=== PATIENT | male | born 1945 | race Caucasian/White ===

== ENCOUNTER → 2018-02-22 06:33 | Outpatient (CLI) | payer MEDICARE, SELFPAY ==
[2018-02-22 08:49] LABS: Cholesterol 122 mg/dL (140-199); HDL Cholesterol 50 mg/dL (40-60); LDL Cholesterol Calculated 61 mg/dL (<100); Triglycerides 57 mg/dL (35-150)
== END ==
PROVIDERS: Family Provider Family Medicine; PCP Family Medicine; Visit Provider Internal Medicine Cardiovascular Disease
DX: I25.10 Atherosclerotic heart disease of native coronary artery without angina pectoris (principal)
CPT/HCPCS: 36415; 80061

== ENCOUNTER → 2018-04-15 14:34 | Outpatient (CLI) | payer MEDICARE, SELFPAY ==
--- NOTE | 2018-04-15 | DI.CT.S_ITS ---
PROCEDURE: CT SOFT TISSUE NECK W CON INDICATIONS: NECK PAIN TECHNIQUE: After the administration of intravenous contrast, 3.0 mm axial sections acquired from the sella to the aortic arch. Additional oblique axial 3.0 mm sections acquired through the pharynx. 3 mm thick coronal and sagittal reformats were generated. For radiation dose reduction, the following was used: automated exposure control. COMPARISON: None. FINDINGS: Image quality: Excellent. Lymph nodes: No enlarged lymph nodes seen throughout the neck. Vessels: Visualized vasculature appears patent. Neck spaces: The oropharynx, nasopharynx, and pharynx demonstrate no mucosal lesions. The vocal cords, false vocal cords, pyriform sinuses, epiglottis, vallecula, and tongue base all appear normal. There is a 3.1 x 2.5 x 3.3 cm soft tissue density mass with subtle, ill-defined peripheral post contrast-enhancement in the right submandibular space anterior to the right submandibular gland. Inflammatory stranding is noted adjacent to the lesion. The right submandibular gland is not significantly enlarged. Mild inflammatory changes are noted in the anterior margin of the gland where the gland abuts the right submandibular mass. Right submandibular duct is not dilated. Glands: The parotid glands appear normal. The left submandibular gland is normal. Right submandibular gland as described above. Thyroid gland contains a 1.3 cm heterogeneously enhancing nodule in the left lobe. Miscellaneous: Visualized brain and orbits appear normal. Lung apices appear clear. Superficial soft tissues appear normal. Bones: No suspicious bony lesions. Mucosal thickening noted in the maxillary sinuses bilaterally. mastoids appear unremarkable. IMPRESSION: 1. 3.1 x 2.5 x 3.3 cm soft tissue density mass with ill-defined peripheral post contrast-enhancement in the right submandibular space. Finding may represent inflammatory phlegmon or neoplastic process. 2. No evidence of sialolithiasis or submandibular duct dilatation. 3. 1.3 cm left thyroid nodule. Recommend thyroid ultrasound for definitive characterization. 4. Bilateral maxillary sinus mucosal thickening. 5. Ordering physician Dr. Falcon was telephoned with the results. No individual was available to take the call at the time of study interpretation. Message was left on the ordering physicians answering machine with a call back number on 04/15/2018 at 1559 hrs. Dictated by: Elise Dyer MD, PhD on 04/15/2018 at 15:52 Approved by: Elise Dyer MD, PhD on 04/15/2018 at 16:03
[2018-04-15 15:07] LABS: BUN Creatinine Ratio 23.8 (6-22); Blood Urea Nitrogen 31 mg/dL (9-20); Estimated Glomerular Filt Rate 54.3 mL/min (>60)
== END ==
PROVIDERS: PCP Family Medicine; Visit Provider Dentist Oral and Maxillofacial Surgery
DX: K11.5 Sialolithiasis (principal)
CPT/HCPCS: 36415; 70491; 82565; 84520; Q9967

== ENCOUNTER → 2018-05-07 08:34 | Outpatient (CLI) | payer MEDICARE, SELFPAY | PROVIDERS: PCP Family Medicine; Visit Provider Urology | DX: R97.20 Elevated prostate specific antigen [PSA] (principal) | CPT/HCPCS: 36415; 84153 ==

== ENCOUNTER → 2018-07-08 07:19 | Outpatient (CLI) | payer MEDICARE, SELFPAY ==
--- NOTE | 2018-07-08 07:20 | DI.RAD.S_ITS ---
PROCEDURE: XR HIP W PEL IF DONE LT 2V INDICATIONS: L hip pain TECHNIQUE: AP pelvis with lateral view(s) of the left hip(s). COMPARISON: None. FINDINGS: Bones: No fractures or dislocations. Pelvic ring appears intact. No suspicious bony lesions. Soft tissues: The visualized bowel gas pattern is normal. No suspicious soft tissue calcifications. IMPRESSION: No acute radiographic findings. If there is continued pain, followup exam or additional imaging such as MRI or CT could be performed for further assessment. Dictated by: Connie Villa M.D. on 07/08/2018 at 8:31 Approved by: Connie Villa M.D. on 07/08/2018 at 8:32
== END ==
PROVIDERS: Family Provider Family Medicine; PCP Family Medicine; Visit Provider Family Medicine
DX: M25.552 Pain in left hip (principal)
CPT/HCPCS: 73502

== ENCOUNTER → 2018-12-27 07:32 | Outpatient (CLI) | payer MEDICARE, SELFPAY ==
--- NOTE | 2018-12-27 07:34 | DI.US.S_ITS ---
PROCEDURE: US ABDOMEN LIMITED INDICATIONS: RIGHT GROIN PAIN; POSSIBLE HERNIA TECHNIQUE: Real-time focused scanning was performed of the abdomen, with image documentation. COMPARISON: None. FINDINGS: Focused ultrasound examination of right groin shows no soft tissue mass or fluid collection. No herniated bowel loop is seen. IMPRESSION: No evidence of inguinal hernia or soft tissue mass. Dictated by: Artie Jennings M.D. on 12/27/2018 at 9:38 Approved by: Artie Jennings M.D. on 12/27/2018 at 9:39
== END ==
PROVIDERS: Family Provider Family Medicine; PCP Family Medicine; Visit Provider Physician Assistant
DX: R10.31 Right lower quadrant pain (principal)
CPT/HCPCS: 76705

== ENCOUNTER → 2019-01-16 14:37 | Outpatient (CLI) | payer MEDICARE, SELFPAY ==
--- NOTE | 2019-01-16 14:39 | DI.US.S_ITS ---
PROCEDURE: US ABDOMEN LIMITED INDICATIONS: EVALUATE FOR HERNIA RIGHT GROIN TECHNIQUE: Real-time focused scanning was performed of the abdomen, with image documentation. COMPARISON: [facility], CT, IVP (ABD & PEL WWO CONTRAST), 12/03/2015, 9:02. [facility], US, US ABDOMEN LIMITED, 12/27/2018, 7:45. FINDINGS: Scanning is performed at the area of pain involving the right groin. At this site, there is a hernia seen which contains bowel and a small amount of omental fat. The bowel is compressible. The abdominal wall defect measures approximately 2.2 cm. IMPRESSION: There is a right groin hernia seen, which contains fat and compressible bowel. If clinically appropriate, please consider a dedicated repeat CT study with IV and oral contrast for further evaluation. Dictated by: Clyde Hammer M.D. on 01/16/2019 at 16:38 Approved by: Clyde Hammer M.D. on 01/16/2019 at 16:39
== END ==
PROVIDERS: PCP Family Medicine; Visit Provider Family Medicine
DX: K40.90 Unilateral inguinal hernia, without obstruction or gangrene, not specified as recurrent (principal)
CPT/HCPCS: 76705

== ENCOUNTER 2019-03-06 07:41 | Day surgery (SDC) | payer MEDICARE, SELFPAY ==
[2019-02-27 15:05] VITALS: BMI 29.7
[2019-03-06] VITALS (10 sets, daily range): BP systolic 131–175; BP diastolic 63–82; PULSE 46–60; RESP 12–16; TEMP 36.1–37.2; O2SAT 96–100; BMI 29.7
[2019-03-06] MEDS: LACTATED RINGERS 1,000 ML 100 ML IV (08:15)
--- NOTE | 2019-03-06 09:15 | PM.PREOP ---
Pre-operative Note Interval Note History & Physical reviewed/Exam performed by Physician: Yes Changes to H&P: No
[2019-03-06] MEDS: CEFAZOLIN 2 GM/100 ML FROZ.PIGGY IV (09:43)
[2019-03-06] MEDS: BUPIVACAINE 0.5% (PF) VIAL 30 ML INJ (09:57)
--- NOTE | 2019-03-06 10:16 | SUR.OPER ---
Supine on padded OR bed, head on pillow, arms secured on padded arm boards at <90 degrees abduction, legs uncrossed, safety belt at thigh.
[2019-03-06] MEDS: fentaNYL 100 MCG/2 ML INJ 50 MCG IV ×2 (11:15→11:21)
[2019-03-06] MEDS: OXYCODONE/ACETAMINOPHEN 5/325 TABLET 1 TAB PO (11:16)
--- NOTE | 2019-03-06 11:31 | PM.OP.1 ---
Operative Date/Time/Diagnoses Date of procedure: 03/06/19 Time of procedure: 11:00 Pre-op diagnosis: Right inguinal hernia reducible Post-op diagnosis: same (Principally an indirect hernia.) Procedure & Clinicians Procedure: Repair with plug and patch technique Same procedure as scheduled: Yes Indications: Symptomatic right inguinal hernia Surgeon: Hernesto Wolfe Click Yes if Unassisted: Yes Anesthesia Type: General Operative Notes Findings: Large indirect sac. Closure Type: primary Specimen(s): none sent Prosthetic devices, grafts, tissues, transplants, or devices: Mesh Estimated Blood Loss (mL): 5 Blood products transfused: none Procedure in detail: The patient was placed supine on the operating room table and underwent general LMA anesthesia. He was prepped and draped in the usual fashion. A transverse incision was made overlying the internal ring and carried down to the level of the external oblique. The external oblique was opened parallel with its fibers through the external ring. The cord structures were elevated. The cremaster was opened proximally and search made for an indirect sac. One was identified and from surrounding structures. It was opened and found to have adhesed fat in it. This was taken down with cautery and reduced into the abdomen. Using a 2 0 silk pursestring was then performed to close the sac followed by a tie. A medium plug was placed in the defect created and tacked into place with interrupted Ethibond suture. The cremaster was closed with 3 0 Vicryl.. The floor was examined and was found to be somewhat weakened proximally near the internal ring. It was allowing fat to protrude from the preperitoneal space down into the cord. I placed sutures of 0 Ethibond from the ileopubic tract to transversalis to reapproximate the internal ring and narrow it said that this fat would stay in the preperitoneal space.. A patch was placed across the floor and tacked at the pubic tubercle, the posterior lamella of the anterior rectus sheath, the ilioinguinal ligament, and superior lateral to the cord. The opening was modified as necessary to prevent tight constriction of the cord. Sutures of 0 Tycron were used to secure the mesh. The external oblique was closed with a running 3 0 Vicryl. The subcu was closed with interrupted 3 0 Polysorb. The skin was closed with a running 4 0 Vicryl subcuticular stitch and Steri-Strips. Dressing was applied, the patient was awakened, and the patient was taken to the recovery area in good condition. Complications: none Post-operative Condition: stable Disposition: PACU
== END 2019-03-06 12:32 | disposition home or self-care (01) ==
LOC: OR 07:44
PROVIDERS: PCP Family Medicine; Visit Provider Specialist
PROC: (CPT 49505; principal; 2019-03-06 09:00)
DX: K40.90 Unilateral inguinal hernia, without obstruction or gangrene, not specified as recurrent (principal)
CPT/HCPCS: 49505; C1781; J0690; J2405; J2704; J3010

== ENCOUNTER → 2019-04-13 06:25 | Outpatient (CLI) | payer MEDICARE, SELFPAY ==
--- NOTE | 2019-04-13 | DI.ECHO.S_ITS ---
[facility]---------+ [facility] +---------+ : : [address] : : : : [id number] : : : : Phone: [phone]+ Echocardiogram Report + + :Name: MARLENE ARTHUR Study Date: 04/13/2019 Height: 67.5 in: :[facility] Weight: 192 lb : : Gender: Male BSA: 2.0 m2 : :: 1945 Age: 74 yrs BP: 142/86 mmHg: :Reason For Study: Aortic valve stenosis : : Performed By: [facility] Staff : :Referring: QUYNH DOSHI : + + Interpretation Summary The left ventricular ejection fraction is normal. There are no obvious focal wall motion abnormalities noted but poor endocardial definition reduces the sensitivity for the detection of such. The right ventricle is normal in size and function. There is mild to moderate aortic stenosis. The calculated aortic valve area is 1.5 cm2. The peak aortic velocity is 2.71 m/sec.The aortic valve mean gradient is 16 mmHg. Compared to the prior echo study, there has been no change in the severity of aortic stenosis. The ascending aorta is mildly enlarged. This is unchanged compared to the previous study. Overall these findings are similar to the prior echocardiogram. Procedure: A two-dimensional transthoracic echocardiogram with color flow and Doppler was performed. The study quality was technically adequate. Prior echo performed on 02/25/18. The patient was in a bradycardic rhythm during the exam. Left Ventricle: The left ventricle is normal in size. Left ventricular wall thickness is mildly increased. The ejection fraction is estimated to be 60- 65%. The left ventricular ejection fraction is normal. There are no obvious focal wall motion abnormalities noted but poor endocardial definition reduces the sensitivity for the detection of such. Diastolic function could not be accurately assessed due to contradictory data. Right Ventricle: The right ventricle is normal in size and function. TAPSE 2cm. Atria: The left atrium is moderately dilated. Right atrial size is normal. There is no Doppler evidence for an interatrial shunt. Mitral Valve: The mitral valve leaflets appear mildly thickened, but open well. There is no mitral regurgitation noted. Aortic Valve: The aortic valve is moderately calcified. A bicuspid valve is not excluded. There is mild to moderate aortic stenosis. The calculated aortic valve area is 1.5 cm2. The peak aortic velocity is 2.71 m/sec. The aortic valve mean gradient is 16 mmHg. Compared to the prior echo study, there has been no change in the severity of aortic stenosis. The peak aortic velocity on the previous exam was 2.6 m/sec. There is mild to moderate aortic regurgitation. Tricuspid Valve: The tricuspid valve is normal in structure and function. There is trace tricuspid regurgitation. Pulmonary artery pressures cannot be estimated because of the lack of a measurable TR jet velocity. Pulmonic Valve: The pulmonic valve is normal in structure and function. There is trace pulmonic regurgitation. Great Vessels: The aortic root is mildly dilated. The ascending aorta is mildly enlarged. The aortic arch is mildly enlarged. This is unchanged compared to the previous study. The pulmonary artery is normal size. The IVC is of normal diameter and collapses greater than 50% with a sniff. This suggests a low right atrial pressure of 3 mm Hg. Pericardium/ Pleura There is no pericardial effusion. There is no pleural effusion. MMode/2D Measurements & Calculations LVIDd: 4.4 cm LVOT diam: 2.1 cm LVIDs: 2.9 cm Ao root diam: 4.2 cm FS: 34.7 % Aortic Jxn: 3.8 cm EPSS: 0.42 cm asc Aorta Diam: 4.4 cm IVSd: 1.4 cm LVPWd: 1.2 cm LV anaya. diameter/BSA (cm/m^2): 2.2 LV sys. diameter/BSA (cm/m^2): 1.4 LA A2 area: 18.9 cm2 RA long axis: 5.7 cm LA A4 area: 24.7 cm2 RA area: 13.2 cm2 LA length (vol): 5.7 cm RA vol: 25.9 ml LA vol: 69.9 ml RA : 12.9 ml/m2 LA vol index: 35.0 ml/m2 TAPSE: 2.0 cm Doppler Measurements & Calculations Ao V2 max: 271.2 cm/sec LVOT Max Shay: 97.7 cm/sec Ao V2 mean: 186.4 cm/sec LV V1 max P.8 mmHg Ao max P.4 mmHg LV V1 VTI: 27.7 cm Ao mean P.4 mmHg SARA(I,D): 1.5 cm2 Ao V2 VTI: 67.8 cm SARA(V,D): 1.3 cm2 sev ratio: 0.41 SARA indexed to BSA (cm^2/m^2): 0.73 MV E max shay: 76.6 cm/sec PA V2 max: 56.3 cm/sec MV A max shay: 65.4 cm/sec PA V2 mean: 36.8 cm/sec MV E/A: 1.2 PA mean P.66 mmHg Med Peak E' Shay: 4.4 cm/sec JOLENE Accel Time: 0.13 sec E/E' med: 17.3 Lat Peak E' Shay: 7.5 cm/sec E/E' lat: 10.3 E/e' average: 13.8 MV dec time: 0.19 sec SV(LVOT): 98.7 ml Electronically signed by: Quynh Doshi M.D. on Reading Physician:04/16/2019 11:27 PM
== END ==
PROVIDERS: PCP Family Medicine; Visit Provider Hospitalist
DX: I35.2 Nonrheumatic aortic (valve) stenosis with insufficiency (principal); I77.89 Other specified disorders of arteries and arterioles
CPT/HCPCS: 93306

== ENCOUNTER → 2019-10-11 06:50 | Outpatient (CLI) | payer MEDICARE, SELFPAY ==
[2019-10-11 08:19] LABS: Cholesterol 133 mg/dL (140-199); HDL Cholesterol 51 mg/dL (40-60); LDL Cholesterol Calculated 70 mg/dL (<100); Triglycerides 58 mg/dL (35-150)
== END ==
PROVIDERS: PCP Family Medicine; Referring Provider Hospitalist; Visit Provider Hospitalist
DX: E78.5 Hyperlipidemia, unspecified (principal)
CPT/HCPCS: 36415; 80061

== ENCOUNTER → 2019-10-25 06:54 | Outpatient (CLI) | payer MEDICARE, SELFPAY ==
--- NOTE | 2019-10-25 06:59 | DI.RAD.S_ITS ---
PROCEDURE: XR KNEE RT 3V INDICATIONS: right knee pain TECHNIQUE: 3 views of the knee were acquired. COMPARISON: None. FINDINGS: Bones: No fractures or dislocations. No suspicious bony lesions. Scattered degenerative subchondral sclerosis and spurring. Mild lateral patellar tilt. Minimal narrowing of the medial joint space. Soft tissues: No joint effusion. No suspicious soft tissue calcifications. Scattered vascular calcifications incidentally noted. IMPRESSION: Mild right knee joint degeneration. If the patient's pain or other symptoms persist, consider further evaluation with MRI Dictated by: Russel Peterson M.D. on 10/25/2019 at 9:46 Approved by: Russel Peterson M.D. on 10/25/2019 at 9:56
--- NOTE | 2019-10-25 06:59 | DI.RAD.S_ITS ---
PROCEDURE: XR HIP W PEL IF DONE LT 2V INDICATIONS: right knee pain TECHNIQUE: AP pelvis with lateral view(s) of the left hip(s). COMPARISON: [facility], , XR HIP W PEL IF DONE LT 2V, 07/08/2018, 7:24. FINDINGS: Bones: No fractures or dislocations. Pelvic ring appears intact. No suspicious bony lesions. Lower lumbar spondylosis and facet arthropathy. Superior joints appear grossly intact. Mild bilateral hip degeneration, left slightly greater than right although unchanged. Degenerative sclerosis present at the pubis symphysis. Soft tissues: The visualized bowel gas pattern is normal. No suspicious soft tissue calcifications. IMPRESSION: Mild bilateral hip joint degeneration, left slightly greater than right although no interval change since 07/08/18. Lumbar spondylosis Dictated by: Russel Peterson M.D. on 10/25/2019 at 9:43 Approved by: Russel Peterson M.D. on 10/25/2019 at 9:46
[2019-10-25 09:13] LABS: Add Manual Diff / Slide Review NO; Basophils Absolute Auto 100 /uL (0-100); Eosinophils Absolute Auto 200 /uL (0-450); Eosinophils Percent Auto 3.9 % (2-4); Hemoglobin 14.1 g/dL (13.5-17.5); Lymphocytes Absolute Auto 1100 /uL (1100-4500); Mean Corpuscular HGB Conc 35.3 % (30-36); Mean Corpuscular Hemoglobin 31.9 PG (26-34); Mean Corpuscular Volume 90.5 fL (80-100); Monocytes Absolute Auto 700 /uL (0-900); Monocytes Percent Auto 11.9 % (3-14); Neutrophils Absolute Auto 3900 /uL (1500-7000); Neutrophils Percent Auto 65.2 % (50-75); Platelet Count 253 X10^3/uL (150-400); Red Blood Cell Count 4.42 X10^6/uL (4.5-5.9); Red Cell Distribution Width 13.1 % (11.6-14.8)
[2019-10-25 09:45] LABS: Alanine Aminotransferase 22 IU/L (<50); Albumin 4.1 g/dL (3.5-5.0); Albumin Globulin Ratio 1.6 (1.0-2.8); Alkaline Phosphatase 57 U/L (38-126); Aspartate Aminotransferase 26 IU/L (17-59); BUN Creatinine Ratio 30.6 (6-22); Bilirubin Total 0.6 mg/dL (0.2-1.3); Blood Urea Nitrogen 30 mg/dL (9-20); Calcium 9.6 mg/dL (8.4-10.2); Carbon Dioxide 29 mmol/L (22-32); Chloride 101 mmol/L (98-107); Estimated Glomerular Filt Rate > 60.0 mL/min (>60); Globulin 2.5 g/dL (1.7-4.1); Glucose 93 mg/dL (80-110); HEMOLYSIS < 15 (0-50); Potassium 4.2 mmol/L (3.4-5.1); Sodium 137 mmol/L (137-145); Total Protein 6.6 g/dL (6.3-8.2)
[2019-10-25 10:14] LABS: Prostate Specific Antigen 3.71 ng/mL (0.10-4.00)
== END ==
PROVIDERS: PCP Internal Medicine; Referring Provider Internal Medicine; Visit Provider Internal Medicine
DX: M25.552 Pain in left hip (principal); M16.0 Bilateral primary osteoarthritis of hip; M47.816 Spondylosis without myelopathy or radiculopathy, lumbar region; M25.561 Pain in right knee; M17.11 Unilateral primary osteoarthritis, right knee; E78.2 Mixed hyperlipidemia; I10 Essential (primary) hypertension; I25.10 Atherosclerotic heart disease of native coronary artery without angina pectoris; R97.20 Elevated prostate specific antigen [PSA]
CPT/HCPCS: 36415; 73502; 73562; 80053; 84153; 85025

== ENCOUNTER 2020-02-07 08:15 | Outpatient (RCR) | payer MEDICARE, SELFPAY ==
--- NOTE | 2019-11-01 16:08 | PT.OIE ---
Current Diagnoses Unilateral primary osteoarthritis, unspecified hip (11/01/19) Unilateral primary osteoarthritis, right knee (11/01/19) Past Medical History (Last Reviewed 10/24/19 @ 14:58 by Rajan Cash MD) Aortic stenosis (Chronic) BPH w urinary obs/LUTS (Chronic) CAD (coronary artery disease) (Chronic ~2018) Elevated PSA (Chronic) Enlarged prostate (Acute) Hematuria (Chronic) Mass (Acute ~10/2018) Urinary frequency (Acute) Past Surgical History (Last Reviewed 10/24/19 @ 14:58 by Rajan Cash MD) Hx of cardiac catheterization (Acute) Hx of heart artery stent (Acute) Hx of hernia repair (Acute ~05/2017) S/P right coronary artery (RCA) stent placement (Acute ~01/2018) Visit Care Team Role Provider Type Rajan Cash MD Attending Provider Physician Primary Care Provider Referring Provider Specialty: Internal Medicine Address: [address] [place] [address] Email: [email or web address] Physical Therapy Initial Evaluation PT-OP-A Visit Information Start: 10/31/19 16:17 Freq: Status: Active Protocol: Document 11/01/19 09:02 MILLY (Rec: 11/01/19 09:35 [facility] [id number]) Out-Patient Physical Therapy Visit Information Visit Information Visit Type Initial Evaluation Visit Start Time 09:00 Visit Stop Time 09:56 Total Visit Minutes 56 Visit Number 1 PT-OP-B Current Condition Start: 10/31/19 16:17 Freq: Status: Active Protocol: Document 11/01/19 09:02 SAK (Rec: 11/01/19 09:35 [facility] [id number]) Current Condition History of Current Condition Onset Date few years History of Current Condition history of hip pain for several years, right knee pain for about 6 months; persistent and Not able to walk around [place] anymore, has to walk level ground. No other exercises besides walking for hips and knees, does a few exercises previously given for LBP. No use of ice or heat. Tried a brace on his knee with velcroe straps; didn't seem to make much difference. Prior history of right knee pain with no known mechanism of injury then or now. Pain worse with standing and walking. 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 retired Current Functional Impairments (Reported) Functional Limitations- ADL's painful Functional Limitations- Mobility/Gait painful, unable to walk usual distance or difficulty ( incline) PT-OP-C Subjective Start: 10/31/19 16:17 Freq: Status: Active Protocol: Document 11/01/19 09:02 [facility] (Rec: 11/01/19 10:07 [facility] [id number]) Patient Questionnaires Lower Extremity Functional Scale LEFS Score 49 OP-PT Pain Assessment Pain Assessment Grid Paper Pain Assessment Grid Completed Yes Location left hip, right knee Pain Location Details medial joint line right knee, lateral left hip Intensity 3 Description Aching,Tightness,With Movement Frequency with walking and standing Radiating Location none Pain Aggravating Factors Standing,Walking Pain Alleviating Factors Inactivity PT-OP-F Manual Assessment Start: 10/31/19 16:17 Freq: Status: Active Protocol: Document 11/01/19 09:02 [facility] (Rec: 11/01/19 10:17 [facility] [id number]) Manual Assessments Soft Tissue Assessment Soft Tissue Mobility Assessment palpable tightness bilateral quads, IT bands, hamstrings Joint Mobility Assessment Joint Mobility Assessment decreased in all motions hip and knees PT-OP-G Mobility & Gait Start: 10/31/19 16:17 Freq: Status: Active Protocol: Document 11/01/19 09:02 [facility] (Rec: 11/01/19 10:17 [facility] [id number]) OP Mobility Evaluation Transfers Sit to Stand independent OP Gait Assessment Gait Gait Assistance Required: Independent Assistive Devices Assistive Device None Orthotic/Prosthetic Devices or Brace: No Gait Deviations General Gait Pattern Antalgic Factors Limiting Gait Function Factors Limiting Gait Function Limited Range of Motion,Pain PT-OP-K Range of Motion Start: 10/31/19 16:17 Freq: Status: Active Protocol: Document 11/01/19 09:02 [facility] (Rec: 11/01/19 10:17 [facility] [id number]) Lumbar Spine Range of Motion Lumbar Spine Active Testing Position Standing ROM Limitations Soft Tissue Tightness Comments decreased all motions with c/o tightness Hip Goniometric Range of Motion Hip adilene Hip ROM WFL No Extension 5 Internal Rotation 14 External Rotation 45 Hip ROM Limitations Hip ROM Limitations Soft Tissue Tightness Comments Mod tightness bilateral IT band right greater than left, [place] hamstrings right greater than left (PSLR left 65, right 55) , [place] quads (prone knee flex 85 left, 80 right), hip IR and ER Knee Goniometric Range of Motion Knee ad[place] Knee ROM WFL No Knee ROM Limitations Knee ROM Limitations Soft Tissue Tightness,Bony Restriction Comments Left knee extension -6 otherwise WFL Ankle and Foot Goniometric Range of Motion Ankle and Foot [place] Dorsiflexion with Knee Flexed 5 Dorsiflexion with Knee Extended 0 Ankle and Foot ROM Limitations ROM Limitations Soft Tissue Tightness PT-OP-M Strength Start: 10/31/19 16:17 Freq: Status: Active Protocol: Document 11/01/19 09:02 [facility] (Rec: 11/01/19 14:18 [facility] [id number]) Hip Strength Hip Manual Muscle Testing [place] Flexion (L2) 4 Good Extension (S1) 4- Good- Abduction 4 Good External Rotation 4- Good- Internal Rotation 4 Good Knee Strength Knee Manual Muscle Testing Left Flexion (S2) 5 Normal Extension (L3) 5 Normal Right Flexion (S2) 4 Good Extension (L3) 4 Good Ankle/Foot Strength Ankle and Foot Manual Muscle Testing ad[place] Dorsiflexion (L4) 5 Normal Plantarflexion (S1) 5 Normal PT-OP-Q Treatments Start: 10/31/19 16:17 Freq: Status: Active Protocol: Document 11/01/19 09:02 [facility] (Rec: 11/01/19 14:18 [facility] [id number]) Self-Care/Home Management Treatment Education Patient Education Home Exercise Program,Pain Management PT-OP-R Modalities Start: 10/31/19 16:17 Freq: Status: Active Protocol: Document 11/01/19 09:02 [facility] (Rec: 11/01/19 14:19 [facility] [id number]) Hot Pack/Cold Pack Treatment Hot Pack Location left hip, right knee Patient Position Hooklying Treatment Duration (minutes) 15 Patient Tolerance Good PT-OP-T Assessment and Plan Start: 10/31/19 16:17 Freq: Status: Active Protocol: Document 11/01/19 09:02 [facility] (Rec: 11/01/19 16:06 [facility] [id number]) Physical Therapy Assessment Rehab Potential Rehabilitation Potential Good Evaluation Complexity Number of Personal Factors/Comorbidities 1-2 Number of Body Systems Impaired 3 Clinical Presentation at Evaluation Evolving Impairments Impairments Functional Mobility,Pain,ROM Goals Four Impairment weakness bilateral hip ext 4-/ 5 Assisted Goal (LTG) Patient will demonstrate improvement in bilateral hip extension to at least 4+/5 for improved hip function LTG Duration 12/31/19 Three Impairment soft tissue tightness Assisted 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 Soft tissue tightness throughout his hips including quadriceps, hamstrings IT bands, and piriformis as well as gluteal weakness appear to be contributing. Feel he would benefit from physical therapy for therapeutic exercise, manual techniques, modalities as needed for pain to improve his soft tissue flexibility and strength to facilitate a return to a more active lifestyle. Physical Therapy Plan Frequency and Duration Frequency of Treatment 2x/Week Duration of Treatment 8 Plan of Care Start Date 11/01/19 Plan of Care End Date 12/31/19 Therapeutic Interventions Therapeutic Interventions Home Exercise Program,Joint Mobilizations,Manual Therapy, Patient/Caregiver Education, Self-Care/Home Management,Soft Tissue Mobilization,Taping, Therapeutic Activities, Therapeutic Exercises Modalities Cold Pack/Ice Massage,Electric Stimulation,Hot Packs, Ultrasound Next Visit Focus/Plan Next Note Type Treatment Note Next Visit Plan Review HEP, progress as tolerated. Manual therapy to IT band, quads, hamstrings. Consider knee taping with kinesiotape.
--- NOTE | 2019-11-01 16:09 | PT.OPPOC ---
Physical, Occupational & Speech Therapy At [facility] Current Diagnoses Unilateral primary osteoarthritis, unspecified hip (11/01/19) Unilateral primary osteoarthritis, right knee (11/01/19) Visit Care Team Role Provider Type Rajan Cash MD Attending Provider Physician Primary Care Provider Referring Provider Specialty: Internal Medicine Address: [address] [place] [address], [address], [facility] Email: [email or web address] Plan Of Care PT-OP-T Assessment and Plan Start: 10/31/19 16:17 Freq: Status: Active Protocol: Document 11/01/19 09:02 MILLY (Rec: 11/01/19 16:06 MILLY [id number]) Physical Therapy Assessment Rehab Potential Rehabilitation Potential Good Evaluation Complexity Number of Personal Factors/Comorbidities 1-2 Number of Body Systems Impaired 3 Clinical Presentation at Evaluation Evolving Impairments Impairments Functional Mobility,Pain,ROM Goals Four Impairment weakness bilateral hip ext 4-/ 5 Mcc Goal (LTG) Patient will demonstrate improvement in bilateral hip extension to at least 4+/5 for improved hip function LTG Duration 12/31/19 Three Impairment soft tissue tightness Mcc 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 LTG Duration 12/31/19 Two Impairment patient not able to go for usual walks Motor Vehicles Inspector Goal (LTG) Patient will be able to resume his usual walks around [place] without difficulty LTG Duration 12/31/19 One Impairment pain right knee and left hip 3 -5/10 on pain scale Motor Vehicles Inspector Goal (LTG) decrease c/o pain to no greater than 1-2/10 with all usual activities LTG Duration 12/31/19 Assessment Summary Assessment Patient presents with left hip and right knee pain with signs and symptoms consistent with underlying arthritis. Soft tissue tightness throughout his hips including quadriceps, hamstrings IT bands, and piriformis as well as gluteal weakness appear to be contributing. Feel he would benefit from physical therapy for therapeutic exercise, manual techniques, modalities as needed for pain to improve his soft tissue flexibility and strength to facilitate a return to a more active lifestyle. Physical Therapy Plan Frequency and Duration Frequency of Treatment 2x/Week Duration of Treatment 8 Plan of Care Start Date 11/01/19 Plan of Care End Date 12/31/19 Therapeutic Interventions Therapeutic Interventions Home Exercise Program,Joint Mobilizations,Manual Therapy, Patient/Caregiver Education, Self-Care/Home Management,Soft Tissue Mobilization,Taping, Therapeutic Activities, Therapeutic Exercises Modalities Cold Pack/Ice Massage,Electric Stimulation,Hot Packs, Ultrasound Next Visit Focus/Plan Next Note Type Treatment Note Next Visit Plan Review HEP, progress as tolerated. Manual therapy to IT band, quads, hamstrings. Consider knee taping with kinesiotape. Plan of Care Dates Plan of Care Start Date 11/01/19 Plan of Care End Date 12/31/19 Electronically Signed by: Vanessa Dove, PT 11/01/19 0596 Please Sign and Return: I have reviewed this Plan of Care and certify that the skilled therapy services above are required to meet the patient?s needs. Physician Signature Date Printed Name and Credentials Clinical Instructor Signature Printed Name and Credentials
--- NOTE | 2019-11-06 16:15 | PT.OTN ---
Current Diagnoses Unilateral primary osteoarthritis, unspecified hip (11/06/19) Unilateral primary osteoarthritis, right knee (11/06/19) Physical Therapy Treatment Note PT-OP-A Visit Information Start: 10/31/19 16:17 Freq: Status: Active Protocol: Document 11/06/19 08:13 SAK (Rec: 11/06/19 09:02 SAK [id number]) Out-Patient Physical Therapy Visit Information Visit Information Visit Type Treatment Note Visit Note Reports his low back is really hurting him today. Wonders if he is doing himself more harm than good, trying to continue to walk. States right knee seems like its getting a little worse. Visit Start Time 08:15 Visit Stop Time 09:10 Total Visit Minutes 55 Visit Number 2 PT-OP-B Current Condition Start: 10/31/19 16:17 Freq: Status: Active Protocol: Document 11/06/19 08:13 SAK (Rec: 11/06/19 09:02 [facility] [id number]) Current Condition History of Current Condition Onset Date few years History of Current Condition history of hip pain for several years, right knee pain for about 6 months; persistent and Not able to walk around [place] anymore, has to walk level ground. No other exercises besides walking for hips and knees, does a few exercises previously given for LBP. No use of ice or heat. Tried a brace on his knee with velcroe straps; didn't seem to make much difference. Prior history of right knee pain with no known mechanism of injury then or now. Pain worse with standing and walking. Prior Treatments and Tests x-rays: arthritis PT-OP-C Subjective Start: 10/31/19 16:17 Freq: Status: Active Protocol: Document 11/01/19 09:02 [facility] (Rec: 11/01/19 10:07 [facility] [id number]) Patient Questionnaires Lower Extremity Functional Scale LEFS Score 49 OP-PT Pain Assessment Pain Assessment Grid Paper Pain Assessment Grid Completed Yes Location left hip, right knee Pain Location Details medial joint line right knee, lateral left hip Intensity 3 Description Aching,Tightness,With Movement Frequency with walking and standing Radiating Location none Pain Aggravating Factors Standing,Walking Pain Alleviating Factors Inactivity PT-OP-F Manual Assessment Start: 10/31/19 16:17 Freq: Status: Active Protocol: Document 11/01/19 09:02 SAK (Rec: 11/01/19 10:17 [facility] [id number]) Manual Assessments Soft Tissue Assessment Soft Tissue Mobility Assessment palpable tightness bilateral quads, IT bands, hamstrings Joint Mobility Assessment Joint Mobility Assessment decreased in all motions hip and knees PT-OP-G Mobility & Gait Start: 10/31/19 16:17 Freq: Status: Active Protocol: Document 11/01/19 09:02 [facility] (Rec: 11/01/19 10:17 [facility] [id number]) OP Mobility Evaluation Transfers Sit to Stand independent OP Gait Assessment Gait Gait Assistance Required: Independent Assistive Devices Assistive Device None Orthotic/Prosthetic Devices or Brace: No Gait Deviations General Gait Pattern Antalgic Factors Limiting Gait Function Factors Limiting Gait Function Limited Range of Motion,Pain PT-OP-K Range of Motion Start: 10/31/19 16:17 Freq: Status: Active Protocol: Document 11/01/19 09:02 [facility] (Rec: 11/01/19 10:17 [facility] [id number]) Lumbar Spine Range of Motion Lumbar Spine Active Testing Position Standing ROM Limitations Soft Tissue Tightness Comments decreased all motions with c/o tightness Hip Goniometric Range of Motion Hip adil[place] Hip ROM WFL No Extension 5 Internal Rotation 14 External Rotation 45 Hip ROM Limitations Hip ROM Limitations Soft Tissue Tightness Comments Mod tightness bilateral IT band right greater than left, [place] hamstrings right greater than left (PSLR left 65, right 55) , [place] quads (prone knee flex 85 left, 80 right), hip IR and ER Knee Goniometric Range of Motion Knee ad[place] Knee ROM WFL No Knee ROM Limitations Knee ROM Limitations Soft Tissue Tightness,Bony Restriction Comments Left knee extension -6 otherwise WFL Ankle and Foot Goniometric Range of Motion Ankle and Foot ad[place] Dorsiflexion with Knee Flexed 5 Dorsiflexion with Knee Extended 0 Ankle and Foot ROM Limitations ROM Limitations Soft Tissue Tightness PT-OP-M Strength Start: 10/31/19 16:17 Freq: Status: Active Protocol: Document 11/01/19 09:02 [facility] (Rec: 11/01/19 14:18 [facility] [id number]) Hip Strength Hip Manual Muscle Testing [place] Flexion (L2) 4 Good Extension (S1) 4- Good- Abduction 4 Good External Rotation 4- Good- Internal Rotation 4 Good Knee Strength Knee Manual Muscle Testing Left Flexion (S2) 5 Normal Extension (L3) 5 Normal Right Flexion (S2) 4 Good Extension (L3) 4 Good Ankle/Foot Strength Ankle and Foot Manual Muscle Testing [place] Dorsiflexion (L4) 5 Normal Plantarflexion (S1) 5 Normal PT-OP-Q Treatments Start: 10/31/19 16:17 Freq: Status: Active Protocol: Document 11/06/19 08:13 [facility] (Rec: 11/06/19 09:02 SAK [id number]) Cardio Equipment Recumbent Stepper (Sci-Fit) Duration (Minutes) 6 Resistance 1 Seat Position 11 Recumbent Bicycle Duration (Minutes) 5 Resistance 1 Seat Position 3 Gym Equipment Cable Column (Body Solid) hamstring cur Resistance 30 Reps/Time 10x2 Shuttle Recovery Unilateral Squats Resistance 37 Shuttle Recovery Platform Stable Reps/Time 10x2 Bilateral Squats Resistance 50 Shuttle Recovery Platform Stable Reps/Time 10x2 Therapeutic Exercises Supine Exercises IT band stretch Reps/Minutes 1x30 Comments manual HS stretch Reps/Minutes 2x30 Comments manual Sidelying Exercises quad stretch Reps/Minutes 2x30 Comments manual Standing Exercises HC stretch Reps/Minutes 2x30, 10x Comments passive, active hip abd Reps/Minutes 10x Manual Therapy Treatment Soft Tissue Mobilization IT band Mobilization Type Rolling,Sustained Pressure Intensity/Depth Moderate Self-Care/Home Management Treatment Education Patient Education Home Exercise Program,Pain Management PT-OP-R Modalities Start: 10/31/19 16:17 Freq: Status: Active Protocol: Document 11/06/19 08:13 [facility] (Rec: 11/06/19 09:02 [facility] [id number]) Hot Pack/Cold Pack Treatment ice pack Location left hip, right knee, LS Patient Position Hooklying Treatment Duration (minutes) 10 Patient Tolerance Good PT-OP-T Assessment and Plan Start: 10/31/19 16:17 Freq: Status: Active Protocol: Document 11/06/19 08:13 [facility] (Rec: 11/06/19 09:02 [facility] [id number]) Physical Therapy Assessment Goals Four Impairment weakness bilateral hip ext 4-/ 5 Correction Goal (LTG) Patient will demonstrate improvement in bilateral hip extension to at least 4+/5 for improved hip function LTG Duration 12/31/19 Three Impairment soft tissue tightness Correction 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 LTG Duration 12/31/19 Two Impairment patient not able to go for usual walks Correction Goal (LTG) Patient will be able to resume his usual walks around [place] without difficulty LTG Duration 12/31/19 One Impairment pain right knee and left hip 3 -5/10 on pain scale Correction Goal (LTG) decrease c/o pain to no greater than 1-2/10 with all usual activities LTG Duration 12/31/19 Assessment Summary Assessment Patient reported decreased pain after session, liked the exercise machines. No kinesiotape today due to adding ther ex, but may add next session. Physical Therapy Plan Frequency and Duration Frequency of Treatment 2x/Week Duration of Treatment 8 Plan of Care Start Date 11/01/19 Plan of Care End Date 12/31/19 Therapeutic Interventions Therapeutic Interventions Home Exercise Program,Joint Mobilizations,Manual Therapy, Patient/Caregiver Education, Self-Care/Home Management,Soft Tissue Mobilization,Taping, Therapeutic Activities, Therapeutic Exercises Modalities Cold Pack/Ice Massage,Electric Stimulation,Hot Packs, Ultrasound Next Visit Focus/Plan Next Note Type Treatment Note Next Visit Plan Review HEP, progress as tolerated. Manual therapy to IT band, quads, hamstrings. Kinesiotape.
--- NOTE | 2019-11-08 15:09 | PT.OTN ---
Current Diagnoses Unilateral primary osteoarthritis, unspecified hip (11/08/19) Unilateral primary osteoarthritis, right knee (11/08/19) Physical Therapy Treatment Note PT-OP-A Visit Information Start: 10/31/19 16:17 Freq: Status: Active Protocol: Document 11/08/19 08:14 SAK (Rec: 11/08/19 08:53 SAK [id number]) Out-Patient Physical Therapy Visit Information Visit Information Visit Type Treatment Note Visit Note Ransom a little better after last session, likes the exercise machines, core work. Visit Start Time 08:15 Visit Stop Time 09:10 Total Visit Minutes 55 Visit Number 3 PT-OP-B Current Condition Start: 10/31/19 16:17 Freq: Status: Active Protocol: Document 11/06/19 08:13 SAK (Rec: 11/06/19 09:02 SAK [id number]) Current Condition History of Current Condition Onset Date few years History of Current Condition history of hip pain for several years, right knee pain for about 6 months; persistent and Not able to walk around [place] anymore, has to walk level ground. No other exercises besides walking for hips and knees, does a few exercises previously given for LBP. No use of ice or heat. Tried a brace on his knee with velcroe straps; didn't seem to make much difference. Prior history of right knee pain with no known mechanism of injury then or now. Pain worse with standing and walking. Prior Treatments and Tests x-rays: arthritis PT-OP-C Subjective Start: 10/31/19 16:17 Freq: Status: Active Protocol: Document 11/08/19 08:14 SAK (Rec: 11/08/19 15:09 [facility] [id number]) OP-PT Subjective Patient Comments Patient Comments Some improvement noted after last session, likes exercise machines, core work. PT-OP-F Manual Assessment Start: 10/31/19 16:17 Freq: Status: Active Protocol: Document 11/01/19 09:02 [facility] (Rec: 11/01/19 10:17 [facility] [id number]) Manual Assessments Soft Tissue Assessment Soft Tissue Mobility Assessment palpable tightness bilateral quads, IT bands, hamstrings Joint Mobility Assessment Joint Mobility Assessment decreased in all motions hip and knees PT-OP-G Mobility & Gait Start: 10/31/19 16:17 Freq: Status: Active Protocol: Document 11/01/19 09:02 [facility] (Rec: 11/01/19 10:17 [facility] [id number]) OP Mobility Evaluation Transfers Sit to Stand independent OP Gait Assessment Gait Gait Assistance Required: Independent Assistive Devices Assistive Device None Orthotic/Prosthetic Devices or Brace: No Gait Deviations General Gait Pattern Antalgic Factors Limiting Gait Function Factors Limiting Gait Function Limited Range of Motion,Pain PT-OP-K Range of Motion Start: 10/31/19 16:17 Freq: Status: Active Protocol: Document 11/01/19 09:02 [facility] (Rec: 11/01/19 10:17 [facility] [id number]) Lumbar Spine Range of Motion Lumbar Spine Active Testing Position Standing ROM Limitations Soft Tissue Tightness Comments decreased all motions with c/o tightness Hip Goniometric Range of Motion Hip [place] Hip ROM WFL No Extension 5 Internal Rotation 14 External Rotation 45 Hip ROM Limitations Hip ROM Limitations Soft Tissue Tightness Comments Mod tightness bilateral IT band right greater than left, [place] hamstrings right greater than left (PSLR left 65, right 55) , [place] quads (prone knee flex 85 left, 80 right), hip IR and ER Knee Goniometric Range of Motion Knee ad[place] Knee ROM WFL No Knee ROM Limitations Knee ROM Limitations Soft Tissue Tightness,Bony Restriction Comments Left knee extension -6 otherwise WFL Ankle and Foot Goniometric Range of Motion Ankle and Foot [place] Dorsiflexion with Knee Flexed 5 Dorsiflexion with Knee Extended 0 Ankle and Foot ROM Limitations ROM Limitations Soft Tissue Tightness PT-OP-M Strength Start: 10/31/19 16:17 Freq: Status: Active Protocol: Document 11/01/19 09:02 [facility] (Rec: 11/01/19 14:18 [facility] [id number]) Hip Strength Hip Manual Muscle Testing [place] Flexion (L2) 4 Good Extension (S1) 4- Good- Abduction 4 Good External Rotation 4- Good- Internal Rotation 4 Good Knee Strength Knee Manual Muscle Testing Left Flexion (S2) 5 Normal Extension (L3) 5 Normal Right Flexion (S2) 4 Good Extension (L3) 4 Good Ankle/Foot Strength Ankle and Foot Manual Muscle Testing [place] Dorsiflexion (L4) 5 Normal Plantarflexion (S1) 5 Normal PT-OP-Q Treatments Start: 10/31/19 16:17 Freq: Status: Active Protocol: Document 11/08/19 08:14 [facility] (Rec: 11/08/19 08:53 [facility] [id number]) Cardio Equipment Recumbent Stepper (Sci-Fit) Duration (Minutes) 10 Resistance 2 Seat Position 11 Gym Equipment Cable Column (Body Solid) hamstring cur Resistance 30 Reps/Time 10x2 Shuttle Recovery Unilateral Squats Resistance 37 Shuttle Recovery Platform Stable Reps/Time 10x2 Bilateral Squats Resistance 62 Shuttle Recovery Platform Stable Reps/Time 10x2 Therapeutic Exercises Supine Exercises hip ER stretch Reps/Minutes 2x30 figure 4 stretch Reps/Minutes 2x30 IT band stretch Reps/Minutes 1x30 Comments manual HS stretch Reps/Minutes 2x30 Comments manual Sidelying Exercises quad stretch Reps/Minutes 2x30 Comments manual Standing Exercises hip flexor stretch Reps/Minutes 2x30 HC stretch Reps/Minutes 2x30, 10x Comments passive, active Self-Care/Home Management Treatment Education Patient Education Home Exercise Program,Pain Management,Posture PT-OP-R Modalities Start: 10/31/19 16:17 Freq: Status: Active Protocol: Document 11/08/19 08:14 [facility] (Rec: 11/08/19 08:53 [facility] [id number]) Hot Pack/Cold Pack Treatment ice pack Location right knee, lumbar spine Patient Position Hooklying Treatment Duration (minutes) 10 Patient Tolerance Good Comments reports left hip doing ok today. PT-OP-T Assessment and Plan Start: 10/31/19 16:17 Freq: Status: Active Protocol: Document 11/08/19 08:14 [facility] (Rec: 11/08/19 08:53 [facility] [id number]) Physical Therapy Assessment Goals Four Impairment weakness bilateral hip ext 4-/ 5 Nursing Home Goal (LTG) Patient will demonstrate improvement in bilateral hip extension to at least 4+/5 for improved hip function LTG Duration 12/31/19 Three Impairment soft tissue tightness Tableau Lead 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 LTG Duration 12/31/19 Two Impairment patient not able to go for usual walks Tableau Lead Goal (LTG) Patient will be able to resume his usual walks around [place] without difficulty LTG Duration 12/31/19 One Impairment pain right knee and left hip 3 -5/10 on pain scale Nursing Home Goal (LTG) decrease c/o pain to no greater than 1-2/10 with all usual activities LTG Duration 12/31/19 Assessment Summary Assessment Improving exercise and activity tolerance, able to increase resistance on Shuttle leg press. Needs cues for neutral LE alignment with all exercises Physical Therapy Plan Frequency and Duration Frequency of Treatment 2x/Week Duration of Treatment 8 Plan of Care Start Date 11/01/19 Plan of Care End Date 12/31/19 Therapeutic Interventions Therapeutic Interventions Home Exercise Program,Joint Mobilizations,Manual Therapy, Patient/Caregiver Education, Self-Care/Home Management,Soft Tissue Mobilization,Taping, Therapeutic Activities, Therapeutic Exercises Modalities Cold Pack/Ice Massage,Electric Stimulation,Hot Packs, Ultrasound Next Visit Focus/Plan Next Note Type Treatment Note Next Visit Plan Progress therapeutic exercise, manual treatments, kinesiotape to right knee.
--- NOTE | 2019-11-13 10:24 | PT.OTN ---
Current Diagnoses Unilateral primary osteoarthritis, unspecified hip (11/13/19) Unilateral primary osteoarthritis, right knee (11/13/19) Physical Therapy Treatment Note PT-OP-A Visit Information Start: 10/31/19 16:17 Freq: Status: Active Protocol: Document 11/13/19 08:14 SAK (Rec: 11/13/19 09:05 SAK [id number]) Out-Patient Physical Therapy Visit Information Visit Information Visit Type Treatment Note Visit Start Time 08:15 Visit Stop Time 09:10 Total Visit Minutes 55 Visit Number 4 PT-OP-B Current Condition Start: 10/31/19 16:17 Freq: Status: Active Protocol: Document 11/06/19 08:13 SAK (Rec: 11/06/19 09:02 SAK [id number]) Current Condition History of Current Condition Onset Date few years History of Current Condition history of hip pain for several years, right knee pain for about 6 months; persistent and Not able to walk around [place] anymore, has to walk level ground. No other exercises besides walking for hips and knees, does a few exercises previously given for LBP. No use of ice or heat. Tried a brace on his knee with velcroe straps; didn't seem to make much difference. Prior history of right knee pain with no known mechanism of injury then or now. Pain worse with standing and walking. Prior Treatments and Tests x-rays: arthritis PT-OP-C Subjective Start: 10/31/19 16:17 Freq: Status: Active Protocol: Document 11/13/19 08:14 SAK (Rec: 11/13/19 09:05 SAK [id number]) OP-PT Subjective Patient Comments Patient Comments More mobile, can move with less pain. PT-OP-F Manual Assessment Start: 10/31/19 16:17 Freq: Status: Active Protocol: Document 11/01/19 09:02 SAK (Rec: 11/01/19 10:17 SAK [id number]) Manual Assessments Soft Tissue Assessment Soft Tissue Mobility Assessment palpable tightness bilateral quads, IT bands, hamstrings Joint Mobility Assessment Joint Mobility Assessment decreased in all motions hip and knees PT-OP-G Mobility & Gait Start: 10/31/19 16:17 Freq: Status: Active Protocol: Document 11/01/19 09:02 SAK (Rec: 11/01/19 10:17 SAK [id number]) OP Mobility Evaluation Transfers Sit to Stand independent OP Gait Assessment Gait Gait Assistance Required: Independent Assistive Devices Assistive Device None Orthotic/Prosthetic Devices or Brace: No Gait Deviations General Gait Pattern Antalgic Factors Limiting Gait Function Factors Limiting Gait Function Limited Range of Motion,Pain PT-OP-K Range of Motion Start: 10/31/19 16:17 Freq: Status: Active Protocol: Document 11/01/19 09:02 [facility] (Rec: 11/01/19 10:17 [facility] [id number]) Lumbar Spine Range of Motion Lumbar Spine Active Testing Position Standing ROM Limitations Soft Tissue Tightness Comments decreased all motions with c/o tightness Hip Goniometric Range of Motion Hip [place] Hip ROM WFL No Extension 5 Internal Rotation 14 External Rotation 45 Hip ROM Limitations Hip ROM Limitations Soft Tissue Tightness Comments Mod tightness bilateral IT band right greater than left, [place] hamstrings right greater than left (PSLR left 65, right 55) , [place] quads (prone knee flex 85 left, 80 right), hip IR and ER Knee Goniometric Range of Motion Knee [place] Knee ROM WFL No Knee ROM Limitations Knee ROM Limitations Soft Tissue Tightness,Bony Restriction Comments Left knee extension -6 otherwise WFL Ankle and Foot Goniometric Range of Motion Ankle and Foot [place] Dorsiflexion with Knee Flexed 5 Dorsiflexion with Knee Extended 0 Ankle and Foot ROM Limitations ROM Limitations Soft Tissue Tightness PT-OP-M Strength Start: 10/31/19 16:17 Freq: Status: Active Protocol: Document 11/01/19 09:02 [facility] (Rec: 11/01/19 14:18 [facility] [id number]) Hip Strength Hip Manual Muscle Testing [place] Flexion (L2) 4 Good Extension (S1) 4- Good- Abduction 4 Good External Rotation 4- Good- Internal Rotation 4 Good Knee Strength Knee Manual Muscle Testing Left Flexion (S2) 5 Normal Extension (L3) 5 Normal Right Flexion (S2) 4 Good Extension (L3) 4 Good Ankle/Foot Strength Ankle and Foot Manual Muscle Testing [place] Dorsiflexion (L4) 5 Normal Plantarflexion (S1) 5 Normal PT-OP-Q Treatments Start: 10/31/19 16:17 Freq: Status: Active Protocol: Document 11/13/19 08:14 [facility] (Rec: 11/13/19 09:05 [facility] [id number]) Cardio Equipment Recumbent Stepper (Sci-Fit) Duration (Minutes) 10 Resistance 2 Seat Position 11 Gym Equipment Cable Column (Body Solid) single leg hamstring curl Resistance 20 Reps/Time 10x hamstring cur Resistance 30 Reps/Time 10x2 Shuttle Recovery Unilateral Squats Resistance 37 Shuttle Recovery Platform Stable Reps/Time 10x2 Bilateral Squats Resistance 75 Shuttle Recovery Platform Stable Reps/Time 10x2 Therapeutic Exercises Supine Exercises Cyril stretch Reps/Minutes 1x30 [place] HS stretch Reps/Minutes 2x30 Comments manual Standing Exercises squats Reps/Minutes 12x Comments cues for form and muscle activation quad stretch Reps/Minutes 2x30 Comments chair hip flexor stretch Reps/Minutes 2x30 HC stretch Reps/Minutes 2x30, 10x Comments passive, active Gait Training Gait Activity stairs Treatment Focus emphasis on gluteal activation level Distance/Duration 3 min Treatment Focus emphasis on gluteal activation Manual Therapy Treatment Taping 1 Body Location right knee Type of Tape Kinesio Tape Skin Inspection intact Comments 2 Y strips, 50% stretch Self-Care/Home Management Treatment Education Patient Education Home Exercise Program Other Education updated written HEP PT-OP-R Modalities Start: 10/31/19 16:17 Freq: Status: Active Protocol: Document 11/13/19 08:14 [facility] (Rec: 11/13/19 09:05 [facility] [id number]) Hot Pack/Cold Pack Treatment ice pack Location right knee, lumbar spine Patient Position Hooklying Treatment Duration (minutes) 10 Patient Tolerance Good Comments reports left hip doing ok today. PT-OP-T Assessment and Plan Start: 10/31/19 16:17 Freq: Status: Active Protocol: Document 11/13/19 08:14 [facility] (Rec: 11/13/19 09:05 [facility] [id number]) Physical Therapy Assessment Goals Four Impairment weakness bilateral hip ext 4-/ 5 Electrical Technician Instructor Goal (LTG) Patient will demonstrate improvement in bilateral hip extension to at least 4+/5 for improved hip function LTG Duration 12/31/19 Three Impairment soft tissue tightness Electrical Technician Instructor 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 LTG Duration 12/31/19 Two Impairment patient not able to go for usual walks Prison Goal (LTG) Patient will be able to resume his usual walks around [place] without difficulty LTG Duration 12/31/19 One Impairment pain right knee and left hip 3 -5/10 on pain scale Prison Goal (LTG) decrease c/o pain to no greater than 1-2/10 with all usual activities LTG Duration 12/31/19 Assessment Summary Assessment Has difficulty functionally activating gluteal muscles, needs verbal and manual cues. Added squats and standing quad stretch to HEP. Patient is highly compliant to HEP. Physical Therapy Plan Frequency and Duration Frequency of Treatment 2x/Week Duration of Treatment 8 Plan of Care Start Date 11/01/19 Plan of Care End Date 12/31/19 Therapeutic Interventions Therapeutic Interventions Home Exercise Program,Joint Mobilizations,Manual Therapy, Patient/Caregiver Education, Self-Care/Home Management,Soft Tissue Mobilization,Taping, Therapeutic Activities, Therapeutic Exercises Modalities Cold Pack/Ice Massage,Electric Stimulation,Hot Packs, Ultrasound Next Visit Focus/Plan Next Note Type Treatment Note Next Visit Plan Assess response to kinesiotape , Continue progressive therapeutic exercises, further manual therapy as indicated. Consider IFES.
--- NOTE | 2019-11-17 10:46 | PT.OTN ---
Current Diagnoses Unilateral primary osteoarthritis, unspecified hip (11/17/19) Unilateral primary osteoarthritis, right knee (11/17/19) Physical Therapy Treatment Note PT-OP-A Visit Information Start: 10/31/19 16:17 Freq: Status: Active Protocol: Document 11/17/19 09:47 LRN (Rec: 11/17/19 10:28 LRN [id number]) Out-Patient Physical Therapy Visit Information Visit Information Visit Type Treatment Note Visit Start Time 09:47 Visit Stop Time 10:36 Total Visit Minutes 49 Visit Number 5 PT-OP-B Current Condition Start: 10/31/19 16:17 Freq: Status: Active Protocol: Document 11/06/19 08:13 SAK (Rec: 11/06/19 09:02 SAK [id number]) Current Condition History of Current Condition Onset Date few years History of Current Condition history of hip pain for several years, right knee pain for about 6 months; persistent and Not able to walk around [place] anymore, has to walk level ground. No other exercises besides walking for hips and knees, does a few exercises previously given for LBP. No use of ice or heat. Tried a brace on his knee with velcroe straps; didn't seem to make much difference. Prior history of right knee pain with no known mechanism of injury then or now. Pain worse with standing and walking. Prior Treatments and Tests x-rays: arthritis PT-OP-C Subjective Start: 10/31/19 16:17 Freq: Status: Active Protocol: Document 11/17/19 09:47 LRN (Rec: 11/17/19 10:28 LRN [id number]) OP-PT Subjective Patient Comments Patient Comments Getting better. Originally came for R hip and knee, back started to hurt, and that is now 100%. R Knee is the problem. PT-OP-F Manual Assessment Start: 10/31/19 16:17 Freq: Status: Active Protocol: Document 11/01/19 09:02 SAK (Rec: 11/01/19 10:17 SAK [id number]) Manual Assessments Soft Tissue Assessment Soft Tissue Mobility Assessment palpable tightness bilateral quads, IT bands, hamstrings Joint Mobility Assessment Joint Mobility Assessment decreased in all motions hip and knees PT-OP-G Mobility & Gait Start: 10/31/19 16:17 Freq: Status: Active Protocol: Document 11/01/19 09:02 [facility] (Rec: 11/01/19 10:17 [facility] [id number]) OP Mobility Evaluation Transfers Sit to Stand independent OP Gait Assessment Gait Gait Assistance Required: Independent Assistive Devices Assistive Device None Orthotic/Prosthetic Devices or Brace: No Gait Deviations General Gait Pattern Antalgic Factors Limiting Gait Function Factors Limiting Gait Function Limited Range of Motion,Pain PT-OP-K Range of Motion Start: 10/31/19 16:17 Freq: Status: Active Protocol: Document 11/01/19 09:02 [facility] (Rec: 11/01/19 10:17 [facility] [id number]) Lumbar Spine Range of Motion Lumbar Spine Active Testing Position Standing ROM Limitations Soft Tissue Tightness Comments decreased all motions with c/o tightness Hip Goniometric Range of Motion Hip [place] Hip ROM WFL No Extension 5 Internal Rotation 14 External Rotation 45 Hip ROM Limitations Hip ROM Limitations Soft Tissue Tightness Comments Mod tightness bilateral IT band right greater than left, [place] hamstrings right greater than left (PSLR left 65, right 55) , [place] quads (prone knee flex 85 left, 80 right), hip IR and ER Knee Goniometric Range of Motion Knee [place] Knee ROM WFL No Knee ROM Limitations Knee ROM Limitations Soft Tissue Tightness,Bony Restriction Comments Left knee extension -6 otherwise WFL Ankle and Foot Goniometric Range of Motion Ankle and Foot [place] Dorsiflexion with Knee Flexed 5 Dorsiflexion with Knee Extended 0 Ankle and Foot ROM Limitations ROM Limitations Soft Tissue Tightness PT-OP-M Strength Start: 10/31/19 16:17 Freq: Status: Active Protocol: Document 11/01/19 09:02 [facility] (Rec: 11/01/19 14:18 [facility] [id number]) Hip Strength Hip Manual Muscle Testing [place] Flexion (L2) 4 Good Extension (S1) 4- Good- Abduction 4 Good External Rotation 4- Good- Internal Rotation 4 Good Knee Strength Knee Manual Muscle Testing Left Flexion (S2) 5 Normal Extension (L3) 5 Normal Right Flexion (S2) 4 Good Extension (L3) 4 Good Ankle/Foot Strength Ankle and Foot Manual Muscle Testing [place] Dorsiflexion (L4) 5 Normal Plantarflexion (S1) 5 Normal PT-OP-Q Treatments Start: 10/31/19 16:17 Freq: Status: Active Protocol: Document 11/17/19 09:47 LRN (Rec: 11/17/19 10:28 LRN [id number]) Cardio Equipment Recumbent Stepper (Sci-Fit) Duration (Minutes) 10 Resistance 2 Seat Position 11 Gym Equipment Cable Column (Body Solid) single leg hamstring curl Resistance 20 Reps/Time 10x hamstring cur Resistance 40 Reps/Time 10x2 Shuttle Recovery Unilateral Squats Resistance 37 Shuttle Recovery Platform Stable Reps/Time 10x3 Bilateral Squats Resistance 75 Shuttle Recovery Platform Stable Reps/Time 10x3 PT-OP-R Modalities Start: 10/31/19 16:17 Freq: Status: Active Protocol: Document 11/17/19 09:47 LRN (Rec: 11/17/19 10:28 LRN [id number]) Electric Stimulation Electric Stimulation Interferential Current (IFC) Body Location R knee Duration (Minutes) 15 Intensity 35 Target/Sweep Sweep Patient Position Hooklying Combined With Heat/Cold Cold Pack Hot Pack/Cold Pack Treatment ice pack Location right knee, lumbar spine Patient Position Hooklying Treatment Duration (minutes) 15 Patient Tolerance Good Comments Used during E-Stim PT-OP-T Assessment and Plan Start: 10/31/19 16:17 Freq: Status: Active Protocol: Document 11/17/19 09:47 LRN (Rec: 11/17/19 10:28 LRN [id number]) Physical Therapy Assessment Goals Four Impairment weakness bilateral hip ext 4-/ 5 Car Sweeper Goal (LTG) Patient will demonstrate improvement in bilateral hip extension to at least 4+/5 for improved hip function LTG Duration 12/31/19 Three Impairment soft tissue tightness Car Sweeper 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 LTG Duration 12/31/19 Two Impairment patient not able to go for usual walks Car Sweeper Goal (LTG) Patient will be able to resume his usual walks around [place] without difficulty LTG Duration 12/31/19 One Impairment pain right knee and left hip 3 -5/10 on pain scale Alf Goal (LTG) decrease c/o pain to no greater than 1-2/10 with all usual activities LTG Duration 12/31/19 Assessment Summary Assessment Pt did not feel K-tape was helpful and that it came off in the middle of the night. Pain to start was 1/10, after walking sometimes 3/10, after E-Stim pain was down a little, possibly CP related. Will need to try E-Stim again and possibly Ultrasound to the knee joint. Physical Therapy Plan Frequency and Duration Frequency of Treatment 2x/Week Duration of Treatment 8 Plan of Care Start Date 11/01/19 Plan of Care End Date 12/31/19 Next Visit Focus/Plan Next Note Type Treatment Note Next Visit Plan Continue progressive therapeutic exercises, further manual therapy as indicated. IFES again and consider Ultrasound.
--- NOTE | 2019-11-20 08:15 | PT.OTN ---
Current Diagnoses Unilateral primary osteoarthritis, unspecified hip (11/20/19) Unilateral primary osteoarthritis, right knee (11/20/19) Physical Therapy Treatment Note PT-OP-A Visit Information Start: 10/31/19 16:17 Freq: Status: Active Protocol: Document 11/20/19 07:32 SP (Rec: 11/20/19 08:16 SP [id number]) Out-Patient Physical Therapy Visit Information Visit Information Visit Type Treatment Note Visit Start Time 07:32 Visit Stop Time 08:15 Total Visit Minutes 43 Visit Number 6 Number of BILINGUAL SALES CONSULTANT Visits 1 PT-OP-B Current Condition Start: 10/31/19 16:17 Freq: Status: Active Protocol: Document 11/06/19 08:13 SAK (Rec: 11/06/19 09:02 SAK [id number]) Current Condition History of Current Condition Onset Date few years History of Current Condition history of hip pain for several years, right knee pain for about 6 months; persistent and Not able to walk around [place] anymore, has to walk level ground. No other exercises besides walking for hips and knees, does a few exercises previously given for LBP. No use of ice or heat. Tried a brace on his knee with velcroe straps; didn't seem to make much difference. Prior history of right knee pain with no known mechanism of injury then or now. Pain worse with standing and walking. Prior Treatments and Tests x-rays: arthritis PT-OP-C Subjective Start: 10/31/19 16:17 Freq: Status: Active Protocol: Document 11/20/19 07:32 SP (Rec: 11/20/19 08:16 SP [id number]) OP-PT Subjective Patient Comments Patient Comments Pt stated LBP has been almost non exsistant lately. L hip is doing better and today primarily R knee and lately has been hurting at rest for no reason. PT-OP-F Manual Assessment Start: 10/31/19 16:17 Freq: Status: Active Protocol: Document 11/01/19 09:02 SAK (Rec: 11/01/19 10:17 SAK [id number]) Manual Assessments Soft Tissue Assessment Soft Tissue Mobility Assessment palpable tightness bilateral quads, IT bands, hamstrings Joint Mobility Assessment Joint Mobility Assessment decreased in all motions hip and knees PT-OP-G Mobility & Gait Start: 10/31/19 16:17 Freq: Status: Active Protocol: Document 11/01/19 09:02 [facility] (Rec: 11/01/19 10:17 [facility] [id number]) OP Mobility Evaluation Transfers Sit to Stand independent OP Gait Assessment Gait Gait Assistance Required: Independent Assistive Devices Assistive Device None Orthotic/Prosthetic Devices or Brace: No Gait Deviations General Gait Pattern Antalgic Factors Limiting Gait Function Factors Limiting Gait Function Limited Range of Motion,Pain PT-OP-K Range of Motion Start: 10/31/19 16:17 Freq: Status: Active Protocol: Document 11/01/19 09:02 [facility] (Rec: 11/01/19 10:17 [facility] [id number]) Lumbar Spine Range of Motion Lumbar Spine Active Testing Position Standing ROM Limitations Soft Tissue Tightness Comments decreased all motions with c/o tightness Hip Goniometric Range of Motion Hip [place] Hip ROM WFL No Extension 5 Internal Rotation 14 External Rotation 45 Hip ROM Limitations Hip ROM Limitations Soft Tissue Tightness Comments Mod tightness bilateral IT band right greater than left, [place] hamstrings right greater than left (PSLR left 65, right 55) , [place] quads (prone knee flex 85 left, 80 right), hip IR and ER Knee Goniometric Range of Motion Knee [place] Knee ROM WFL No Knee ROM Limitations Knee ROM Limitations Soft Tissue Tightness,Bony Restriction Comments Left knee extension -6 otherwise WFL Ankle and Foot Goniometric Range of Motion Ankle and Foot [place] Dorsiflexion with Knee Flexed 5 Dorsiflexion with Knee Extended 0 Ankle and Foot ROM Limitations ROM Limitations Soft Tissue Tightness PT-OP-M Strength Start: 10/31/19 16:17 Freq: Status: Active Protocol: Document 11/01/19 09:02 [facility] (Rec: 11/01/19 14:18 [facility] [id number]) Hip Strength Hip Manual Muscle Testing [place] Flexion (L2) 4 Good Extension (S1) 4- Good- Abduction 4 Good External Rotation 4- Good- Internal Rotation 4 Good Knee Strength Knee Manual Muscle Testing Left Flexion (S2) 5 Normal Extension (L3) 5 Normal Right Flexion (S2) 4 Good Extension (L3) 4 Good Ankle/Foot Strength Ankle and Foot Manual Muscle Testing [place] Dorsiflexion (L4) 5 Normal Plantarflexion (S1) 5 Normal PT-OP-Q Treatments Start: 10/31/19 16:17 Freq: Status: Active Protocol: Document 11/20/19 07:32 SP (Rec: 11/20/19 08:16 SP [id number]) Cardio Equipment Recumbent Stepper (Sci-Fit) Duration (Minutes) 10 Resistance 2.5 Seat Position 10 Gym Equipment Cable Column (Body Solid) hamstring cur Resistance 40 Reps/Time 10x2 Shuttle Recovery Unilateral Squats Details R>L alternating Resistance 37 Shuttle Recovery Platform Stable Reps/Time 10x3 Bilateral Squats Resistance 87 Shuttle Recovery Platform Stable Reps/Time 10x5 Therapeutic Exercises Supine Exercises HS stretch Reps/Minutes 2x30 Comments w/ strap Prone Exercises quad stretch w/ strap Side bilateral Reps/Minutes 30 HS curl Side right Resistance AROM Reps/Minutes 2x10 Standing Exercises TKE Side right Resistance L2 Reps/Minutes 2x10 PT-OP-R Modalities Start: 10/31/19 16:17 Freq: Status: Active Protocol: Document 11/17/19 09:47 LRN (Rec: 11/17/19 10:28 LRN [id number]) Electric Stimulation Electric Stimulation Interferential Current (IFC) Body Location R knee Duration (Minutes) 15 Intensity 35 Target/Sweep Sweep Patient Position Hooklying Combined With Heat/Cold Cold Pack Hot Pack/Cold Pack Treatment ice pack Location right knee, lumbar spine Patient Position Hooklying Treatment Duration (minutes) 15 Patient Tolerance Good Comments Used during E-Stim PT-OP-T Assessment and Plan Start: 10/31/19 16:17 Freq: Status: Active Protocol: Document 11/20/19 07:32 SP (Rec: 11/20/19 08:16 SP [id number]) Physical Therapy Assessment Goals Four Impairment weakness bilateral hip ext 4-/ 5 Correction Goal (LTG) Patient will demonstrate improvement in bilateral hip extension to at least 4+/5 for improved hip function LTG Duration 12/31/19 Three Impairment soft tissue tightness Correction 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 LTG Duration 12/31/19 Two Impairment patient not able to go for usual walks Correction Goal (LTG) Patient will be able to resume his usual walks around [place] without difficulty LTG Duration 12/31/19 One Impairment pain right knee and left hip 3 -5/10 on pain scale Heater Mechanic Goal (LTG) decrease c/o pain to no greater than 1-2/10 with all usual activities LTG Duration 12/31/19 Assessment Summary Assessment Pt tolerated tx well, added TKE standing L2 band and HS curl prone with good feedback, cuing for proper set up and form to improve strengthening and ROM added to HEP. Reviewed prone quad stretch and supine HS stretch using strap to assist flexibility. Pt reported stiffness post quad stretching but no increased discomfort. Physical Therapy Plan Frequency and Duration Frequency of Treatment 2x/Week Duration of Treatment 8 Plan of Care Start Date 11/01/19 Plan of Care End Date 12/31/19 Therapeutic Interventions Therapeutic Interventions Home Exercise Program,Joint Mobilizations,Manual Therapy, Patient/Caregiver Education, Self-Care/Home Management,Soft Tissue Mobilization,Taping, Therapeutic Activities, Therapeutic Exercises Modalities Cold Pack/Ice Massage,Electric Stimulation,Hot Packs, Ultrasound Next Visit Focus/Plan Next Note Type Treatment Note
--- NOTE | 2019-11-24 10:31 | PT.OTN ---
Current Diagnoses Unilateral primary osteoarthritis, unspecified hip (11/24/19) Unilateral primary osteoarthritis, right knee (11/24/19) Physical Therapy Treatment Note PT-OP-A Visit Information Start: 10/31/19 16:17 Freq: Status: Active Protocol: Document 11/24/19 09:49 LRN (Rec: 11/24/19 10:30 LRN [id number]) Out-Patient Physical Therapy Visit Information Visit Information Visit Type Treatment Note Visit Start Time 09:49 Visit Stop Time 10:30 Total Visit Minutes 41 Visit Number 7 PT-OP-B Current Condition Start: 10/31/19 16:17 Freq: Status: Active Protocol: Document 11/06/19 08:13 SAK (Rec: 11/06/19 09:02 SAK [id number]) Current Condition History of Current Condition Onset Date few years History of Current Condition history of hip pain for several years, right knee pain for about 6 months; persistent and Not able to walk around [place] anymore, has to walk level ground. No other exercises besides walking for hips and knees, does a few exercises previously given for LBP. No use of ice or heat. Tried a brace on his knee with velcroe straps; didn't seem to make much difference. Prior history of right knee pain with no known mechanism of injury then or now. Pain worse with standing and walking. Prior Treatments and Tests x-rays: arthritis PT-OP-C Subjective Start: 10/31/19 16:17 Freq: Status: Active Protocol: Document 11/24/19 09:49 LRN (Rec: 11/24/19 10:30 LRN [id number]) OP-PT Subjective Patient Comments Patient Comments Improving, can walk better with less pain. PT-OP-F Manual Assessment Start: 10/31/19 16:17 Freq: Status: Active Protocol: Document 11/01/19 09:02 SAK (Rec: 11/01/19 10:17 SAK [id number]) Manual Assessments Soft Tissue Assessment Soft Tissue Mobility Assessment palpable tightness bilateral quads, IT bands, hamstrings Joint Mobility Assessment Joint Mobility Assessment decreased in all motions hip and knees PT-OP-G Mobility & Gait Start: 10/31/19 16:17 Freq: Status: Active Protocol: Document 11/01/19 09:02 SAK (Rec: 11/01/19 10:17 SAK [id number]) OP Mobility Evaluation Transfers Sit to Stand independent OP Gait Assessment Gait Gait Assistance Required: Independent Assistive Devices Assistive Device None Orthotic/Prosthetic Devices or Brace: No Gait Deviations General Gait Pattern Antalgic Factors Limiting Gait Function Factors Limiting Gait Function Limited Range of Motion,Pain PT-OP-K Range of Motion Start: 10/31/19 16:17 Freq: Status: Active Protocol: Document 11/01/19 09:02 [facility] (Rec: 11/01/19 10:17 [facility] [id number]) Lumbar Spine Range of Motion Lumbar Spine Active Testing Position Standing ROM Limitations Soft Tissue Tightness Comments decreased all motions with c/o tightness Hip Goniometric Range of Motion Hip [place] Hip ROM WFL No Extension 5 Internal Rotation 14 External Rotation 45 Hip ROM Limitations Hip ROM Limitations Soft Tissue Tightness Comments Mod tightness bilateral IT band right greater than left, [place] hamstrings right greater than left (PSLR left 65, right 55) , [place] quads (prone knee flex 85 left, 80 right), hip IR and ER Knee Goniometric Range of Motion Knee [place] Knee ROM WFL No Knee ROM Limitations Knee ROM Limitations Soft Tissue Tightness,Bony Restriction Comments Left knee extension -6 otherwise WFL Ankle and Foot Goniometric Range of Motion Ankle and Foot [place] Dorsiflexion with Knee Flexed 5 Dorsiflexion with Knee Extended 0 Ankle and Foot ROM Limitations ROM Limitations Soft Tissue Tightness PT-OP-M Strength Start: 10/31/19 16:17 Freq: Status: Active Protocol: Document 11/01/19 09:02 [facility] (Rec: 11/01/19 14:18 [facility] [id number]) Hip Strength Hip Manual Muscle Testing [place] Flexion (L2) 4 Good Extension (S1) 4- Good- Abduction 4 Good External Rotation 4- Good- Internal Rotation 4 Good Knee Strength Knee Manual Muscle Testing Left Flexion (S2) 5 Normal Extension (L3) 5 Normal Right Flexion (S2) 4 Good Extension (L3) 4 Good Ankle/Foot Strength Ankle and Foot Manual Muscle Testing [place] Dorsiflexion (L4) 5 Normal Plantarflexion (S1) 5 Normal PT-OP-Q Treatments Start: 10/31/19 16:17 Freq: Status: Active Protocol: Document 11/24/19 09:49 LRN (Rec: 11/24/19 10:30 LRN [id number]) Cardio Equipment Recumbent Stepper (Sci-Fit) Duration (Minutes) 5 Resistance 2.5 Seat Position 10 Other rpm 45-50 Treadmill Duration (Minutes) 5 Speed 1.7 Incline 0.5 for 1 minute Other L hip pain, 0 R knee pain Gym Equipment Cable Column (Body Solid) hamstring cur Details phys cuing to pull feet back as far as possible Resistance 40 Reps/Time 10x 3 Shuttle Recovery Unilateral Squats Details R>L alternating Resistance 50 Shuttle Recovery Platform Stable Reps/Time 10x3 Bilateral Squats Resistance 87, 100 Shuttle Recovery Platform Stable Reps/Time 10x, 10x 2 respectively Therapeutic Exercises Supine Exercises HS stretch Reps/Minutes 60 x 1 f/b active ankle pump x 10 Comments w/strap Prone Exercises quad stretch w/ strap Side bilateral Reps/Minutes 30 & 60 x 1 each HS curl Side right Resistance AAROM Reps/Minutes 1x10 Standing Exercises Heel raises Standing Exercise Name Heel raises: Feet neutral, toes out, toes in Side bilateral Reps/Minutes 10x each Knee flex Standing Exercise Name Knee flex: lower leg in neutral, ER, IR. Side right Resistance 5# Reps/Minutes 8x each TKE Standing Exercise Name CKC knee ext Side right Resistance L2 Reps/Minutes 10x 3 PT-OP-R Modalities Start: 10/31/19 16:17 Freq: Status: Active Protocol: Document 11/17/19 09:47 LRN (Rec: 11/17/19 10:28 LRN [id number]) Electric Stimulation Electric Stimulation Interferential Current (IFC) Body Location R knee Duration (Minutes) 15 Intensity 35 Target/Sweep Sweep Patient Position Hooklying Combined With Heat/Cold Cold Pack Hot Pack/Cold Pack Treatment ice pack Location right knee, lumbar spine Patient Position Hooklying Treatment Duration (minutes) 15 Patient Tolerance Good Comments Used during E-Stim PT-OP-T Assessment and Plan Start: 10/31/19 16:17 Freq: Status: Active Protocol: Document 11/24/19 09:49 LRN (Rec: 11/24/19 10:30 LRN [id number]) Physical Therapy Assessment Goals Four Impairment weakness bilateral hip ext 4-/ 5 Electronic Device Monitor Goal (LTG) Patient will demonstrate improvement in bilateral hip extension to at least 4+/5 for improved hip function LTG Duration 12/31/19 Three Impairment soft tissue tightness Electronic Device Monitor 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 LTG Duration 12/31/19 Two Impairment patient not able to go for usual walks Electronic Device Monitor Goal (LTG) Patient will be able to resume his usual walks around [employer] without difficulty. (11/24/19: Pt walking around [employer]) LTG Duration 12/31/19 One Impairment pain right knee and left hip 3 -5/10 on pain scale Electronic Device Monitor Goal (LTG) decrease c/o pain to no greater than 1-2/10 with all usual activities LTG Duration 12/31/19 Progress Towards Goals Progress Comments Increasing tolerance with activity. L hip pain increased on TM after 3', increased trunk sway with 0.5 incline for 1 minute. Assessment Summary Assessment Pt able to increase resistance showing improved strength. Pt R knee is improving with less pain. L hip remains same . L hip pain increased on TM after 3', increased trunk sway with 0.5 incline for 1 minute . Physical Therapy Plan Frequency and Duration Frequency of Treatment 2x/Week Duration of Treatment 8 Plan of Care Start Date 11/01/19 Plan of Care End Date 12/31/19 Next Visit Focus/Plan Next Note Type Treatment Note Next Visit Plan Continue progressive therapeutic exercises, further manual therapy as indicated. IFES again and consider Ultrasound.
--- NOTE | 2019-11-27 16:48 | PT.OTN ---
Current Diagnoses Unilateral primary osteoarthritis, unspecified hip (11/27/19) Unilateral primary osteoarthritis, right knee (11/27/19) Physical Therapy Treatment Note PT-OP-A Visit Information Start: 10/31/19 16:17 Freq: Status: Active Protocol: Document 11/27/19 09:00 SAK (Rec: 11/27/19 09:44 SAK [id number]) Out-Patient Physical Therapy Visit Information Visit Information Visit Type Treatment Note Visit Start Time 09:00 Visit Stop Time 09:45 Total Visit Minutes 45 Visit Number 8 PT-OP-B Current Condition Start: 10/31/19 16:17 Freq: Status: Active Protocol: Document 11/06/19 08:13 SAK (Rec: 11/06/19 09:02 SAK [id number]) Current Condition History of Current Condition Onset Date few years History of Current Condition history of hip pain for several years, right knee pain for about 6 months; persistent and Not able to walk around [place] anymore, has to walk level ground. No other exercises besides walking for hips and knees, does a few exercises previously given for LBP. No use of ice or heat. Tried a brace on his knee with velcroe straps; didn't seem to make much difference. Prior history of right knee pain with no known mechanism of injury then or now. Pain worse with standing and walking. Prior Treatments and Tests x-rays: arthritis PT-OP-C Subjective Start: 10/31/19 16:17 Freq: Status: Active Protocol: Document 11/27/19 09:00 SAK (Rec: 11/27/19 09:44 SAK [id number]) OP-PT Subjective Patient Comments Patient Comments After the first few steps minimal pain. Walking getting better, can walk 15 min (3 times around [facility] [place]) PT-OP-F Manual Assessment Start: 10/31/19 16:17 Freq: Status: Active Protocol: Document 11/01/19 09:02 SAK (Rec: 11/01/19 10:17 SAK [id number]) Manual Assessments Soft Tissue Assessment Soft Tissue Mobility Assessment palpable tightness bilateral quads, IT bands, hamstrings Joint Mobility Assessment Joint Mobility Assessment decreased in all motions hip and knees PT-OP-G Mobility & Gait Start: 10/31/19 16:17 Freq: Status: Active Protocol: Document 11/01/19 09:02 SAK (Rec: 11/01/19 10:17 [facility] [id number]) OP Mobility Evaluation Transfers Sit to Stand independent OP Gait Assessment Gait Gait Assistance Required: Independent Assistive Devices Assistive Device None Orthotic/Prosthetic Devices or Brace: No Gait Deviations General Gait Pattern Antalgic Factors Limiting Gait Function Factors Limiting Gait Function Limited Range of Motion,Pain PT-OP-K Range of Motion Start: 10/31/19 16:17 Freq: Status: Active Protocol: Document 11/01/19 09:02 [facility] (Rec: 11/01/19 10:17 [facility] [id number]) Lumbar Spine Range of Motion Lumbar Spine Active Testing Position Standing ROM Limitations Soft Tissue Tightness Comments decreased all motions with c/o tightness Hip Goniometric Range of Motion Hip [place] Hip ROM WFL No Extension 5 Internal Rotation 14 External Rotation 45 Hip ROM Limitations Hip ROM Limitations Soft Tissue Tightness Comments Mod tightness bilateral IT band right greater than left, [place] hamstrings right greater than left (PSLR left 65, right 55) , [place] quads (prone knee flex 85 left, 80 right), hip IR and ER Knee Goniometric Range of Motion Knee [place] Knee ROM WFL No Knee ROM Limitations Knee ROM Limitations Soft Tissue Tightness,Bony Restriction Comments Left knee extension -6 otherwise WFL Ankle and Foot Goniometric Range of Motion Ankle and Foot [place] Dorsiflexion with Knee Flexed 5 Dorsiflexion with Knee Extended 0 Ankle and Foot ROM Limitations ROM Limitations Soft Tissue Tightness PT-OP-M Strength Start: 10/31/19 16:17 Freq: Status: Active Protocol: Document 11/01/19 09:02 [facility] (Rec: 11/01/19 14:18 [facility] [id number]) Hip Strength Hip Manual Muscle Testing [place] Flexion (L2) 4 Good Extension (S1) 4- Good- Abduction 4 Good External Rotation 4- Good- Internal Rotation 4 Good Knee Strength Knee Manual Muscle Testing Left Flexion (S2) 5 Normal Extension (L3) 5 Normal Right Flexion (S2) 4 Good Extension (L3) 4 Good Ankle/Foot Strength Ankle and Foot Manual Muscle Testing [place] Dorsiflexion (L4) 5 Normal Plantarflexion (S1) 5 Normal PT-OP-Q Treatments Start: 10/31/19 16:17 Freq: Status: Active Protocol: Document 11/27/19 09:00 [facility] (Rec: 11/27/19 09:44 [facility] [id number]) Cardio Equipment Recumbent Stepper (Sci-Fit) Duration (Minutes) 10 Resistance 2.5 Seat Position 10 Other 5 min UE and LE's, 5 min LE's only Gym Equipment Shuttle Recovery Unilateral Squats Details R>L alternating Resistance 50 Shuttle Recovery Platform Stable Reps/Time 10x3 Bilateral Squats Resistance 87, 100 Shuttle Recovery Platform Stable Reps/Time 10x, 10x 2 respectively Therapeutic Exercises Supine Exercises [place] stretch Reps/Minutes 1x30 [place] figure 4 stretch Reps/Minutes 2x30 IT band stretch Reps/Minutes 1x30 Comments manual HS stretch Reps/Minutes 60 x 1 f/b active ankle pump x 10 Comments w/strap Prone Exercises quad stretch w/ strap Side bilateral Reps/Minutes 30 & 60 x 1 each Standing Exercises hip extension Reps/Minutes 10x2 hip ext Reps/Minutes 10x2 Knee flex Standing Exercise Name Knee flex: lower leg in neutral, ER, IR. Side right Resistance 5# Reps/Minutes 8x each TKE Standing Exercise Name CKC knee ext Side right Resistance L2 Reps/Minutes 10x 3 hip abd Reps/Minutes 10x2 PT-OP-R Modalities Start: 10/31/19 16:17 Freq: Status: Active Protocol: Document 11/17/19 09:47 LRN (Rec: 11/17/19 10:28 LRN [id number]) Electric Stimulation Electric Stimulation Interferential Current (IFC) Body Location R knee Duration (Minutes) 15 Intensity 35 Target/Sweep Sweep Patient Position Hooklying Combined With Heat/Cold Cold Pack Hot Pack/Cold Pack Treatment ice pack Location right knee, lumbar spine Patient Position Hooklying Treatment Duration (minutes) 15 Patient Tolerance Good Comments Used during E-Stim PT-OP-T Assessment and Plan Start: 10/31/19 16:17 Freq: Status: Active Protocol: Document 11/27/19 09:00 SAK (Rec: 11/27/19 09:44 [facility] [id number]) Physical Therapy Assessment Goals Four Impairment weakness bilateral hip ext 4-/ 5 Correction Goal (LTG) Patient will demonstrate improvement in bilateral hip extension to at least 4+/5 for improved hip function LTG Duration 12/31/19 Three Impairment soft tissue tightness Correction 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 LTG Duration 12/31/19 Two Impairment patient not able to go for usual walks Automatic Spooler Operator Goal (LTG) Patient will be able to resume his usual walks around [place] without difficulty. (11/24/19: Pt walking around [employer]) LTG Duration 12/31/19 One Impairment pain right knee and left hip 3 -5/10 on pain scale Automatic Spooler Operator Goal (LTG) decrease c/o pain to no greater than 1-2/10 with all usual activities LTG Duration 12/31/19 Progress Towards Goals Progress Towards Goals Progressing Toward Goals Assessment Summary Assessment Continues to make improvements in decrease in pain and improvement in function. Compliant to HEP. Physical Therapy Plan Frequency and Duration Frequency of Treatment 2x/Week Duration of Treatment 8 Plan of Care Start Date 11/01/19 Plan of Care End Date 12/31/19 Therapeutic Interventions Therapeutic Interventions Home Exercise Program,Joint Mobilizations,Manual Therapy, Patient/Caregiver Education, Self-Care/Home Management,Soft Tissue Mobilization,Taping, Therapeutic Activities, Therapeutic Exercises Modalities Cold Pack/Ice Massage,Electric Stimulation,Hot Packs, Ultrasound Next Visit Focus/Plan Next Note Type Treatment Note Next Visit Plan Transition to independent HEP after 1 further PT treatement.
--- NOTE | 2019-11-29 13:34 | PT.OTN ---
Current Diagnoses Unilateral primary osteoarthritis, unspecified hip (11/29/19) Unilateral primary osteoarthritis, right knee (11/29/19) Physical Therapy Treatment Note PT-OP-A Visit Information Start: 10/31/19 16:17 Freq: Status: Active Protocol: Document 11/29/19 09:08 [facility] (Rec: 11/29/19 09:50 SAK [id number]) Out-Patient Physical Therapy Visit Information Visit Information Visit Type Treatment Note Visit Start Time 09:00 Visit Stop Time 09:45 Total Visit Minutes 45 Visit Number 9 PT-OP-B Current Condition Start: 10/31/19 16:17 Freq: Status: Active Protocol: Document 11/06/19 08:13 SAK (Rec: 11/06/19 09:02 SAK [id number]) Current Condition History of Current Condition Onset Date few years History of Current Condition history of hip pain for several years, right knee pain for about 6 months; persistent and Not able to walk around [place] anymore, has to walk level ground. No other exercises besides walking for hips and knees, does a few exercises previously given for LBP. No use of ice or heat. Tried a brace on his knee with velcroe straps; didn't seem to make much difference. Prior history of right knee pain with no known mechanism of injury then or now. Pain worse with standing and walking. Prior Treatments and Tests x-rays: arthritis PT-OP-C Subjective Start: 10/31/19 16:17 Freq: Status: Active Protocol: Document 11/29/19 09:08 [facility] (Rec: 11/29/19 09:50 [facility] [id number]) OP-PT Subjective Patient Comments Patient Comments Didn't get walk in today. Legs feeling stronger. PT-OP-F Manual Assessment Start: 10/31/19 16:17 Freq: Status: Active Protocol: Document 11/01/19 09:02 SAK (Rec: 11/01/19 10:17 SAK [id number]) Manual Assessments Soft Tissue Assessment Soft Tissue Mobility Assessment palpable tightness bilateral quads, IT bands, hamstrings Joint Mobility Assessment Joint Mobility Assessment decreased in all motions hip and knees PT-OP-G Mobility & Gait Start: 10/31/19 16:17 Freq: Status: Active Protocol: Document 11/01/19 09:02 SAK (Rec: 11/01/19 10:17 SAK [id number]) OP Mobility Evaluation Transfers Sit to Stand independent OP Gait Assessment Gait Gait Assistance Required: Independent Assistive Devices Assistive Device None Orthotic/Prosthetic Devices or Brace: No Gait Deviations General Gait Pattern Antalgic Factors Limiting Gait Function Factors Limiting Gait Function Limited Range of Motion,Pain PT-OP-K Range of Motion Start: 10/31/19 16:17 Freq: Status: Active Protocol: Document 11/01/19 09:02 [facility] (Rec: 11/01/19 10:17 [facility] [id number]) Lumbar Spine Range of Motion Lumbar Spine Active Testing Position Standing ROM Limitations Soft Tissue Tightness Comments decreased all motions with c/o tightness Hip Goniometric Range of Motion Hip [place] Hip ROM WFL No Extension 5 Internal Rotation 14 External Rotation 45 Hip ROM Limitations Hip ROM Limitations Soft Tissue Tightness Comments Mod tightness bilateral IT band right greater than left, [place] hamstrings right greater than left (PSLR left 65, right 55) , [place] quads (prone knee flex 85 left, 80 right), hip IR and ER Knee Goniometric Range of Motion Knee [place] Knee ROM WFL No Knee ROM Limitations Knee ROM Limitations Soft Tissue Tightness,Bony Restriction Comments Left knee extension -6 otherwise WFL Ankle and Foot Goniometric Range of Motion Ankle and Foot [place] Dorsiflexion with Knee Flexed 5 Dorsiflexion with Knee Extended 0 Ankle and Foot ROM Limitations ROM Limitations Soft Tissue Tightness PT-OP-M Strength Start: 10/31/19 16:17 Freq: Status: Active Protocol: Document 11/01/19 09:02 [facility] (Rec: 11/01/19 14:18 [facility] [id number]) Hip Strength Hip Manual Muscle Testing [place] Flexion (L2) 4 Good Extension (S1) 4- Good- Abduction 4 Good External Rotation 4- Good- Internal Rotation 4 Good Knee Strength Knee Manual Muscle Testing Left Flexion (S2) 5 Normal Extension (L3) 5 Normal Right Flexion (S2) 4 Good Extension (L3) 4 Good Ankle/Foot Strength Ankle and Foot Manual Muscle Testing [place] Dorsiflexion (L4) 5 Normal Plantarflexion (S1) 5 Normal PT-OP-Q Treatments Start: 10/31/19 16:17 Freq: Status: Active Protocol: Document 11/29/19 09:08 [facility] (Rec: 11/29/19 09:50 [facility] [id number]) Cardio Equipment Recumbent Stepper (Sci-Fit) Duration (Minutes) 10 Resistance 4.0 Seat Position 10 Other 5 min UE and LE's, 5 min LE's only: 1.43 miles Gym Equipment Shuttle Recovery Unilateral Squats Details R>L alternating Resistance 50 Shuttle Recovery Platform Stable Reps/Time 12x2 Bilateral Squats Resistance 100 Shuttle Recovery Platform Stable Reps/Time 12x2 Therapeutic Exercises Supine Exercises IT band stretch Reps/Minutes 1x30 Comments manual HS stretch Reps/Minutes 2x, 1x passive Comments manual Sitting Exercises knee flex Equipment Used L2 theraband Reps/Minutes 10x2 Standing Exercises hip extension Resistance L1 TB Reps/Minutes 10x2 hip ext Resistance L1 TB Reps/Minutes 10x2 squats Equipment Used chair Reps/Minutes 12x Comments cues for form and muscle activation hip flexor stretch Reps/Minutes 2x30 HC stretch Reps/Minutes 2x30, 10x Comments passive, active hip abd Equipment Used L1 TB Reps/Minutes 10x2 PT-OP-R Modalities Start: 10/31/19 16:17 Freq: Status: Active Protocol: Document 11/17/19 09:47 LRN (Rec: 11/17/19 10:28 LRN [id number]) Electric Stimulation Electric Stimulation Interferential Current (IFC) Body Location R knee Duration (Minutes) 15 Intensity 35 Target/Sweep Sweep Patient Position Hooklying Combined With Heat/Cold Cold Pack Hot Pack/Cold Pack Treatment ice pack Location right knee, lumbar spine Patient Position Hooklying Treatment Duration (minutes) 15 Patient Tolerance Good Comments Used during E-Stim PT-OP-T Assessment and Plan Start: 10/31/19 16:17 Freq: Status: Active Protocol: Document 11/29/19 09:08 [facility] (Rec: 11/29/19 09:50 [facility] [id number]) Physical Therapy Assessment Goals Four Impairment weakness bilateral hip ext 4-/ 5 Longterm Goal (LTG) Patient will demonstrate improvement in bilateral hip extension to at least 4+/5 for improved hip function LTG Duration 12/31/19 Three Impairment soft tissue tightness Longterm 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 LTG Duration 12/31/19 Two Impairment patient not able to go for usual walks Strategic Manager Goal (LTG) Patient will be able to resume his usual walks around [place] without difficulty. (11/24/19: Pt walking around [employer], doesn't tolerate incline) LTG Duration 12/31/19 One Impairment pain right knee and left hip 3 -5/10 on pain scale Strategic Manager Goal (LTG) decrease c/o pain to no greater than 1-2/10 with all usual activities 11/29/19: goal progress LTG Duration 12/31/19 Progress Towards Goals Progress Towards Goals Progressing Toward Goals Assessment Summary Assessment Increased repetitions on leg press, improved tolerance for LE stretching, pain decreasing . Cues required for alignment with ther ex. Feel he has good potential to make further gains with continued skilled PT and patient agrees. No discharge today, will schedule more appointments through end of certification period. Physical Therapy Plan Frequency and Duration Frequency of Treatment 2x/Week Duration of Treatment 8 Plan of Care Start Date 11/01/19 Plan of Care End Date 12/31/19 Therapeutic Interventions Therapeutic Interventions Home Exercise Program,Joint Mobilizations,Manual Therapy, Patient/Caregiver Education, Self-Care/Home Management,Soft Tissue Mobilization,Taping, Therapeutic Activities, Therapeutic Exercises Modalities Cold Pack/Ice Massage,Electric Stimulation,Hot Packs, Ultrasound Next Visit Focus/Plan Next Note Type Treatment Note Next Visit Plan Continue to progress with ther ex for flexibility, strengthening, and pain management. Shuttle balance.
--- NOTE | 2019-12-04 08:18 | PT.OTN ---
Current Diagnoses Unilateral primary osteoarthritis, unspecified hip (12/04/19) Unilateral primary osteoarthritis, right knee (12/04/19) Physical Therapy Treatment Note PT-OP-A Visit Information Start: 10/31/19 16:17 Freq: Status: Active Protocol: Document 12/04/19 07:33 SP (Rec: 12/04/19 08:17 SP [id number]) Out-Patient Physical Therapy Visit Information Visit Information Visit Type Treatment Note Visit Start Time 07:33 Visit Stop Time 08:18 Total Visit Minutes 45 Visit Number 10 Number of CATALYST OPERATOR CHIEF Visits 1 PT-OP-B Current Condition Start: 10/31/19 16:17 Freq: Status: Active Protocol: Document 11/06/19 08:13 SAK (Rec: 11/06/19 09:02 SAK [id number]) Current Condition History of Current Condition Onset Date few years History of Current Condition history of hip pain for several years, right knee pain for about 6 months; persistent and Not able to walk around [place] anymore, has to walk level ground. No other exercises besides walking for hips and knees, does a few exercises previously given for LBP. No use of ice or heat. Tried a brace on his knee with velcroe straps; didn't seem to make much difference. Prior history of right knee pain with no known mechanism of injury then or now. Pain worse with standing and walking. Prior Treatments and Tests x-rays: arthritis PT-OP-C Subjective Start: 10/31/19 16:17 Freq: Status: Active Protocol: Document 12/04/19 07:33 SP (Rec: 12/04/19 08:17 SP [id number]) OP-PT Subjective Patient Comments Patient Comments Pt stated still getting R medial pain but over all better though. PT-OP-F Manual Assessment Start: 10/31/19 16:17 Freq: Status: Active Protocol: Document 11/01/19 09:02 SAK (Rec: 11/01/19 10:17 SAK [id number]) Manual Assessments Soft Tissue Assessment Soft Tissue Mobility Assessment palpable tightness bilateral quads, IT bands, hamstrings Joint Mobility Assessment Joint Mobility Assessment decreased in all motions hip and knees PT-OP-G Mobility & Gait Start: 10/31/19 16:17 Freq: Status: Active Protocol: Document 11/01/19 09:02 SAK (Rec: 11/01/19 10:17 SAK [id number]) OP Mobility Evaluation Transfers Sit to Stand independent OP Gait Assessment Gait Gait Assistance Required: Independent Assistive Devices Assistive Device None Orthotic/Prosthetic Devices or Brace: No Gait Deviations General Gait Pattern Antalgic Factors Limiting Gait Function Factors Limiting Gait Function Limited Range of Motion,Pain PT-OP-K Range of Motion Start: 10/31/19 16:17 Freq: Status: Active Protocol: Document 11/01/19 09:02 [facility] (Rec: 11/01/19 10:17 [facility] [id number]) Lumbar Spine Range of Motion Lumbar Spine Active Testing Position Standing ROM Limitations Soft Tissue Tightness Comments decreased all motions with c/o tightness Hip Goniometric Range of Motion Hip [place] Hip ROM WFL No Extension 5 Internal Rotation 14 External Rotation 45 Hip ROM Limitations Hip ROM Limitations Soft Tissue Tightness Comments Mod tightness bilateral IT band right greater than left, [place] hamstrings right greater than left (PSLR left 65, right 55) , [place] quads (prone knee flex 85 left, 80 right), hip IR and ER Knee Goniometric Range of Motion Knee [place] Knee ROM WFL No Knee ROM Limitations Knee ROM Limitations Soft Tissue Tightness,Bony Restriction Comments Left knee extension -6 otherwise WFL Ankle and Foot Goniometric Range of Motion Ankle and Foot [place] Dorsiflexion with Knee Flexed 5 Dorsiflexion with Knee Extended 0 Ankle and Foot ROM Limitations ROM Limitations Soft Tissue Tightness PT-OP-M Strength Start: 10/31/19 16:17 Freq: Status: Active Protocol: Document 11/01/19 09:02 [facility] (Rec: 11/01/19 14:18 [facility] [id number]) Hip Strength Hip Manual Muscle Testing [place] Flexion (L2) 4 Good Extension (S1) 4- Good- Abduction 4 Good External Rotation 4- Good- Internal Rotation 4 Good Knee Strength Knee Manual Muscle Testing Left Flexion (S2) 5 Normal Extension (L3) 5 Normal Right Flexion (S2) 4 Good Extension (L3) 4 Good Ankle/Foot Strength Ankle and Foot Manual Muscle Testing [place] Dorsiflexion (L4) 5 Normal Plantarflexion (S1) 5 Normal PT-OP-Q Treatments Start: 10/31/19 16:17 Freq: Status: Active Protocol: Document 12/04/19 07:33 SP (Rec: 12/04/19 08:17 SP [id number]) Cardio Equipment Recumbent Stepper (Sci-Fit) Duration (Minutes) 11 Resistance 4.0 Seat Position 10 Other 5 min UE and LE's, 5 min LE's only: 1.43 miles Gym Equipment Shuttle Recovery Unilateral Squats Details R>L alternating Resistance 50 Shuttle Recovery Platform Stable Reps/Time 15x2 Bilateral Squats Resistance 100 Shuttle Recovery Platform Stable Reps/Time 15x2 Shuttle Balance Red clips WBOS, NBOS Details level and rocking f/b/side to side Reps/Duration 5 min total Comments Cued glut/core facilitiation with COG over VELIA Therapeutic Exercises Supine Exercises figure 4 stretch Supine Exercise Name hip IR/ ER Side bilateral Reps/Minutes 1x30 each direction Comments review HEP IT band stretch Side bilateral Equipment Used strap Reps/Minutes 1x30 Comments Review HEP, HS stretch Side bilateral Equipment Used strap Reps/Minutes 30 2x Comments Review HEP, R tighter than L PT-OP-R Modalities Start: 10/31/19 16:17 Freq: Status: Active Protocol: Document 11/17/19 09:47 LRN (Rec: 11/17/19 10:28 LRN [id number]) Electric Stimulation Electric Stimulation Interferential Current (IFC) Body Location R knee Duration (Minutes) 15 Intensity 35 Target/Sweep Sweep Patient Position Hooklying Combined With Heat/Cold Cold Pack Hot Pack/Cold Pack Treatment ice pack Location right knee, lumbar spine Patient Position Hooklying Treatment Duration (minutes) 15 Patient Tolerance Good Comments Used during E-Stim PT-OP-T Assessment and Plan Start: 10/31/19 16:17 Freq: Status: Active Protocol: Document 12/04/19 07:33 SP (Rec: 12/04/19 08:17 SP [id number]) Physical Therapy Assessment Goals Four Impairment weakness bilateral hip ext 4-/ 5 Labor Trainer Goal (LTG) Patient will demonstrate improvement in bilateral hip extension to at least 4+/5 for improved hip function LTG Duration 12/31/19 Three Impairment soft tissue tightness Labor Trainer 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 LTG Duration 12/31/19 Two Impairment patient not able to go for usual walks Labor Trainer Goal (LTG) Patient will be able to resume his usual walks around [place] without difficulty. (11/24/19: Pt walking [place], doesn't tolerate incline) LTG Duration 12/31/19 One Impairment pain right knee and left hip 3 -5/10 on pain scale Care Home Goal (LTG) decrease c/o pain to no greater than 1-2/10 with all usual activities 11/29/19: goal progress LTG Duration 12/31/19 Assessment Summary Assessment Pt demonstrated improvement in knee alignment with shuttle recovery with knee feeling pretty good response. Initiated shuttle balance with education on COG over VELIA with glut and core facilitation for increase stability, no adverse reactions wow this isn't easy . Reviewed flexibility and LE band HEp with occasional cuing for glut and hs focus form slow and controlled pacing. Physical Therapy Plan Frequency and Duration Frequency of Treatment 2x/Week Duration of Treatment 8 Plan of Care Start Date 11/01/19 Plan of Care End Date 12/31/19 Therapeutic Interventions Therapeutic Interventions Home Exercise Program,Joint Mobilizations,Manual Therapy, Patient/Caregiver Education, Self-Care/Home Management,Soft Tissue Mobilization,Taping, Therapeutic Activities, Therapeutic Exercises Modalities Cold Pack/Ice Massage,Electric Stimulation,Hot Packs, Ultrasound Next Visit Focus/Plan Next Note Type Treatment Note Next Visit Plan Continue to progress with ther ex for flexibility, strengthening, and pain management. Shuttle balance.
--- NOTE | 2019-12-08 13:46 | PT.OTN ---
Current Diagnoses Unilateral primary osteoarthritis, unspecified hip (12/08/19) Unilateral primary osteoarthritis, right knee (12/08/19) Physical Therapy Treatment Note PT-OP-A Visit Information Start: 10/31/19 16:17 Freq: Status: Active Protocol: Document 12/08/19 13:01 TP (Rec: 12/08/19 14:15 TP [id number]) Out-Patient Physical Therapy Visit Information Visit Information Visit Type Treatment Note Visit Note Student DAVID North supervised by DAVID Fernandes. Visit Start Time 13:01 Visit Stop Time 13:46 Total Visit Minutes 45 Visit Number 11 Number of ORIGINATION SPECIALIST Visits 2 PT-OP-B Current Condition Start: 10/31/19 16:17 Freq: Status: Active Protocol: Document 11/06/19 08:13 SAK (Rec: 11/06/19 09:02 SAK [id number]) Current Condition History of Current Condition Onset Date few years History of Current Condition history of hip pain for several years, right knee pain for about 6 months; persistent and Not able to walk around [place] anymore, has to walk level ground. No other exercises besides walking for hips and knees, does a few exercises previously given for LBP. No use of ice or heat. Tried a brace on his knee with velcroe straps; didn't seem to make much difference. Prior history of right knee pain with no known mechanism of injury then or now. Pain worse with standing and walking. Prior Treatments and Tests x-rays: arthritis PT-OP-C Subjective Start: 10/31/19 16:17 Freq: Status: Active Protocol: Document 12/08/19 13:01 TP (Rec: 12/08/19 14:15 TP [id number]) OP-PT Subjective Patient Comments Patient Comments Pt stated he is improving but is feeling stiff in the R hip today. PT-OP-F Manual Assessment Start: 10/31/19 16:17 Freq: Status: Active Protocol: Document 11/01/19 09:02 SAK (Rec: 11/01/19 10:17 SAK [id number]) Manual Assessments Soft Tissue Assessment Soft Tissue Mobility Assessment palpable tightness bilateral quads, IT bands, hamstrings Joint Mobility Assessment Joint Mobility Assessment decreased in all motions hip and knees PT-OP-G Mobility & Gait Start: 10/31/19 16:17 Freq: Status: Active Protocol: Document 11/01/19 09:02 [facility] (Rec: 11/01/19 10:17 [facility] [id number]) OP Mobility Evaluation Transfers Sit to Stand independent OP Gait Assessment Gait Gait Assistance Required: Independent Assistive Devices Assistive Device None Orthotic/Prosthetic Devices or Brace: No Gait Deviations General Gait Pattern Antalgic Factors Limiting Gait Function Factors Limiting Gait Function Limited Range of Motion,Pain PT-OP-K Range of Motion Start: 10/31/19 16:17 Freq: Status: Active Protocol: Document 11/01/19 09:02 [facility] (Rec: 11/01/19 10:17 [facility] [id number]) Lumbar Spine Range of Motion Lumbar Spine Active Testing Position Standing ROM Limitations Soft Tissue Tightness Comments decreased all motions with c/o tightness Hip Goniometric Range of Motion Hip [place] Hip ROM WFL No Extension 5 Internal Rotation 14 External Rotation 45 Hip ROM Limitations Hip ROM Limitations Soft Tissue Tightness Comments Mod tightness bilateral IT band right greater than left, [place] hamstrings right greater than left (PSLR left 65, right 55) , [place] quads (prone knee flex 85 left, 80 right), hip IR and ER Knee Goniometric Range of Motion Knee [place] Knee ROM WFL No Knee ROM Limitations Knee ROM Limitations Soft Tissue Tightness,Bony Restriction Comments Left knee extension -6 otherwise WFL Ankle and Foot Goniometric Range of Motion Ankle and Foot [place] Dorsiflexion with Knee Flexed 5 Dorsiflexion with Knee Extended 0 Ankle and Foot ROM Limitations ROM Limitations Soft Tissue Tightness PT-OP-M Strength Start: 10/31/19 16:17 Freq: Status: Active Protocol: Document 11/01/19 09:02 SAK (Rec: 11/01/19 14:18 [facility] [id number]) Hip Strength Hip Manual Muscle Testing [place] Flexion (L2) 4 Good Extension (S1) 4- Good- Abduction 4 Good External Rotation 4- Good- Internal Rotation 4 Good Knee Strength Knee Manual Muscle Testing Left Flexion (S2) 5 Normal Extension (L3) 5 Normal Right Flexion (S2) 4 Good Extension (L3) 4 Good Ankle/Foot Strength Ankle and Foot Manual Muscle Testing [place] Dorsiflexion (L4) 5 Normal Plantarflexion (S1) 5 Normal PT-OP-Q Treatments Start: 10/31/19 16:17 Freq: Status: Active Protocol: Document 08/07/20 13:01 TP (Rec: 12/08/19 14:15 TP [id number]) Cardio Equipment Recumbent Stepper (Sci-Fit) Duration (Minutes) 8 Resistance 4.0 Seat Position 10 Other 5.5 min UE and LE's, 2.5min LEs only Gym Equipment Shuttle Balance Red clips WBOS, NBOS Details WBOS, NBOS with head turns Reps/Duration 8 min total Comments Cued glut/core facilitiation with COG over VELIA Therapeutic Exercises Supine Exercises bridge Supine Exercise Name Add HEP Reps/Minutes 10x Comments cues for smaller range, glute fac Cyril stretch Supine Exercise Name with and without strap Side bilateral Equipment Used strap Reps/Minutes 1x30 sec each Comments Education for safety making sure trunk is supported figure 4 stretch Supine Exercise Name hip IR/ ER Side bilateral Reps/Minutes 1x30 each direction Comments review HEP IT band stretch Side bilateral Equipment Used strap Reps/Minutes 1x30 Comments Review HEP HS stretch Side bilateral Equipment Used strap Reps/Minutes 1x30 Comments Review HEP Standing Exercises squats Standing Exercise Name Eccentric Mini Squat BUE FF 90 deg Resistance 2# DB Equipment Used raised then dec to 18 table height Reps/Minutes 5x3 Comments verbal and tactile cues for knee alignment and hip hinge, 2#DB counter wt PT-OP-R Modalities Start: 10/31/19 16:17 Freq: Status: Active Protocol: Document 11/17/19 09:47 LRN (Rec: 11/17/19 10:28 LRN [id number]) Electric Stimulation Electric Stimulation Interferential Current (IFC) Body Location R knee Duration (Minutes) 15 Intensity 35 Target/Sweep Sweep Patient Position Hooklying Combined With Heat/Cold Cold Pack Hot Pack/Cold Pack Treatment ice pack Location right knee, lumbar spine Patient Position Hooklying Treatment Duration (minutes) 15 Patient Tolerance Good Comments Used during E-Stim PT-OP-T Assessment and Plan Start: 10/31/19 16:17 Freq: Status: Active Protocol: Document 12/08/19 13:01 TP (Rec: 12/08/19 14:15 TP [id number]) Physical Therapy Assessment Goals Four Impairment weakness bilateral hip ext 4-/ 5 Mixer Operator Vacuum Pan Salt Goal (LTG) Patient will demonstrate improvement in bilateral hip extension to at least 4+/5 for improved hip function LTG Duration 12/31/19 Three Impairment soft tissue tightness Mixer Operator Vacuum Pan Salt 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 LTG Duration 12/31/19 Two Impairment patient not able to go for usual walks Mixer Operator Vacuum Pan Salt Goal (LTG) Patient will be able to resume his usual walks around [place] without difficulty. (11/24/19: Pt walking around [place], doesn't tolerate incline) LTG Duration 12/31/19 One Impairment pain right knee and left hip 3 -5/10 on pain scale Alf Goal (LTG) decrease c/o pain to no greater than 1-2/10 with all usual activities 11/29/19: goal progress LTG Duration 12/31/19 Assessment Summary Assessment Review of pt HEP, with cues for improved technique. Good recall and demonstration of HEP. Addition of 2# DB in BUE to provide counter balance during pt's sit<>stand for hip hinge. Tactile cues required for knee alignment in sagittal plane with duration due to fatigue. Pt's standing balance challenged with head turns on Shuttle Balance with NBOS. Continue PT to increase R hip and core strength for pelvis stabilization and improved dynamic balance. Physical Therapy Plan Frequency and Duration Frequency of Treatment 2x/Week Duration of Treatment 8 Plan of Care Start Date 11/01/19 Plan of Care End Date 12/31/19 Therapeutic Interventions Therapeutic Interventions Home Exercise Program,Joint Mobilizations,Manual Therapy, Patient/Caregiver Education, Self-Care/Home Management,Soft Tissue Mobilization,Taping, Therapeutic Activities, Therapeutic Exercises Modalities Cold Pack/Ice Massage,Electric Stimulation,Hot Packs, Ultrasound Next Visit Focus/Plan Next Note Type Treatment Note Next Visit Plan Assess response to last tx. Continue to progress with ther ex for flexibility, strengthening, and pain management. Shuttle balance/ unstable surface balance progressions.
--- NOTE | 2019-12-11 09:00 | PT.OTN ---
Current Diagnoses Unilateral primary osteoarthritis, unspecified hip (12/11/19) Unilateral primary osteoarthritis, right knee (12/11/19) Physical Therapy Treatment Note PT-OP-A Visit Information Start: 10/31/19 16:17 Freq: Status: Active Protocol: Document 12/11/19 08:15 SAK (Rec: 12/11/19 09:00 SAK [id number]) Out-Patient Physical Therapy Visit Information Visit Information Visit Type Treatment Note Visit Start Time 08:15 Visit Stop Time 09:00 Total Visit Minutes 45 Visit Number 12 Number of CENTRAL STATION OPERATOR Visits 0 PT-OP-B Current Condition Start: 10/31/19 16:17 Freq: Status: Active Protocol: Document 11/06/19 08:13 SAK (Rec: 11/06/19 09:02 SAK [id number]) Current Condition History of Current Condition Onset Date few years History of Current Condition history of hip pain for several years, right knee pain for about 6 months; persistent and Not able to walk around [place] anymore, has to walk level ground. No other exercises besides walking for hips and knees, does a few exercises previously given for LBP. No use of ice or heat. Tried a brace on his knee with velcroe straps; didn't seem to make much difference. Prior history of right knee pain with no known mechanism of injury then or now. Pain worse with standing and walking. Prior Treatments and Tests x-rays: arthritis PT-OP-C Subjective Start: 10/31/19 16:17 Freq: Status: Active Protocol: Document 12/11/19 08:15 SAK (Rec: 12/11/19 09:00 SAK [id number]) OP-PT Subjective Patient Comments Patient Comments Gradually getting better, feeling stronger. Hasn't tried any hills yet. PT-OP-F Manual Assessment Start: 10/31/19 16:17 Freq: Status: Active Protocol: Document 11/01/19 09:02 SAK (Rec: 11/01/19 10:17 SAK [id number]) Manual Assessments Soft Tissue Assessment Soft Tissue Mobility Assessment palpable tightness bilateral quads, IT bands, hamstrings Joint Mobility Assessment Joint Mobility Assessment decreased in all motions hip and knees PT-OP-G Mobility & Gait Start: 10/31/19 16:17 Freq: Status: Active Protocol: Document 11/01/19 09:02 SAK (Rec: 11/01/19 10:17 [facility] [id number]) OP Mobility Evaluation Transfers Sit to Stand independent OP Gait Assessment Gait Gait Assistance Required: Independent Assistive Devices Assistive Device None Orthotic/Prosthetic Devices or Brace: No Gait Deviations General Gait Pattern Antalgic Factors Limiting Gait Function Factors Limiting Gait Function Limited Range of Motion,Pain PT-OP-K Range of Motion Start: 10/31/19 16:17 Freq: Status: Active Protocol: Document 11/01/19 09:02 [facility] (Rec: 11/01/19 10:17 [facility] [id number]) Lumbar Spine Range of Motion Lumbar Spine Active Testing Position Standing ROM Limitations Soft Tissue Tightness Comments decreased all motions with c/o tightness Hip Goniometric Range of Motion Hip [place] Hip ROM WFL No Extension 5 Internal Rotation 14 External Rotation 45 Hip ROM Limitations Hip ROM Limitations Soft Tissue Tightness Comments Mod tightness bilateral IT band right greater than left, [place] hamstrings right greater than left (PSLR left 65, right 55) , [place] quads (prone knee flex 85 left, 80 right), hip IR and ER Knee Goniometric Range of Motion Knee [place] Knee ROM WFL No Knee ROM Limitations Knee ROM Limitations Soft Tissue Tightness,Bony Restriction Comments Left knee extension -6 otherwise WFL Ankle and Foot Goniometric Range of Motion Ankle and Foot [place] Dorsiflexion with Knee Flexed 5 Dorsiflexion with Knee Extended 0 Ankle and Foot ROM Limitations ROM Limitations Soft Tissue Tightness PT-OP-M Strength Start: 10/31/19 16:17 Freq: Status: Active Protocol: Document 11/01/19 09:02 [facility] (Rec: 11/01/19 14:18 [facility] [id number]) Hip Strength Hip Manual Muscle Testing [place] Flexion (L2) 4 Good Extension (S1) 4- Good- Abduction 4 Good External Rotation 4- Good- Internal Rotation 4 Good Knee Strength Knee Manual Muscle Testing Left Flexion (S2) 5 Normal Extension (L3) 5 Normal Right Flexion (S2) 4 Good Extension (L3) 4 Good Ankle/Foot Strength Ankle and Foot Manual Muscle Testing [place] Dorsiflexion (L4) 5 Normal Plantarflexion (S1) 5 Normal PT-OP-Q Treatments Start: 10/31/19 16:17 Freq: Status: Active Protocol: Document 12/11/19 08:15 [facility] (Rec: 12/11/19 09:00 [facility] [id number]) Cardio Equipment Recumbent Stepper (Sci-Fit) Duration (Minutes) 8 Resistance 4.0 Seat Position 10 Other 5.5 min UE and LE's, 2.5min LEs only Treadmill Duration (Minutes) 7 Speed 1.8-2.1 Incline 1-4.5 Other L hip pain, 0 R knee pain Gym Equipment Shuttle Recovery Unilateral Squats Details R>L alternating Resistance 50 Shuttle Recovery Platform Stable Reps/Time 15x2 Bilateral Squats Resistance 100 Shuttle Recovery Platform Stable Reps/Time 15x2 Shuttle Balance Red clips WBOS, NBOS Details WBOS, NBOS with head turns Reps/Duration 8 min total Comments Cued glut/core facilitiation with COG over VELIA Therapeutic Exercises Supine Exercises HS stretch Side bilateral Equipment Used on shuttle leg press Reps/Minutes 1x30 Comments Review HEP Standing Exercises HS stretch Equipment Used stair Reps/Minutes 2x30 squats Standing Exercise Name Eccentric Mini Squat BUE FF 90 deg Resistance 2# DB Equipment Used raised then dec to 18 table height Reps/Minutes 5x3 Comments verbal and tactile cues for knee alignment and hip hinge, 2#DB counter wt PT-OP-R Modalities Start: 10/31/19 16:17 Freq: Status: Active Protocol: Document 11/17/19 09:47 LRN (Rec: 11/17/19 10:28 LRN [id number]) Electric Stimulation Electric Stimulation Interferential Current (IFC) Body Location R knee Duration (Minutes) 15 Intensity 35 Target/Sweep Sweep Patient Position Hooklying Combined With Heat/Cold Cold Pack Hot Pack/Cold Pack Treatment ice pack Location right knee, lumbar spine Patient Position Hooklying Treatment Duration (minutes) 15 Patient Tolerance Good Comments Used during E-Stim PT-OP-T Assessment and Plan Start: 10/31/19 16:17 Freq: Status: Active Protocol: Document 12/11/19 08:15 [facility] (Rec: 12/11/19 09:00 [facility] [id number]) Physical Therapy Assessment Goals Four Impairment weakness bilateral hip ext 4-/ 5 Head Of Biology Goal (LTG) Patient will demonstrate improvement in bilateral hip extension to at least 4+/5 for improved hip function 12/11/19: good progress LTG Duration 12/31/19 Three Impairment soft tissue tightness Head Of Biology 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 12/11/19: good progress LTG Duration 12/31/19 Two Impairment patient not able to go for usual walks [facility] Goal (LTG) Patient will be able to resume his usual walks around [employer] without difficulty. (11/24/19: [place], doesn't tolerate incline) 12/11/19: good progress on level surfaces, hasn't done incline yet until on treadmill today with good tolerance. LTG Duration 12/31/19 One Impairment pain right knee and left hip 3 -5/10 on pain scale [facility] Goal (LTG) decrease c/o pain to no greater than 1-2/10 with all usual activities 11/29/19: goal progress 12/11/19: 1/10 today LTG Duration 12/31/19 Progress Towards Goals Progress Towards Goals Progressing Toward Goals Assessment Summary Assessment Excellent progress toward goals, patient highly motivated and compliant. Encouraged to try walking at [employer] with incline Physical Therapy Plan Frequency and Duration Frequency of Treatment 2x/Week Duration of Treatment 8 Plan of Care Start Date 11/01/19 Plan of Care End Date 12/31/19 Therapeutic Interventions Therapeutic Interventions Home Exercise Program,Joint Mobilizations,Manual Therapy, Patient/Caregiver Education, Self-Care/Home Management,Soft Tissue Mobilization,Taping, Therapeutic Activities, Therapeutic Exercises Modalities Cold Pack/Ice Massage,Electric Stimulation,Hot Packs, Ultrasound Next Visit Focus/Plan Next Note Type Treatment Note Next Visit Plan Assess response to last tx. Continue to progress with ther ex for flexibility, strengthening, and pain management. Shuttle balance/ unstable surface balance progressions.
--- NOTE | 2019-12-14 09:00 | PT.OTN ---
Current Diagnoses Unilateral primary osteoarthritis, unspecified hip (12/14/19) Unilateral primary osteoarthritis, right knee (12/14/19) Physical Therapy Treatment Note PT-OP-A Visit Information Start: 10/31/19 16:17 Freq: Status: Active Protocol: Document 12/14/19 08:19 SP (Rec: 12/14/19 09:08 SP [id number]) Out-Patient Physical Therapy Visit Information Visit Information Visit Type Treatment Note Visit Start Time 08:19 Visit Stop Time 09:00 Total Visit Minutes 41 Visit Number 13 Number of SUPERVISOR INSPECTION Visits 1 PT-OP-B Current Condition Start: 10/31/19 16:17 Freq: Status: Active Protocol: Document 11/06/19 08:13 SAK (Rec: 11/06/19 09:02 SAK [id number]) Current Condition History of Current Condition Onset Date few years History of Current Condition history of hip pain for several years, right knee pain for about 6 months; persistent and Not able to walk around [place] anymore, has to walk level ground. No other exercises besides walking for hips and knees, does a few exercises previously given for LBP. No use of ice or heat. Tried a brace on his knee with velcroe straps; didn't seem to make much difference. Prior history of right knee pain with no known mechanism of injury then or now. Pain worse with standing and walking. Prior Treatments and Tests x-rays: arthritis PT-OP-C Subjective Start: 10/31/19 16:17 Freq: Status: Active Protocol: Document 12/14/19 08:19 SP (Rec: 12/14/19 09:08 SP [id number]) OP-PT Subjective Patient Comments Patient Comments Pt stated R knee feels is getting alot better, still feel it there. PT-OP-F Manual Assessment Start: 10/31/19 16:17 Freq: Status: Active Protocol: Document 11/01/19 09:02 SAK (Rec: 11/01/19 10:17 SAK [id number]) Manual Assessments Soft Tissue Assessment Soft Tissue Mobility Assessment palpable tightness bilateral quads, IT bands, hamstrings Joint Mobility Assessment Joint Mobility Assessment decreased in all motions hip and knees PT-OP-G Mobility & Gait Start: 10/31/19 16:17 Freq: Status: Active Protocol: Document 11/01/19 09:02 SAK (Rec: 11/01/19 10:17 [facility] [id number]) OP Mobility Evaluation Transfers Sit to Stand independent OP Gait Assessment Gait Gait Assistance Required: Independent Assistive Devices Assistive Device None Orthotic/Prosthetic Devices or Brace: No Gait Deviations General Gait Pattern Antalgic Factors Limiting Gait Function Factors Limiting Gait Function Limited Range of Motion,Pain PT-OP-K Range of Motion Start: 10/31/19 16:17 Freq: Status: Active Protocol: Document 11/01/19 09:02 [facility] (Rec: 11/01/19 10:17 [facility] [id number]) Lumbar Spine Range of Motion Lumbar Spine Active Testing Position Standing ROM Limitations Soft Tissue Tightness Comments decreased all motions with c/o tightness Hip Goniometric Range of Motion Hip [place] Hip ROM WFL No Extension 5 Internal Rotation 14 External Rotation 45 Hip ROM Limitations Hip ROM Limitations Soft Tissue Tightness Comments Mod tightness bilateral IT band right greater than left, [place] hamstrings right greater than left (PSLR left 65, right 55) , [place] quads (prone knee flex 85 left, 80 right), hip IR and ER Knee Goniometric Range of Motion Knee [place] Knee ROM WFL No Knee ROM Limitations Knee ROM Limitations Soft Tissue Tightness,Bony Restriction Comments Left knee extension -6 otherwise WFL Ankle and Foot Goniometric Range of Motion Ankle and Foot [place] Dorsiflexion with Knee Flexed 5 Dorsiflexion with Knee Extended 0 Ankle and Foot ROM Limitations ROM Limitations Soft Tissue Tightness PT-OP-M Strength Start: 10/31/19 16:17 Freq: Status: Active Protocol: Document 11/01/19 09:02 [facility] (Rec: 11/01/19 14:18 [facility] [id number]) Hip Strength Hip Manual Muscle Testing [place] Flexion (L2) 4 Good Extension (S1) 4- Good- Abduction 4 Good External Rotation 4- Good- Internal Rotation 4 Good Knee Strength Knee Manual Muscle Testing Left Flexion (S2) 5 Normal Extension (L3) 5 Normal Right Flexion (S2) 4 Good Extension (L3) 4 Good Ankle/Foot Strength Ankle and Foot Manual Muscle Testing [place] Dorsiflexion (L4) 5 Normal Plantarflexion (S1) 5 Normal PT-OP-Q Treatments Start: 10/31/19 16:17 Freq: Status: Active Protocol: Document 12/14/19 08:19 SP (Rec: 12/14/19 09:08 SP [id number]) Cardio Equipment Recumbent Stepper (Sci-Fit) Duration (Minutes) 10 Resistance 4.0 Seat Position 10 Other 5.5 min UE and LE's, 2.5min LEs only Gym Equipment Shuttle Balance Red clips WBOS, NBOS Details WBOS, NBOS with head turns and EC, stagger wt shift f/b Reps/Duration 8 min total Comments Cued upright posture, glut/ core facilitiation with COG over VELIA and even between B LE Therapeutic Exercises Sitting Exercises glut/ PF stretch Side bilateral Reps/Minutes 30 sec x2 SKTC stretch Side bilateral Reps/Minutes 30 sec x2 Standing Exercises HS stretch Side bilateral Equipment Used stair Reps/Minutes 2x30 squats Standing Exercise Name Eccentric Mini Squat BUE FF 90 deg Resistance x10 AROM arms front (LBP) 4# fit ball x10, 2# rolled leg wt x10 Equipment Used to 18 table height Reps/Minutes 5x3 Comments verbal and tactile cues for knee alignment and hip hinge, 2#DB counter wt PT-OP-R Modalities Start: 10/31/19 16:17 Freq: Status: Active Protocol: Document 11/17/19 09:47 LRN (Rec: 11/17/19 10:28 LRN [id number]) Electric Stimulation Electric Stimulation Interferential Current (IFC) Body Location R knee Duration (Minutes) 15 Intensity 35 Target/Sweep Sweep Patient Position Hooklying Combined With Heat/Cold Cold Pack Hot Pack/Cold Pack Treatment ice pack Location right knee, lumbar spine Patient Position Hooklying Treatment Duration (minutes) 15 Patient Tolerance Good Comments Used during E-Stim PT-OP-T Assessment and Plan Start: 10/31/19 16:17 Freq: Status: Active Protocol: Document 12/14/19 08:19 SP (Rec: 12/14/19 09:08 SP [id number]) Physical Therapy Assessment Goals Four Impairment weakness bilateral hip ext 4-/ 5 Restaurant General Manager Goal (LTG) Patient will demonstrate improvement in bilateral hip extension to at least 4+/5 for improved hip function 12/11/19: good progress LTG Duration 12/31/19 Three Impairment soft tissue tightness Detention 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 12/11/19: good progress LTG Duration 12/31/19 Two Impairment patient not able to go for usual walks Restaurant General Manager Goal (LTG) Patient will be able to resume his usual walks around [employer] without difficulty. (11/24/19: [place], doesn't tolerate incline) 12/11/19: good progress on level surfaces, hasn't done incline yet until on treadmill today with good tolerance. LTG Duration 12/31/19 One Impairment pain right knee and left hip 3 -5/10 on pain scale Detention Goal (LTG) decrease c/o pain to no greater than 1-2/10 with all usual activities 11/29/19: goal progress 12/11/19: 1/10 today LTG Duration 12/31/19 Assessment Summary Assessment Pt improved stability on shuttle balance with ability to complete EC today, introduced stagger with difficulty no extra challenge. Initiated seated stretching for decrease LB and glut tightness from balance activitiy with improvement in hip ER ROM and felt better in back end of tx. Physical Therapy Plan Frequency and Duration Frequency of Treatment 2x/Week Duration of Treatment 8 Plan of Care Start Date 11/01/19 Plan of Care End Date 12/31/19 Therapeutic Interventions Therapeutic Interventions Home Exercise Program,Joint Mobilizations,Manual Therapy, Patient/Caregiver Education, Self-Care/Home Management,Soft Tissue Mobilization,Taping, Therapeutic Activities, Therapeutic Exercises Modalities Cold Pack/Ice Massage,Electric Stimulation,Hot Packs, Ultrasound Next Visit Focus/Plan Next Note Type Treatment Note Next Visit Plan Assess response to last tx Shuttle balance, cardio machine increased time and stretching. Continue to progress with ther ex for flexibility, strengthening, and pain management.
--- NOTE | 2019-12-19 08:15 | PT.OTN ---
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 No other exercises besides walking for hips and knees, does a few exercises previously given for LBP. No use of ice or heat. Tried a brace on his knee with velcroe straps; didn't seem to make much difference. Prior history of right knee pain with no known mechanism of injury then or now. Pain worse with standing and walking. Prior Treatments and Tests x-rays: arthritis PT-OP-C Subjective Start: 10/31/19 16:17 Freq: Status: Active Protocol: Document 12/19/19 07:30 SP (Rec: 12/19/19 08:18 SP [id number]) OP-PT Subjective Patient Comments Patient Comments Pt reported R knee is back to normal now, L hip still stiff noted especially sitting in a chair for a while and getting up. I am walking level surfaces and some inclines at home with no problems but haven't walked [place] park yet, maybe this weekend. PT-OP-F Manual Assessment Start: 10/31/19 16:17 Freq: Status: Active Protocol: Document 11/01/19 09:02 SAK (Rec: 11/01/19 10:17 SAK [id number]) Manual Assessments Soft Tissue Assessment Soft Tissue Mobility Assessment palpable tightness bilateral quads, IT bands, hamstrings Joint Mobility Assessment Joint Mobility Assessment decreased in all motions hip and knees PT-OP-G Mobility & Gait Start: 10/31/19 16:17 Freq: Status: Active Protocol: Document 11/01/19 09:02 [facility] (Rec: 11/01/19 10:17 [facility] [id number]) OP Mobility Evaluation Transfers Sit to Stand independent OP Gait Assessment Gait Gait Assistance Required: Independent Assistive Devices Assistive Device None Orthotic/Prosthetic Devices or Brace: No Gait Deviations General Gait Pattern Antalgic Factors Limiting Gait Function Factors Limiting Gait Function Limited Range of Motion,Pain PT-OP-K Range of Motion Start: 10/31/19 16:17 Freq: Status: Active Protocol: Document 11/01/19 09:02 [facility] (Rec: 11/01/19 10:17 [facility] [id number]) Lumbar Spine Range of Motion Lumbar Spine Active Testing Position Standing ROM Limitations Soft Tissue Tightness Comments decreased all motions with c/o tightness Hip Goniometric Range of Motion Hip [place] Hip ROM WFL No Extension 5 Internal Rotation 14 External Rotation 45 Hip ROM Limitations Hip ROM Limitations Soft Tissue Tightness Comments Mod tightness bilateral IT band right greater than left, [place] hamstrings right greater than left (PSLR left 65, right 55) , [place] quads (prone knee flex 85 left, 80 right), hip IR and ER Knee Goniometric Range of Motion Knee [place] Knee ROM WFL No Knee ROM Limitations Knee ROM Limitations Soft Tissue Tightness,Bony Restriction Comments Left knee extension -6 otherwise WFL Ankle and Foot Goniometric Range of Motion Ankle and Foot [place] Dorsiflexion with Knee Flexed 5 Dorsiflexion with Knee Extended 0 Ankle and Foot ROM Limitations ROM Limitations Soft Tissue Tightness PT-OP-M Strength Start: 10/31/19 16:17 Freq: Status: Active Protocol: Document 11/01/19 09:02 [facility] (Rec: 11/01/19 14:18 [facility] [id number]) Hip Strength Hip Manual Muscle Testing [place] Flexion (L2) 4 Good Extension (S1) 4- Good- Abduction 4 Good External Rotation 4- Good- Internal Rotation 4 Good Knee Strength Knee Manual Muscle Testing Left Flexion (S2) 5 Normal Extension (L3) 5 Normal Right Flexion (S2) 4 Good Extension (L3) 4 Good Ankle/Foot Strength Ankle and Foot Manual Muscle Testing [place] Dorsiflexion (L4) 5 Normal Plantarflexion (S1) 5 Normal PT-OP-Q Treatments Start: 10/31/19 16:17 Freq: Status: Active Protocol: Document 12/19/19 07:30 SP (Rec: 12/19/19 08:18 SP [id number]) Cardio Equipment Treadmill Duration (Minutes) 7 Speed 2.0- 2.3 Incline 2.5 Other no UE support, R knee fine, L hip discomfort /10 Gym Equipment Shuttle Balance Red clips WBOS, NBOS Details WBOS, NBOS with head turns and stagger stance EC Reps/Duration 8 min total Comments Cued upright posture, glut/ core facilitiation with COG over VELIA and even between B LE Therapeutic Exercises Sitting Exercises glut/ PF stretch Side bilateral Reps/Minutes 30 sec x2 Standing Exercises SLS Side bilateral Reps/Minutes 20 sec R, 15 sec L x2 each before LOB Comments cued upright posture with glut and core facilitation COG over VELIA SL step up Side bilateral Equipment Used 6 step, at stair Reps/Minutes x10 Comments no UE support required, Little L hip discomfort but able tolerated hip ext Side bilateral Resistance L2 TB Reps/Minutes 10x2 Comments cued upright posture and small range glut facilitation Heel raises Standing Exercise Name Heel raises: Feet neutral, toes out, toes in Side bilateral Reps/Minutes 10x each squats Standing Exercise Name Eccentric Mini and tap Squat BUE FF 90 deg Resistance 2# DB Equipment Used to 18 chair Reps/Minutes 5 mini, 10 reps to chair Comments verbal and tactile cues for knee alignment behind toes hip hinge HC stretch Side bilateral Equipment Used 3rd step Reps/Minutes 2x30 hip abd Standing Exercise Name Provided Lv 2 TB for HEP Side bilateral Equipment Used L2 TB Reps/Minutes 10x2 Comments cued upright posture and small range glut facilitation Neuro Re-Education Treatment Balance Activities uneven obstacle course Equipment oval cushions, hurdles at rail Comments cued slow pacing eccentric stepping COG over VELIA CGA PT-OP-R Modalities Start: 10/31/19 16:17 Freq: Status: Active Protocol: Document 11/17/19 09:47 LRN (Rec: 11/17/19 10:28 [facility]N [id number]) Electric Stimulation Electric Stimulation Interferential Current (IFC) Body Location R knee Duration (Minutes) 15 Intensity 35 Target/Sweep Sweep Patient Position Hooklying Combined With Heat/Cold Cold Pack Hot Pack/Cold Pack Treatment ice pack Location right knee, lumbar spine Patient Position Hooklying Treatment Duration (minutes) 15 Patient Tolerance Good Comments Used during E-Stim PT-OP-T Assessment and Plan Start: 10/31/19 16:17 Freq: Status: Active Protocol: Document 12/19/19 07:30 SP (Rec: 12/19/19 08:18 SP [id number]) Physical Therapy Assessment Goals Four Impairment weakness bilateral hip ext 4-/ 5 Long-Term Goal (LTG) Patient will demonstrate improvement in bilateral hip extension to at least 4+/5 for improved hip function 12/11/19: good progress LTG Duration 12/31/19 Three Impairment soft tissue tightness Long-Term 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 (11/24/19: Pt walking around [employer], doesn't tolerate incline) 12/11/19: good progress on level surfaces, hasn't done incline yet until on treadmill today with good tolerance. LTG Duration 12/31/19 One Impairment pain right knee and left hip 3 -5/10 on pain scale Long-Term Goal (LTG) decrease c/o pain to no greater than 1-2/10 with all usual activities 11/29/19: goal progress 12/11/19: 1/10 today LTG Duration 12/31/19 Assessment Summary Assessment Pt tolerated increase in Tb resistance hip abd/ext with no increase L hip discomfort, cued counting to give support to breathing due to holding breath and increasing rate. Improved in balance shuttle EC and head turns self corrections with cuing. Added SLS and step ups to HEP. Tolerated uneven surface obstacle course with cuing for slower pacing and eccentric stepping at rail with improvement in balance. Pt stated L hip feels good, no increase in 1/10 end of tx. Physical Therapy Plan Frequency and Duration Frequency of Treatment 2x/Week Duration of Treatment 8 Plan of Care Start Date 11/01/19 Plan of Care End Date 12/31/19 Therapeutic Interventions Therapeutic Interventions Home Exercise Program,Joint Mobilizations,Manual Therapy, Patient/Caregiver Education, Self-Care/Home Management,Soft Tissue Mobilization,Taping, Therapeutic Activities, Therapeutic Exercises Modalities Cold Pack/Ice Massage,Electric Stimulation,Hot Packs, Ultrasound Next Visit Focus/Plan Next Note Type Treatment Note Next Visit Plan Assess response to last tx Shuttle balance, Tm incline and standing ex, added SLS, step ups and uneven surface obstacle course. Continue to progress with ther ex for flexibility, strengthening, and pain management.
--- NOTE | 2019-12-21 08:15 | PT.OTN ---
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 No other exercises besides walking for hips and knees, does a few exercises previously given for LBP. No use of ice or heat. Tried a brace on his knee with velcroe straps; didn't seem to make much difference. Prior history of right knee pain with no known mechanism of injury then or now. Pain worse with standing and walking. Prior Treatments and Tests x-rays: arthritis PT-OP-C Subjective Start: 10/31/19 16:17 Freq: Status: Active Protocol: Document 12/21/19 07:33 SP (Rec: 12/21/19 08:16 SP [id number]) OP-PT Subjective Patient Comments Patient Comments Pt reported R knee still doing well, noticed central LB pain 2/10 when walked portion of steep incline at [facility] this am maybe 1/2 mile. PT-OP-F Manual Assessment Start: 10/31/19 16:17 Freq: Status: Active Protocol: Document 11/01/19 09:02 SAK (Rec: 11/01/19 10:17 SAK [id number]) Manual Assessments Soft Tissue Assessment Soft Tissue Mobility Assessment palpable tightness bilateral quads, IT bands, hamstrings Joint Mobility Assessment Joint Mobility Assessment decreased in all motions hip and knees PT-OP-G Mobility & Gait Start: 10/31/19 16:17 Freq: Status: Active Protocol: Document 11/01/19 09:02 [facility] (Rec: 11/01/19 10:17 [facility] [id number]) OP Mobility Evaluation Transfers Sit to Stand independent OP Gait Assessment Gait Gait Assistance Required: Independent Assistive Devices Assistive Device None Orthotic/Prosthetic Devices or Brace: No Gait Deviations General Gait Pattern Antalgic Factors Limiting Gait Function Factors Limiting Gait Function Limited Range of Motion,Pain PT-OP-K Range of Motion Start: 10/31/19 16:17 Freq: Status: Active Protocol: Document 11/01/19 09:02 [facility] (Rec: 11/01/19 10:17 [facility] [id number]) Lumbar Spine Range of Motion Lumbar Spine Active Testing Position Standing ROM Limitations Soft Tissue Tightness Comments decreased all motions with c/o tightness Hip Goniometric Range of Motion Hip [place] Hip ROM WFL No Extension 5 Internal Rotation 14 External Rotation 45 Hip ROM Limitations Hip ROM Limitations Soft Tissue Tightness Comments Mod tightness bilateral IT band right greater than left, [place] hamstrings right greater than left (PSLR left 65, right 55) , [place] quads (prone knee flex 85 left, 80 right), hip IR and ER Knee Goniometric Range of Motion Knee [place] Knee ROM WFL No Knee ROM Limitations Knee ROM Limitations Soft Tissue Tightness,Bony Restriction Comments Left knee extension -6 otherwise WFL Ankle and Foot Goniometric Range of Motion Ankle and Foot [place] Dorsiflexion with Knee Flexed 5 Dorsiflexion with Knee Extended 0 Ankle and Foot ROM Limitations ROM Limitations Soft Tissue Tightness PT-OP-M Strength Start: 10/31/19 16:17 Freq: Status: Active Protocol: Document 11/01/19 09:02 [facility] (Rec: 11/01/19 14:18 [facility] [id number]) Hip Strength Hip Manual Muscle Testing [place] Flexion (L2) 4 Good Extension (S1) 4- Good- Abduction 4 Good External Rotation 4- Good- Internal Rotation 4 Good Knee Strength Knee Manual Muscle Testing Left Flexion (S2) 5 Normal Extension (L3) 5 Normal Right Flexion (S2) 4 Good Extension (L3) 4 Good Ankle/Foot Strength Ankle and Foot Manual Muscle Testing [place] Dorsiflexion (L4) 5 Normal Plantarflexion (S1) 5 Normal PT-OP-Q Treatments Start: 10/31/19 16:17 Freq: Status: Active Protocol: Document 12/21/19 07:33 SP (Rec: 12/21/19 08:16 SP [id number]) Cardio Equipment Treadmill Duration (Minutes) 10 Speed 2.3 Incline 4 Other no UE support, R knee fine, L hip discomfort 1/10 Therapeutic Exercises Sitting Exercises Ql stretch Sitting Exercise Name R trunk flexion w/ lat side bend Side bilateral Reps/Minutes 30 sec x2 Comments cued trunk alignment Standing Exercises calf stretch CHANTELL Side bilateral Resistance CHANTELL Reps/Minutes 30 sec racqetball wall LB and glut Standing Exercise Name standing back to wall Reps/Minutes 1 min each area SLS Side bilateral Reps/Minutes 20 sec R, 15 sec L x2 each before LOB Comments cued upright posture with glut and core facilitation COG over VELIA SL step up Side bilateral Equipment Used 6 step, at stair Reps/Minutes x10 Comments cued COG over LE glut facilitation, light contact rail PT-OP-R Modalities Start: 10/31/19 16:17 Freq: Status: Active Protocol: Document 11/17/19 09:47 LRN (Rec: 11/17/19 10:28 LRN [id number]) Electric Stimulation Electric Stimulation Interferential Current (IFC) Body Location R knee Duration (Minutes) 15 Intensity 35 Target/Sweep Sweep Patient Position Hooklying Combined With Heat/Cold Cold Pack Hot Pack/Cold Pack Treatment ice pack Location right knee, lumbar spine Patient Position Hooklying Treatment Duration (minutes) 15 Patient Tolerance Good Comments Used during E-Stim PT-OP-T Assessment and Plan Start: 10/31/19 16:17 Freq: Status: Active Protocol: Document 12/21/19 07:33 SP (Rec: 12/21/19 08:16 SP [id number]) Physical Therapy Assessment Goals Four Impairment weakness bilateral hip ext 4-/ 5 Senior Living Goal (LTG) Patient will demonstrate improvement in bilateral hip extension to at least 4+/5 for improved hip function 12/11/19: good progress LTG Duration 12/31/19 Three Impairment soft tissue tightness 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 (11/24/19: Pt walking [place], doesn't tolerate incline) 12/11/19: good progress on level surfaces, hasn't done incline yet until on treadmill today with good tolerance. 12/21/19 able to [place] 1/2 mile up steepest incline with 2/10 C central LBP, tolerable but not back to prior activity level. LTG Duration 12/31/19 One Impairment pain right knee and left hip 3 -5/10 on pain scale Senior Living Goal (LTG) decrease c/o pain to no greater than 1-2/10 with all usual activities 11/29/19: goal progress 12/11/19: 1/10 today LTG Duration 12/31/19 Assessment Summary Assessment Tx focused on stretching and self STMs ball on wall Central LB and hip after TM to decrease reported tension and carryover post walks outside park walks with good response yes, loosens up. Cued for awareness PPT, core facilitation during ex and quieter heel strike walking to decrease LB recruitment with response I think it helps. Pt requiring reminders HEP stretching supine and added seated today and self ball wall STMs are ways to decrease tightness oh ok, they do help. Physical Therapy Plan Frequency and Duration Frequency of Treatment 2x/Week Duration of Treatment 8 Plan of Care Start Date 11/01/19 Plan of Care End Date 12/31/19 Therapeutic Interventions Therapeutic Interventions Home Exercise Program,Joint Mobilizations,Manual Therapy, Patient/Caregiver Education, Self-Care/Home Management,Soft Tissue Mobilization,Taping, Therapeutic Activities, Therapeutic Exercises Modalities Cold Pack/Ice Massage,Electric Stimulation,Hot Packs, Ultrasound Next Visit Focus/Plan Next Note Type Treatment Note Next Visit Plan PN in 2 txs. Added more appts in case need. Assess response to last tx stretching and glut strengthening. Improving shuttle balance and uneven surfaces past txs. Continue to progress with ther ex for flexibility, strengthening, and pain management.
--- NOTE | 2019-12-21 08:15 | PT.OTN ---
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 No other exercises besides walking for hips and knees, does a few exercises previously given for LBP. No use of ice or heat. Tried a brace on his knee with velcroe straps; didn't seem to make much difference. Prior history of right knee pain with no known mechanism of injury then or now. Pain worse with standing and walking. Prior Treatments and Tests x-rays: arthritis PT-OP-C Subjective Start: 10/31/19 16:17 Freq: Status: Active Protocol: Document 12/21/19 07:33 SP (Rec: 12/21/19 08:16 SP [id number]) OP-PT Subjective Patient Comments Patient Comments Pt reported R knee still doing well, noticed central LB pain 2/10 when walked portion of steep incline at [facility] this am maybe 1/2 mile. PT-OP-F Manual Assessment Start: 10/31/19 16:17 Freq: Status: Active Protocol: Document 11/01/19 09:02 SAK (Rec: 11/01/19 10:17 SAK [id number]) Manual Assessments Soft Tissue Assessment Soft Tissue Mobility Assessment palpable tightness bilateral quads, IT bands, hamstrings Joint Mobility Assessment Joint Mobility Assessment decreased in all motions hip and knees PT-OP-G Mobility & Gait Start: 10/31/19 16:17 Freq: Status: Active Protocol: Document 11/01/19 09:02 [facility] (Rec: 11/01/19 10:17 [facility] [id number]) OP Mobility Evaluation Transfers Sit to Stand independent OP Gait Assessment Gait Gait Assistance Required: Independent Assistive Devices Assistive Device None Orthotic/Prosthetic Devices or Brace: No Gait Deviations General Gait Pattern Antalgic Factors Limiting Gait Function Factors Limiting Gait Function Limited Range of Motion,Pain PT-OP-K Range of Motion Start: 10/31/19 16:17 Freq: Status: Active Protocol: Document 11/01/19 09:02 [facility] (Rec: 11/01/19 10:17 [facility] [id number]) Lumbar Spine Range of Motion Lumbar Spine Active Testing Position Standing ROM Limitations Soft Tissue Tightness Comments decreased all motions with c/o tightness Hip Goniometric Range of Motion Hip [place] Hip ROM WFL No Extension 5 Internal Rotation 14 External Rotation 45 Hip ROM Limitations Hip ROM Limitations Soft Tissue Tightness Comments Mod tightness bilateral IT band right greater than left, [place] hamstrings right greater than left (PSLR left 65, right 55) , [place] quads (prone knee flex 85 left, 80 right), hip IR and ER Knee Goniometric Range of Motion Knee [place] Knee ROM WFL No Knee ROM Limitations Knee ROM Limitations Soft Tissue Tightness,Bony Restriction Comments Left knee extension -6 otherwise WFL Ankle and Foot Goniometric Range of Motion Ankle and Foot [place] Dorsiflexion with Knee Flexed 5 Dorsiflexion with Knee Extended 0 Ankle and Foot ROM Limitations ROM Limitations Soft Tissue Tightness PT-OP-M Strength Start: 10/31/19 16:17 Freq: Status: Active Protocol: Document 11/01/19 09:02 [facility] (Rec: 11/01/19 14:18 [facility] [id number]) Hip Strength Hip Manual Muscle Testing [place] Flexion (L2) 4 Good Extension (S1) 4- Good- Abduction 4 Good External Rotation 4- Good- Internal Rotation 4 Good Knee Strength Knee Manual Muscle Testing Left Flexion (S2) 5 Normal Extension (L3) 5 Normal Right Flexion (S2) 4 Good Extension (L3) 4 Good Ankle/Foot Strength Ankle and Foot Manual Muscle Testing [place] Dorsiflexion (L4) 5 Normal Plantarflexion (S1) 5 Normal PT-OP-Q Treatments Start: 10/31/19 16:17 Freq: Status: Active Protocol: Document 12/21/19 07:33 SP (Rec: 12/21/19 08:16 SP [id number]) Cardio Equipment Treadmill Duration (Minutes) 10 Speed 2.3 Incline 4 Other no UE support, R knee fine, L hip discomfort 1/10 Therapeutic Exercises Sitting Exercises Ql stretch Sitting Exercise Name R trunk flexion w/ lat side bend Side bilateral Reps/Minutes 30 sec x2 Comments cued trunk alignment Standing Exercises calf stretch CHANTELL Side bilateral Resistance CHANTELL Reps/Minutes 30 sec racqetball wall LB and glut Standing Exercise Name standing back to wall Reps/Minutes 1 min each area SLS Side bilateral Reps/Minutes 20 sec R, 15 sec L x2 each before LOB Comments cued upright posture with glut and core facilitation COG over VELIA SL step up Side bilateral Equipment Used 6 step, at stair Reps/Minutes x10 Comments cued COG over LE glut facilitation, light contact rail PT-OP-R Modalities Start: 10/31/19 16:17 Freq: Status: Active Protocol: Document 11/17/19 09:47 LRN (Rec: 11/17/19 10:28 LRN [id number]) Electric Stimulation Electric Stimulation Interferential Current (IFC) Body Location R knee Duration (Minutes) 15 Intensity 35 Target/Sweep Sweep Patient Position Hooklying Combined With Heat/Cold Cold Pack Hot Pack/Cold Pack Treatment ice pack Location right knee, lumbar spine Patient Position Hooklying Treatment Duration (minutes) 15 Patient Tolerance Good Comments Used during E-Stim PT-OP-T Assessment and Plan Start: 10/31/19 16:17 Freq: Status: Active Protocol: Document 12/21/19 07:33 SP (Rec: 12/21/19 08:16 SP [id number]) Physical Therapy Assessment Goals Four Impairment weakness bilateral hip ext 4-/ 5 [facility] Goal (LTG) Patient will demonstrate improvement in bilateral hip extension to at least 4+/5 for improved hip function 12/11/19: good progress LTG Duration 12/31/19 Three Impairment soft tissue tightness 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 12/11/19: good progress LTG Duration 12/31/19 Two Impairment patient not able to go for usual walks Printing Machine Operator Goal (LTG) Patient will be able to resume his usual walks around [place] without difficulty. (11/24/19: [place], doesn't tolerate incline) 12/11/19: good progress on level surfaces, hasn't done incline yet until on treadmill today with good tolerance. 12/21/19 able [place] 1/2 mile up steepest incline with 2/10 C central LBP, tolerable but not back to prior activity level. LTG Duration 12/31/19 One Impairment pain right knee and left hip 3 -5/10 on pain scale [facility] Goal (LTG) decrease c/o pain to no greater than 1-2/10 with all usual activities 11/29/19: goal progress 12/11/19: 1/10 today LTG Duration 12/31/19 Assessment Summary Assessment Tx focus on stretching and self STMs ball on wall CLB and hip after TM to assimulate post walks outside with good response yes, loosens up. Cued for PPT, core facilitation and quieter heel strike walking to decrease LB recruitment. Physical Therapy Plan Frequency and Duration Frequency of Treatment 2x/Week Duration of Treatment 8 Plan of Care Start Date 11/01/19 Plan of Care End Date 12/31/19 Therapeutic Interventions Therapeutic Interventions Home Exercise Program,Joint Mobilizations,Manual Therapy, Patient/Caregiver Education, Self-Care/Home Management,Soft Tissue Mobilization,Taping, Therapeutic Activities, Therapeutic Exercises Modalities Cold Pack/Ice Massage,Electric Stimulation,Hot Packs, Ultrasound Next Visit Focus/Plan Next Note Type Treatment Note Next Visit Plan PN in 2 txs. Added more appts in case need. Assess response to last tx stretching and glut strengthening. Improving shuttle balance and uneven surfaces past txs. Continue to progress with ther ex for flexibility, strengthening, and pain management.
--- NOTE | 2019-12-25 16:43 | PT.OTN ---
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 No other exercises besides walking for hips and knees, does a few exercises previously given for LBP. No use of ice or heat. Tried a brace on his knee with velcroe straps; didn't seem to make much difference. Prior history of right knee pain with no known mechanism of injury then or now. Pain worse with standing and walking. Prior Treatments and Tests x-rays: arthritis PT-OP-C Subjective Start: 10/31/19 16:17 Freq: Status: Active Protocol: Document 12/25/19 10:38 SAK (Rec: 12/25/19 11:13 SAK [id number]) OP-PT Subjective Patient Comments Patient Comments Was able to walk the full loop at [place]; slow but able to do it, only mild pain. PT-OP-F Manual Assessment Start: 10/31/19 16:17 Freq: Status: Active Protocol: Document 11/01/19 09:02 SAK (Rec: 11/01/19 10:17 SAK [id number]) Manual Assessments Soft Tissue Assessment Soft Tissue Mobility Assessment palpable tightness bilateral quads, IT bands, hamstrings Joint Mobility Assessment Joint Mobility Assessment decreased in all motions hip and knees PT-OP-G Mobility & Gait Start: 10/31/19 16:17 Freq: Status: Active Protocol: Document 11/01/19 09:02 SAK (Rec: 11/01/19 10:17 [facility] [id number]) OP Mobility Evaluation Transfers Sit to Stand independent OP Gait Assessment Gait Gait Assistance Required: Independent Assistive Devices Assistive Device None Orthotic/Prosthetic Devices or Brace: No Gait Deviations General Gait Pattern Antalgic Factors Limiting Gait Function Factors Limiting Gait Function Limited Range of Motion,Pain PT-OP-K Range of Motion Start: 10/31/19 16:17 Freq: Status: Active Protocol: Document 11/01/19 09:02 [facility] (Rec: 11/01/19 10:17 [facility] [id number]) Lumbar Spine Range of Motion Lumbar Spine Active Testing Position Standing ROM Limitations Soft Tissue Tightness Comments decreased all motions with c/o tightness Hip Goniometric Range of Motion Hip [place] Hip ROM WFL No Extension 5 Internal Rotation 14 External Rotation 45 Hip ROM Limitations Hip ROM Limitations Soft Tissue Tightness Comments Mod tightness bilateral IT band right greater than left, [place] hamstrings right greater than left (PSLR left 65, right 55) , [place] quads (prone knee flex 85 left, 80 right), hip IR and ER Knee Goniometric Range of Motion Knee [place] Knee ROM WFL No Knee ROM Limitations Knee ROM Limitations Soft Tissue Tightness,Bony Restriction Comments Left knee extension -6 otherwise WFL Ankle and Foot Goniometric Range of Motion Ankle and Foot [place] Dorsiflexion with Knee Flexed 5 Dorsiflexion with Knee Extended 0 Ankle and Foot ROM Limitations ROM Limitations Soft Tissue Tightness PT-OP-M Strength Start: 10/31/19 16:17 Freq: Status: Active Protocol: Document 11/01/19 09:02 [facility] (Rec: 11/01/19 14:18 [facility] [id number]) Hip Strength Hip Manual Muscle Testing [place] Flexion (L2) 4 Good Extension (S1) 4- Good- Abduction 4 Good External Rotation 4- Good- Internal Rotation 4 Good Knee Strength Knee Manual Muscle Testing Left Flexion (S2) 5 Normal Extension (L3) 5 Normal Right Flexion (S2) 4 Good Extension (L3) 4 Good Ankle/Foot Strength Ankle and Foot Manual Muscle Testing [place] Dorsiflexion (L4) 5 Normal Plantarflexion (S1) 5 Normal PT-OP-Q Treatments Start: 10/31/19 16:17 Freq: Status: Active Protocol: Document 12/25/19 10:38 [facility] (Rec: 12/25/19 11:13 [facility] [id number]) Cardio Equipment Treadmill Duration (Minutes) 10 Speed 2.3 Incline 4 Other no UE support, R knee fine, L hip discomfort 05/12 Gym Equipment Shuttle Recovery Unilateral Squats Details R>L alternating Resistance 62 Shuttle Recovery Platform Stable Reps/Time 10x2 Bilateral Squats Resistance 100 Shuttle Recovery Platform Stable Reps/Time 10x2 Shuttle Balance Red clips WBOS, NBOS Details WBOS, NBOS with head turns and stagger stance EC Reps/Duration 8 min total Comments Cued upright posture, glut/ core facilitiation with COG over VELIA and even between B LE Therapeutic Exercises Sitting Exercises Ql stretch Sitting Exercise Name R trunk flexion w/ lat side bend Side bilateral Reps/Minutes 30 sec x2 Comments cued trunk alignment Standing Exercises SLS Side bilateral Reps/Minutes 20 sec R, 15 sec L x2 each before LOB Comments cued upright posture with glut and core facilitation COG over VELIA SL step up Side bilateral Equipment Used 6 step, at stair Reps/Minutes x10 Comments cued COG over LE glut facilitation, light contact rail PT-OP-R Modalities Start: 10/31/19 16:17 Freq: Status: Active Protocol: Document 11/17/19 09:47 LRN (Rec: 11/17/19 10:28 LRN [id number]) Electric Stimulation Electric Stimulation Interferential Current (IFC) Body Location R knee Duration (Minutes) 15 Intensity 35 Target/Sweep Sweep Patient Position Hooklying Combined With Heat/Cold Cold Pack Hot Pack/Cold Pack Treatment ice pack Location right knee, lumbar spine Patient Position Hooklying Treatment Duration (minutes) 15 Patient Tolerance Good Comments Used during E-Stim PT-OP-T Assessment and Plan Start: 10/31/19 16:17 Freq: Status: Active Protocol: Document 12/25/19 10:38 [facility] (Rec: 12/25/19 11:13 [facility] [id number]) Physical Therapy Assessment Goals Four Impairment weakness bilateral hip ext 4-/ 5 [facility] Goal (LTG) Patient will demonstrate improvement in bilateral hip extension to at least 4+/5 for improved hip function 12/11/19: good progress LTG Duration 12/31/19 Three Impairment soft tissue tightness 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 12/11/19: good progress LTG Duration 12/31/19 Two Impairment patient not able to go for usual walks [facility] Goal (LTG) Patient will be able to resume his usual walks around [employer] without difficulty. (11/24/19: [place], doesn't tolerate incline) 12/11/19: good progress on level surfaces, hasn't done incline yet until on treadmill today with good tolerance. 12/21/19 [place] 1[place]2 mile up steepest incline with 2/10 C central LBP, tolerable but not back to prior activity level. LTG Duration 12/31/19 One Impairment pain right knee and left hip 3 -5/10 on pain scale Bacteriology Research Assistant Goal (LTG) decrease c/o pain to no greater than 1-2/10 with all usual activities 11/29/19: goal progress 12/11/19: 1/10 today LTG Duration 12/31/19 Assessment Summary Assessment Tolerated increased resistance for single leg shuttle leg press, improved stability on shuttle balance machine. Physical Therapy Plan Frequency and Duration Frequency of Treatment 2x/Week Duration of Treatment 8 Plan of Care Start Date 11/01/19 Plan of Care End Date 12/31/19 Therapeutic Interventions Therapeutic Interventions Home Exercise Program,Joint Mobilizations,Manual Therapy, Patient/Caregiver Education, Self-Care/Home Management,Soft Tissue Mobilization,Taping, Therapeutic Activities, Therapeutic Exercises Modalities Cold Pack/Ice Massage,Electric Stimulation,Hot Packs, Ultrasound Next Visit Focus/Plan Next Note Type Treatment Note Next Visit Plan Progress note.
--- NOTE | 2019-12-27 17:15 | PT.OTRE ---
Current Diagnoses Unilateral primary osteoarthritis, unspecified hip (12/27/19) Unilateral primary osteoarthritis, right knee (12/27/19) Past Medical History (Last Reviewed 10/24/19 @ 14:58 by Rajan Cash MD) Aortic stenosis (Chronic) BPH w urinary obs/LUTS (Chronic) CAD (coronary artery disease) (Chronic ~2018) Elevated PSA (Chronic) Enlarged prostate (Acute) Hematuria (Chronic) Mass (Acute ~10/2018) Urinary frequency (Acute) Surgical History (Last Reviewed 10/24/19 @ 14:58 by Rajan Cash MD) Hx of cardiac catheterization (Acute) Hx of heart artery stent (Acute) Hx of hernia repair (Acute ~05/2017) S/P right coronary artery (RCA) stent placement (Acute ~01/2018) Visit Care Team Role Provider Type Rajan Cash MD Attending Provider Physician Primary Care Provider Referring Provider Specialty: Internal Medicine Address: [address] [place] [address] Email: [email or web address] Physical Therapy Re-Evaluation PT-OP-A Visit Information Start: 10/31/19 16:17 Freq: Status: Active Protocol: Document 12/27/19 09:06 SAK (Rec: 12/27/19 09:43 SAK [id number]) Out-Patient Physical Therapy Visit Information Visit Information Visit Type Treatment Note Visit Start Time 09:02 Visit Stop Time 09:47 Total Visit Minutes 45 Visit Number 17 Number of DISC PAD GRINDER Visits 0 PT-OP-B Current Condition Start: 10/31/19 16:17 Freq: Status: Active Protocol: Document 11/06/19 08:13 SAK (Rec: 11/06/19 09:02 SAK [id number]) Current Condition History of Current Condition Onset Date few years History of Current Condition history of hip pain for several years, right knee pain for about 6 months; persistent and Not able to walk around [place] anymore, has to walk level ground. No other exercises besides walking for hips and knees, does a few exercises previously given for LBP. No use of ice or heat. Tried a brace on his knee with velcroe straps; didn't seem to make much difference. Prior history of right knee pain with no known mechanism of injury then or now. Pain worse with standing and walking. Prior Treatments and Tests x-rays: arthritis PT-OP-C Subjective Start: 10/31/19 16:17 Freq: Status: Active Protocol: Document 12/27/19 09:06 [facility] (Rec: 12/27/19 09:43 [facility] [id number]) OP-PT Subjective Patient Comments Patient Comments No new c/o Patient Reported Progress Improving PT-OP-F Manual Assessment Start: 10/31/19 16:17 Freq: Status: Active Protocol: Document 11/01/19 09:02 [facility] (Rec: 11/01/19 10:17 [facility] [id number]) Manual Assessments Soft Tissue Assessment Soft Tissue Mobility Assessment palpable tightness bilateral quads, IT bands, hamstrings Joint Mobility Assessment Joint Mobility Assessment decreased in all motions hip and knees PT-OP-G Mobility & Gait Start: 10/31/19 16:17 Freq: Status: Active Protocol: Document 11/01/19 09:02 [facility] (Rec: 11/01/19 10:17 [facility] [id number]) OP Mobility Evaluation Transfers Sit to Stand independent OP Gait Assessment Gait Gait Assistance Required: Independent Assistive Devices Assistive Device None Orthotic/Prosthetic Devices or Brace: No Gait Deviations General Gait Pattern Antalgic Factors Limiting Gait Function Factors Limiting Gait Function Limited Range of Motion,Pain PT-OP-K Range of Motion Start: 10/31/19 16:17 Freq: Status: Active Protocol: Document 11/01/19 09:02 [facility] (Rec: 11/01/19 10:17 [facility] [id number]) Lumbar Spine Range of Motion Lumbar Spine Active Testing Position Standing ROM Limitations Soft Tissue Tightness Comments decreased all motions with c/o tightness Hip Goniometric Range of Motion Hip Measured in Degrees [place] Hip ROM WFL No Extension 5 Internal Rotation 14 External Rotation 45 Hip ROM Limitations Hip ROM Limitations Soft Tissue Tightness Comments Mod tightness bilateral IT band right greater than left, [place] hamstrings right greater than left (PSLR left 65, right 55) , [place] quads (prone knee flex 85 left, 80 right), hip IR and ER Knee Goniometric Range of Motion Knee Measured in Degrees [place] Knee ROM WFL No Knee ROM Limitations Knee ROM Limitations Soft Tissue Tightness,Bony Restriction Comments Left knee extension -6 otherwise WFL Ankle and Foot Goniometric Range of Motion Ankle and Foot Measured in Degrees [place] Dorsiflexion with Knee Flexed 5 Dorsiflexion with Knee Extended 0 Ankle and Foot ROM Limitations ROM Limitations Soft Tissue Tightness PT-OP-M Strength Start: 10/31/19 16:17 Freq: Status: Active Protocol: Document 11/01/19 09:02 [facility] (Rec: 11/01/19 14:18 [facility] [id number]) Hip Strength Hip Manual Muscle Testing [place] Flexion (L2) 4 Good Extension (S1) 4- Good- Abduction 4 Good External Rotation 4- Good- Internal Rotation 4 Good Knee Strength Knee Manual Muscle Testing Left Flexion (S2) 5 Normal Extension (L3) 5 Normal Right Flexion (S2) 4 Good Extension (L3) 4 Good Ankle/Foot Strength Ankle and Foot Manual Muscle Testing [place] Dorsiflexion (L4) 5 Normal Plantarflexion (S1) 5 Normal PT-OP-Q Treatments Start: 10/31/19 16:17 Freq: Status: Active Protocol: Document 12/27/19 09:06 [facility] (Rec: 12/27/19 09:43 [facility] [id number]) Cardio Equipment Recumbent Stepper (Sci-Fit) Duration (Minutes) 5 Resistance 4.0 Seat Position 10 Other 2.5 min UE and LE's, 2/5 min LE's only Treadmill Duration (Minutes) 10 Speed 2.2 Incline 7.5 Other no UE support, R knee fine, L hip discomfort 1/10 Gym Equipment Shuttle Recovery Unilateral Squats Details R>L alternating Resistance 62 Shuttle Recovery Platform Stable Reps/Time 12x2 Bilateral Squats Resistance 100 Shuttle Recovery Platform Stable Reps/Time 12x2 Shuttle Balance Red clips WBOS, NBOS Details WBOS, NBOS with head turns and stagger stance EC Reps/Duration 8 min total Comments Cued upright posture, glut/ core facilitiation with COG over VELIA and even between B LE Therapeutic Exercises Supine Exercises hip ER stretch Reps/Minutes 2x30 figure 4 stretch Supine Exercise Name hip IR/ ER Side bilateral Reps/Minutes 1x30 each direction Comments review HEP HS stretch Side bilateral Equipment Used on shuttle leg press Reps/Minutes 1x30 Comments Review HEP Standing Exercises SLS Side bilateral Reps/Minutes 2x ea Comments cued upright posture with glut and core facilitation COG over VELIA PT-OP-R Modalities Start: 10/31/19 16:17 Freq: Status: Active Protocol: Document 11/17/19 09:47 LRN (Rec: 11/17/19 10:28 LRN [id number]) Electric Stimulation Electric Stimulation Interferential Current (IFC) Body Location R knee Duration (Minutes) 15 Intensity 35 Target/Sweep Sweep Patient Position Hooklying Combined With Heat/Cold Cold Pack Hot Pack/Cold Pack Treatment ice pack Location right knee, lumbar spine Patient Position Hooklying Treatment Duration (minutes) 15 Patient Tolerance Good Comments Used during E-Stim PT-OP-T Assessment and Plan Start: 10/31/19 16:17 Freq: Status: Active Protocol: Document 12/27/19 09:06 [facility] (Rec: 12/27/19 09:43 [facility] [id number]) Physical Therapy Assessment Goals Four Impairment weakness bilateral hip ext 4-/ 5 Halfway Goal (LTG) Patient will demonstrate improvement in bilateral hip extension to at least 4+/5 for improved hip function 12/11/19: good progress 12/27/19: Improved to 4/5 LTG Duration 01/26/20 Three Impairment soft tissue tightness Plant Sprayer 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 12/11/19: good progress 12/27/19: Improving with HEP for flexibility and with manual techniques LTG Duration 01/26/20 Two Impairment patient not able to go for usual walks Plant Sprayer Goal (LTG) Patient will be able to resume his usual walks around [employer] without difficulty. (11/24/19: Pt walking around [email or web address], doesn't tolerate incline) 12/27/19: Has now started walking [place], slow and careful 12/11/19: good progress on level surfaces, hasn't done incline yet until on treadmill today with fair tolerance. 12/21/19 able to wallk [place] 1/2 mile up steepest incline with 2/10 C central LBP, tolerable but not back to prior activity level. 12/27/19: improving, but not up to prior walks yet LTG Duration 01/26/20 One Impairment pain right knee and left hip 3 -5/10 on pain scale Halfway Goal (LTG) decrease c/o pain to no greater than 1-2/10 with all usual activities 11/29/19: goal progress 12/11/19: 1/10 today 12/27/19: 0-05/12 knee, 05/12 hip LTG Duration 01/26/20 Assessment Summary Assessment Continues to progress with decreasing pain, improving strength and function. Due to continued progress feel he would benefit from further skilled PT to help him fully achieve his PT goals. Physical Therapy Plan Frequency and Duration Frequency of Treatment 2x/Week Duration of Treatment 4 Plan of Care Start Date 12/27/19 Plan of Care End Date 01/26/20 Therapeutic Interventions Therapeutic Interventions Home Exercise Program,Joint Mobilizations,Manual Therapy, Patient/Caregiver Education, Self-Care/Home Management,Soft Tissue Mobilization,Taping, Therapeutic Activities, Therapeutic Exercises Modalities Cold Pack/Ice Massage,Electric Stimulation,Hot Packs, Ultrasound Next Visit Focus/Plan Next Note Type Treatment Note Next Visit Plan Continue PT to decrease pain, improve flexibility, strength, activity tolerance.
--- NOTE | 2019-12-27 17:16 | PT.OPPOC ---
Physical, Occupational & Speech Therapy At [facility] Current Diagnoses Unilateral primary osteoarthritis, unspecified hip (12/27/19) Unilateral primary osteoarthritis, right knee (12/27/19) Visit Care Team Role Provider Type Rajan Cash MD Attending Provider Physician Primary Care Provider Referring Provider Specialty: Internal Medicine Address: [address] [place] [address], [address], [facility] Email: [email or web address] Plan Of Care PT-OP-T Assessment and Plan Start: 10/31/19 16:17 Freq: Status: Active Protocol: Document 12/27/19 09:06 MILLY (Rec: 12/27/19 09:43 SAK [id number]) Physical Therapy Assessment Goals Four Impairment weakness bilateral hip ext 4-/ 5 Intermediate Goal (LTG) Patient will demonstrate improvement in bilateral hip extension to at least 4+/5 for improved hip function 12/11/19: good progress 12/27/19: Improved to 4/5 LTG Duration 01/26/20 Three Impairment soft tissue tightness Station Installer And Repairer 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 12/11/19: good progress 12/27/19: Improving with HEP for flexibility and with manual techniques LTG Duration 01/26/20 Two Impairment patient not able to go for usual walks Station Installer And Repairer Goal (LTG) Patient will be able to resume his usual walks around [employer] without difficulty. (11/24/19: Pt walking around [employer], doesn't tolerate incline) 12/27/19: Has now started walking [employer], slow and careful 12/11/19: good progress on level surfaces, hasn't done incline yet until on treadmill today with fair tolerance. 12/21/19 able to wallk [employer] 1/2 mile up steepest incline with 2/10 C central LBP, tolerable but not back to prior activity level. 12/27/19: improving, but not up to prior walks yet LTG Duration 01/26/20 One Impairment pain right knee and left hip 3 -5/10 on pain scale Station Installer And Repairer Goal (LTG) decrease c/o pain to no greater than 1-2/10 with all usual activities 11/29/19: goal progress 12/11/19: 1/10 today 12/27/19: 0-1/10 knee, 05/12 hip LTG Duration 01/26/20 Assessment Summary Assessment Continues to progress with decreasing pain, improving strength and function. Due to continued progress feel he would benefit from further skilled PT to help him fully achieve his PT goals. Physical Therapy Plan Frequency and Duration Frequency of Treatment 2x/Week Duration of Treatment 4 Plan of Care Start Date 12/27/19 Plan of Care End Date 01/26/20 Therapeutic Interventions Therapeutic Interventions Home Exercise Program,Joint Mobilizations,Manual Therapy, Patient/Caregiver Education, Self-Care/Home Management,Soft Tissue Mobilization,Taping, Therapeutic Activities, Therapeutic Exercises Modalities Cold Pack/Ice Massage,Electric Stimulation,Hot Packs, Ultrasound Next Visit Focus/Plan Next Note Type Treatment Note Next Visit Plan Continue PT to decrease pain, improve flexibility, strength, activity tolerance. Plan of Care Dates Plan of Care Start Date 12/27/19 Plan of Care End Date 01/26/20 Electronically Signed by: Vanessa Dove, PT 12/27/19 [id number] Please Sign and Return: I have reviewed this Plan of Care and certify that the skilled therapy services above are required to meet the patient?s needs. Physician Signature Date Printed Name and Credentials Clinical Instructor Signature Printed Name and Credentials
--- NOTE | 2020-01-02 09:00 | PT.OTN ---
Current Diagnoses Unilateral primary osteoarthritis, unspecified hip (01/02/20) Unilateral primary osteoarthritis, right knee (01/02/20) Physical Therapy Treatment Note PT-OP-A Visit Information Start: 10/31/19 16:17 Freq: Status: Active Protocol: Document 01/02/20 08:19 SP (Rec: 01/02/20 09:00 SP [id number]) Out-Patient Physical Therapy Visit Information Visit Information Visit Type Treatment Note Visit Start Time 08:19 Visit Stop Time 09:00 Total Visit Minutes 41 Visit Number 18 Number of MANUFACTURING MAINTENANCE TECHNICIAN Visits 1 PT-OP-B Current Condition Start: 10/31/19 16:17 Freq: Status: Active Protocol: Document 11/06/19 08:13 SAK (Rec: 11/06/19 09:02 SAK [id number]) Current Condition History of Current Condition Onset Date few years History of Current Condition history of hip pain for several years, right knee pain for about 6 months; persistent and Not able to walk around [place] anymore, has to walk level ground. No other exercises besides walking for hips and knees, does a few exercises previously given for LBP. No use of ice or heat. Tried a brace on his knee with velcroe straps; didn't seem to make much difference. Prior history of right knee pain with no known mechanism of injury then or now. Pain worse with standing and walking. Prior Treatments and Tests x-rays: arthritis PT-OP-C Subjective Start: 10/31/19 16:17 Freq: Status: Active Protocol: Document 01/02/20 08:19 SP (Rec: 01/02/20 09:00 SP [id number]) OP-PT Subjective Patient Comments Patient Comments Pt reported able to walk [facility] now with no concerns, getting better I'm not the fastest but am pleased with the progress. PT-OP-F Manual Assessment Start: 10/31/19 16:17 Freq: Status: Active Protocol: Document 11/01/19 09:02 SAK (Rec: 11/01/19 10:17 SAK [id number]) Manual Assessments Soft Tissue Assessment Soft Tissue Mobility Assessment palpable tightness bilateral quads, IT bands, hamstrings Joint Mobility Assessment Joint Mobility Assessment decreased in all motions hip and knees PT-OP-G Mobility & Gait Start: 10/31/19 16:17 Freq: Status: Active Protocol: Document 11/01/19 09:02 SAK (Rec: 11/01/19 10:17 [facility] [id number]) OP Mobility Evaluation Transfers Sit to Stand independent OP Gait Assessment Gait Gait Assistance Required: Independent Assistive Devices Assistive Device None Orthotic/Prosthetic Devices or Brace: No Gait Deviations General Gait Pattern Antalgic Factors Limiting Gait Function Factors Limiting Gait Function Limited Range of Motion,Pain PT-OP-K Range of Motion Start: 10/31/19 16:17 Freq: Status: Active Protocol: Document 11/01/19 09:02 SAK (Rec: 11/01/19 10:17 SAK [id number]) Lumbar Spine Range of Motion Lumbar Spine Active Testing Position Standing ROM Limitations Soft Tissue Tightness Comments decreased all motions with c/o tightness Hip Goniometric Range of Motion Hip [place] Hip ROM WFL No Extension 5 Internal Rotation 14 External Rotation 45 Hip ROM Limitations Hip ROM Limitations Soft Tissue Tightness Comments Mod tightness bilateral IT band right greater than left, [place] hamstrings right greater than left (PSLR left 65, right 55) , [place] quads (prone knee flex 85 left, 80 right), hip IR and ER Knee Goniometric Range of Motion Knee [place] Knee ROM WFL No Knee ROM Limitations Knee ROM Limitations Soft Tissue Tightness,Bony Restriction Comments Left knee extension -6 otherwise WFL Ankle and Foot Goniometric Range of Motion Ankle and Foot [place] Dorsiflexion with Knee Flexed 5 Dorsiflexion with Knee Extended 0 Ankle and Foot ROM Limitations ROM Limitations Soft Tissue Tightness PT-OP-M Strength Start: 10/31/19 16:17 Freq: Status: Active Protocol: Document 11/01/19 09:02 SAK (Rec: 11/01/19 14:18 [facility] [id number]) Hip Strength Hip Manual Muscle Testing [place] Flexion (L2) 4 Good Extension (S1) 4- Good- Abduction 4 Good External Rotation 4- Good- Internal Rotation 4 Good Knee Strength Knee Manual Muscle Testing Left Flexion (S2) 5 Normal Extension (L3) 5 Normal Right Flexion (S2) 4 Good Extension (L3) 4 Good Ankle/Foot Strength Ankle and Foot Manual Muscle Testing [place] Dorsiflexion (L4) 5 Normal Plantarflexion (S1) 5 Normal PT-OP-Q Treatments Start: 10/31/19 16:17 Freq: Status: Active Protocol: Document 09/01/20 08:19 SP (Rec: 01/02/20 09:00 SP [id number]) Cardio Equipment Recumbent Elliptical (Bi[employer]) Duration (Minutes) 6 Resistance 5 Seat Position 10 Treadmill Duration (Minutes) 6 Speed 2.3 Incline 0 Other no UE support, R knee fine, L hip discomfort 1/10 Therapeutic Exercises Supine Exercises IT band stretch Side bilateral Equipment Used strap Reps/Minutes 1x30 Comments Review HEP HS stretch Supine Exercise Name w/ ankle pumps Side bilateral Equipment Used strap Reps/Minutes 1x30 Comments Review HEP Standing Exercises isometric glut med ball wall Side bilateral Equipment Used contact rail Reps/Minutes 10 sec x2 Comments L glut med weaker than R lunges Equipment Used rail support Reps/Minutes 20 ft x1 lap Comments cued hip hinge, knees behind toes SLS Side bilateral Reps/Minutes 30 x3 Comments cued upright posture with glut and core facilitation COG over VELIA squats Standing Exercise Name air squat picking up balls from cones Comments cued hip hinge, knees behind toes hip flexor stretch Side bilateral Reps/Minutes 2x30 PT-OP-R Modalities Start: 10/31/19 16:17 Freq: Status: Active Protocol: Document 11/17/19 09:47 LRN (Rec: 11/17/19 10:28 LRN [id number]) Electric Stimulation Electric Stimulation Interferential Current (IFC) Body Location R knee Duration (Minutes) 15 Intensity 35 Target/Sweep Sweep Patient Position Hooklying Combined With Heat/Cold Cold Pack Hot Pack/Cold Pack Treatment ice pack Location right knee, lumbar spine Patient Position Hooklying Treatment Duration (minutes) 15 Patient Tolerance Good Comments Used during E-Stim PT-OP-T Assessment and Plan Start: 10/31/19 16:17 Freq: Status: Active Protocol: Document 01/02/20 08:19 SP (Rec: 01/02/20 09:00 SP [id number]) Physical Therapy Assessment Goals Four Impairment weakness bilateral hip ext 4-/ 5 Intermediate Goal (LTG) Patient will demonstrate improvement in bilateral hip extension to at least 4+/5 for improved hip function 12/11/19: good progress 12/27/19: Improved to 4/5 LTG Duration 01/26/20 Three Impairment soft tissue tightness Sexual Abuse Counsellor 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 12/11/19: good progress 12/27/19: Improving with HEP for flexibility and with manual techniques LTG Duration 01/26/20 Two Impairment patient not able to go for usual walks Intermediate Goal (LTG) Patient will be able to resume his usual walks around [place] without difficulty. (11/24/19: Pt walking around [employer] doesn't tolerate incline) 12/27/19: Has now started walking [place], slow and careful 12/11/19: good progress on level surfaces, hasn't done incline yet until on treadmill today with fair tolerance. 12/21/19 able to wallk [employer] 1/2 mile up steepest incline with 2/10 C central LBP, tolerable but not back to prior activity level. 12/27/19: improving, but not up to prior walks yet LTG Duration 01/26/20 One Impairment pain right knee and left hip 3 -5/10 on pain scale Sexual Abuse Counsellor Goal (LTG) decrease c/o pain to no greater than 1-2/10 with all usual activities 11/29/19: goal progress 12/11/19: 1/10 today 12/27/19: 0-1/10 knee, 1/10 hip LTG Duration 01/26/20 Assessment Summary Assessment Tx focused on dynamic hip strengthening and self HEP review stretching. Pt reported L hip little sore end of tx but was a good work out challenge. Cuing and mirror for proper form and muscle strengthening isolation. Physical Therapy Plan Frequency and Duration Frequency of Treatment 2x/Week Duration of Treatment 4 Plan of Care Start Date 12/27/19 Plan of Care End Date 01/26/20 Therapeutic Interventions Therapeutic Interventions Home Exercise Program,Joint Mobilizations,Manual Therapy, Patient/Caregiver Education, Self-Care/Home Management,Soft Tissue Mobilization,Taping, Therapeutic Activities, Therapeutic Exercises Modalities Cold Pack/Ice Massage,Electric Stimulation,Hot Packs, Ultrasound Next Visit Focus/Plan Next Note Type Treatment Note Next Visit Plan assess response to last tx: SLS, squats, lunges. Continue PT to decrease pain, improve flexibility, strength, activity tolerance.
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
--- NOTE | 2020-01-18 08:15 | PT.OTN ---
Current Diagnoses Unilateral primary osteoarthritis, unspecified hip (01/18/20) Unilateral primary osteoarthritis, right knee (01/18/20) Physical Therapy Treatment Note PT-OP-A Visit Information Start: 10/31/19 16:17 Freq: Status: Active Protocol: Document 01/18/20 07:29 SP (Rec: 01/18/20 08:15 SP [id number]) Out-Patient Physical Therapy Visit Information Visit Information Visit Type Treatment Note Visit Start Time 07:30 Visit Stop Time 08:15 Total Visit Minutes 45 Visit Number 20 Number of TYRE RETREADER Visits 1 PT-OP-B Current Condition Start: 10/31/19 16:17 Freq: Status: Active Protocol: Document 11/06/19 08:13 SAK (Rec: 11/06/19 09:02 SAK [id number]) Current Condition History of Current Condition Onset Date few years History of Current Condition history of hip pain for several years, right knee pain for about 6 months; persistent and Not able to walk around [place] anymore, has to walk level ground. No other exercises besides walking for hips and knees, does a few exercises previously given for LBP. No use of ice or heat. Tried a brace on his knee with velcroe straps; didn't seem to make much difference. Prior history of right knee pain with no known mechanism of injury then or now. Pain worse with standing and walking. Prior Treatments and Tests x-rays: arthritis PT-OP-C Subjective Start: 10/31/19 16:17 Freq: Status: Active Protocol: Document 01/18/20 07:29 SP (Rec: 01/18/20 08:15 SP [id number]) OP-PT Subjective Patient Comments Patient Comments Things are coming along, am pleased with the improvement am getting from therapy. I am able to walk [facility], the pain in my L hip is still little discomfort once in a while but much improvement and R knee completed normal. PT-OP-F Manual Assessment Start: 10/31/19 16:17 Freq: Status: Active Protocol: Document 11/01/19 09:02 SAK (Rec: 11/01/19 10:17 SAK [id number]) Manual Assessments Soft Tissue Assessment Soft Tissue Mobility Assessment palpable tightness bilateral quads, IT bands, hamstrings Joint Mobility Assessment Joint Mobility Assessment decreased in all motions hip and knees PT-OP-G Mobility & Gait Start: 10/31/19 16:17 Freq: Status: Active Protocol: Document 11/01/19 09:02 [facility] (Rec: 11/01/19 10:17 [facility] [id number]) OP Mobility Evaluation Transfers Sit to Stand independent OP Gait Assessment Gait Gait Assistance Required: Independent Assistive Devices Assistive Device None Orthotic/Prosthetic Devices or Brace: No Gait Deviations General Gait Pattern Antalgic Factors Limiting Gait Function Factors Limiting Gait Function Limited Range of Motion,Pain PT-OP-K Range of Motion Start: 10/31/19 16:17 Freq: Status: Active Protocol: Document 11/01/19 09:02 [facility] (Rec: 11/01/19 10:17 [facility] [id number]) Lumbar Spine Range of Motion Lumbar Spine Active Testing Position Standing ROM Limitations Soft Tissue Tightness Comments decreased all motions with c/o tightness Hip Goniometric Range of Motion Hip [place] Hip ROM WFL No Extension 5 Internal Rotation 14 External Rotation 45 Hip ROM Limitations Hip ROM Limitations Soft Tissue Tightness Comments Mod tightness bilateral IT band right greater than left, [place] hamstrings right greater than left (PSLR left 65, right 55) , [place] quads (prone knee flex 85 left, 80 right), hip IR and ER Knee Goniometric Range of Motion Knee [place] Knee ROM WFL No Knee ROM Limitations Knee ROM Limitations Soft Tissue Tightness,Bony Restriction Comments Left knee extension -6 otherwise WFL Ankle and Foot Goniometric Range of Motion Ankle and Foot [place] Dorsiflexion with Knee Flexed 5 Dorsiflexion with Knee Extended 0 Ankle and Foot ROM Limitations ROM Limitations Soft Tissue Tightness PT-OP-M Strength Start: 10/31/19 16:17 Freq: Status: Active Protocol: Document 11/01/19 09:02 [facility] (Rec: 11/01/19 14:18 [facility] [id number]) Hip Strength Hip Manual Muscle Testing [place] Flexion (L2) 4 Good Extension (S1) 4- Good- Abduction 4 Good External Rotation 4- Good- Internal Rotation 4 Good Knee Strength Knee Manual Muscle Testing Left Flexion (S2) 5 Normal Extension (L3) 5 Normal Right Flexion (S2) 4 Good Extension (L3) 4 Good Ankle/Foot Strength Ankle and Foot Manual Muscle Testing [place] Dorsiflexion (L4) 5 Normal Plantarflexion (S1) 5 Normal PT-OP-Q Treatments Start: 10/31/19 16:17 Freq: Status: Active Protocol: Document 01/18/20 07:29 SP (Rec: 01/18/20 08:15 SP [id number]) Cardio Equipment Recumbent Stepper (Sci-Fit) Duration (Minutes) 10 Resistance 4.1 Seat Position 9 Other 5 min UEs and 5 min LEs 50 RPM Gym Equipment Shuttle Balance Red clips WBOS, NBOS Details WBOS, NBOS with head turns and stagger stance EC Reps/Duration 8 min total Comments Cued upright posture, glut/ core facilitiation with COG over VELIA and even between B LE Therapeutic Exercises Supine Exercises figure 4 stretch Supine Exercise Name hip IR/ ER Side bilateral Reps/Minutes 1x30 each direction Comments review HEP IT band stretch Side bilateral Equipment Used strap Reps/Minutes 1x30 Comments Review HEP HS stretch Supine Exercise Name w/ ankle pumps Side bilateral Equipment Used strap Reps/Minutes 1x30 Comments Review HEP Standing Exercises isometric glut med ball wall Side bilateral Equipment Used contact rail Reps/Minutes 10 sec x2 Comments L glut med weaker than R SLS Side bilateral Reps/Minutes 30 x3 Comments cued upright posture with glut and core, COG over VELIA, hip ER NWB leg hip abd Standing Exercise Name hip abd, ext, add Side bilateral Resistance TB #1 LOOP Equipment Used tall foam roller contact Reps/Minutes x10 each direction Comments cued slow eccentric control, upright alignment PT-OP-R Modalities Start: 10/31/19 16:17 Freq: Status: Active Protocol: Document 11/17/19 09:47 LRN (Rec: 11/17/19 10:28 LRN [id number]) Electric Stimulation Electric Stimulation Interferential Current (IFC) Body Location R knee Duration (Minutes) 15 Intensity 35 Target/Sweep Sweep Patient Position Hooklying Combined With Heat/Cold Cold Pack Hot Pack/Cold Pack Treatment ice pack Location right knee, lumbar spine Patient Position Hooklying Treatment Duration (minutes) 15 Patient Tolerance Good Comments Used during E-Stim PT-OP-T Assessment and Plan Start: 10/31/19 16:17 Freq: Status: Active Protocol: Document 01/18/20 07:29 SP (Rec: 01/18/20 08:15 SP [id number]) Physical Therapy Assessment Goals Four Impairment weakness bilateral hip ext 4-/ 5 Long-Term Goal (LTG) Patient will demonstrate improvement in bilateral hip extension to at least 4+/5 for improved hip function 12/11/19: good progress 12/27/19: Improved to 4/5 LTG Duration 01/26/20 Three Impairment soft tissue tightness Long-Term 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 12/11/19: good progress 12/27/19: Improving with HEP for flexibility and with manual techniques LTG Duration 01/26/20 Two Impairment patient not able to go for usual walks Stove Polisher Goal (LTG) Patient will be able to resume his usual walks around [employer] without difficulty. (11/24/19: Pt walking around [employer], doesn't tolerate incline) 12/27/19: Has now started walking [employer], slow and careful 12/11/19: good progress on level surfaces, hasn't done incline yet until on treadmill today with fair tolerance. 12/21/19 able to wallk [employer] 1/2 mile up steepest incline with 2/10 C central LBP, tolerable but not back to prior activity level. 12/27/19: improving, but not up to prior walks yet LTG Duration 01/26/20 One Impairment pain right knee and left hip 3 -5/10 on pain scale Long-Term Goal (LTG) decrease c/o pain to no greater than 1-2/10 with all usual activities 11/29/19: goal progress 12/11/19: 1/10 today 12/27/19: 0-1/10 knee, 1/10 hip LTG Duration 01/26/20 Assessment Summary Assessment Pt responded well to hip focused strengthening with report good work out, standing Tb was little irritating but with cuing and contact better. Educated continue same hip HEp to improved strengthening and follow up with stretching for decreased tightness reaction after activity with verbal confirmation will do more at home beside walking. Physical Therapy Plan Frequency and Duration Frequency of Treatment 2x/Week Duration of Treatment 4 Plan of Care Start Date 12/27/19 Plan of Care End Date 01/26/20 Therapeutic Interventions Therapeutic Interventions Home Exercise Program,Joint Mobilizations,Manual Therapy, Patient/Caregiver Education, Self-Care/Home Management,Soft Tissue Mobilization,Taping, Therapeutic Activities, Therapeutic Exercises Modalities Cold Pack/Ice Massage,Electric Stimulation,Hot Packs, Ultrasound Next Visit Focus/Plan Next Note Type Treatment Note Next Visit Plan assess response to last tx: balance, hip strengthening focus HEP review and stretching end of tx. Continue PT to decrease pain, improve flexibility, strength, activity tolerance. Patient to try walking with organic respirator mask.
--- NOTE | 2020-01-22 08:15 | PT.OTN ---
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 No other exercises besides walking for hips and knees, does a few exercises previously given for LBP. No use of ice or heat. Tried a brace on his knee with velcroe straps; didn't seem to make much difference. Prior history of right knee pain with no known mechanism of injury then or now. Pain worse with standing and walking. Prior Treatments and Tests x-rays: arthritis PT-OP-C Subjective Start: 10/31/19 16:17 Freq: Status: Active Protocol: Document 01/22/20 07:30 SP (Rec: 01/22/20 08:18 SP [id number]) OP-PT Subjective Patient Comments Patient Comments I am able to walk [facility] now , think leaning forward a little bit on the steeper inclines and little discomfort in LB but not enough to limit doing the activity he wants. PT-OP-F Manual Assessment Start: 10/31/19 16:17 Freq: Status: Active Protocol: Document 11/01/19 09:02 SAK (Rec: 11/01/19 10:17 SAK [id number]) Manual Assessments Soft Tissue Assessment Soft Tissue Mobility Assessment palpable tightness bilateral quads, IT bands, hamstrings Joint Mobility Assessment Joint Mobility Assessment decreased in all motions hip and knees PT-OP-G Mobility & Gait Start: 10/31/19 16:17 Freq: Status: Active Protocol: Document 11/01/19 09:02 [facility] (Rec: 11/01/19 10:17 [facility] [id number]) OP Mobility Evaluation Transfers Sit to Stand independent OP Gait Assessment Gait Gait Assistance Required: Independent Assistive Devices Assistive Device None Orthotic/Prosthetic Devices or Brace: No Gait Deviations General Gait Pattern Antalgic Factors Limiting Gait Function Factors Limiting Gait Function Limited Range of Motion,Pain PT-OP-K Range of Motion Start: 10/31/19 16:17 Freq: Status: Active Protocol: Document 11/01/19 09:02 [facility] (Rec: 11/01/19 10:17 [facility] [id number]) Lumbar Spine Range of Motion Lumbar Spine Active Testing Position Standing ROM Limitations Soft Tissue Tightness Comments decreased all motions with c/o tightness Hip Goniometric Range of Motion Hip [place] Hip ROM WFL No Extension 5 Internal Rotation 14 External Rotation 45 Hip ROM Limitations Hip ROM Limitations Soft Tissue Tightness Comments Mod tightness bilateral IT band right greater than left, [place] hamstrings right greater than left (PSLR left 65, right 55) , [place] quads (prone knee flex 85 left, 80 right), hip IR and ER Knee Goniometric Range of Motion Knee [place] Knee ROM WFL No Knee ROM Limitations Knee ROM Limitations Soft Tissue Tightness,Bony Restriction Comments Left knee extension -6 otherwise WFL Ankle and Foot Goniometric Range of Motion Ankle and Foot [place] Dorsiflexion with Knee Flexed 5 Dorsiflexion with Knee Extended 0 Ankle and Foot ROM Limitations ROM Limitations Soft Tissue Tightness PT-OP-M Strength Start: 10/31/19 16:17 Freq: Status: Active Protocol: Document 11/01/19 09:02 [facility] (Rec: 11/01/19 14:18 [facility] [id number]) Hip Strength Hip Manual Muscle Testing [place] Flexion (L2) 4 Good Extension (S1) 4- Good- Abduction 4 Good External Rotation 4- Good- Internal Rotation 4 Good Knee Strength Knee Manual Muscle Testing Left Flexion (S2) 5 Normal Extension (L3) 5 Normal Right Flexion (S2) 4 Good Extension (L3) 4 Good Ankle/Foot Strength Ankle and Foot Manual Muscle Testing [place] Dorsiflexion (L4) 5 Normal Plantarflexion (S1) 5 Normal PT-OP-Q Treatments Start: 10/31/19 16:17 Freq: Status: Active Protocol: Document 01/22/20 07:30 SP (Rec: 01/22/20 08:18 SP [id number]) Cardio Equipment Recumbent Stepper (Sci-Fit) Duration (Minutes) 15 Resistance 4.1 Seat Position 9 Other 10 min UEs and 5 min LEs 44-50 RPM Gym Equipment Shuttle Balance Red clips WBOS, NBOS Details WBOS, NBOS with head turns and stagger stance EC Reps/Duration 8 min total Comments Cued upright posture, glut/ core facilitiation with COG over VELIA and even between B LE Therapeutic Exercises Sitting Exercises Ql stretch Sitting Exercise Name R trunk flexion w/ lat side bend Side bilateral Reps/Minutes 30 sec x2 Comments cued trunk alignment glut/ PF stretch Side bilateral Reps/Minutes 30 sec x2 Standing Exercises hip hydrants Standing Exercise Name warm up to walk Side bilateral Reps/Minutes x5 band walks Standing Exercise Name side stepping Side bilateral Resistance TB #2>#1 Reps/Minutes 20 ft x2 laps each isometric glut med ball wall Side bilateral Equipment Used contact rail Reps/Minutes 10 sec x2 Comments L glut med weaker than R lunges Equipment Used rail support PRN Reps/Minutes 20 ft x1 lap Comments cued hip hinge, knees behind toes SLS Side bilateral Reps/Minutes 30 x3 ( 30 L, 20 R) Comments cued upright posture with glut and core, COG over VELIA, hip ER NWB leg Heel raises Standing Exercise Name Heel raises: Feet neutral, toes out, toes in Side bilateral Reps/Minutes 10x each PT-OP-R Modalities Start: 10/31/19 16:17 Freq: Status: Active Protocol: Document 11/17/19 09:47 LRN (Rec: 11/17/19 10:28 LRN [id number]) Electric Stimulation Electric Stimulation Interferential Current (IFC) Body Location R knee Duration (Minutes) 15 Intensity 35 Target/Sweep Sweep Patient Position Hooklying Combined With Heat/Cold Cold Pack Hot Pack/Cold Pack Treatment ice pack Location right knee, lumbar spine Patient Position Hooklying Treatment Duration (minutes) 15 Patient Tolerance Good Comments Used during E-Stim PT-OP-T Assessment and Plan Start: 10/31/19 16:17 Freq: Status: Active Protocol: Document 01/22/20 07:30 SP (Rec: 01/22/20 08:18 SP [id number]) Physical Therapy Assessment Goals Four Impairment weakness bilateral hip ext 4-/ 5 Software Qa System Specialist Goal (LTG) Patient will demonstrate improvement in bilateral hip extension to at least 4+/5 for improved hip function 12/11/19: good progress 12/27/19: Improved to 4/5 LTG Duration 01/26/20 Three Impairment soft tissue tightness Software Qa System Specialist 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 12/11/19: good progress 12/27/19: Improving with HEP for flexibility and with manual techniques LTG Duration 01/26/20 Two Impairment patient not able to go for usual walks Software Qa System Specialist Goal (LTG) Patient will be able to resume his usual walks around [employer] without difficulty. (11/24/19: Pt walking around [facility], doesn't tolerate incline) 12/27/19: Has now started walking [employer], slow and careful 12/11/19: good progress on level surfaces, hasn't done incline yet until on treadmill today with fair tolerance. 12/21/19 able to wallk [employer] 1/2 mile up steepest incline with 2/10 C central LBP, tolerable but not back to prior activity level. 12/27/19: improving, but not up to prior walks yet LTG Duration 01/26/20 One Impairment pain right knee and left hip 3 -5/10 on pain scale Software Qa System Specialist Goal (LTG) decrease c/o pain to no greater than 1-2/10 with all usual activities 11/29/19: goal progress 12/11/19: 1/10 today 12/27/19: 0-1/10 knee, 1/10 hip LTG Duration 01/26/20 Assessment Summary Assessment Pt making gains in ability to perform his walks again low discomfort in LB, no pain in knees in a long time. Pt is making gains, feeling more hip work out during exercises than discomfort. Educated importance of perfroming at home as well, dynamic warm up pre walk and stretching after to allow for decreased tightness, hip hinge during steep incline to decrease LB recruitment. PN next tx. Physical Therapy Plan Frequency and Duration Frequency of Treatment 2x/Week Duration of Treatment 4 Plan of Care Start Date 12/27/19 Plan of Care End Date 01/26/20 Therapeutic Interventions Therapeutic Interventions Home Exercise Program,Joint Mobilizations,Manual Therapy, Patient/Caregiver Education, Self-Care/Home Management,Soft Tissue Mobilization,Taping, Therapeutic Activities, Therapeutic Exercises Modalities Cold Pack/Ice Massage,Electric Stimulation,Hot Packs, Ultrasound Next Visit Focus/Plan Next Note Type Treatment Note Next Visit Plan PN update next visit. Assess response to last tx: balance, hip strengthening added band walk and dynamic warm up for walking with focus HEP review and stretching end of tx. Continue PT to decrease pain, improve flexibility, strength, activity tolerance. Patient to try walking with organic respirator mask.
--- NOTE | 2020-01-24 08:59 | PT.OTN ---
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 No other exercises besides walking for hips and knees, does a few exercises previously given for LBP. No use of ice or heat. Tried a brace on his knee with velcroe straps; didn't seem to make much difference. Prior history of right knee pain with no known mechanism of injury then or now. Pain worse with standing and walking. Prior Treatments and Tests x-rays: arthritis PT-OP-C Subjective Start: 10/31/19 16:17 Freq: Status: Active Protocol: Document 01/24/20 08:15 SAK (Rec: 01/24/20 08:45 SAK [id number]) OP-PT Subjective Patient Comments Patient Comments Not fast, but doing [facility], [employer] not as challenging, still painful when first stands and starts walking for a few steps PT-OP-F Manual Assessment Start: 10/31/19 16:17 Freq: Status: Active Protocol: Document 11/01/19 09:02 SAK (Rec: 11/01/19 10:17 SAK [id number]) Manual Assessments Soft Tissue Assessment Soft Tissue Mobility Assessment palpable tightness bilateral quads, IT bands, hamstrings Joint Mobility Assessment Joint Mobility Assessment decreased in all motions hip and knees PT-OP-G Mobility & Gait Start: 10/31/19 16:17 Freq: Status: Active Protocol: Document 11/01/19 09:02 SAK (Rec: 11/01/19 10:17 [facility] [id number]) OP Mobility Evaluation Transfers Sit to Stand independent OP Gait Assessment Gait Gait Assistance Required: Independent Assistive Devices Assistive Device None Orthotic/Prosthetic Devices or Brace: No Gait Deviations General Gait Pattern Antalgic Factors Limiting Gait Function Factors Limiting Gait Function Limited Range of Motion,Pain PT-OP-K Range of Motion Start: 10/31/19 16:17 Freq: Status: Active Protocol: Document 11/01/19 09:02 [facility] (Rec: 11/01/19 10:17 [facility] [id number]) Lumbar Spine Range of Motion Lumbar Spine Active Testing Position Standing ROM Limitations Soft Tissue Tightness Comments decreased all motions with c/o tightness Hip Goniometric Range of Motion Hip [place] Hip ROM WFL No Extension 5 Internal Rotation 14 External Rotation 45 Hip ROM Limitations Hip ROM Limitations Soft Tissue Tightness Comments Mod tightness bilateral IT band right greater than left, [place] hamstrings right greater than left (PSLR left 65, right 55) , [place] quads (prone knee flex 85 left, 80 right), hip IR and ER Knee Goniometric Range of Motion Knee [place] Knee ROM WFL No Knee ROM Limitations Knee ROM Limitations Soft Tissue Tightness,Bony Restriction Comments Left knee extension -6 otherwise WFL Ankle and Foot Goniometric Range of Motion Ankle and Foot [place] Dorsiflexion with Knee Flexed 5 Dorsiflexion with Knee Extended 0 Ankle and Foot ROM Limitations ROM Limitations Soft Tissue Tightness PT-OP-M Strength Start: 10/31/19 16:17 Freq: Status: Active Protocol: Document 11/01/19 09:02 [facility] (Rec: 11/01/19 14:18 [facility] [id number]) Hip Strength Hip Manual Muscle Testing [place] Flexion (L2) 4 Good Extension (S1) 4- Good- Abduction 4 Good External Rotation 4- Good- Internal Rotation 4 Good Knee Strength Knee Manual Muscle Testing Left Flexion (S2) 5 Normal Extension (L3) 5 Normal Right Flexion (S2) 4 Good Extension (L3) 4 Good Ankle/Foot Strength Ankle and Foot Manual Muscle Testing [place] Dorsiflexion (L4) 5 Normal Plantarflexion (S1) 5 Normal PT-OP-Q Treatments Start: 10/31/19 16:17 Freq: Status: Active Protocol: Document 01/24/20 08:15 SAK (Rec: 01/24/20 08:45 SAK [id number]) Cardio Equipment Recumbent Stepper (Sci-Fit) Duration (Minutes) 10 Resistance 4 Seat Position 9 Other 10 min UEs and 5 min LEs 44-50 RPM, 1.37 miles Treadmill Duration (Minutes) 10 Speed 2.7 Incline 5.0 Gym Equipment Shuttle Balance Red clips WBOS, NBOS Details WBOS, NBOS with head turns and stagger stance EC Reps/Duration 8 min total Comments Cued upright posture, glut/ core facilitiation with COG over VELIA and even between B LE Therapeutic Exercises Sitting Exercises Ql stretch Sitting Exercise Name R trunk flexion w/ lat side bend Side bilateral Reps/Minutes 30 sec x2 Comments cued trunk alignment glut/ PF stretch Side bilateral Reps/Minutes 30 sec x2 Standing Exercises band walks Standing Exercise Name side stepping Side bilateral Resistance TB #2>#1 Reps/Minutes 20 ft x2 laps each lunges Equipment Used rail support PRN Reps/Minutes 20 ft x1 lap Comments cued hip hinge, knees behind toes SLS Side bilateral Reps/Minutes 30 x3 ( 30 L, 20 R) Comments cued upright posture with glut and core, COG over VELIA, hip ER NWB leg HS stretch Side bilateral Equipment Used stair Reps/Minutes 2x30 hip flexor stretch Side bilateral Reps/Minutes 2x30 PT-OP-R Modalities Start: 10/31/19 16:17 Freq: Status: Active Protocol: Document 11/17/19 09:47 LRN (Rec: 11/17/19 10:28 LRN [id number]) Electric Stimulation Electric Stimulation Interferential Current (IFC) Body Location R knee Duration (Minutes) 15 Intensity 35 Target/Sweep Sweep Patient Position Hooklying Combined With Heat/Cold Cold Pack Hot Pack/Cold Pack Treatment ice pack Location right knee, lumbar spine Patient Position Hooklying Treatment Duration (minutes) 15 Patient Tolerance Good Comments Used during E-Stim PT-OP-T Assessment and Plan Start: 10/31/19 16:17 Freq: Status: Active Protocol: Document 01/24/20 08:15 [facility] (Rec: 01/24/20 08:45 [facility] [id number]) Physical Therapy Assessment Goals Four Impairment weakness bilateral hip ext 4-/ 5 Painting Machine Operator Goal (LTG) Patient will demonstrate improvement in bilateral hip extension to at least 4+/5 for improved hip function 12/11/19: good progress 12/27/19: Improved to 4/5 LTG Duration 01/26/20 Three Impairment soft tissue tightness Correction 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 12/11/19: good progress 12/27/19: Improving with HEP for flexibility and with manual techniques LTG Duration 01/26/20 Two Impairment patient not able to go for usual walks Correction Goal (LTG) Patient will be able to resume his usual walks around [place] without difficulty. (11/24/19: Pt walking around [facility], doesn't tolerate incline) 12/27/19: Has now started walking [place], slow and careful 12/11/19: good progress on level surfaces, hasn't done incline yet until on treadmill today with fair tolerance. 12/21/19 able to wallk [employer] 1/2 mile up steepest incline with 2/10 C central LBP, tolerable but not back to prior activity level. 12/27/19: improving, but not up to prior walks yet LTG Duration 01/26/20 One Impairment pain right knee and left hip 3 -5/10 on pain scale Correction Goal (LTG) decrease c/o pain to no greater than 1-2/10 with all usual activities 11/29/19: goal progress 12/11/19: 1/10 today 12/27/19: 0-1/10 knee, 1/10 hip LTG Duration 01/26/20 Assessment Summary Assessment Patient making progress with improving activity tolerance, decreased discomfort. Some improvement in initial stand if does glut sets first. Physical Therapy Plan Frequency and Duration Frequency of Treatment 2x/Week Duration of Treatment 4 Plan of Care Start Date 12/27/19 Plan of Care End Date 01/26/20 Therapeutic Interventions Therapeutic Interventions Home Exercise Program,Joint Mobilizations,Manual Therapy, Patient/Caregiver Education, Self-Care/Home Management,Soft Tissue Mobilization,Taping, Therapeutic Activities, Therapeutic Exercises Modalities Cold Pack/Ice Massage,Electric Stimulation,Hot Packs, Ultrasound
--- NOTE | 2020-01-29 08:18 | PT.OTN ---
Current Diagnoses Unilateral primary osteoarthritis, unspecified hip (01/29/20) Unilateral primary osteoarthritis, right knee (01/29/20) Physical Therapy Treatment Note PT-OP-A Visit Information Start: 10/31/19 16:17 Freq: Status: Active Protocol: Document 01/29/20 07:30 SP (Rec: 01/29/20 08:30 SP [id number]) Out-Patient Physical Therapy Visit Information Visit Information Visit Type Treatment Note Visit Start Time 07:30 Visit Stop Time 08:15 Total Visit Minutes 45 Visit Number 23 Number of WATER CONSERVATIONIST Visits 1 PT-OP-B Current Condition Start: 10/31/19 16:17 Freq: Status: Active Protocol: Document 11/06/19 08:13 SAK (Rec: 11/06/19 09:02 SAK [id number]) Current Condition History of Current Condition Onset Date few years History of Current Condition history of hip pain for several years, right knee pain for about 6 months; persistent and Not able to walk around [place] anymore, has to walk level ground. No other exercises besides walking for hips and knees, does a few exercises previously given for LBP. No use of ice or heat. Tried a brace on his knee with velcroe straps; didn't seem to make much difference. Prior history of right knee pain with no known mechanism of injury then or now. Pain worse with standing and walking. Prior Treatments and Tests x-rays: arthritis PT-OP-C Subjective Start: 10/31/19 16:17 Freq: Status: Active Protocol: Document 01/29/20 07:30 SP (Rec: 01/29/20 08:30 SP [id number]) OP-PT Subjective Patient Comments Patient Comments Pt reported is walking [place] , a personal goal wanted to get back to, L hip still stiff when gets up having to tighten gluts to complete. PT-OP-F Manual Assessment Start: 10/31/19 16:17 Freq: Status: Active Protocol: Document 11/01/19 09:02 SAK (Rec: 11/01/19 10:17 SAK [id number]) Manual Assessments Soft Tissue Assessment Soft Tissue Mobility Assessment palpable tightness bilateral quads, IT bands, hamstrings Joint Mobility Assessment Joint Mobility Assessment decreased in all motions hip and knees PT-OP-G Mobility & Gait Start: 10/31/19 16:17 Freq: Status: Active Protocol: Document 11/01/19 09:02 [facility] (Rec: 11/01/19 10:17 [facility] [id number]) OP Mobility Evaluation Transfers Sit to Stand independent OP Gait Assessment Gait Gait Assistance Required: Independent Assistive Devices Assistive Device None Orthotic/Prosthetic Devices or Brace: No Gait Deviations General Gait Pattern Antalgic Factors Limiting Gait Function Factors Limiting Gait Function Limited Range of Motion,Pain PT-OP-K Range of Motion Start: 10/31/19 16:17 Freq: Status: Active Protocol: Document 11/01/19 09:02 [facility] (Rec: 11/01/19 10:17 [facility] [id number]) Lumbar Spine Range of Motion Lumbar Spine Active Testing Position Standing ROM Limitations Soft Tissue Tightness Comments decreased all motions with c/o tightness Hip Goniometric Range of Motion Hip [place] Hip ROM WFL No Extension 5 Internal Rotation 14 External Rotation 45 Hip ROM Limitations Hip ROM Limitations Soft Tissue Tightness Comments Mod tightness bilateral IT band right greater than left, [place] hamstrings right greater than left (PSLR left 65, right 55) , [place] quads (prone knee flex 85 left, 80 right), hip IR and ER Knee Goniometric Range of Motion Knee [place] Knee ROM WFL No Knee ROM Limitations Knee ROM Limitations Soft Tissue Tightness,Bony Restriction Comments Left knee extension -6 otherwise WFL Ankle and Foot Goniometric Range of Motion Ankle and Foot [place] Dorsiflexion with Knee Flexed 5 Dorsiflexion with Knee Extended 0 Ankle and Foot ROM Limitations ROM Limitations Soft Tissue Tightness PT-OP-M Strength Start: 10/31/19 16:17 Freq: Status: Active Protocol: Document 11/01/19 09:02 [facility] (Rec: 11/01/19 14:18 [facility] [id number]) Hip Strength Hip Manual Muscle Testing [place] Flexion (L2) 4 Good Extension (S1) 4- Good- Abduction 4 Good External Rotation 4- Good- Internal Rotation 4 Good Knee Strength Knee Manual Muscle Testing Left Flexion (S2) 5 Normal Extension (L3) 5 Normal Right Flexion (S2) 4 Good Extension (L3) 4 Good Ankle/Foot Strength Ankle and Foot Manual Muscle Testing [place] Dorsiflexion (L4) 5 Normal Plantarflexion (S1) 5 Normal PT-OP-Q Treatments Start: 10/31/19 16:17 Freq: Status: Active Protocol: Document 01/29/20 07:30 SP (Rec: 01/29/20 08:30 SP [id number]) Cardio Equipment Recumbent Stepper (Sci-Fit) Duration (Minutes) 10 Resistance 4 Seat Position 9 Other 10 min UEs and 5 min LEs 44-50 RPM, 1.37 miles Gym Equipment Shuttle Recovery Unilateral Squats Details R>L alternating Resistance 75 Shuttle Recovery Platform Stable Reps/Time 12x2 Bilateral Squats Resistance 125 Shuttle Recovery Platform Stable Reps/Time 12x2 Therapeutic Exercises Standing Exercises tandem Side bilateral Comments R and L forward 1 min 16 sec SLS Side bilateral Reps/Minutes 30 x3 ( 20 L, 38 R) Comments cued upright posture with glut and core, COG over VELIA, hip ER NWB leg PT-OP-R Modalities Start: 10/31/19 16:17 Freq: Status: Active Protocol: Document 11/17/19 09:47 LRN (Rec: 11/17/19 10:28 LRN [id number]) Electric Stimulation Electric Stimulation Interferential Current (IFC) Body Location R knee Duration (Minutes) 15 Intensity 35 Target/Sweep Sweep Patient Position Hooklying Combined With Heat/Cold Cold Pack Hot Pack/Cold Pack Treatment ice pack Location right knee, lumbar spine Patient Position Hooklying Treatment Duration (minutes) 15 Patient Tolerance Good Comments Used during E-Stim PT-OP-T Assessment and Plan Start: 10/31/19 16:17 Freq: Status: Active Protocol: Document 01/29/20 07:30 SP (Rec: 01/29/20 08:30 SP [id number]) Physical Therapy Assessment Goals Five Impairment balance dysfunction affecting hip and core [employer] Buyer Goal (LTG) Improve SLS to 10 sec, improve tandem stand to 30 sec. LTG Duration 02/14/20 Four Impairment weakness bilateral hip ext 4-/ 5 [facility] Goal (LTG) Patient will demonstrate improvement in bilateral hip extension to at least 4+/5 for improved hip function 12/11/19: good progress 12/27/19: Improved to 4/5 01/29/20: Goal Met: R 5/5, L 4+ /5 MMT Hip extension. LTG Duration 01/26/20 Three Impairment soft tissue tightness [employer] Buyer 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 12/11/19: good progress 12/27/19: Improving with HEP for flexibility and with manual techniques 01/28/10: Goal met: Is I in HEP for flexibility and Self manual techniques to decrease 2/10 LBP as needed. 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 (11/24/19: Pt walking around [employer], doesn't tolerate incline) 12/27/19: Has now started walking [place], slow and careful 12/11/19: good progress on level surfaces, hasn't done incline yet until on treadmill today with fair tolerance. 12/21/19 able to [employer] 1/2 mile up steepest incline with 2/10 C central LBP, tolerable but not back to prior activity level. 12/27/19: improving, but not up to prior walks yet 01/29/20: Goal Met able to walk [employer] now, cuing for posture and LS body mechanics helps decrease tightness. LTG Duration 01/26/20 One Impairment pain right knee and left hip 3 -5/10 on pain scale Sc[employer] Buyer Goal (LTG) decrease c/o pain to no greater than 1-2/10 with all usual activities 11/29/19: goal progress 12/11/19: 1/10 today 12/27/19: 0-1/10 knee, 1/10 hip 01/28/10: Progressing : L Knee is 0/10 back to 100%, L hip 2/ 10 Getting out of chair has to tighten gluts and core to help almost relieve pain 1/10. LTG Duration 01/26/20 Assessment Summary Assessment Pt is making gains in decreased pain in L hip, challenged wtih SLS stabilization, improving in flexibility. Pt demonstrates decreased SLS and uneven surface stabilization and tightness in L hip when sits to long but when activates glut and core when comes to standing improved to 1-2/10 but otherwise is 2/10. It has gottten much better exercises learned in therapy. Will Continue to progress dynamic strengthening and SLS stabiliztion to make gains in functional mobility. Physical Therapy Plan Frequency and Duration Frequency of Treatment 2x/Week Duration of Treatment 3 wks Plan of Care Start Date 01/24/20 Plan of Care End Date 02/14/20 Therapeutic Interventions Therapeutic Interventions Home Exercise Program,Joint Mobilizations,Manual Therapy, Patient/Caregiver Education, Self-Care/Home Management,Soft Tissue Mobilization,Taping, Therapeutic Activities, Therapeutic Exercises Modalities Cold Pack/Ice Massage,Electric Stimulation,Hot Packs, Ultrasound Next Visit Focus/Plan Next Note Type Treatment Note Next Visit Plan Assess response to last tx: balance unevel surfaces, L hip strengthening, SLS stabilization. Continue PT to decrease pain, improve flexibility, strength, activity tolerance. Patient to try walking with organic respirator mask.
--- NOTE | 2020-01-29 08:18 | PT.OTN ---
Current Diagnoses Unilateral primary osteoarthritis, unspecified hip (01/29/20) Unilateral primary osteoarthritis, right knee (01/29/20) Physical Therapy Treatment Note PT-OP-A Visit Information Start: 10/31/19 16:17 Freq: Status: Active Protocol: Document 01/29/20 07:30 SP (Rec: 01/29/20 08:30 SP [id number]) Out-Patient Physical Therapy Visit Information Visit Information Visit Type Treatment Note Visit Start Time 07:30 Visit Stop Time 08:15 Total Visit Minutes 45 Visit Number 23 Number of COW BUYER Visits 1 PT-OP-B Current Condition Start: 10/31/19 16:17 Freq: Status: Active Protocol: Document 11/06/19 08:13 SAK (Rec: 11/06/19 09:02 SAK [id number]) Current Condition History of Current Condition Onset Date few years History of Current Condition history of hip pain for several years, right knee pain for about 6 months; persistent and Not able to walk around [place] anymore, has to walk level ground. No other exercises besides walking for hips and knees, does a few exercises previously given for LBP. No use of ice or heat. Tried a brace on his knee with velcroe straps; didn't seem to make much difference. Prior history of right knee pain with no known mechanism of injury then or now. Pain worse with standing and walking. Prior Treatments and Tests x-rays: arthritis PT-OP-C Subjective Start: 10/31/19 16:17 Freq: Status: Active Protocol: Document 01/29/20 07:30 SP (Rec: 01/29/20 08:30 SP [id number]) OP-PT Subjective Patient Comments Patient Comments [place] reported is [place] , [place] wanted to get back to, L hip still stiff when gets up having to tighten gluts to complete. PT-OP-F Manual Assessment Start: 10/31/19 16:17 Freq: Status: Active Protocol: Document 11/01/19 09:02 SAK (Rec: 11/01/19 10:17 SAK [id number]) Manual Assessments Soft Tissue Assessment Soft Tissue Mobility Assessment palpable tightness bilateral quads, IT bands, hamstrings Joint Mobility Assessment Joint Mobility Assessment decreased in all motions hip and knees PT-OP-G Mobility & Gait Start: 10/31/19 16:17 Freq: Status: Active Protocol: Document 11/01/19 09:02 [facility] (Rec: 11/01/19 10:17 [facility] [id number]) OP Mobility Evaluation Transfers Sit to Stand independent OP Gait Assessment Gait Gait Assistance Required: Independent Assistive Devices Assistive Device None Orthotic/Prosthetic Devices or Brace: No Gait Deviations General Gait Pattern Antalgic Factors Limiting Gait Function Factors Limiting Gait Function Limited Range of Motion,Pain PT-OP-K Range of Motion Start: 10/31/19 16:17 Freq: Status: Active Protocol: Document 11/01/19 09:02 [facility] (Rec: 11/01/19 10:17 [facility] [id number]) Lumbar Spine Range of Motion Lumbar Spine Active Testing Position Standing ROM Limitations Soft Tissue Tightness Comments decreased all motions with c/o tightness Hip Goniometric Range of Motion Hip [place] Hip ROM WFL No Extension 5 Internal Rotation 14 External Rotation 45 Hip ROM Limitations Hip ROM Limitations Soft Tissue Tightness Comments Mod tightness bilateral IT band right greater than left, [place] hamstrings right greater than left (PSLR left 65, right 55) , [place] quads (prone knee flex 85 left, 80 right), hip IR and ER Knee Goniometric Range of Motion Knee [place] Knee ROM WFL No Knee ROM Limitations Knee ROM Limitations Soft Tissue Tightness,Bony Restriction Comments Left knee extension -6 otherwise WFL Ankle and Foot Goniometric Range of Motion Ankle and Foot [place] Dorsiflexion with Knee Flexed 5 Dorsiflexion with Knee Extended 0 Ankle and Foot ROM Limitations ROM Limitations Soft Tissue Tightness PT-OP-M Strength Start: 10/31/19 16:17 Freq: Status: Active Protocol: Document 11/01/19 09:02 [facility] (Rec: 11/01/19 14:18 [facility] [id number]) Hip Strength Hip Manual Muscle Testing [place] Flexion (L2) 4 Good Extension (S1) 4- Good- Abduction 4 Good External Rotation 4- Good- Internal Rotation 4 Good Knee Strength Knee Manual Muscle Testing Left Flexion (S2) 5 Normal Extension (L3) 5 Normal Right Flexion (S2) 4 Good Extension (L3) 4 Good Ankle/Foot Strength Ankle and Foot Manual Muscle Testing [place] Dorsiflexion (L4) 5 Normal Plantarflexion (S1) 5 Normal PT-OP-Q Treatments Start: 10/31/19 16:17 Freq: Status: Active Protocol: Document 01/29/20 07:30 SP (Rec: 01/29/20 08:30 SP [id number]) Cardio Equipment Recumbent Stepper (Sci-Fit) Duration (Minutes) 10 Resistance 4 Seat Position 9 Other 10 min UEs and 5 min LEs 44-50 RPM, 1.37 miles Gym Equipment Shuttle Recovery Unilateral Squats Details R>L alternating Resistance 75 Shuttle Recovery Platform Stable Reps/Time 12x2 Bilateral Squats Resistance 125 Shuttle Recovery Platform Stable Reps/Time 12x2 Therapeutic Exercises Standing Exercises tandem Side bilateral Comments R and L forward 1 min 16 sec SLS Side bilateral Reps/Minutes 30 x3 ( 20 L, 38 R) Comments cued upright posture with glut and core, COG over VELIA, hip ER NWB leg PT-OP-R Modalities Start: 10/31/19 16:17 Freq: Status: Active Protocol: Document 11/17/19 09:47 LRN (Rec: 11/17/19 10:28 LRN [id number]) Electric Stimulation Electric Stimulation Interferential Current (IFC) Body Location R knee Duration (Minutes) 15 Intensity 35 Target/Sweep Sweep Patient Position Hooklying Combined With Heat/Cold Cold Pack Hot Pack/Cold Pack Treatment ice pack Location right knee, lumbar spine Patient Position Hooklying Treatment Duration (minutes) 15 Patient Tolerance Good Comments Used during E-Stim PT-OP-T Assessment and Plan Start: 10/31/19 16:17 Freq: Status: Active Protocol: Document 01/29/20 07:30 SP (Rec: 01/29/20 08:30 SP [id number]) Physical Therapy Assessment Goals Four Impairment weakness bilateral hip ext 4-/ 5 [employer]st Goal (LTG) Patient will demonstrate improvement in bilateral hip extension to at least 4+/5 for improved hip function 12/11/19: good progress 12/27/19: Improved to 4/5 01/29/20: Goal Met: R 5/5, L 4+ /5 MMT Hip extension. LTG Duration 01/26/20 Three Impairment soft tissue tightness [employer] Analyst 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 12/11/19: good progress 12/27/19: Improving with HEP for flexibility and with manual techniques 01/28/10: Goal met: Is I in HEP for flexibility and Self manual techniques to decrease 2/10 LBP as needed. LTG Duration 01/26/20 Two Impairment patient not able to go for usual walks Residential Goal (LTG) Patient will be able to resume his usual walks around [place] without difficulty. (11/24/19: Pt walking around [employer] [address] [address], doesn't tolerate incline) 12/27/19: Has now started walking [place], slow and careful 12/11/19: good progress on level surfaces, hasn't done incline yet until on treadmill today with fair tolerance. 12/21/19 able to wallk [employer] 1/2 mile up steepest incline with 2/10 C central LBP, tolerable but not back to prior activity level. 12/27/19: improving, but not up to prior walks yet 01/29/20: Goal Met able to walk [employer] now, cuing for posture and LS body mechanics helps decrease tightness. LTG Duration 01/26/20 One Impairment pain right knee and left hip 3 -5/10 on pain scale [employer] Analyst Goal (LTG) decrease c/o pain to no greater than 1-2/10 with all usual activities 11/29/19: goal progress 12/11/19: 1/10 today 12/27/19: 0-1/10 knee, 1/10 hip 01/28/10: Progressing : L Knee is 0/10 back to 100%, L hip 2/ 10 Getting out of chair has to tighten gluts and core to help almost relieve pain 1/10. LTG Duration 01/26/20 Assessment Summary Assessment Pt is making gains in decreased pain in L hip, challenged wtih SLS stabilization, improving in flexibility. Pt demonstrates decreased SLS and uneven surface stabilization and tightness in L hip when sits to long but when activates glut and core when comes to standing improved to 1-2/10 but otherwise is 2/10. It has gottten much better exercises learned in therapy. Will Continue to progress dynamic strengthening and SLS stabiliztion to make gains in functional mobility. Physical Therapy Plan Frequency and Duration Frequency of Treatment 2x/Week Duration of Treatment 4 Plan of Care Start Date 12/27/19 Plan of Care End Date 01/26/20 Therapeutic Interventions Therapeutic Interventions Home Exercise Program,Joint Mobilizations,Manual Therapy, Patient/Caregiver Education, Self-Care/Home Management,Soft Tissue Mobilization,Taping, Therapeutic Activities, Therapeutic Exercises Modalities Cold Pack/Ice Massage,Electric Stimulation,Hot Packs, Ultrasound Next Visit Focus/Plan Next Note Type Treatment Note Next Visit Plan Assess response to last tx: balance unevel surfaces, L hip strengthening, SLS stabilization. Continue PT to decrease pain, improve flexibility, strength, activity tolerance. Patient to try walking with organic respirator mask.
--- NOTE | 2020-01-29 16:41 | PT.OTRE ---
Current Diagnoses Unilateral primary osteoarthritis, unspecified hip (01/29/20) Unilateral primary osteoarthritis, right knee (01/29/20) Past Medical History (Last Updated 12/28/19 @ 11:59 by Jatin Perea MD) Aortic stenosis (Chronic) Arthritis (Acute) BPH w urinary obs/LUTS (Chronic) BPH w urinary obs/LUTS (Acute) CAD (coronary artery disease) (Chronic ~2018) Elevated PSA (Chronic) Enlarged prostate (Acute) Hematuria (Chronic) History of elevated PSA (Acute) Mass (Acute ~10/2018) Urinary frequency (Acute) Surgical History (Last Reviewed 12/28/19 @ 11:55 by Jatin Perea MD) Hx of cardiac catheterization (Acute) Hx of heart artery stent (Acute) Hx of hernia repair (Acute ~05/2017) S/P right coronary artery (RCA) stent placement (Acute ~01/2018) Visit Care Team Role Provider Type Rajan Cash MD Attending Provider Physician Primary Care Provider Referring Provider Specialty: Internal Medicine Address: [address] [place] [address], [address], [facility] Email: [email or web address] Physical Therapy Re-Evaluation PT-OP-A Visit Information Start: 10/31/19 16:17 Freq: Status: Active Protocol: Document 01/29/20 16:00 SAK (Rec: 01/24/20 08:45 SAK [id number]) Out-Patient Physical Therapy Visit Information Visit Information Visit Type Treatment Note Visit Start Time 08:00 Visit Stop Time 08:55 Total Visit Minutes 55 Visit Number 22 Number of PRINCIPAL JAVA SOFTWARE ENGINEER Visits 0 PT-OP-B Current Condition Start: 10/31/19 16:17 Freq: Status: Active Protocol: Document 11/06/19 08:13 SAK (Rec: 11/06/19 09:02 SAK [id number]) Current Condition History of Current Condition Onset Date few years History of Current Condition history of hip pain for several years, right knee pain for about 6 months; persistent and Not able to walk around [place] anymore, has to walk level ground. No other exercises besides walking for hips and knees, does a few exercises previously given for LBP. No use of ice or heat. Tried a brace on his knee with velcroe straps; didn't seem to make much difference. Prior history of right knee pain with no known mechanism of injury then or now. Pain worse with standing and walking. Prior Treatments and Tests x-rays: arthritis PT-OP-C Subjective Start: 10/31/19 16:17 Freq: Status: Active Protocol: Document 01/29/20 16:00 [facility] (Rec: 01/24/20 08:45 [facility] [id number]) OP-PT Subjective Patient Comments Patient Comments Not fast, but doing [employer], [employer] not as challenging, still painful when first stands and starts walking for a few steps PT-OP-F Manual Assessment Start: 10/31/19 16:17 Freq: Status: Active Protocol: Document 11/01/19 09:02 [facility] (Rec: 11/01/19 10:17 [facility] [id number]) Manual Assessments Soft Tissue Assessment Soft Tissue Mobility Assessment palpable tightness bilateral quads, IT bands, hamstrings Joint Mobility Assessment Joint Mobility Assessment decreased in all motions hip and knees PT-OP-G Mobility & Gait Start: 10/31/19 16:17 Freq: Status: Active Protocol: Document 11/01/19 09:02 [facility] (Rec: 11/01/19 10:17 [facility] [id number]) OP Mobility Evaluation Transfers Sit to Stand independent OP Gait Assessment Gait Gait Assistance Required: Independent Assistive Devices Assistive Device None Orthotic/Prosthetic Devices or Brace: No Gait Deviations General Gait Pattern Antalgic Factors Limiting Gait Function Factors Limiting Gait Function Limited Range of Motion,Pain PT-OP-K Range of Motion Start: 10/31/19 16:17 Freq: Status: Active Protocol: Document 11/01/19 09:02 [facility] (Rec: 11/01/19 10:17 [facility] [id number]) Lumbar Spine Range of Motion Lumbar Spine Active Testing Position Standing ROM Limitations Soft Tissue Tightness Comments decreased all motions with c/o tightness Hip Goniometric Range of Motion Hip Measured in Degrees [place] Hip ROM WFL No Extension 5 Internal Rotation 14 External Rotation 45 Hip ROM Limitations Hip ROM Limitations Soft Tissue Tightness Comments Mod tightness bilateral IT band right greater than left, [place] hamstrings right greater than left (PSLR left 65, right 55) , [place] quads (prone knee flex 85 left, 80 right), hip IR and ER Knee Goniometric Range of Motion Knee Measured in Degrees [place] Knee ROM WFL No Knee ROM Limitations Knee ROM Limitations Soft Tissue Tightness,Bony Restriction Comments Left knee extension -6 otherwise WFL Ankle and Foot Goniometric Range of Motion Ankle and Foot Measured in Degrees [place] Dorsiflexion with Knee Flexed 5 Dorsiflexion with Knee Extended 0 Ankle and Foot ROM Limitations ROM Limitations Soft Tissue Tightness PT-OP-M Strength Start: 10/31/19 16:17 Freq: Status: Active Protocol: Document 11/01/19 09:02 [facility] (Rec: 11/01/19 14:18 [facility] [id number]) Hip Strength Hip Manual Muscle Testing [place] Flexion (L2) 4 Good Extension (S1) 4- Good- Abduction 4 Good External Rotation 4- Good- Internal Rotation 4 Good Knee Strength Knee Manual Muscle Testing Left Flexion (S2) 5 Normal Extension (L3) 5 Normal Right Flexion (S2) 4 Good Extension (L3) 4 Good Ankle/Foot Strength Ankle and Foot Manual Muscle Testing [place] Dorsiflexion (L4) 5 Normal Plantarflexion (S1) 5 Normal PT-OP-Q Treatments Start: 10/31/19 16:17 Freq: Status: Active Protocol: Document 01/29/20 16:00 [facility] (Rec: 01/24/20 08:45 [facility] [id number]) Cardio Equipment Recumbent Stepper (Sci-Fit) Duration (Minutes) 10 Resistance 4 Seat Position 9 Other 10 min UEs and 5 min LEs 44-50 RPM, 1.37 miles Treadmill Duration (Minutes) 10 Speed 2.7 Incline 5.0 Gym Equipment Shuttle Balance Red clips WBOS, NBOS Details WBOS, NBOS with head turns and stagger stance EC Reps/Duration 8 min total Comments Cued upright posture, glut/ core facilitiation with COG over VELIA and even between B LE Therapeutic Exercises Sitting Exercises Ql stretch Sitting Exercise Name R trunk flexion w/ lat side bend Side bilateral Reps/Minutes 30 sec x2 Comments cued trunk alignment glut/ PF stretch Side bilateral Reps/Minutes 30 sec x2 Standing Exercises band walks Standing Exercise Name side stepping Side bilateral Resistance TB #2>#1 Reps/Minutes 20 ft x2 laps each lunges Equipment Used rail support PRN Reps/Minutes 20 ft x1 lap Comments cued hip hinge, knees behind toes SLS Side bilateral Reps/Minutes 30 x3 ( 30 L, 20 R) Comments cued upright posture with glut and core, COG over VELIA, hip ER NWB leg HS stretch Side bilateral Equipment Used stair Reps/Minutes 2x30 hip flexor stretch Side bilateral Reps/Minutes 2x30 PT-OP-R Modalities Start: 10/31/19 16:17 Freq: Status: Active Protocol: Document 11/17/19 09:47 LRN (Rec: 11/17/19 10:28 [facility] [id number]) Electric Stimulation Electric Stimulation Interferential Current (IFC) Body Location R knee Duration (Minutes) 15 Intensity 35 Target/Sweep Sweep Patient Position Hooklying Combined With Heat/Cold Cold Pack Hot Pack/Cold Pack Treatment ice pack Location right knee, lumbar spine Patient Position Hooklying Treatment Duration (minutes) 15 Patient Tolerance Good Comments Used during E-Stim PT-OP-T Assessment and Plan Start: 10/31/19 16:17 Freq: Status: Active Protocol: Document 01/29/20 16:00 SAK (Rec: 01/24/20 08:45 SAK [id number]) Physical Therapy Assessment Goals Five Impairment balance dysfunction affecting hip and core Retirement Goal (LTG) Improve SLS to 10 sec, improve tandem stand to 30 sec. LTG Duration 02/14/20 Four Impairment weakness bilateral hip ext 4-/ 5 Retirement Goal (LTG) Patient will demonstrate improvement in bilateral hip extension to at least 4+/5 for improved hip function. Progress 12/11/19: good progress 12/27/19: Improved to 4/5 01/24/20: remains at 4/5 LTG Duration 02/14/20 Three Impairment soft tissue tightness Statistical Consultant Goal (LTG) Patient will demonstrate improvements in soft tissue mobility all hip muscle groups and demonstrate independence and compliance with HEP to address these impairments; advance with emphasis on functional hip extensor strength 12/11/19: good progress 12/27/19: Improving with HEP for flexibility and with manual techniques LTG Duration 02/14/20 Two Impairment patient not able to go for usual walks Retirement Goal (LTG) Patient will be able to resume his usual walks around [employer] without difficulty. (11/24/19: Pt walking around [place] [employer], doesn't tolerate incline) 12/27/19: Has now started walking [employer], slow and careful 12/11/19: good progress on level surfaces, hasn't done incline yet until on treadmill today with fair tolerance. 12/21/19 able to wallk [facility] 1/2 mile up steepest incline with 2/10 C central LBP, tolerable but not back to prior activity level. 12/27/19: improving, but not up to prior walks yet 01/24/20: able to walk but not at prior speed, reports difficulty increasing his speed LTG Duration 02/14/20 One Impairment pain right knee and left hip 3 -5/10 on pain scale Statistical Consultant Goal (LTG) decrease c/o pain to no greater than 1-2/10 with all usual activities 11/29/19: goal progress 12/11/19: 1/10 today 12/27/19: 0-1/10 knee, 1/10 hip 01/24/20: 1-2/10, decreases with core and hip extensor activation LTG Duration 02/14/20 Assessment Summary Assessment Patient making progress with improving activity tolerance, decreased discomfort. Some improvement in initial stand if does glut sets first, and demonstrating improvement in glut strength to 4/5; feel further strengthening would decrease pain further. Able to walk loop at [place] now. Goals updated today to be addressed in 3 further PT visitgs. Decreased balance and stability as evidenced by difficulty with SLS and tandem stand. Would benefit from a few further skilled PT visits to address above impairments. Physical Therapy Plan Frequency and Duration Frequency of Treatment 2x Duration of Treatment 3 wks Plan of Care Start Date 01/24/20 Plan of Care End Date 02/14/20 Therapeutic Interventions Therapeutic Interventions Home Exercise Program,Joint Mobilizations,Manual Therapy, Patient/Caregiver Education, Self-Care/Home Management,Soft Tissue Mobilization,Taping, Therapeutic Activities, Therapeutic Exercises Modalities Cold Pack/Ice Massage,Electric Stimulation,Hot Packs, Ultrasound Next Visit Focus/Plan Next Note Type Treatment Note Next Visit Plan Continue PT to address patient balance concerns, progress strengthening especially functional hip extensor strength, and further progress patient's HEP for supervisor intermediates fitness and pain management.
--- NOTE | 2020-01-29 16:41 | PT.OPPOC ---
Physical, Occupational & Speech Therapy At [facility] Current Diagnoses Unilateral primary osteoarthritis, unspecified hip (01/29/20) Unilateral primary osteoarthritis, right knee (01/29/20) Visit Care Team Role Provider Type Rajan Cash MD Attending Provider Physician Primary Care Provider Referring Provider Specialty: Internal Medicine Address: [address] [place] [address], [address], [facility] Email: [email or web address] Plan Of Care PT-OP-T Assessment and Plan Start: 10/31/19 16:17 Freq: Status: Active Protocol: Document 01/29/20 16:00 SAK (Rec: 01/24/20 08:45 SAK [id number]) Physical Therapy Assessment Goals Five Impairment balance dysfunction affecting hip and core Government Property Inspector Goal (LTG) Improve SLS to 10 sec, improve tandem stand to 30 sec. LTG Duration 02/14/20 Four Impairment weakness bilateral hip ext 4-/ 5 Government Property Inspector Goal (LTG) Patient will demonstrate improvement in bilateral hip extension to at least 4+/5 for improved hip function. Progress 12/11/19: good progress 12/27/19: Improved to 4/5 01/24/20: remains at 4/5 LTG Duration 02/14/20 Three Impairment soft tissue tightness Usp Goal (LTG) Patient will demonstrate improvements in soft tissue mobility all hip muscle groups and demonstrate independence and compliance with HEP to address these impairments; advance with emphasis on functional hip extensor strength 12/11/19: good progress 12/27/19: Improving with HEP for flexibility and with manual techniques LTG Duration 02/14/20 Two Impairment patient not able to go for usual walks Usp Goal (LTG) Patient will be able to resume his usual walks around [place] without difficulty. (11/24/19: Pt walking around [place], doesn't tolerate incline) 12/27/19: Has now started walking [place], slow and careful 12/11/19: good progress on level surfaces, hasn't done incline yet until on treadmill today with fair tolerance. 12/21/19 able to wallk [employer] 1/2 mile up steepest incline with 2/10 C central LBP, tolerable but not back to prior activity level. 12/27/19: improving, but not up to prior walks yet 01/24/20: able to walk but not at prior speed, reports difficulty increasing his speed LTG Duration 02/14/20 One Impairment pain right knee and left hip 3 -5/10 on pain scale Government Property Inspector Goal (LTG) decrease c/o pain to no greater than 1-2/10 with all usual activities 11/29/19: goal progress 12/11/19: 1/10 today 12/27/19: 0-1/10 knee, 10 hip 01/24/20: 1-2/10, decreases with core and hip extensor activation LTG Duration 02/14/20 Assessment Summary Assessment Patient making progress with improving activity tolerance, decreased discomfort. Some improvement in initial stand if does glut sets first, and demonstrating improvement in glut strength to 4/5; feel further strengthening would decrease pain further. Able to walk loop at [place] now. Goals updated today to be addressed in 3 further PT visitgs. Decreased balance and stability as evidenced by difficulty with SLS and tandem stand. Would benefit from a few further skilled PT visits to address above impairments. Physical Therapy Plan Frequency and Duration Frequency of Treatment 2x Duration of Treatment 3 wks Plan of Care Start Date 01/24/20 Plan of Care End Date 02/14/20 Therapeutic Interventions Therapeutic Interventions Home Exercise Program,Joint Mobilizations,Manual Therapy, Patient/Caregiver Education, Self-Care/Home Management,Soft Tissue Mobilization,Taping, Therapeutic Activities, Therapeutic Exercises Modalities Cold Pack/Ice Massage,Electric Stimulation,Hot Packs, Ultrasound Next Visit Focus/Plan Next Note Type Treatment Note Next Visit Plan Continue PT to address patient balance concerns, progress strengthening especially functional hip extensor strength, and 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 Plan of Care Dates Plan of Care Start Date 01/24/20 Plan of Care End Date 02/14/20 Electronically Signed by: Vanessa Dove, PT 01/29/20 [id number] Please Sign and Return: I have reviewed this Plan of Care and certify that the skilled therapy services above are required to meet the patient?s needs. Physician Signature Date Printed Name and Credentials Clinical Instructor Signature Printed Name and Credentials
--- NOTE | 2020-01-31 09:02 | PT.OTN ---
Current Diagnoses Unilateral primary osteoarthritis, unspecified hip (01/31/20) Unilateral primary osteoarthritis, right knee (01/31/20) Physical Therapy Treatment Note PT-OP-A Visit Information Start: 10/31/19 16:17 Freq: Status: Active Protocol: Document 01/31/20 08:14 SAK (Rec: 01/31/20 09:02 SAK [id number]) Out-Patient Physical Therapy Visit Information Visit Information Visit Type Treatment Note Visit Start Time 08:07 Visit Stop Time 09:01 Total Visit Minutes 54 Visit Number 24 PT-OP-B Current Condition Start: 10/31/19 16:17 Freq: Status: Active Protocol: Document 11/06/19 08:13 SAK (Rec: 11/06/19 09:02 SAK [id number]) Current Condition History of Current Condition Onset Date few years History of Current Condition history of hip pain for several years, right knee pain for about 6 months; persistent and Not able to walk around [place] anymore, has to walk level ground. No other exercises besides walking for hips and knees, does a few exercises previously given for LBP. No use of ice or heat. Tried a brace on his knee with velcroe straps; didn't seem to make much difference. Prior history of right knee pain with no known mechanism of injury then or now. Pain worse with standing and walking. Prior Treatments and Tests x-rays: arthritis PT-OP-C Subjective Start: 10/31/19 16:17 Freq: Status: Active Protocol: Document 01/31/20 08:14 SAK (Rec: 01/31/20 09:02 SAK [id number]) OP-PT Subjective Patient Comments Patient Comments My balance really needs work. PT-OP-F Manual Assessment Start: 10/31/19 16:17 Freq: Status: Active Protocol: Document 11/01/19 09:02 SAK (Rec: 11/01/19 10:17 SAK [id number]) Manual Assessments Soft Tissue Assessment Soft Tissue Mobility Assessment palpable tightness bilateral quads, IT bands, hamstrings Joint Mobility Assessment Joint Mobility Assessment decreased in all motions hip and knees PT-OP-G Mobility & Gait Start: 10/31/19 16:17 Freq: Status: Active Protocol: Document 11/01/19 09:02 SAK (Rec: 11/01/19 10:17 SAK [id number]) OP Mobility Evaluation Transfers Sit to Stand independent OP Gait Assessment Gait Gait Assistance Required: Independent Assistive Devices Assistive Device None Orthotic/Prosthetic Devices or Brace: No Gait Deviations General Gait Pattern Antalgic Factors Limiting Gait Function Factors Limiting Gait Function Limited Range of Motion,Pain PT-OP-K Range of Motion Start: 10/31/19 16:17 Freq: Status: Active Protocol: Document 11/01/19 09:02 [facility] (Rec: 11/01/19 10:17 SAK [id number]) Lumbar Spine Range of Motion Lumbar Spine Active Testing Position Standing ROM Limitations Soft Tissue Tightness Comments decreased all motions with c/o tightness Hip Goniometric Range of Motion Hip [place] Hip ROM WFL No Extension 5 Internal Rotation 14 External Rotation 45 Hip ROM Limitations Hip ROM Limitations Soft Tissue Tightness Comments Mod tightness bilateral IT band right greater than left, [place] hamstrings right greater than left (PSLR left 65, right 55) , [place] quads (prone knee flex 85 left, 80 right), hip IR and ER Knee Goniometric Range of Motion Knee [place] Knee ROM WFL No Knee ROM Limitations Knee ROM Limitations Soft Tissue Tightness,Bony Restriction Comments Left knee extension -6 otherwise WFL Ankle and Foot Goniometric Range of Motion Ankle and Foot [place] Dorsiflexion with Knee Flexed 5 Dorsiflexion with Knee Extended 0 Ankle and Foot ROM Limitations ROM Limitations Soft Tissue Tightness PT-OP-M Strength Start: 10/31/19 16:17 Freq: Status: Active Protocol: Document 11/01/19 09:02 [facility] (Rec: 11/01/19 14:18 [facility] [id number]) Hip Strength Hip Manual Muscle Testing [place] Flexion (L2) 4 Good Extension (S1) 4- Good- Abduction 4 Good External Rotation 4- Good- Internal Rotation 4 Good Knee Strength Knee Manual Muscle Testing Left Flexion (S2) 5 Normal Extension (L3) 5 Normal Right Flexion (S2) 4 Good Extension (L3) 4 Good Ankle/Foot Strength Ankle and Foot Manual Muscle Testing [place] Dorsiflexion (L4) 5 Normal Plantarflexion (S1) 5 Normal PT-OP-Q Treatments Start: 10/31/19 16:17 Freq: Status: Active Protocol: Document 01/31/20 08:14 [facility] (Rec: 01/31/20 09:02 [facility] [id number]) Cardio Equipment Recumbent Stepper (Sci-Fit) Duration (Minutes) 10 Resistance 4 Seat Position 9 Treadmill Duration (Minutes) 5 Speed 2.4-2.7 Incline 6 Gym Equipment Cable Column (Body Solid) hamstring cur Details phys cuing to pull feet back as far as possible Resistance 40 Reps/Time 12x2 Shuttle Recovery Unilateral Squats Details R>L alternating Resistance 75 Shuttle Recovery Platform Stable Reps/Time 12x2 Bilateral Squats Details ball between knees Resistance 125 Shuttle Recovery Platform Stable Reps/Time 12x2 Therapeutic Exercises Supine Exercises figure 4 stretch Supine Exercise Name hip IR/ ER Side bilateral Reps/Minutes 1x30 each direction Comments review HEP HS stretch Supine Exercise Name w/ ankle pumps Side bilateral Equipment Used manual Reps/Minutes 1x30 Sidelying Exercises hip abduction Equipment Used wall Reps/Minutes 10x Comments cues for toes straight forward , keep heel in contact with wall Standing Exercises tandem Side bilateral Equipment Used blue foam Comments R and L forward SLS Side bilateral Reps/Minutes 30 x3 ( 20 L, 38 R) Comments cued upright posture with glut and core, COG over VELIA, hip ER NWB leg hip flexor stretch Side bilateral Reps/Minutes 2x30 PT-OP-R Modalities Start: 10/31/19 16:17 Freq: Status: Active Protocol: Document 11/17/19 09:47 LRN (Rec: 11/17/19 10:28 LRN [id number]) Electric Stimulation Electric Stimulation Interferential Current (IFC) Body Location R knee Duration (Minutes) 15 Intensity 35 Target/Sweep Sweep Patient Position Hooklying Combined With Heat/Cold Cold Pack Hot Pack/Cold Pack Treatment ice pack Location right knee, lumbar spine Patient Position Hooklying Treatment Duration (minutes) 15 Patient Tolerance Good Comments Used during E-Stim PT-OP-T Assessment and Plan Start: 10/31/19 16:17 Freq: Status: Active Protocol: Document 01/31/20 08:14 SAK (Rec: 01/31/20 09:02 SAK [id number]) Physical Therapy Assessment Goals Five Impairment balance dysfunction affecting hip and core Snf Goal (LTG) Improve SLS to 10 sec, improve tandem stand to 30 sec. LTG Duration 02/14/20 Four Impairment weakness bilateral hip ext 4-/ 5 Snf Goal (LTG) Patient will demonstrate improvement in bilateral hip extension to at least 4+/5 for improved hip function 12/11/19: good progress 12/27/19: Improved to 4/5 01/29/20: Goal Met: R 5/5, L 4+ /5 MMT Hip extension. 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 12/11/19: good progress 12/27/19: Improving with HEP for flexibility and with manual techniques 01/28/10: Goal met: Is I in HEP for flexibility and Self manual techniques to decrease 2/10 LBP as needed. LTG Duration 01/26/20 Two Impairment patient not able to go for usual walks Gear Tooth Grinding Machine Operator Goal (LTG) Patient will be able to resume his usual walks around [employer] without difficulty. (11/24/19: Pt walking around [place], doesn't tolerate incline) 12/27/19: Has now started walking [place] [place], slow and careful 12/11/19: good progress on level surfaces, hasn't done incline yet until on treadmill today with fair tolerance. 12/21/19 able to wallk [place] 1/2 mile up steepest incline with 2/10 C central LBP, tolerable but not back to prior activity level. 12/27/19: improving, but not up to prior walks yet 01/29/20: Goal Met able to walk [place] now, cuing for posture and LS body mechanics helps decrease tightness. LTG Duration 01/26/20 One Impairment pain right knee and left hip 3 -5/10 on pain scale Gear Tooth Grinding Machine Operator Goal (LTG) decrease c/o pain to no greater than 1-2/10 with all usual activities 11/29/19: goal progress 12/11/19: 1/10 today 12/27/19: 0-1/10 knee, 1/10 hip 01/28/10: Progressing : L Knee is 0/10 back to 100%, L hip 2/ 10 Getting out of chair has to tighten gluts and core to help almost relieve pain /10. LTG Duration 01/26/20 Assessment Summary Assessment Able to progress balance exercises, improving gluteal acativation and postural alignment with less cues. Physical Therapy Plan Frequency and Duration Frequency of Treatment 2x/Week Duration of Treatment 3 wks Plan of Care Start Date 01/24/20 Plan of Care End Date 02/14/20 Therapeutic Interventions Therapeutic Interventions Home Exercise Program,Joint Mobilizations,Manual Therapy, Patient/Caregiver Education, Self-Care/Home Management,Soft Tissue Mobilization,Taping, Therapeutic Activities, Therapeutic Exercises Modalities Cold Pack/Ice Massage,Electric Stimulation,Hot Packs, Ultrasound Next Visit Focus/Plan Next Note Type Treatment Note Next Visit Plan Continue PT, emphasis on balance and stabilization, functional LE strengthening.
--- NOTE | 2020-01-31 12:04 | PT.OTN ---
Current Diagnoses Unilateral primary osteoarthritis, unspecified hip (01/31/20) Unilateral primary osteoarthritis, right knee (01/31/20) Physical Therapy Treatment Note PT-OP-A Visit Information Start: 10/31/19 16:17 Freq: Status: Active Protocol: Document 01/31/20 08:14 SAK (Rec: 01/31/20 09:02 SAK [id number]) Out-Patient Physical Therapy Visit Information Visit Information Visit Type Treatment Note Visit Start Time 08:07 Visit Stop Time 09:01 Total Visit Minutes 54 Visit Number 24 PT-OP-B Current Condition Start: 10/31/19 16:17 Freq: Status: Active Protocol: Document 11/06/19 08:13 SAK (Rec: 11/06/19 09:02 SAK [id number]) Current Condition History of Current Condition Onset Date few years History of Current Condition history of hip pain for several years, right knee pain for about 6 months; persistent and Not able to walk around [place] anymore, has to walk level ground. No other exercises besides walking for hips and knees, does a few exercises previously given for LBP. No use of ice or heat. Tried a brace on his knee with velcroe straps; didn't seem to make much difference. Prior history of right knee pain with no known mechanism of injury then or now. Pain worse with standing and walking. Prior Treatments and Tests x-rays: arthritis PT-OP-C Subjective Start: 10/31/19 16:17 Freq: Status: Active Protocol: Document 01/31/20 08:14 SAK (Rec: 01/31/20 09:02 SAK [id number]) OP-PT Subjective Patient Comments Patient Comments My balance really needs work. PT-OP-F Manual Assessment Start: 10/31/19 16:17 Freq: Status: Active Protocol: Document 11/01/19 09:02 SAK (Rec: 11/01/19 10:17 SAK [id number]) Manual Assessments Soft Tissue Assessment Soft Tissue Mobility Assessment palpable tightness bilateral quads, IT bands, hamstrings Joint Mobility Assessment Joint Mobility Assessment decreased in all motions hip and knees PT-OP-G Mobility & Gait Start: 10/31/19 16:17 Freq: Status: Active Protocol: Document 11/01/19 09:02 SAK (Rec: 11/01/19 10:17 SAK [id number]) OP Mobility Evaluation Transfers Sit to Stand independent OP Gait Assessment Gait Gait Assistance Required: Independent Assistive Devices Assistive Device None Orthotic/Prosthetic Devices or Brace: No Gait Deviations General Gait Pattern Antalgic Factors Limiting Gait Function Factors Limiting Gait Function Limited Range of Motion,Pain PT-OP-K Range of Motion Start: 10/31/19 16:17 Freq: Status: Active Protocol: Document 11/01/19 09:02 [facility] (Rec: 11/01/19 10:17 SAK [id number]) Lumbar Spine Range of Motion Lumbar Spine Active Testing Position Standing ROM Limitations Soft Tissue Tightness Comments decreased all motions with c/o tightness Hip Goniometric Range of Motion Hip [place] Hip ROM WFL No Extension 5 Internal Rotation 14 External Rotation 45 Hip ROM Limitations Hip ROM Limitations Soft Tissue Tightness Comments Mod tightness bilateral IT band right greater than left, [place] hamstrings right greater than left (PSLR left 65, right 55) , [place] quads (prone knee flex 85 left, 80 right), hip IR and ER Knee Goniometric Range of Motion Knee [place] Knee ROM WFL No Knee ROM Limitations Knee ROM Limitations Soft Tissue Tightness,Bony Restriction Comments Left knee extension -6 otherwise WFL Ankle and Foot Goniometric Range of Motion Ankle and Foot [place] Dorsiflexion with Knee Flexed 5 Dorsiflexion with Knee Extended 0 Ankle and Foot ROM Limitations ROM Limitations Soft Tissue Tightness PT-OP-M Strength Start: 10/31/19 16:17 Freq: Status: Active Protocol: Document 11/01/19 09:02 [facility] (Rec: 11/01/19 14:18 [facility] [id number]) Hip Strength Hip Manual Muscle Testing [place] Flexion (L2) 4 Good Extension (S1) 4- Good- Abduction 4 Good External Rotation 4- Good- Internal Rotation 4 Good Knee Strength Knee Manual Muscle Testing Left Flexion (S2) 5 Normal Extension (L3) 5 Normal Right Flexion (S2) 4 Good Extension (L3) 4 Good Ankle/Foot Strength Ankle and Foot Manual Muscle Testing [place] Dorsiflexion (L4) 5 Normal Plantarflexion (S1) 5 Normal PT-OP-Q Treatments Start: 10/31/19 16:17 Freq: Status: Active Protocol: Document 01/31/20 08:14 [facility] (Rec: 01/31/20 09:02 [facility] [id number]) Cardio Equipment Recumbent Stepper (Sci-Fit) Duration (Minutes) 10 Resistance 4 Seat Position 9 Treadmill Duration (Minutes) 5 Speed 2.4-2.7 Incline 6 Gym Equipment Cable Column (Body Solid) hamstring cur Details phys cuing to pull feet back as far as possible Resistance 40 Reps/Time 12x2 Shuttle Recovery Unilateral Squats Details R>L alternating Resistance 75 Shuttle Recovery Platform Stable Reps/Time 12x2 Bilateral Squats Details ball between knees Resistance 125 Shuttle Recovery Platform Stable Reps/Time 12x2 Therapeutic Exercises Supine Exercises figure 4 stretch Supine Exercise Name hip IR/ ER Side bilateral Reps/Minutes 1x30 each direction Comments review HEP HS stretch Supine Exercise Name w/ ankle pumps Side bilateral Equipment Used manual Reps/Minutes 1x30 Sidelying Exercises hip abduction Equipment Used wall Reps/Minutes 10x Comments cues for toes straight forward , keep heel in contact with wall Standing Exercises tandem Side bilateral Equipment Used blue foam Comments R and L forward SLS Side bilateral Reps/Minutes 30 x3 ( 20 L, 38 R) Comments cued upright posture with glut and core, COG over VELIA, hip ER NWB leg hip flexor stretch Side bilateral Reps/Minutes 2x30 PT-OP-R Modalities Start: 10/31/19 16:17 Freq: Status: Active Protocol: Document 11/17/19 09:47 [facility]N (Rec: 11/17/19 10:28 LRN [id number]) Electric Stimulation Electric Stimulation Interferential Current (IFC) Body Location R knee Duration (Minutes) 15 Intensity 35 Target/Sweep Sweep Patient Position Hooklying Combined With Heat/Cold Cold Pack Hot Pack/Cold Pack Treatment ice pack Location right knee, lumbar spine Patient Position Hooklying Treatment Duration (minutes) 15 Patient Tolerance Good Comments Used during E-Stim PT-OP-T Assessment and Plan Start: 10/31/19 16:17 Freq: Status: Active Protocol: Document 01/31/20 08:14 SAK (Rec: 01/31/20 09:02 SAK [id number]) Physical Therapy Assessment Goals Five Impairment balance dysfunction affecting hip and core Halfway Goal (LTG) Improve SLS to 10 sec, improve tandem stand to 30 sec. LTG Duration 02/14/20 Four Impairment weakness bilateral hip ext 4-/ 5 Halfway Goal (LTG) Patient will demonstrate improvement in bilateral hip extension to at least 4+/5 for improved hip function 12/11/19: good progress 12/27/19: Improved to 4/5 01/29/20: Goal Met: R 5/5, L 4+ /5 MMT Hip extension. LTG Duration 01/26/20 Three Impairment soft tissue tightness Receiving Worker 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 12/11/19: good progress 12/27/19: Improving with HEP for flexibility and with manual techniques 01/28/10: Goal met: Is I in HEP for flexibility and Self manual techniques to decrease 2/10 LBP as needed. LTG Duration 01/26/20 Two Impairment patient not able to go for usual walks Receiving Worker Goal (LTG) Patient will be able to resume his usual walks around [place] without difficulty. (11/24/19: Pt walking around [employer], doesn't tolerate incline) 12/27/19: Has now started walking [place], slow and careful 12/11/19: good progress on level surfaces, hasn't done incline yet until on treadmill today with fair tolerance. 12/21/19 able to wallk [place] 1/2 mile up steepest incline with 2/10 C central LBP, tolerable but not back to prior activity level. 12/27/19: improving, but not up to prior walks yet 01/29/20: Goal Met able to walk [place] now, cuing for posture and LS body mechanics helps decrease tightness. LTG Duration 01/26/20 One Impairment pain right knee and left hip 3 -5/10 on pain scale Receiving Worker Goal (LTG) decrease c/o pain to no greater than 1-2/10 with all usual activities 11/29/19: goal progress 12/11/19: 1/10 today 12/27/19: 0-1/10 knee, 1/10 hip 01/28/10: Progressing : L Knee is 0/10 back to 100%, L hip 2/ 10 Getting out of chair has to tighten gluts and core to help almost relieve pain /10. LTG Duration 01/26/20 Assessment Summary Assessment Able to progress balance exercises, improving gluteal acativation and postural alignment with less cues. Physical Therapy Plan Frequency and Duration Frequency of Treatment 2x/Week Duration of Treatment 3 wks Plan of Care Start Date 01/24/20 Plan of Care End Date 02/14/20 Therapeutic Interventions Therapeutic Interventions Home Exercise Program,Joint Mobilizations,Manual Therapy, Patient/Caregiver Education, Self-Care/Home Management,Soft Tissue Mobilization,Taping, Therapeutic Activities, Therapeutic Exercises Modalities Cold Pack/Ice Massage,Electric Stimulation,Hot Packs, Ultrasound Next Visit Focus/Plan Next Note Type Treatment Note Next Visit Plan Continue PT, emphasis on balance and stabilization, functional LE strengthening.
--- NOTE | 2020-02-05 09:57 | PT.OTN ---
Current Diagnoses Unilateral primary osteoarthritis, unspecified hip (02/05/20) Unilateral primary osteoarthritis, right knee (02/05/20) Physical Therapy Treatment Note PT-OP-A Visit Information Start: 10/31/19 16:17 Freq: Status: Active Protocol: Document 02/05/20 09:05 SAK (Rec: 02/05/20 09:52 SAK [id number]) Out-Patient Physical Therapy Visit Information Visit Information Visit Type Treatment Note Visit Start Time 09:05 Visit Stop Time 09:55 Total Visit Minutes 50 Visit Number 25 PT-OP-B Current Condition Start: 10/31/19 16:17 Freq: Status: Active Protocol: Document 11/06/19 08:13 SAK (Rec: 11/06/19 09:02 SAK [id number]) Current Condition History of Current Condition Onset Date few years History of Current Condition history of hip pain for several years, right knee pain for about 6 months; persistent and Not able to walk around [place] anymore, has to walk level ground. No other exercises besides walking for hips and knees, does a few exercises previously given for LBP. No use of ice or heat. Tried a brace on his knee with velcroe straps; didn't seem to make much difference. Prior history of right knee pain with no known mechanism of injury then or now. Pain worse with standing and walking. Prior Treatments and Tests x-rays: arthritis PT-OP-C Subjective Start: 10/31/19 16:17 Freq: Status: Active Protocol: Document 02/05/20 09:05 SAK (Rec: 02/05/20 09:52 SAK [id number]) OP-PT Subjective Patient Comments Patient Comments No new c/o. Less pain when activates gluts when he stands up. PT-OP-F Manual Assessment Start: 10/31/19 16:17 Freq: Status: Active Protocol: Document 11/01/19 09:02 SAK (Rec: 11/01/19 10:17 SAK [id number]) Manual Assessments Soft Tissue Assessment Soft Tissue Mobility Assessment palpable tightness bilateral quads, IT bands, hamstrings Joint Mobility Assessment Joint Mobility Assessment decreased in all motions hip and knees PT-OP-G Mobility & Gait Start: 10/31/19 16:17 Freq: Status: Active Protocol: Document 11/01/19 09:02 SAK (Rec: 11/01/19 10:17 SAK [id number]) OP Mobility Evaluation Transfers Sit to Stand independent OP Gait Assessment Gait Gait Assistance Required: Independent Assistive Devices Assistive Device None Orthotic/Prosthetic Devices or Brace: No Gait Deviations General Gait Pattern Antalgic Factors Limiting Gait Function Factors Limiting Gait Function Limited Range of Motion,Pain PT-OP-K Range of Motion Start: 10/31/19 16:17 Freq: Status: Active Protocol: Document 11/01/19 09:02 [facility] (Rec: 11/01/19 10:17 [facility] [id number]) Lumbar Spine Range of Motion Lumbar Spine Active Testing Position Standing ROM Limitations Soft Tissue Tightness Comments decreased all motions with c/o tightness Hip Goniometric Range of Motion Hip [place] Hip ROM WFL No Extension 5 Internal Rotation 14 External Rotation 45 Hip ROM Limitations Hip ROM Limitations Soft Tissue Tightness Comments Mod tightness bilateral IT band right greater than left, [place] hamstrings right greater than left (PSLR left 65, right 55) , [place] quads (prone knee flex 85 left, 80 right), hip IR and ER Knee Goniometric Range of Motion Knee ad[place] Knee ROM WFL No Knee ROM Limitations Knee ROM Limitations Soft Tissue Tightness,Bony Restriction Comments Left knee extension -6 otherwise WFL Ankle and Foot Goniometric Range of Motion Ankle and Foot [place] Dorsiflexion with Knee Flexed 5 Dorsiflexion with Knee Extended 0 Ankle and Foot ROM Limitations ROM Limitations Soft Tissue Tightness PT-OP-M Strength Start: 10/31/19 16:17 Freq: Status: Active Protocol: Document 11/01/19 09:02 MILLY (Rec: 11/01/19 14:18 [facility] [id number]) Hip Strength Hip Manual Muscle Testing [place] Flexion (L2) 4 Good Extension (S1) 4- Good- Abduction 4 Good External Rotation 4- Good- Internal Rotation 4 Good Knee Strength Knee Manual Muscle Testing Left Flexion (S2) 5 Normal Extension (L3) 5 Normal Right Flexion (S2) 4 Good Extension (L3) 4 Good Ankle/Foot Strength Ankle and Foot Manual Muscle Testing [place] Dorsiflexion (L4) 5 Normal Plantarflexion (S1) 5 Normal PT-OP-Q Treatments Start: 10/31/19 16:17 Freq: Status: Active Protocol: Document 02/05/20 09:05 MILLY (Rec: 02/05/20 09:52 [facility] [id number]) Cardio Equipment Recumbent Stepper (Sci-Fit) Duration (Minutes) 10 Resistance 4 Seat Position 9 Other 1.47 miles Gym Equipment Cable Column (Body Solid) hamstring cur Details phys cuing to pull feet back as far as possible Resistance 40 Reps/Time 12x2 Shuttle Recovery Unilateral Squats Details R>L alternating Resistance 62 Shuttle Recovery Platform Unstable Reps/Time 15x2 Bilateral Squats Details ball between knees Resistance 75, 100 Shuttle Recovery Platform Unstable Reps/Time 15x2 Shuttle Balance chains red Details balance and weight shift AP, side, head turns Therapeutic Exercises Supine Exercises figure 4 stretch Supine Exercise Name hip IR/ER Side bilateral Reps/Minutes 1x30 HS stretch Supine Exercise Name w/ ankle pumps Side bilateral Equipment Used manual Reps/Minutes 1x30 Sidelying Exercises hip abduction Equipment Used wall Reps/Minutes 10x2 Comments cues for toes straight forward , keep heel in contact with wall Standing Exercises hip ext Side bilateral Resistance L2 TB Reps/Minutes 10x2 Comments cued upright posture and small range glut facilitation hip flexor stretch Side bilateral Reps/Minutes 2x30 Neuro Re-Education Treatment Balance Activities uneven obstacle course Equipment oval cushions, hurdles, balance beam, pods, boxes Comments cued slow pacing eccentric stepping COG over VELIA CGA PT-OP-R Modalities Start: 10/31/19 16:17 Freq: Status: Active Protocol: Document 11/17/19 09:47 LRN (Rec: 11/17/19 10:28 LRN [id number]) Electric Stimulation Electric Stimulation Interferential Current (IFC) Body Location R knee Duration (Minutes) 15 Intensity 35 Target/Sweep Sweep Patient Position Hooklying Combined With Heat/Cold Cold Pack Hot Pack/Cold Pack Treatment ice pack Location right knee, lumbar spine Patient Position Hooklying Treatment Duration (minutes) 15 Patient Tolerance Good Comments Used during E-Stim PT-OP-T Assessment and Plan Start: 10/31/19 16:17 Freq: Status: Active Protocol: Document 02/05/20 09:05 [facility] (Rec: 02/05/20 09:52 SAK [id number]) Physical Therapy Assessment Goals Five Impairment balance dysfunction affecting hip and core Snf Goal (LTG) Improve SLS to 10 sec, improve tandem stand to 30 sec. LTG Duration 02/14/20 Four Impairment weakness bilateral hip ext 4-/ 5 Snf Goal (LTG) Patient will demonstrate improvement in bilateral hip extension to at least 4+/5 for improved hip function 12/11/19: good progress 12/27/19: Improved to 4/5 01/29/20: Goal Met: R 5/5, L 4+ /5 MMT Hip extension. LTG Duration 01/26/20 Three Impairment soft tissue tightness [employer] 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 12/11/19: good progress 12/27/19: Improving with HEP for flexibility and with manual techniques 01/28/10: Goal met: Is I in HEP for flexibility and Self manual techniques to decrease 2/10 LBP as needed. LTG Duration 01/26/20 Two Impairment patient not able to go for usual walks Snf Goal (LTG) Patient will be able to resume his usual walks around [employer] without difficulty. (11/24/19: Pt walking around [employer], doesn't tolerate incline) 12/27/19: Has now started walking [employer], slow and careful 12/11/19: good progress on level surfaces, hasn't done incline yet until on treadmill today with fair tolerance. 12/21/19 able to wallk [place] 1/2 mile up steepest incline with 2/10 C central LBP, tolerable but not back to prior activity level. 12/27/19: improving, but not up to prior walks yet 01/29/20: Goal Met able to walk [place] now, cuing for posture and LS body mechanics helps decrease tightness. LTG Duration 01/26/20 One Impairment pain right knee and left hip 3 -5/10 on pain scale [employer] Goal (LTG) decrease c/o pain to no greater than 1-2/10 with all usual activities 11/29/19: goal progress 12/11/19: 1/10 today 12/27/19: 0-1/10 knee, 1/10 hip 01/28/10: Progressing : L Knee is 0/10 back to 100%, L hip 2/ 10 Getting out of chair has to tighten gluts and core to help almost relieve pain /10. LTG Duration 01/26/20 Assessment Summary Assessment Increased difficulty obstacle course; CG to min assist required. Less limping upon first standing from seated position. Physical Therapy Plan Frequency and Duration Frequency of Treatment 2x/Week Duration of Treatment 3 wks Plan of Care Start Date 01/24/20 Plan of Care End Date 02/14/20 Therapeutic Interventions Therapeutic Interventions Home Exercise Program,Joint Mobilizations,Manual Therapy, Patient/Caregiver Education, Self-Care/Home Management,Soft Tissue Mobilization,Taping, Therapeutic Activities, Therapeutic Exercises Modalities Cold Pack/Ice Massage,Electric Stimulation,Hot Packs, Ultrasound Next Visit Focus/Plan Next Note Type Discharge Summary Next Visit Plan Review home program, instruct in methods for advancing HEP as tolerated.
--- NOTE | 2020-02-07 09:03 | PT.OTN ---
Current Diagnoses Unilateral primary osteoarthritis, unspecified hip (02/07/20) Unilateral primary osteoarthritis, right knee (02/07/20) Physical Therapy Treatment Note PT-OP-A Visit Information Start: 10/31/19 16:17 Freq: Status: Active Protocol: Document 02/07/20 08:17 SAK (Rec: 02/07/20 09:03 SAK [id number]) Out-Patient Physical Therapy Visit Information Visit Information Visit Type Treatment Note Visit Start Time 08:05 Visit Number 26 PT-OP-B Current Condition Start: 10/31/19 16:17 Freq: Status: Active Protocol: Document 11/06/19 08:13 SAK (Rec: 11/06/19 09:02 SAK [id number]) Current Condition History of Current Condition Onset Date few years History of Current Condition history of hip pain for several years, right knee pain for about 6 months; persistent and Not able to walk around [place] anymore, has to walk level ground. No other exercises besides walking for hips and knees, does a few exercises previously given for LBP. No use of ice or heat. Tried a brace on his knee with velcroe straps; didn't seem to make much difference. Prior history of right knee pain with no known mechanism of injury then or now. Pain worse with standing and walking. Prior Treatments and Tests x-rays: arthritis PT-OP-C Subjective Start: 10/31/19 16:17 Freq: Status: Active Protocol: Document 02/07/20 08:17 SAK (Rec: 02/07/20 09:03 SAK [id number]) OP-PT Subjective Patient Comments Patient Comments No new c/o. Walked [place] yesterday PT-OP-F Manual Assessment Start: 10/31/19 16:17 Freq: Status: Active Protocol: Document 11/01/19 09:02 SAK (Rec: 11/01/19 10:17 SAK [id number]) Manual Assessments Soft Tissue Assessment Soft Tissue Mobility Assessment palpable tightness bilateral quads, IT bands, hamstrings Joint Mobility Assessment Joint Mobility Assessment decreased in all motions hip and knees PT-OP-G Mobility & Gait Start: 10/31/19 16:17 Freq: Status: Active Protocol: Document 11/01/19 09:02 SAK (Rec: 11/01/19 10:17 SAK [id number]) OP Mobility Evaluation Transfers Sit to Stand independent OP Gait Assessment Gait Gait Assistance Required: Independent Assistive Devices Assistive Device None Orthotic/Prosthetic Devices or Brace: No Gait Deviations General Gait Pattern Antalgic Factors Limiting Gait Function Factors Limiting Gait Function Limited Range of Motion,Pain PT-OP-K Range of Motion Start: 10/31/19 16:17 Freq: Status: Active Protocol: Document 11/01/19 09:02 [facility] (Rec: 11/01/19 10:17 [facility] [id number]) Lumbar Spine Range of Motion Lumbar Spine Active Testing Position Standing ROM Limitations Soft Tissue Tightness Comments decreased all motions with c/o tightness Hip Goniometric Range of Motion Hip [place] Hip ROM WFL No Extension 5 Internal Rotation 14 External Rotation 45 Hip ROM Limitations Hip ROM Limitations Soft Tissue Tightness Comments Mod tightness bilateral IT band right greater than left, [place] hamstrings right greater than left (PSLR left 65, right 55) , [place] quads (prone knee flex 85 left, 80 right), hip IR and ER Knee Goniometric Range of Motion Knee [place] Knee ROM WFL No Knee ROM Limitations Knee ROM Limitations Soft Tissue Tightness,Bony Restriction Comments Left knee extension -6 otherwise WFL Ankle and Foot Goniometric Range of Motion Ankle and Foot [place] Dorsiflexion with Knee Flexed 5 Dorsiflexion with Knee Extended 0 Ankle and Foot ROM Limitations ROM Limitations Soft Tissue Tightness PT-OP-M Strength Start: 10/31/19 16:17 Freq: Status: Active Protocol: Document 11/01/19 09:02 [facility] (Rec: 11/01/19 14:18 [facility] [id number]) Hip Strength Hip Manual Muscle Testing [place] Flexion (L2) 4 Good Extension (S1) 4- Good- Abduction 4 Good External Rotation 4- Good- Internal Rotation 4 Good Knee Strength Knee Manual Muscle Testing Left Flexion (S2) 5 Normal Extension (L3) 5 Normal Right Flexion (S2) 4 Good Extension (L3) 4 Good Ankle/Foot Strength Ankle and Foot Manual Muscle Testing [place] Dorsiflexion (L4) 5 Normal Plantarflexion (S1) 5 Normal PT-OP-Q Treatments Start: 10/31/19 16:17 Freq: Status: Active Protocol: Document 02/07/20 08:17 [facility] (Rec: 02/07/20 09:03 [facility] [id number]) Cardio Equipment Recumbent Stepper (Sci-Fit) Duration (Minutes) 12 Resistance 4.1 Seat Position 9 Other 2.1 miles Gym Equipment Sport Cord red cord Exercise Details red, Reps/Duration 5x ea Therapeutic Exercises Sitting Exercises piriformis stretch Reps/Minutes 30x Standing Exercises tandem Side bilateral Equipment Used blue foam Comments R and L forward SLS Side bilateral Reps/Minutes 30 x3 ( 20 L, 38 R) Comments cued upright posture with glut and core, COG over VELIA, hip ER NWB leg hip ext Side bilateral Resistance L2 TB Reps/Minutes 10x2 Comments cued upright posture and small range glut facilitation hip flexor stretch Side bilateral Reps/Minutes 2x30 Neuro Re-Education Treatment Balance Activities uneven obstacle course Equipment oval cushions, hurdles, balance beam, pods, boxes Comments cued slow pacing eccentric stepping COG over VELIA CGA PT-OP-R Modalities Start: 10/31/19 16:17 Freq: Status: Active Protocol: Document 11/17/19 09:47 LRN (Rec: 11/17/19 10:28 LRN [id number]) Electric Stimulation Electric Stimulation Interferential Current (IFC) Body Location R knee Duration (Minutes) 15 Intensity 35 Target/Sweep Sweep Patient Position Hooklying Combined With Heat/Cold Cold Pack Hot Pack/Cold Pack Treatment ice pack Location right knee, lumbar spine Patient Position Hooklying Treatment Duration (minutes) 15 Patient Tolerance Good Comments Used during E-Stim PT-OP-T Assessment and Plan Start: 10/31/19 16:17 Freq: Status: Active Protocol: Document 02/07/20 08:17 SAK (Rec: 02/07/20 09:03 SAK [id number]) Physical Therapy Assessment Goals Five Impairment balance dysfunction affecting hip and core Mcc Goal (LTG) Improve SLS to 10 sec, improve tandem stand to 30 sec. LTG Duration goal met Four Impairment weakness bilateral hip ext 4-/ 5 Mcc Goal (LTG) Patient will demonstrate improvement in bilateral hip extension to at least 4+/5 for improved hip function 12/11/19: good progress 12/27/19: Improved to 4/5 01/29/20: Goal Met: R 5/5, L 4+ /5 MMT Hip extension. LTG Duration goal met Three Impairment soft tissue tightness Batch [employer] 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 12/11/19: good progress 12/27/19: Improving with HEP for flexibility and with manual techniques 01/28/10: Goal met: Is I in HEP for flexibility and Self manual techniques to decrease 2/10 LBP as needed. 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 (11/24/19: Pt walking around [email or web address], doesn't tolerate incline) 12/27/19: Has now started walking [place], slow and careful 12/11/19: good progress on level surfaces, hasn't done incline yet until on treadmill today with fair tolerance. 12/21/19 able to wallk [employer] 1/2 mile up steepest incline with 2/10 C central LBP, tolerable but not back to prior activity level. 12/27/19: improving, but not up to prior walks yet 01/29/20: Goal Met able to walk [employer] now, cuing for posture and LS body mechanics helps decrease tightness. LTG Duration goal met One Impairment pain right knee and left hip 3 -5/10 on pain scale Batch Operator Goal (LTG) decrease c/o pain to no greater than 1-2/10 with all usual activities 11/29/19: goal progress 12/11/19: 1/10 today 12/27/19: 0-1/10 knee, 1/10 hip 01/28/10: Progressing : L Knee is 0/10 back to 100%, L hip 2/ 10 Getting out of chair has to tighten gluts and core to help almost relieve pain 1/10. LTG Duration goal met Assessment Summary Assessment Goals all met, ready for discharge. Physical Therapy Plan Discharge Physical Therapy Discharge Reasons Goals Met
== END 2020-02-19 09:00 ==
LOC: PHYS 08:15
PROVIDERS: PCP Internal Medicine; Referring Provider Internal Medicine; Visit Provider Internal Medicine
DX: M16.10 Unilateral primary osteoarthritis, unspecified hip (principal); M17.11 Unilateral primary osteoarthritis, right knee
CPT/HCPCS: 97010; 97014; 97110; 97112; 97140; 97161; 97535; G0283

== ENCOUNTER → 2020-04-23 06:34 | Outpatient (CLI) | payer MEDICARE, SELFPAY ==
[2020-04-23 08:59] LABS: Alanine Aminotransferase 23 IU/L (<50); Albumin Globulin Ratio 1.6 (1.0-2.8); Alkaline Phosphatase 64 U/L (38-126); Aspartate Aminotransferase 25 IU/L (17-59); BUN Creatinine Ratio 25.5 (6-22); Bilirubin Total 0.7 mg/dL (0.2-1.3); Blood Urea Nitrogen 25 mg/dL (9-20); Calcium 9.5 mg/dL (8.4-10.2); Carbon Dioxide 34 mmol/L (22-32); Chloride 97 mmol/L (98-107); Cholesterol 133 mg/dL (140-199); Estimated Glomerular Filt Rate > 60.0 mL/min (>60); Globulin 2.5 g/dL (1.7-4.1); Glucose 97 mg/dL (80-110); HDL Cholesterol 45 mg/dL (40-60); HEMOLYSIS < 15 (0-50); LDL Cholesterol Calculated 73 mg/dL (<100); Potassium 4.5 mmol/L (3.4-5.1); Sodium 134 mmol/L (137-145); Total Protein 6.5 g/dL (6.3-8.2); Triglycerides 77 mg/dL (35-150)
== END ==
PROVIDERS: PCP Internal Medicine; Referring Provider Internal Medicine; Visit Provider Internal Medicine
DX: E78.2 Mixed hyperlipidemia (principal); I10 Essential (primary) hypertension; I35.0 Nonrheumatic aortic (valve) stenosis
CPT/HCPCS: 36415; 80053; 80061

== ENCOUNTER → 2020-05-01 07:44 | Outpatient (CLI) | payer MEDICARE, SELFPAY ==
--- NOTE | 2020-05-01 07:45 | DI.ECHO.S_ITS ---
[facility] +---------+ [facility] +---------+ : : [address] : : : : [id number] : : : : Phone: [phone]+ Echocardiogram Report + + :Name: MARLENE ARTHUR Study Date: 05/01/2020 Height: 67 in : :[facility] Weight: 201 lb : : Gender: Male BSA: 2.0 m2 : :: 1945 Age: 75 yrs BP: 143/81 mmHg: :Reason For Study: AORTIC STENOSIS : :Ordering Physician: TRACE, : :NUNU Ledezma Performed By: Arti Lee : :Referring: NUNU WOODWARD : + + Interpretation Summary The left ventricle is normal in size. The ejection fraction is estimated to be 60-65%. The right ventricle is mildly dilated. The right ventricular systolic function is normal. The aortic valve is bicuspid. The peak aortic velocity is 3.0 m/sec. The peak aortic velocity on the previous exam was 2.71 m/sec. The aortic valve mean gradient is 20 mmHg. The calculated aortic valve area is 1.5 cm2. There is mild to moderate aortic stenosis. There is mild aortic regurgitation. Compared to the prior echo study, there has been a decrease in the severity of aortic regurgitation. The ascending aorta is mildly enlarged. 4.1 cm in diameter. In April 2019, 4.4 cm in diameter. Mild atherosclerotic plaque(s) in the aortic arch. Procedure: A two-dimensional transthoracic echocardiogram with color flow and Doppler was performed. The study quality was technically adequate. Comparison is made with the echocardiogram of 04/13/2019. The patient was in sinus bradycardia with heart rates between 50-58 bpm during the exam. Left Ventricle: The left ventricle is normal in size. Left ventricular wall thickness is mildly increased. There is no thrombus. The ejection fraction is estimated to be 60-65%. There are no focal wall motion abnormalities. MV E/A: 1.2 Med Peak E' Shay: 5.8 cm/sec E/E' med: 12.5. Right Ventricle: The right ventricle is mildly dilated. The right ventricular systolic function is normal. Atria: The left atrium is mildly dilated. The left atrium has mildly decreased in size since the prior echo exam. Right atrial size is normal. There is no Doppler evidence for an interatrial shunt. Mitral Valve: The mitral valve leaflets appear mildly thickened, but open well. There is mild mitral annular calcification. The mitral papillary muscle appears thickened and/or calcified. There is mild mitral regurgitation. Aortic Valve: The aortic valve is moderately calcified. The aortic valve is bicuspid. There is mild to moderate aortic stenosis. The peak aortic velocity is 3.0 m/sec. The peak aortic velocity on the previous exam was 2.71 m/sec. The aortic valve mean gradient is 20 mmHg. The calculated aortic valve area is 1.5 cm2. There is mild aortic regurgitation. Compared to the prior echo study, there has been a decrease in the severity of aortic regurgitation. Tricuspid Valve: The tricuspid valve is normal in structure and function. Pulmonary artery pressures cannot be estimated because of the lack of a measurable TR jet velocity but the IVC suggests a CVP of around 3 mmHg. Pulmonic Valve: The pulmonic valve is not well visualized. There is no pulmonic valvular regurgitation. Great Vessels: The aortic root is normal size. The ascending aorta is mildly enlarged. Mild atherosclerotic plaque(s) in the aortic arch. The IVC is of normal diameter and collapses greater than 50% with a sniff. This suggests a low right atrial pressure of 3 mm Hg. Pericardium/ Pleura There is no pericardial effusion. There is no pleural effusion. MMode/2D Measurements & Calculations LVIDd: 5.8 cm LVOT diam: 2.5 cm LVIDs: 4.1 cm Ao root diam: 3.9 cm FS: 29.7 % asc Aorta Diam: 4.1 cm EPSS: 0.69 cm Ao Arch Diam (Prox Trans): 3.5 cm IVSd: 1.2 cm LVPWd: 1.1 cm LV anaya. diameter/BSA (cm/m^2): 2.9 LV sys. diameter/BSA (cm/m^2): 2.0 LA A2 area: 19.9 cm2 RA long axis: 4.5 cm LA A4 area: 18.6 cm2 RA area: 12.9 cm2 LA length (vol): 5.0 cm RA vol: 31.4 ml LA vol: 63.0 ml RA : 15.5 ml/m2 LA vol index: 31.1 ml/m2 IVC diam: 1.2 cm RVD1 (basal): 4.4 cm TAPSE: 2.2 cm Doppler Measurements & Calculations Ao V2 max: 300.1 cm/sec LVOT Max Shay: 92.0 cm/sec Ao V2 mean: 212.3 cm/sec LV V1 max P.5 mmHg Ao max P.0 mmHg LV V1 VTI: 25.2 cm Ao mean P.0 mmHg SARA(I,D): 1.8 cm2 Ao V2 VTI: 71.0 cm SARA(V,D): 1.5 cm2 sev ratio: 0.35 SARA indexed to BSA (cm^2/m^2): 0.88 MV E max shay: 72.7 cm/sec PA V2 max: 56.5 cm/sec MV A max shay: 62.4 cm/sec PA V2 mean: 39.7 cm/sec MV E/A: 1.2 PA mean P.72 mmHg Med Peak E' Shay: 5.8 cm/sec PA pr(Accel): 19.1 mmHg E/E' med: 12.5 Lat Peak E' Shay: 6.7 cm/sec E/E' lat: 10.8 E/e' average: 11.7 MV dec time: 0.29 sec SV(LVOT): 126.2 ml Reading Physician:05:12 PM
== END ==
PROVIDERS: PCP Internal Medicine; Referring Provider Internal Medicine; Visit Provider Internal Medicine
DX: I35.0 Nonrheumatic aortic (valve) stenosis (principal)
CPT/HCPCS: 93306

== ENCOUNTER → 2020-07-11 12:20 | Outpatient (CLI) | payer MEDICARE, SELFPAY ==
[2020-07-11] MEDS: COVID-19 VACC, Ad26(JANSSEN)/PF 0.5 ML IM (12:31)
== END ==
PROVIDERS: PCP Internal Medicine; Visit Provider Internal Medicine
DX: Z23 Encounter for immunization (principal)
CPT/HCPCS: 0031A; 91303

== ENCOUNTER → 2020-08-22 06:58 | Outpatient (CLI) | payer MEDICARE, SELFPAY ==
[2020-08-22 09:10] LABS: Prostate Specific Antigen 1.44 ng/mL (0.10-4.00)
== END ==
PROVIDERS: PCP Internal Medicine; Referring Provider Specialist; Visit Provider Specialist
DX: N40.0 Benign prostatic hyperplasia without lower urinary tract symptoms (principal)
CPT/HCPCS: 36415; 84153

== ENCOUNTER → 2020-09-17 06:32 | Outpatient (CLI) | payer MEDICARE, SELFPAY ==
[2020-09-17 08:25] LABS: Alanine Aminotransferase 23 IU/L (<50); Albumin 4.2 g/dL (3.5-5.0); Albumin Globulin Ratio 1.5 (1.0-2.8); Alkaline Phosphatase 63 U/L (38-126); Aspartate Aminotransferase 28 IU/L (17-59); BUN Creatinine Ratio 25.8 (6-22); Bilirubin Total 0.6 mg/dL (0.2-1.3); Blood Urea Nitrogen 25 mg/dL (9-20); Calcium 9.6 mg/dL (8.4-10.2); Carbon Dioxide 28 mmol/L (22-32); Chloride 101 mmol/L (98-107); Cholesterol 129 mg/dL (140-199); Estimated Glomerular Filt Rate > 60.0 mL/min (>60); Globulin 2.8 g/dL (1.7-4.1); Glucose 104 mg/dL (80-110); HDL Cholesterol 44 mg/dL (40-60); HEMOLYSIS < 15 (0-50); LDL Cholesterol Calculated 75 mg/dL (<100); Sodium 136 mmol/L (137-145); Triglycerides 51 mg/dL (35-150)
== END ==
PROVIDERS: PCP Internal Medicine; Referring Provider Hospitalist; Visit Provider Hospitalist
DX: I10 Essential (primary) hypertension (principal); E78.5 Hyperlipidemia, unspecified
CPT/HCPCS: 36415; 80053; 80061

== ENCOUNTER → 2021-02-14 06:37 | Outpatient (CLI) | payer MEDICARE, SELFPAY ==
[2021-02-14 09:19] LABS: Prostate Specific Antigen 1.11 ng/mL (0.10-4.00)
== END ==
PROVIDERS: PCP Internal Medicine; Referring Provider Specialist; Visit Provider Specialist
DX: R97.20 Elevated prostate specific antigen [PSA] (principal)
CPT/HCPCS: 36415; 84153

== ENCOUNTER → 2021-03-19 06:42 | Outpatient (CLI) | payer MEDICARE, SELFPAY ==
[2021-03-19 08:25] LABS: Alanine Aminotransferase 25 IU/L (<50); Albumin 4.2 g/dL (3.5-5.0); Albumin Globulin Ratio 1.8 (1.0-2.8); Alkaline Phosphatase 55 U/L (38-126); Aspartate Aminotransferase 27 IU/L (17-59); BUN Creatinine Ratio 24.2 (6-22); Bilirubin Total 0.7 mg/dL (0.2-1.3); Blood Urea Nitrogen 24 mg/dL (9-20); Calcium 9.5 mg/dL (8.4-10.2); Carbon Dioxide 28 mmol/L (22-32); Chloride 100 mmol/L (98-107); Cholesterol 128 mg/dL (140-199); Estimated Glomerular Filt Rate > 60.0 mL/min (>60); Globulin 2.4 g/dL (1.7-4.1); Glucose 103 mg/dL (80-110); HDL Cholesterol 55 mg/dL (40-60); HEMOLYSIS < 15 (0-50); LDL Cholesterol Calculated 65 mg/dL (<100); Potassium 4.3 mmol/L (3.4-5.1); Sodium 134 mmol/L (137-145); Total Protein 6.6 g/dL (6.3-8.2); Triglycerides 42 mg/dL (35-150)
== END ==
PROVIDERS: PCP Internal Medicine; Referring Provider Internal Medicine; Visit Provider Internal Medicine
DX: E78.2 Mixed hyperlipidemia (principal); I10 Essential (primary) hypertension
CPT/HCPCS: 36415; 80053; 80061

== ENCOUNTER → 2021-09-11 06:47 | Outpatient (CLI) | payer MEDICARE, SELFPAY ==
[2021-09-11 09:27] LABS: BUN Creatinine Ratio 21.2 (6-22); Blood Urea Nitrogen 21 mg/dL (9-20); Calcium 9.3 mg/dL (8.4-10.2); Carbon Dioxide 29 mmol/L (22-32); Chloride 97 mmol/L (98-107); Estimated Glomerular Filt Rate > 60 mL/min (>60); Glucose 100 mg/dL (80-110); HEMOLYSIS < 15 (0-50); Potassium 4.1 mmol/L (3.4-5.1); Sodium 133 mmol/L (137-145)
[2021-09-11 09:50] LABS: Prostate Specific Antigen 2.61 ng/mL (0.10-4.00)
== END ==
PROVIDERS: PCP Internal Medicine; Referring Provider Specialist; Visit Provider Specialist
DX: R97.20 Elevated prostate specific antigen [PSA] (principal); I10 Essential (primary) hypertension
CPT/HCPCS: 36415; 80048; 84153

== ENCOUNTER → 2022-02-19 06:35 | Outpatient (CLI) | payer MEDICARE, SELFPAY | PROVIDERS: PCP Internal Medicine; Referring Provider Specialist; Visit Provider Specialist | DX: R97.20 Elevated prostate specific antigen [PSA] (principal) | CPT/HCPCS: 36415; 84153 ==

== ENCOUNTER → 2022-03-24 06:52 | Outpatient (CLI) | payer MEDICARE, SELFPAY ==
--- NOTE | 2022-03-24 06:56 | DI.RAD.S_ITS ---
PROCEDURE: XR ABDOMEN 1V INDICATIONS: Abdomen pressure TECHNIQUE: One view of the abdomen acquired. COMPARISON: None. FINDINGS: Surgical changes and devices: None. Bowel: Bowel gas pattern is normal. No free air, pneumatosis, or portal venous gas. Increased stool is seen in the large bowel consistent with constipation. Soft tissues: No suspicious abdominal calcifications. Visualized solid organ contours appear normal in size. Pelvic phleboliths are seen. Bones: Multilevel degenerative changes of the lumbar spine. Both hips have mild degenerative changes. IMPRESSION: No acute plain film abnormality. Increased stool seen in the large bowel, possible constipation. Dictated by: Frederic Garrett M.D. on 03/24/2022 at 11:22 Approved by: Frederic Garrett M.D. on 03/24/2022 at 11:23
== END ==
PROVIDERS: PCP Internal Medicine; Referring Provider Nurse Practitioner Family; Visit Provider Nurse Practitioner Family
DX: R14.1 Gas pain (principal)
CPT/HCPCS: 74018

== ENCOUNTER → 2022-04-06 07:44 | Outpatient (CLI) | payer MEDICARE, SELFPAY ==
[2022-04-06 09:53] LABS: Influenza A - CEPHEID Flu A POSITIVE (NEGATIVE); Influenza B - CEPHEID Flu B NEGATIVE (NEGATIVE); Respiratory Syncytial Virus Negative (Negative)
[2022-04-06 10:04] LABS: COVID-19 CEPHEID 4-PLEX PCR Negative (Negative)
== END ==
PROVIDERS: PCP Internal Medicine; Visit Provider Physician Assistant Medical
DX: R09.81 Nasal congestion (principal); R05.1 Acute cough
CPT/HCPCS: 0241U

== ENCOUNTER → 2022-06-13 07:33 | Outpatient (CLI) | payer MEDICARE, SELFPAY ==
[2022-06-13 09:32] LABS: Alanine Aminotransferase 33 IU/L (<50); Albumin 4.4 g/dL (3.5-5.0); Albumin Globulin Ratio 1.8 (1.0-2.8); Alkaline Phosphatase 54 U/L (38-126); Aspartate Aminotransferase 31 IU/L (17-59); BUN Creatinine Ratio 24.8 (6-22); Blood Urea Nitrogen 28 mg/dL (9-20); Calcium 9.5 mg/dL (8.4-10.2); Carbon Dioxide 32 mmol/L (22-32); Chloride 98 mmol/L (98-107); Cholesterol 142 mg/dL (140-199); Estimated Glomerular Filt Rate > 60 mL/min (>60); Globulin 2.5 g/dL (1.7-4.1); Glucose 95 mg/dL (80-110); HDL Cholesterol 66 mg/dL (40-60); HEMOLYSIS < 15 (0-50); LDL Cholesterol Calculated 66 mg/dL (<100); Potassium 4.4 mmol/L (3.4-5.1); Sodium 136 mmol/L (137-145); Total Protein 6.9 g/dL (6.3-8.2); Triglycerides 52 mg/dL (35-150)
== END ==
PROVIDERS: PCP Internal Medicine; Referring Provider Internal Medicine; Visit Provider Internal Medicine
DX: E78.2 Mixed hyperlipidemia (principal); I10 Essential (primary) hypertension; I25.10 Atherosclerotic heart disease of native coronary artery without angina pectoris
CPT/HCPCS: 36415; 80053; 80061

== ENCOUNTER → 2022-12-10 06:23 | Outpatient (CLI) | payer MEDICARE, SELFPAY ==
[2022-12-10 09:06] LABS: Alanine Aminotransferase 26 IU/L (<50); Albumin Globulin Ratio 1.7 (1.0-2.8); Alkaline Phosphatase 49 U/L (38-126); Aspartate Aminotransferase 27 IU/L (17-59); BUN Creatinine Ratio 23.5 (6-22); Bilirubin Total 0.7 mg/dL (0.2-1.3); Blood Urea Nitrogen 24 mg/dL (9-20); Calcium 9.1 mg/dL (8.4-10.2); Carbon Dioxide 30 mmol/L (22-32); Chloride 98 mmol/L (98-107); Cholesterol 142 mg/dL (140-199); Estimated Glomerular Filt Rate > 60 mL/min (>60); Globulin 2.4 g/dL (1.7-4.1); Glucose 96 mg/dL (80-110); HDL Cholesterol 56 mg/dL (40-60); HEMOLYSIS < 15 (0-50); LDL Cholesterol Calculated 71 mg/dL (<100); Sodium 134 mmol/L (137-145); Total Protein 6.4 g/dL (6.3-8.2); Triglycerides 75 mg/dL (35-150)
== END ==
PROVIDERS: PCP Internal Medicine; Referring Provider Internal Medicine; Visit Provider Internal Medicine
DX: E78.2 Mixed hyperlipidemia (principal); I10 Essential (primary) hypertension; I25.119 Atherosclerotic heart disease of native coronary artery with unspecified angina pectoris
CPT/HCPCS: 36415; 80053; 80061

== ENCOUNTER → 2022-12-17 06:36 | Outpatient (CLI) | payer MEDICARE, SELFPAY ==
--- NOTE | 2022-12-17 | DI.ECHO.S_ITS ---
[place] +---------+ [facility] +---------+ : : [address] : : : : [id number] : : : : Phone: [phone]---------+ Echocardiogram Report + + :Name: MARLENE ARTHUR Study Date: 12/17/2022 Height: 67 in : :[facility] ReadingLocation: Weight: 195 lb : : Gender: Male BSA: 2.0 m2 : :: 1945 Age: 77 yrs BP: 128/65 mmHg: :Reason For Study: AORTIC STENOSIS : :Ordering Physician: PRANAV, : :DOUG Performed By: rAti Lee : :Referring: DOUG ROCK : + + Interpretation Summary The patient was in sinus bradycardia with heart rates between 43-53 bpm during the exam. The left ventricle is normal in size. The left ventricular ejection fraction is normal. The ejection fraction is estimated to be 55-60%. There has been no significant change in LVEF since the previous exam. The right ventricle is normal in size and function. The aortic valve is heavily calcified. There is severely reduced leaflet mobility. A bicuspid aortic valve cannot be excluded. The peak aortic velocity is 4.1 m/sec. The aortic valve mean gradient is 40 mmHg. The calculated aortic valve area is 1.0 cm2.SARA indexed to BSA (cm^2/m^2): 0.56 The peak aortic velocity on the previous exam was 2.71 m/sec. There is severe aortic stenosis. Compared to the prior echo study, there has been an increase in the severity of aortic stenosis. There is mild to moderate aortic regurgitation. Compared to the prior echo study, there has been no change in the severity of aortic regurgitation. The ascending aorta is mildly enlarged. 4.2 cm in diameter. Previously 4.4 cm. Mild atherosclerotic plaque(s) in the aortic arch. Mild atherosclerotic plaque(s) in the descending aorta. Procedure: A two-dimensional transthoracic echocardiogram with color flow and Doppler was performed. The study quality was technically adequate. Comparison is made with the echocardiogram of 04/13/2019. The patient was in sinus bradycardia with heart rates between 43-53 bpm during the exam. Left Ventricle: The left ventricle is normal in size. Proximal septal thickening is noted. There is no thrombus. The ejection fraction is estimated to be 55-60%. The left ventricular ejection fraction is normal. There has been no significant change since the previous exam. There are no focal wall motion abnormalities. Diastolic parameters suggest a pseudonormalization pattern, consistent with probable elevated filling pressures. Right Ventricle: The right ventricle is normal in size and function. Atria: The left atrium is moderately dilated. There has been no significant change since the previous study. Right atrial size is normal. There is no Doppler evidence for an interatrial shunt. Mitral Valve: The mitral valve leaflets appear mildly thickened, but open well. There is mild mitral annular calcification. There is mild mitral regurgitation. Aortic Valve: The aortic valve is heavily calcified. There is severely reduced leaflet mobility. A bicuspid aortic valve cannot be excluded. There is severe aortic stenosis. The peak aortic velocity is 4.1 m/sec. The aortic valve mean gradient is 40 mmHg. The calculated aortic valve area is 1.0 cm2. The peak aortic velocity on the previous exam was 2.71 m/sec. Compared to the prior echo study, there has been an increase in the severity of aortic stenosis. There is mild to moderate aortic regurgitation. Compared to the prior echo study, there has been no change in the severity of aortic regurgitation. Tricuspid Valve: The tricuspid valve is normal in structure and function. There is trace tricuspid regurgitation. Pulmonary artery pressures cannot be estimated because of the lack of a measurable TR jet velocity. Pulmonic Valve: The pulmonic valve leaflets are thin and pliable; valve motion is normal. There is mild pulmonic regurgitation. Great Vessels: The aortic root is mildly dilated. This is unchanged compared to the previous study. The ascending aorta is mildly enlarged. Mild atherosclerotic plaque(s) in the aortic arch. Mild atherosclerotic plaque(s) in the descending aorta. The IVC is of normal diameter and collapses greater than 50% with a sniff. This suggests a low right atrial pressure of 3 mm Hg. Pericardium/ Pleura There is no pericardial effusion. There is no pleural effusion. MMode/2D Measurements & Calculations LVIDd: 5.9 cm LVOT diam: 2.2 cm LVIDs: 3.7 cm Ao root diam: 4.2 cm FS: 38.1 % asc Aorta Diam: 4.2 cm EPSS: 0.64 cm Ao Arch Diam (Prox Trans): 3.1 cm IVSd: 1.0 cm LVPWd: 0.92 cm LV anaya. diameter/BSA (cm/m^2): 3.0 LV sys. diameter/BSA (cm/m^2): 1.8 LA A2 area: 25.5 cm2 RA long axis: 5.6 cm LA A4 area: 24.3 cm2 RA area: 17.0 cm2 LA length (vol): 6.2 cm RA vol: 43.7 ml LA vol: 85.4 ml RA : 21.8 ml/m2 LA vol index: 42.7 ml/m2 IVC diam: 1.4 cm RVD1 (basal): 3.5 cm RVD2 (mid): 3.4 cm TAPSE: 2.4 cm Doppler Measurements & Calculations Ao V2 max: 407.6 cm/sec LVOT Max Shay: 107.4 cm/sec Ao V2 mean: 289.5 cm/sec LV V1 max P.6 mmHg Ao max P.4 mmHg LV V1 VTI: 30.9 cm Ao mean P.1 mmHg SARA(I,D): 1.1 cm2 Ao V2 VTI: 105.4 cm SARA(V,D): 1.0 cm2 sev ratio: 0.29 SARA indexed to BSA (cm^2/m^2): 0.56 AI P1/2t: 633.6 msec AI dec slope: 189.6 cm/sec2 MV E max shay: 89.1 cm/sec PA pr(Accel): 7.1 mmHg MV A max shay: 64.5 cm/sec MV E/A: 1.4 Med Peak E' Shay: 5.5 cm/sec E/E' med: 16.1 Lat Peak E' Shay: 6.4 cm/sec E/E' lat: 13.9 E/e' average: 15.0 MV dec time: 0.20 sec Pulm A Revs Shay: 25.9 cm/sec SV(LVOT): 118.3 ml Pulm A Revs Dur: 0.14 sec Reading Physician:05:24 PM
== END ==
PROVIDERS: PCP Internal Medicine; Referring Provider Internal Medicine Cardiovascular Disease; Visit Provider Internal Medicine Cardiovascular Disease
DX: I08.0 Rheumatic disorders of both mitral and aortic valves (principal); I77.810 Thoracic aortic ectasia; I77.89 Other specified disorders of arteries and arterioles; I70.0 Atherosclerosis of aorta
CPT/HCPCS: 93306

== ENCOUNTER → 2023-02-09 08:37 | Outpatient (CLI) | payer MEDICARE, SELFPAY ==
[2023-02-09 09:10] LABS: Add Manual Diff / Slide Review NO; Basophils Absolute Auto 100 /uL (0-100); Basophils Percent Auto 1.2 % (0-2); Eosinophils Absolute Auto 200 /uL (0-450); Eosinophils Percent Auto 3.5 % (2-4); Hematocrit 39.3 % (41-53); Hemoglobin 13.9 g/dL (13.5-17.5); Lymphocytes Absolute Auto 1100 /uL (1100-4500); Lymphocytes Percent Auto 20.1 % (25-40); Mean Corpuscular HGB Conc 35.3 % (30-36); Mean Corpuscular Hemoglobin 31.4 PG (26-34); Monocytes Absolute Auto 600 /uL (0-900); Neutrophils Absolute Auto 3400 /uL (1500-7000); Neutrophils Percent Auto 63.2 % (50-75); Platelet Count 239 X10^3/uL (150-400); Red Blood Cell Count 4.42 X10^6/uL (4.5-5.9); Red Cell Distribution Width 13.7 % (11.6-14.8); White Blood Cell Count 5.4 X10^3/uL (4.5-11.0)
[2023-02-09 09:37] LABS: BUN Creatinine Ratio 23.3 (6-22); Blood Urea Nitrogen 24 mg/dL (9-20); Calcium 9.7 mg/dL (8.4-10.2); Carbon Dioxide 28 mmol/L (22-32); Chloride 99 mmol/L (98-107); Estimated Glomerular Filt Rate > 60 mL/min (>60); Glucose 100 mg/dL (80-110); HEMOLYSIS < 15 (0-50); Potassium 4.2 mmol/L (3.4-5.1); Sodium 134 mmol/L (137-145)
== END ==
PROVIDERS: PCP Internal Medicine; Referring Provider Internal Medicine; Visit Provider Internal Medicine
DX: I35.9 Nonrheumatic aortic valve disorder, unspecified (principal)
CPT/HCPCS: 36415; 80048; 85025

== ENCOUNTER → 2023-04-09 10:44 | Outpatient (CLI) | payer MEDICARE, SELFPAY ==
[2023-04-09 12:22] LABS: Add Manual Diff / Slide Review NO; Basophils Absolute Auto 100 /uL (0-100); Basophils Percent Auto 0.7 % (0-2); Eosinophils Absolute Auto 100 /uL (0-450); Eosinophils Percent Auto 1.8 % (2-4); Hematocrit 40.5 % (41-53); Hemoglobin 14.1 g/dL (13.5-17.5); Lymphocytes Absolute Auto 1100 /uL (1100-4500); Lymphocytes Percent Auto 14.5 % (25-40); Mean Corpuscular HGB Conc 34.9 % (30-36); Mean Corpuscular Hemoglobin 31.1 PG (26-34); Mean Corpuscular Volume 89.3 fL (80-100); Monocytes Absolute Auto 600 /uL (0-900); Monocytes Percent Auto 8.1 % (3-14); Neutrophils Absolute Auto 5600 /uL (1500-7000); Neutrophils Percent Auto 74.9 % (50-75); Platelet Count 226 X10^3/uL (150-400); Red Blood Cell Count 4.54 X10^6/uL (4.5-5.9); Red Cell Distribution Width 13.8 % (11.6-14.8); White Blood Cell Count 7.5 X10^3/uL (4.5-11.0)
[2023-04-09 13:09] LABS: Prothrombin Time 11.5 SECONDS (9.4-12.5)
[2023-04-09 15:21] LABS: BUN Creatinine Ratio 35.9 (6-22); Blood Urea Nitrogen 37 mg/dL (9-20); Calcium 9.8 mg/dL (8.4-10.2); Carbon Dioxide 25 mmol/L (22-32); Chloride 99 mmol/L (98-107); Estimated Glomerular Filt Rate > 60 mL/min (>60); Glucose 106 mg/dL (80-110); HEMOLYSIS 21 (0-50); Potassium 4.3 mmol/L (3.4-5.1); Sodium 135 mmol/L (137-145)
== END ==
PROVIDERS: PCP Internal Medicine; Referring Provider Internal Medicine Interventional Cardiology; Visit Provider Internal Medicine Interventional Cardiology
DX: I35.0 Nonrheumatic aortic (valve) stenosis (principal)
CPT/HCPCS: 36415; 80048; 85025; 85610

== ENCOUNTER → 2023-05-17 07:55 | Outpatient (CLI) | payer MEDICARE, SELFPAY ==
--- NOTE | 2023-05-17 07:57 | DI.ECHO.S_ITS ---
[facility] +---------+ [facility] +---------+ : : [address] : : : : [id number] : : : : Phone: [phone]---------+ Echocardiogram Report + + :Name: MARLENE ARTHUR Study Date: 05/17/2023 Height: 67 in : :[facility] ReadingLocation: Weight: 194 lb : : Gender: Male BSA: 2.0 m2 : :: 1945 Age: 78 yrs BP: 157/89 mmHg: :Reason For Study: Aortic valve replacement - bioprosthetic : : Performed By: Chandni Dukes : :Referring: DOUG ROCK : + + Interpretation Summary The left ventricle is normal in size. The left ventricular ejection fraction is normal. The ejection fraction is estimated to be 55-60%. There has been no significant change in LVEF since the previous exam. The right ventricle is grossly normal size. The right ventricular systolic function is normal. There is a bioprosthetic aortic valve. The prosthetic aortic valve is well-seated. There is trace perivalvular regurgitation around the prosthetic aortic valve. The peak aortic velocity is 2.31 m/sec. In comparison to previous study, new TAVR valve. Procedure: A two-dimensional transthoracic echocardiogram with color flow and Doppler was performed. The study quality was technically adequate. Comparison is made with the echocardiogram of 12-17-22. Sinus bradycardia with heart rate around 54-59 bpm most of the time. Left Ventricle: The left ventricle is normal in size. Left ventricular wall thickness is at the upper limits of normal. Proximal septal thickening is noted. There is no echo evidence for significant left ventricular outflow tract obstruction. There is no thrombus. The ejection fraction is estimated to be 55-60%. The left ventricular ejection fraction is normal. There has been no significant change since the previous exam. There are no focal wall motion abnormalities. Diastolic parameters suggest a relaxation abnormality of the left ventricle, consistent with probable normal filling pressures. Right Ventricle: The right ventricle is grossly normal size. The right ventricular systolic function is normal. Atria: The left atrium is mildly dilated. The left atrium has mildly decreased in size since the prior echo exam. Right atrial size is normal. The interatrial septum grossly appears intact with no obvious evidence for an atrial septal defect. Mitral Valve: The mitral valve leaflets appear mildly thickened, but open well. There is mild mitral annular calcification. There is trace mitral regurgitation. Aortic Valve: The aortic valve opens well. There is a bioprosthetic aortic valve. There is trace perivalvular regurgitation around the prosthetic aortic valve. The prosthetic aortic valve is well-seated. The peak aortic velocity is 2.31 m/sec. The aortic valve mean gradient is 12.2 mmHg. Tricuspid Valve: There is tricuspid annular calcification. No tricuspid regurgitation. Pulmonic Valve: The pulmonic valve is not well seen, but is grossly normal. Great Vessels: The aortic root is mildly dilated. The ascending aorta is mildly enlarged. The aortic arch is mildly enlarged. There has been no significant change since the previous study. The inferior vena cava was not visualized. Pericardium/ Pleura There is no pericardial effusion. There is no pleural effusion. MMode/2D Measurements & Calculations LVIDd: 5.0 cm LVOT diam: 2.3 cm LVIDs: 2.8 cm Ao root diam: 4.4 cm FS: 44.6 % asc Aorta Diam: 4.1 cm EPSS: 0.93 cm Ao Arch Diam (Prox Trans): 3.6 cm IVSd: 1.2 cm LVPWd: 0.77 cm LV anaya. diameter/BSA (cm/m^2): 2.5 LV sys. diameter/BSA (cm/m^2): 1.4 LA A2 area: 23.4 cm2 RA long axis: 5.1 cm LA A4 area: 20.7 cm2 RA area: 16.1 cm2 LA length (vol): 5.3 cm RA vol: 43.2 ml LA vol: 77.0 ml RA : 21.6 ml/m2 LA vol index: 38.5 ml/m2 RVD1 (basal): 2.9 cm Doppler Measurements & Calculations Ao V2 max: 231.1 cm/sec LVOT Max Shay: 82.1 cm/sec Ao V2 mean: 165.3 cm/sec LV V1 max P.7 mmHg Ao max P.4 mmHg LV V1 VTI: 20.9 cm Ao mean P.2 mmHg SARA(I,D): 1.5 cm2 Ao V2 VTI: 57.6 cm SARA(V,D): 1.5 cm2 sev ratio: 0.36 SARA indexed to BSA (cm^2/m^2): 0.77 MV E max shay: 61.2 cm/sec SV(LVOT): 88.7 ml MV A max shay: 78.4 cm/sec MV E/A: 0.78 Med Peak E' Shay: 3.7 cm/sec E/E' med: 16.6 Lat Peak E' Shay: 5.9 cm/sec E/E' lat: 10.4 E/e' average: 13.5 MV dec time: 0.29 sec Reading Physician:11:51 AM
== END ==
PROVIDERS: PCP Internal Medicine; Referring Provider Internal Medicine Cardiovascular Disease; Visit Provider Internal Medicine Cardiovascular Disease
DX: I34.81 Nonrheumatic mitral (valve) annulus calcification (principal); I77.810 Thoracic aortic ectasia; I77.89 Other specified disorders of arteries and arterioles; Z95.2 Presence of prosthetic heart valve
CPT/HCPCS: 93306

== ENCOUNTER 2023-10-04 08:30 | Outpatient (RCR) | payer MEDICARE, SELFPAY | END 2023-10-04 10:30 | LOC: CAR 08:30 | PROVIDERS: PCP Internal Medicine; Referring Provider Internal Medicine Cardiovascular Disease; Visit Provider Internal Medicine Cardiovascular Disease | DX: Z95.2 Presence of prosthetic heart valve (principal) | CPT/HCPCS: 93798 ==

== ENCOUNTER → 2023-11-29 14:45 | Outpatient (CLI) | payer MEDICARE, SELFPAY ==
[2023-11-29 15:19] LABS: Hematocrit 39.5 % (41-53); Hemoglobin 13.8 g/dL (13.5-17.5); Mean Corpuscular HGB Conc 34.9 % (30-36); Mean Corpuscular Hemoglobin 31.2 PG (26-34); Mean Corpuscular Volume 89.2 fL (80-100); Platelet Count 198 X10^3/uL (150-400); Red Blood Cell Count 4.42 X10^6/uL (4.5-5.9); Red Cell Distribution Width 13.3 % (11.6-14.8); White Blood Cell Count 6.1 X10^3/uL (4.5-11.0)
== END ==
PROVIDERS: PCP Internal Medicine; Referring Provider Internal Medicine Cardiovascular Disease; Visit Provider Internal Medicine Cardiovascular Disease
DX: Z95.2 Presence of prosthetic heart valve (principal)
CPT/HCPCS: 36415; 85027

== ENCOUNTER → 2023-12-08 06:33 | Outpatient (CLI) | payer MEDICARE, SELFPAY ==
[2023-12-08 08:37] LABS: Alanine Aminotransferase 27 IU/L (<50); Albumin 3.9 g/dL (3.5-5.0); Alkaline Phosphatase 57 U/L (38-126); Aspartate Aminotransferase 28 IU/L (17-59); BUN Creatinine Ratio 27.1 (6-22); Bilirubin Total 0.7 mg/dL (0.2-1.3); Blood Urea Nitrogen 29 mg/dL (9-20); Calcium 9.3 mg/dL (8.4-10.2); Carbon Dioxide 29 mmol/L (22-32); Chloride 102 mmol/L (98-107); Cholesterol 106 mg/dL (140-199); Estimated Glomerular Filt Rate > 60 mL/min (>60); Glucose 110 mg/dL (80-110); HDL Cholesterol 51 mg/dL (40-60); HEMOLYSIS < 15 (0-50); LDL Cholesterol Calculated 47 mg/dL (<100); Potassium 4.3 mmol/L (3.4-5.1); Sodium 135 mmol/L (137-145); Total Protein 5.9 g/dL (6.3-8.2); Triglycerides 40 mg/dL (35-150)
== END ==
PROVIDERS: PCP Internal Medicine; Referring Provider Internal Medicine Cardiovascular Disease; Visit Provider Internal Medicine Cardiovascular Disease
DX: E78.5 Hyperlipidemia, unspecified (principal)
CPT/HCPCS: 36415; 80053; 80061

== ENCOUNTER → 2023-12-31 08:37 | Outpatient (CLI) | payer MEDICARE, SELFPAY ==
--- NOTE | 2023-12-31 08:38 | DI.US.S_ITS ---
PROCEDURE: US CAROTID DOPPLER BI INDICATIONS: LEFT CAROTID BRUIT TECHNIQUE: Color and pulse Doppler interrogation was performed of both carotid systems, with image documentation and velocity measurements. COMPARISON: None. FINDINGS: Stenosis calculations are based on SRU (Society of Radiologists in Ultrasound) criteria. Right side: Brachial blood pressure: 124/60 mm Hg. Common carotid artery peak systolic velocity: 65 cm/sec. Internal carotid artery peak systolic velocity: 95 cm/sec. Internal carotid artery end diastolic velocity: 30 cm/sec. External carotid artery peak systolic velocity: 155 cm/sec. ICA/CCA peak systolic ratio: 1.5 . Yee scale imaging description: Mild plaque Percent internal carotid artery stenosis: Less than 50 percent stenosis . Vertebral artery: Flow direction is antegrade. Left side: Brachial blood pressure: 122/56 mm Hg. Common carotid artery peak systolic velocity: 87 cm/sec. Internal carotid artery peak systolic velocity: 101 cm/sec. Internal carotid artery end diastolic velocity: 36 cm/sec. External carotid artery peak systolic velocity: 103 cm/sec. ICA/CCA peak systolic ratio: 1.2 . Yee scale imaging description: Mild plaque Percent internal carotid artery stenosis: Less than 50 percent stenosis . Vertebral artery: Flow direction is antegrade. IMPRESSION: Less than 50 percent stenosis in both internal carotids Dictated by: Hernesto Andres M.D. on 12/31/2023 at 12:45 Approved by: Hernesto Andres M.D. on 12/31/2023 at 12:48
== END ==
PROVIDERS: PCP Internal Medicine; Referring Provider Internal Medicine Cardiovascular Disease; Visit Provider Internal Medicine Cardiovascular Disease
DX: I65.23 Occlusion and stenosis of bilateral carotid arteries (principal); R09.89 Other specified symptoms and signs involving the circulatory and respiratory systems; Z95.2 Presence of prosthetic heart valve
CPT/HCPCS: 93880

== ENCOUNTER → 2024-01-26 06:39 | Outpatient (CLI) | payer MEDICARE, SELFPAY ==
--- NOTE | 2024-01-26 06:41 | DI.ECHO.S_ITS ---
[facility] +---------+ [facility] : : [address] : : [address] : : [id number] : : Phone: [phone] Echocardiogram Report + + :Name: MARLENE ARTHUR Study Date: 01/26/2024 Height: 67 in : :Hospital ReadingLocation: Weight: 201 lb : : Gender: Male BSA: 2.0 m2 : :: 1945 Age: 78 yrs BP: 130/77 mmHg: :Reason For Study: S/P TAVR : :Ordering Physician: PRANAV, : :DOUG Performed By: Arti Lee : :Referring: DOUG ROCK : + + Interpretation Summary The left ventricle is borderline dilated. The left ventricular ejection fraction is normal. The ejection fraction is estimated to be 60-65%. Previously LVEF 55 to 60%. Borderline right ventricular enlargement. The right ventricular systolic function is normal. There is a bioprosthetic aortic valve. The prosthetic aortic valve is well-seated. The peak aortic velocity is 2.3 m/sec. The aortic valve mean gradient is 14 mmHg. The peak aortic velocity on the previous exam was 2.31 m/sec. There is mild perivalvular regurgitation around the prosthetic aortic valve. The ascending aorta is mildly enlarged. 4.1 cm in diameter. Unchanged from the previous study. The aortic arch is mildly enlarged. 3.9 cm in diameter. Previously 3.6 cm. Mild atherosclerotic plaque(s) in the descending aorta. The IVC is of normal diameter and collapses greater than 50% with a sniff. This suggests a low right atrial pressure of 3 mm Hg. Procedure: A two-dimensional transthoracic echocardiogram with color flow and Doppler was performed. The study quality was technically adequate. Comparison is made with the echocardiogram of 05/17/2023. The patient had occasional PVCs during the exam. The heart rate ranged between 55-67 bpm during the study. Left Ventricle: Proximal septal thickening is noted. Left ventricular wall thickness is borderline increased. The left ventricle is borderline dilated. There is no thrombus. The ejection fraction is estimated to be 60-65%. The left ventricular ejection fraction is normal. There are no focal wall motion abnormalities. MV E/A: 0.91 Med Peak E' Shay: 3.4 cm/sec E/E' med: 17.9. Right Ventricle: Borderline right ventricular enlargement. The right ventricular systolic function is normal. Atria: The left atrium is mildly dilated. There has been no significant change since the previous study. Right atrial size is normal. There is no Doppler evidence for an interatrial shunt. Mitral Valve: The mitral valve leaflets appear mildly thickened, but open well. There is mild mitral annular calcification. There is trace mitral regurgitation. Aortic Valve: There is a bioprosthetic aortic valve. There is mild perivalvular regurgitation around the prosthetic aortic valve. The prosthetic aortic valve is well-seated. The peak aortic velocity is 2.3 m/sec. The aortic valve mean gradient is 14 mmHg. The peak aortic velocity on the previous exam was 2.31 m/sec. Tricuspid Valve: There is tricuspid annular calcification. Pulmonary artery pressures cannot be estimated because of the lack of a measurable TR jet velocity. No tricuspid regurgitation. Pulmonic Valve: The pulmonic valve leaflets are thin and pliable; valve motion is normal. There is trace pulmonic regurgitation. Great Vessels: The aortic root is normal size. The ascending aorta is mildly enlarged. The aortic arch is mildly enlarged. Mild atherosclerotic plaque(s) in the descending aorta. The IVC is of normal diameter and collapses greater than 50% with a sniff. This suggests a low right atrial pressure of 3 mm Hg. Pericardium/ Pleura There is no pericardial effusion. There is no pleural effusion. MMode/2D Measurements & Calculations LVIDd: 5.8 cm LVOT diam: 2.3 cm LVIDs: 3.6 cm asc Aorta Diam: 4.1 cm FS: 37.6 % Ao Arch Diam (Prox Trans): 3.9 cm IVSd: 1.2 cm LVPWd: 1.1 cm LV anaya. diameter/BSA (cm/m^2): 2.8 LV sys. diameter/BSA (cm/m^2): 1.8 LA A2 area: 22.2 cm2 RA long axis: 5.7 cm LA A4 area: 23.3 cm2 RA area: 19.7 cm2 LA length (vol): 5.8 cm RA vol: 57.5 ml LA vol: 75.9 ml RA : 28.4 ml/m2 LA vol index: 37.5 ml/m2 IVC diam: 1.7 cm RVD1 (basal): 4.1 cm RVD2 (mid): 3.3 cm TAPSE: 1.9 cm Doppler Measurements & Calculations Ao V2 max: 231.6 cm/sec LVOT Max Shay: 113.4 cm/sec Ao V2 mean: 181.6 cm/sec LV V1 max P.1 mmHg Ao max P.5 mmHg LV V1 VTI: 27.6 cm Ao mean P.1 mmHg SARA(I,D): 2.2 cm2 Ao V2 VTI: 52.3 cm SARA(V,D): 2.0 cm2 sev ratio: 0.53 SARA indexed to BSA (cm^2/m^2): 1.1 MV E max shay: 60.5 cm/sec PA V2 max: 89.0 cm/sec MV A max shay: 66.6 cm/sec PA V2 mean: 62.5 cm/sec MV E/A: 0.91 PA mean P.7 mmHg Med Peak E' Shay: 3.4 cm/sec PA pr(Accel): 25.9 mmHg E/E' med: 17.9 Lat Peak E' Shay: 5.6 cm/sec E/E' lat: 10.8 E/e' average: 14.4 MV dec time: 0.31 sec SV(LVOT): 114.4 ml Reading Physician:11:29 AM
== END ==
PROVIDERS: PCP Internal Medicine; Referring Provider Internal Medicine Cardiovascular Disease; Visit Provider Internal Medicine Cardiovascular Disease
DX: T82.897A Other specified complication of cardiac prosthetic devices, implants and grafts, initial encounter (principal); I34.81 Nonrheumatic mitral (valve) annulus calcification; Z95.2 Presence of prosthetic heart valve; I77.89 Other specified disorders of arteries and arterioles; I70.0 Atherosclerosis of aorta
CPT/HCPCS: 93306

== ENCOUNTER → 2024-04-17 06:36 | Outpatient (CLI) | payer MEDICARE, SELFPAY | PROVIDERS: Family Provider Internal Medicine; PCP Internal Medicine; Referring Provider Urology; Visit Provider Urology | DX: Z12.5 Encounter for screening for malignant neoplasm of prostate (principal) | CPT/HCPCS: 36415; G0103 ==

== ENCOUNTER 2024-05-17 08:15 | Outpatient (RCR) | payer MEDICARE, SELFPAY ==
--- NOTE | 2024-03-13 13:56 | PT.OIE ---
Current Diagnoses Unilateral primary osteoarthritis, right knee (03/13/24) Unspecified osteoarthritis, unspecified site (03/13/24) Pain in right knee (03/13/24) Pain in left knee (03/13/24) Difficulty in walking, not elsewhere classified (03/13/24) Weakness (03/13/24) Past Medical History (Last Updated 06/22/23 @ 09:19 by Rajan Cash MD) Aortic stenosis Arthritis BPH w urinary obs/LUTS CAD (coronary artery disease) (~2017) COVID-19 Degenerative joint disease of both hips Elevated PSA Enlarged prostate Erectile dysfunction Essential hypertension (03/29/15) Hematuria Inguinal hernia of right side without obstruction or gangrene Mass (~10/2018) Mixed hyperlipidemia (03/29/15) Need for subacute bacterial endocarditis prophylaxis Right knee DJD Urinary frequency Past Surgical History (Last Updated 04/15/23 @ 06:53 by Rajan Cash MD) Hx of cardiac catheterization Hx of heart artery stent Hx of hernia repair (~05/2017) S/P right coronary artery (RCA) stent placement (~01/2018) S/P TAVR (transcatheter aortic valve replacement) (04/12/23) Visit Care Team Role Provider Type Rajan Cash MD Attending Provider Physician Family Provider Primary Care Provider Referring Provider Specialty: Internal Medicine Address: [address] [place] [address], [address], [facility] Email: [email or web address] Physical Therapy Initial Evaluation PT-OP-A Visit Information Start: 03/09/24 17:24 Freq: Status: Active Protocol: Document 03/13/24 09:48 SAK (Rec: 03/13/24 10:36 MILLY [id number]) Out-Patient Physical Therapy Visit Information Visit Information Visit Type Initial Evaluation Visit Start Time 09:48 Visit Stop Time 10:30 Visit Number 1 Evaluation Information Evaluation Date 03/13/24 Precautions Precautions cardiac; aortic valve replacement 1 year ago, on Cardiac Rehab maintenance program 2x/wk PT-OP-B Current Condition Start: 03/09/24 17:24 Freq: Status: Active Protocol: Document 03/13/24 09:48 SAK (Rec: 03/13/24 10:36 SAK [id number]) Current Condition History of Current Condition Onset Date 2 months Current Complaints left knee pain, swelling, loss of function. History of Current Condition Unsure what happened, started hurting medial left knee about 2 months ago, started favoring left knee, saw orthopedic surgeon. Diagnosis arthritis per x-ray taken at [facility] surgeons. Reports knee gets warm and swells at times. Was taking Alleve, used ice. Better than it was. Prior history right knee pain. Was a dedicated walker until this happened. Only possible cause patient can recall was working on boat without knee pads, playing with his anchor, to get it to catch prior to onset of knee pain. Heart valve (aorta) replaced about a year ago. For exercise right now 2x/wk does maintenance cardiac rehab; some pain on treadmill so hasn 't been walking much. Better tolerance for rowing machine. Likes elliptical. Prior Treatments and Tests x-ray: no results available but patient reports arthritis. Treatment Goals Patient/Caregiver Goals Regain full active use of his left knee including ability to ascend and descend stairs with alternating step pattern and take walks with minimal to no pain. 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 boating, walking Current Functional Impairments (Reported) Functional Limitations- ADL's painful if standing Functional Limitations- Mobility/Gait very limited due to pain Functional Limitations- Recreation/ painful, has stopped taking Hobbies walks for exercise PT-OP-C Subjective Start: 03/09/24 17:24 Freq: Status: Active Protocol: Document 03/13/24 09:48 [facility] (Rec: 03/13/24 13:52 [facility] [id number]) Patient Questionnaires Lower Extremity Functional Scale LEFS Score 63 OP-PT Pain Assessment Location left knee Pain Location Details medial joint line Intensity 4 PT-OP-G Mobility & Gait Start: 03/09/24 17:24 Freq: Status: Active Protocol: Document 03/13/24 09:48 [facility] (Rec: 03/13/24 13:52 [facility] [id number]) OP Gait Assessment Gait Gait Assistance Required: Independent Assistive Devices Assistive Device None Gait Deviations General Gait Pattern Antalgic Stair Climbing Evaluation Evaluation Level of Assist On Stairs Independent Devices Stair Climbing Assistive Devices Left Railing,Right Railing Technique/Endurance Stair Climbing Technique Step to Step PT-OP-H Neuro Start: 03/09/24 17:24 Freq: Status: Active Protocol: Document 03/13/24 09:48 [facility] (Rec: 03/13/24 13:52 [facility] [id number]) Sensation Evaluation Gross Sensation Gross Sensation WNL PT-OP-J Posture/Palpation/Skin Start: 03/09/24 17:24 Freq: Status: Active Protocol: Document 03/13/24 09:48 [facility] (Rec: 03/13/24 13:52 [facility] [id number]) Posture Evaluation Position Standing Knee Posture (L) Genu Varus,(R) Genu Varus Foot Arch (L) Low Arch,(R) Low Arch Comments Posture Comments bunion right greater than left excess wear lateral soles of NB tennis shoes left greater than right PT-OP-K Range of Motion Start: 03/09/24 17:24 Freq: Status: Active Protocol: Document 03/13/24 09:48 [facility] (Rec: 03/13/24 13:56 [facility] [id number]) Hip Goniometric Range of Motion Hip Left Straight Leg Raise 55 Extension 0 Internal Rotation 20 External Rotation 45 right Straight Leg Raise 55 Extension 0 Internal Rotation 15 External Rotation 30 Knee Goniometric Range of Motion Knee Left Flexion Active (degrees) 131 Extension Active (degrees) 0 Right Knee ROM WFL Yes Ankle and Foot Goniometric Range of Motion Ankle and Foot adilene Dorsiflexion with Knee Flexed 5 Dorsiflexion with Knee Extended 0 PT-OP-M Strength Start: 03/09/24 17:24 Freq: Status: Active Protocol: Document 03/13/24 09:48 [facility] (Rec: 03/13/24 13:56 [facility] [id number]) Hip Strength Hip Manual Muscle Testing adilene Flexion (L2) 4+ Good+ Extension (S1) 4- Good- Abduction 4 Good External Rotation 4 Good Internal Rotation 4 Good Knee Strength Knee Manual Muscle Testing Right Flexion (S2) 5 Normal Extension (L3) 5 Normal Left Flexion (S2) 4+ Good+ Extension (L3) 4+ Good+ Ankle/Foot Strength Ankle and Foot Manual Muscle Testing adilene Dorsiflexion (L4) 5 Normal Plantarflexion (S1) 5 Normal PT-OP-Q Treatments Start: 03/09/24 17:24 Freq: Status: Active Protocol: Document 03/13/24 09:48 [facility] (Rec: 03/13/24 13:56 [facility] [id number]) Self-Care/Home Management Treatment Education Patient Education Home Exercise Program,Pain Management Other Education discussed bunions adilene feet, benefits for toe spreaders for improved alignment of kinetic chain PT-OP-R Modalities Start: 03/09/24 17:24 Freq: Status: Active Protocol: Document 03/13/24 09:48 [facility] (Rec: 03/13/24 13:52 [facility] [id number]) Electric Stimulation Electric Stimulation Interferential Current (IFC) Body Location L knee Intensity 26 Target/Sweep Sweep Patient Position Hooklying Combined With Heat/Cold Cold Pack PT-OP-T Assessment and Plan Start: 03/09/24 17:24 Freq: Status: Active Protocol: Document 03/13/24 09:48 [facility] (Rec: 03/13/24 10:36 [facility] [id number]) Physical Therapy Assessment Rehab Potential Rehabilitation Potential Good Evaluation Complexity Number of Personal Factors/Comorbidities 1-2 Number of Body Systems Impaired 3 Clinical Presentation at Evaluation Evolving Goals Three Impairment left knee swelling and increased warmth Operating Theatre Technician Goal (LTG) decrease left knee swelling and eliminate temperature variance as evidence of decreased swelling left knee for improved left knee function LTG Duration 05/13/24 Two Impairment weakness and decreased flexibility left LE Short Term Goal (STG) Patient will be instructed in HEP for purposes of flexibility and strengthening to address impairments and support therapy activities STG Duration 04/12/24 Operating Theatre Technician Goal (LTG) Patient will be independent and compliant with HEP and demonstrate improved strength to 5/5 and improvements in flexibility to WNL to allow for improved knee function LTG Duration 05/13/24 One Impairment Patient unable to go for walks or ascend/descend stairs alternating LE's Short Term Goal (STG) Patient will be able to walk for at least 15 minute without knee pain STG Duration 04/12/24 Halfway Goal (LTG) Patient will be able to walk for at least 30 min and ascend and descend stairs with alternating pattern with minimal to no pain. LTG Duration 05/13/24 Assessment Summary Assessment Patient presents to PT with function-limiting pain left knee. Signs and symptoms consistent with medial compartment arthritis. PT evaluation reveals weakness, decreased flexibility decreased arch height left greater than right LE, adilene bunions, right greater than left, genu varus left greater than right. Tight Hamstrings and quads, IT band right greater than left. Weak glutes adilnee. Swelling and mild increased warmth without redness medial right knee. Feel he will benefit from PT to decrease his pain and swelling, improve his strength , flexibility and activity tolerance to help him return to prior level of function. POC was discussed and patient was in agreement. Physical Therapy Plan Frequency and Duration Frequency of Treatment 2x/Week Duration of treatment (weeks) 8 Plan of Care Start Date 03/13/24 Plan of Care End Date 05/13/24 Therapeutic Interventions Therapeutic Interventions Gait Training,Home Exercise Program,Manual Therapy, Neuromuscular Re-education, Patient/Caregiver Education, Self-Care/Home Management,Soft Tissue Mobilization,Taping, Therapeutic Activities, Therapeutic Exercises Modalities Cold Pack/Ice Massage,Electric Stimulation,Hot Packs, Infrared Therapy,Iontophoresis ,Ultrasound Next Visit Focus/Plan Next Note Type Treatment Note Next Visit Plan Start with exercise bike, review HEP, add ther ex for strengthening and flexibility as tolerated. Consider trial KT tape for edema reduction and knee support. Modalities and manual therapy PRN pain.
--- NOTE | 2024-03-13 13:57 | PT.OPPOC ---
Physical, Occupational & Speech Therapy At [facility] Current Diagnoses Unilateral primary osteoarthritis, right knee (03/13/24) Unspecified osteoarthritis, unspecified site (03/13/24) Pain in right knee (03/13/24) Pain in left knee (03/13/24) Difficulty in walking, not elsewhere classified (03/13/24) Weakness (03/13/24) Visit Care Team Role Provider Type Rajan Cash MD Attending Provider Physician Family Provider Primary Care Provider Referring Provider Specialty: Internal Medicine Address: [address] [place] [address], [facility] [address], [place], [address] Email: [email or web address] Plan Of Care PT-OP-B Current Condition Start: 03/09/24 17:24 Freq: Status: Active Protocol: Document 03/13/24 09:48 [facility] (Rec: 03/13/24 10:36 [facility] [id number]) Current Condition History of Current Condition Onset Date 2 months Current Complaints left knee pain, swelling, loss of function. History of Current Condition Unsure what happened, started hurting medial left knee about 2 months ago, started favoring left knee, saw orthopedic surgeon. Diagnosis arthritis per x-ray taken at [facility] surgeons. Reports knee gets warm and swells at times. Was taking Alleve, used ice. Better than it was. Prior history right knee pain. Was a dedicated walker until this happened. Only possible cause patient can recall was working on boat without knee pads, playing with his anchor, to get it to catch prior to onset of knee pain. Heart valve (aorta) replaced about a year ago. For exercise right now 2x/wk does maintenance cardiac rehab; some pain on treadmill so hasn 't been walking much. Better tolerance for rowing machine. Likes elliptical. Prior Treatments and Tests x-ray: no results available but patient reports arthritis. Treatment Goals Patient/Caregiver Goals Regain full active use of his left knee including ability to ascend and descend stairs with alternating step pattern and take walks with minimal to no pain. 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 Function- Recreation/Hobbies boating, walking Current Functional Impairments (Reported) Functional Limitations- ADL's painful if standing Functional Limitations- Mobility/Gait very limited due to pain Functional Limitations- Recreation/ painful, has stopped taking Hobbies walks for exercise PT-OP-T Assessment and Plan Start: 03/09/24 17:24 Freq: Status: Active Protocol: Document 03/13/24 09:48 [facility] (Rec: 03/13/24 10:36 [facility] [id number]) Physical Therapy Assessment Rehab Potential Rehabilitation Potential Good Evaluation Complexity Number of Personal Factors/Comorbidities 1-2 Number of Body Systems Impaired 3 Clinical Presentation at Evaluation Evolving Goals Three Impairment left knee swelling and increased warmth Water Aerobics Instructor Goal (LTG) decrease left knee swelling and eliminate temperature variance as evidence of decreased swelling left knee for improved left knee function LTG Duration 05/13/24 Two Impairment weakness and decreased flexibility left LE Short Term Goal (STG) Patient will be instructed in HEP for purposes of flexibility and strengthening to address impairments and support therapy activities STG Duration 04/12/24 Fci Goal (LTG) Patient will be independent and compliant with HEP and demonstrate improved strength to 5/5 and improvements in flexibility to WNL to allow for improved knee function LTG Duration 05/13/24 One Impairment Patient unable to go for walks or ascend/descend stairs alternating LE's Short Term Goal (STG) Patient will be able to walk for at least 15 minute without knee pain STG Duration 04/12/24 Water Aerobics Instructor Goal (LTG) Patient will be able to walk for at least 30 min and ascend and descend stairs with alternating pattern with minimal to no pain. LTG Duration 05/13/24 Assessment Summary Assessment Patient presents to PT with function-limiting pain left knee. Signs and symptoms consistent with medial compartment arthritis. PT evaluation reveals weakness, decreased flexibility decreased arch height left greater than right LE, adilene bunions, right greater than left, genu varus left greater than right. Tight Hamstrings and quads, IT band right greater than left. Weak glutes adilene. Swelling and mild increased warmth without redness medial right knee. Feel he will benefit from PT to decrease his pain and swelling, improve his strength , flexibility and activity tolerance to help him return to prior level of function. POC was discussed and patient was in agreement. Physical Therapy Plan Frequency and Duration Frequency of Treatment 2x/Week Duration of treatment (weeks) 8 Plan of Care Start Date 03/13/24 Plan of Care End Date 05/13/24 Therapeutic Interventions Therapeutic Interventions Gait Training,Home Exercise Program,Manual Therapy, Neuromuscular Re-education, Patient/Caregiver Education, Self-Care/Home Management,Soft Tissue Mobilization,Taping, Therapeutic Activities, Therapeutic Exercises Modalities Cold Pack/Ice Massage,Electric Stimulation,Hot Packs, Infrared Therapy,Iontophoresis ,Ultrasound Next Visit Focus/Plan Next Note Type Treatment Note Next Visit Plan Start with exercise bike, review HEP, add ther ex for strengthening and flexibility as tolerated. Consider trial KT tape for edema reduction and knee support. Modalities and manual therapy PRN pain. Plan of Care Dates Plan of Care Start Date 03/13/24 Plan of Care End Date 05/13/24 Electronically Signed by: Vanessa Dove, PT 03/13/24 2138 If you are in agreement with this Plan of Care, please return a signed and dated copy. I have reviewed this Plan of Care and certify that the skilled therapy services above are required to meet the patient?s needs. Physician Signature Date Printed Name and Credentials Clinical Instructor Signature Printed Name and Credentials
--- NOTE | 2024-03-15 16:21 | PT.OTN ---
Current Diagnoses Unilateral primary osteoarthritis, right knee (03/15/24) Unspecified osteoarthritis, unspecified site (03/15/24) Pain in right knee (03/15/24) Pain in left knee (03/15/24) Difficulty in walking, not elsewhere classified (03/15/24) Weakness (03/15/24) Physical Therapy Treatment Note PT-OP-A Visit Information Start: 03/09/24 17:24 Freq: Status: Active Protocol: Document 03/15/24 09:47 SAK (Rec: 03/15/24 10:38 [facility] [id number]) Out-Patient Physical Therapy Visit Information Visit Information Visit Type Treatment Note Visit Start Time 09:48 Visit Stop Time 10:45 Visit Number 2 Evaluation Information Evaluation Date 03/13/24 Precautions Precautions cardiac; aortic valve replacement 1 year ago, on Cardiac Rehab maintenance program 2x/wk PT-OP-B Current Condition Start: 03/09/24 17:24 Freq: Status: Active Protocol: Document 03/15/24 09:47 SAK (Rec: 03/15/24 10:38 [facility] [id number]) Current Condition History of Current Condition Onset Date 2 months Current Complaints left knee pain, swelling, loss of function. History of Current Condition Unsure what happened, started hurting medial left knee about 2 months ago, started favoring left knee, saw orthopedic surgeon. Diagnosis arthritis per x-ray taken at [facility]. Reports knee gets warm and swells at times. Was taking Alleve, used ice. Better than it was. Prior history right knee pain. Was a dedicated walker until this happened. Only possible cause patient can recall was working on boat without knee pads, playing with his anchor, to get it to catch prior to onset of knee pain. Heart valve (aorta) replaced about a year ago. For exercise right now 2x/wk does maintenance cardiac rehab; some pain on treadmill so hasn 't been walking much. Better tolerance for rowing machine. Likes elliptical. Prior Treatments and Tests x-ray: no results available but patient reports arthritis. PT-OP-C Subjective Start: 03/09/24 17:24 Freq: Status: Active Protocol: Document 03/13/24 09:48 SAK (Rec: 03/13/24 13:52 SAK [id number]) Patient Questionnaires Lower Extremity Functional Scale LEFS Score 63 OP-PT Pain Assessment Location left knee Pain Location Details medial joint line Intensity 4 PT-OP-G Mobility & Gait Start: 03/09/24 17:24 Freq: Status: Active Protocol: Document 03/13/24 09:48 SAK (Rec: 03/13/24 13:52 [facility] [id number]) OP Gait Assessment Gait Gait Assistance Required: Independent Assistive Devices Assistive Device None Gait Deviations General Gait Pattern Antalgic Stair Climbing Evaluation Evaluation Level of Assist On Stairs Independent Devices Stair Climbing Assistive Devices Left Railing,Right Railing Technique/Endurance Stair Climbing Technique Step to Step PT-OP-H Neuro Start: 03/09/24 17:24 Freq: Status: Active Protocol: Document 03/13/24 09:48 SAK (Rec: 03/13/24 13:52 [facility] [id number]) Sensation Evaluation Gross Sensation Gross Sensation WNL PT-OP-J Posture/Palpation/Skin Start: 03/09/24 17:24 Freq: Status: Active Protocol: Document 03/13/24 09:48 SAK (Rec: 03/13/24 13:52 [facility] [id number]) Posture Evaluation Position Standing Knee Posture (L) Genu Varus,(R) Genu Varus Foot Arch (L) Low Arch,(R) Low Arch Comments Posture Comments bunion right greater than left excess wear lateral soles of NB tennis shoes left greater than right PT-OP-K Range of Motion Start: 03/09/24 17:24 Freq: Status: Active Protocol: Document 03/13/24 09:48 SAK (Rec: 03/13/24 13:56 [facility] [id number]) Hip Goniometric Range of Motion Hip Left Straight Leg Raise 55 Extension 0 Internal Rotation 20 External Rotation 45 right Straight Leg Raise 55 Extension 0 Internal Rotation 15 External Rotation 30 Knee Goniometric Range of Motion Knee Left Flexion Active (degrees) 131 Extension Active (degrees) 0 Right Knee ROM WFL Yes Ankle and Foot Goniometric Range of Motion Ankle and Foot [place] Dorsiflexion with Knee Flexed 5 Dorsiflexion with Knee Extended 0 PT-OP-M Strength Start: 03/09/24 17:24 Freq: Status: Active Protocol: Document 03/13/24 09:48 SAK (Rec: 03/13/24 13:56 [facility] [id number]) Hip Strength Hip Manual Muscle Testing [place] Flexion (L2) 4+ Good+ Extension (S1) 4- Good- Abduction 4 Good External Rotation 4 Good Internal Rotation 4 Good Knee Strength Knee Manual Muscle Testing Right Flexion (S2) 5 Normal Extension (L3) 5 Normal Left Flexion (S2) 4+ Good+ Extension (L3) 4+ Good+ Ankle/Foot Strength Ankle and Foot Manual Muscle Testing [place] Dorsiflexion (L4) 5 Normal Plantarflexion (S1) 5 Normal PT-OP-Q Treatments Start: 03/09/24 17:24 Freq: Status: Active Protocol: Document 03/15/24 09:47 [facility] (Rec: 03/15/24 10:38 [facility] [id number]) Cardio Equipment Recumbent Stepper (Sci-Fit) Duration (Minutes) 7 Resistance 4.2, 3.8 Seat Position 11 Other cues for alingment, 3.5 min UE 's and LE's, 3.5 minLE's only Gym Equipment Shuttle Recovery Unilateral Squats Resistance 37 right, 25 left Shuttle Recovery Platform Stable Reps/Time 10x Bilateral Squats Details ball between knees Resistance 75 Shuttle Recovery Platform Stable Reps/Time 10x Therapeutic Exercises Supine Exercises BRIDGE Equipment Used ball between knees Reps/Minutes 10X IT band stretch Equipment Used strap Reps/Minutes 2x30 hamstring stretch Equipment Used strap Reps/Minutes 2x30 Sitting Exercises hamstring stretch Reps/Minutes 2x30 Comments cues for hip hinge. Standing Exercises sit to stand Equipment Used ball between knees Reps/Minutes 10x2 quad stretch Equipment Used chair Reps/Minutes 2x30 gastroc stretch Standing Exercise Name at bar, Reps/Minutes 2x30 Comments cues for upright posture, straight foot Gait Training Gait Activity 1 Device Used cane, trekking pole Level of Assistance SBA, cues Surface level, firm Treatment Focus correct fit and use Self-Care/Home Management Treatment Education Patient Education Home Exercise Program PT-OP-R Modalities Start: 03/09/24 17:24 Freq: Status: Active Protocol: Document 03/15/24 09:47 [facility] (Rec: 03/15/24 10:38 [facility] [id number]) Electric Stimulation Electric Stimulation Interferential Current (IFC) Body Location L knee Intensity 26 Target/Sweep Sweep Patient Position Hooklying Combined With Heat/Cold Cold Pack PT-OP-T Assessment and Plan Start: 03/09/24 17:24 Freq: Status: Active Protocol: Document 03/15/24 09:47 [facility] (Rec: 03/15/24 10:38 [facility] [id number]) Physical Therapy Assessment Goals Three Impairment left knee swelling and increased warmth Obstetrics And Gynecology Professor Goal (LTG) decrease left knee swelling and eliminate temperature variance as evidence of decreased swelling left knee for improved left knee function LTG Duration 05/13/24 Two Impairment weakness and decreased flexibility left LE Short Term Goal (STG) Patient will be instructed in HEP for purposes of flexibility and strengthening to address impairments and support therapy activities STG Duration 04/12/24 Obstetrics And Gynecology Professor Goal (LTG) Patient will be independent and compliant with HEP and demonstrate improved strength to 5/5 and improvements in flexibility to WNL to allow for improved knee function LTG Duration 05/13/24 One Impairment Patient unable to go for walks or ascend/descend stairs alternating LE's Short Term Goal (STG) Patient will be able to walk for at least 15 minute without knee pain STG Duration 04/12/24 [facility] Goal (LTG) Patient will be able to walk for at least 30 min and ascend and descend stairs with alternating pattern with minimal to no pain. LTG Duration 05/13/24 Assessment Summary Assessment Patient requires mod cues for LE alignment with all ther ex, exhibits significant genu valgum. Improved sit to stand with addition of ball squeeze . Patient currently requires use of UE's for sit to stand. Also instructed in use of cane and trekking pole due to antalgic gait; after training able to ambulate with either device with appropriate sequencing and no limp. Physical Therapy Plan Frequency and Duration Frequency of Treatment 2x/Week Duration of treatment (weeks) 8 Plan of Care Start Date 03/13/24 Plan of Care End Date 05/13/24 Therapeutic Interventions Therapeutic Interventions Gait Training,Home Exercise Program,Manual Therapy, Neuromuscular Re-education, Patient/Caregiver Education, Self-Care/Home Management,Soft Tissue Mobilization,Taping, Therapeutic Activities, Therapeutic Exercises Modalities Cold Pack/Ice Massage,Electric Stimulation,Hot Packs, Infrared Therapy,Iontophoresis ,Ultrasound Next Visit Focus/Plan Next Note Type Treatment Note Next Visit Plan Evaluate response to last session, continue ther ex for strengthening, flexibility, gait training. Instruct in self massage with rolling pin. Look at patellar mobility and treat as indicated. Consider KT tape.
--- NOTE | 2024-03-27 09:45 | PT.OTN ---
Current Diagnoses Unilateral primary osteoarthritis, right knee (03/27/24) Unspecified osteoarthritis, unspecified site (03/27/24) Pain in right knee (03/27/24) Pain in left knee (03/27/24) Difficulty in walking, not elsewhere classified (03/27/24) Weakness (03/27/24) Physical Therapy Treatment Note PT-OP-A Visit Information Start: 03/09/24 17:24 Freq: Status: Active Protocol: Document 03/27/24 08:09 AB (Rec: 03/27/24 09:45 AB [id number]) Out-Patient Physical Therapy Visit Information Visit Information Visit Type Treatment Note Visit Start Time 08:49 Visit Stop Time 09:33 Visit Number 3 Number of LIQUID FERTILIZER SERVICER Visits 1 Evaluation Information Evaluation Date 03/13/24 Precautions Precautions cardiac; aortic valve replacement 1 year ago, on Cardiac Rehab maintenance program 2x/wk PT-OP-B Current Condition Start: 03/09/24 17:24 Freq: Status: Active Protocol: Document 03/15/24 09:47 SAK (Rec: 03/15/24 10:38 SAK [id number]) Current Condition History of Current Condition Onset Date 2 months Current Complaints left knee pain, swelling, loss of function. History of Current Condition Unsure what happened, started hurting medial left knee about 2 months ago, started favoring left knee, saw orthopedic surgeon. Diagnosis arthritis per x-ray taken at [facility]. Reports knee gets warm and swells at times. Was taking Alleve, used ice. Better than it was. Prior history right knee pain. Was a dedicated walker until this happened. Only possible cause patient can recall was working on boat without knee pads, playing with his anchor, to get it to catch prior to onset of knee pain. Heart valve (aorta) replaced about a year ago. For exercise right now 2x/wk does maintenance cardiac rehab; some pain on treadmill so hasn 't been walking much. Better tolerance for rowing machine. Likes elliptical. Prior Treatments and Tests x-ray: no results available but patient reports arthritis. PT-OP-C Subjective Start: 03/09/24 17:24 Freq: Status: Active Protocol: Document 03/27/24 08:09 AB (Rec: 03/27/24 09:45 AB [id number]) OP-PT Subjective Patient Comments Patient Comments Patient reports he did not get to do the exercises. Patient rates pain 5/10 bilateral knees ambulating into session without device. Patient reports he was the same post previous session. PT-OP-G Mobility & Gait Start: 03/09/24 17:24 Freq: Status: Active Protocol: Document 03/13/24 09:48 [facility] (Rec: 03/13/24 13:52 [facility] [id number]) OP Gait Assessment Gait Gait Assistance Required: Independent Assistive Devices Assistive Device None Gait Deviations General Gait Pattern Antalgic Stair Climbing Evaluation Evaluation Level of Assist On Stairs Independent Devices Stair Climbing Assistive Devices Left Railing,Right Railing Technique/Endurance Stair Climbing Technique Step to Step PT-OP-H Neuro Start: 03/09/24 17:24 Freq: Status: Active Protocol: Document 03/13/24 09:48 [facility] (Rec: 03/13/24 13:52 [facility] [id number]) Sensation Evaluation Gross Sensation Gross Sensation WNL PT-OP-J Posture/Palpation/Skin Start: 03/09/24 17:24 Freq: Status: Active Protocol: Document 03/13/24 09:48 [facility] (Rec: 03/13/24 13:52 [facility] [id number]) Posture Evaluation Position Standing Knee Posture (L) Genu Varus,(R) Genu Varus Foot Arch (L) Low Arch,(R) Low Arch Comments Posture Comments bunion right greater than left excess wear lateral soles of NB tennis shoes left greater than right PT-OP-K Range of Motion Start: 03/09/24 17:24 Freq: Status: Active Protocol: Document 03/13/24 09:48 [facility] (Rec: 03/13/24 13:56 [facility] [id number]) Hip Goniometric Range of Motion Hip Left Straight Leg Raise 55 Extension 0 Internal Rotation 20 External Rotation 45 right Straight Leg Raise 55 Extension 0 Internal Rotation 15 External Rotation 30 Knee Goniometric Range of Motion Knee Left Flexion Active (degrees) 131 Extension Active (degrees) 0 Right Knee ROM WFL Yes Ankle and Foot Goniometric Range of Motion Ankle and Foot [place] Dorsiflexion with Knee Flexed 5 Dorsiflexion with Knee Extended 0 PT-OP-M Strength Start: 03/09/24 17:24 Freq: Status: Active Protocol: Document 03/13/24 09:48 [facility] (Rec: 03/13/24 13:56 SAK [id number]) Hip Strength Hip Manual Muscle Testing [place] Flexion (L2) 4+ Good+ Extension (S1) 4- Good- Abduction 4 Good External Rotation 4 Good Internal Rotation 4 Good Knee Strength Knee Manual Muscle Testing Right Flexion (S2) 5 Normal Extension (L3) 5 Normal Left Flexion (S2) 4+ Good+ Extension (L3) 4+ Good+ Ankle/Foot Strength Ankle and Foot Manual Muscle Testing [place] Dorsiflexion (L4) 5 Normal Plantarflexion (S1) 5 Normal PT-OP-Q Treatments Start: 03/09/24 17:24 Freq: Status: Active Protocol: Document 03/27/24 08:09 AB (Rec: 03/27/24 09:45 AB [id number]) Cardio Equipment Recumbent Stepper (Sci-Fit) Duration (Minutes) 7 Resistance 4.2 Seat Position 11 Other monitored for pain Therapeutic Exercises Supine Exercises hamstring stretch Side bilateral Equipment Used strap Reps/Minutes 1 X60 Sitting Exercises seated hip abduction with band Side bilateral Resistance level 3 band Reps/Minutes one minute X 1 Comments Verbal cues Therapeutic Activity Therapeutic Activity self STM Name with rolling pin left and right quad Comments Verbal cues Stairs Reps/Minutes 6 inch X 4 X 8 Comments Verbal cues for activating gluteals and for a less quad dominant pattern descending Pre and post tape Manual Therapy Treatment Consent Patient gave verbal consent for manual Yes treatment Soft Tissue Mobilization left knee Body Location for swelling Mobilization Type Strumming,Sustained Pressure, Other Intensity/Depth Superficial Body Position Hooklying Comments to moderate LE elevated Joint Mobilizations left patella Joint inf, sup, med, lat CW and CCW Grade III Body Position Supine Reps/Duration X5 each Taping left knee Treatment Focus 2 I strips peripat one med one lat stretched superiorly 50% +one med to lat Type of Tape Kinesiotape Skin Inspection WNL Comments Pt ed to remove tape in 3-5 days or immediately if skin irritation occurs PT-OP-R Modalities Start: 03/09/24 17:24 Freq: Status: Active Protocol: Document 03/15/24 09:47 SAK (Rec: 03/15/24 10:38 SAK [id number]) Electric Stimulation Electric Stimulation Interferential Current (IFC) Body Location L knee Intensity 26 Target/Sweep Sweep Patient Position Hooklying Combined With Heat/Cold Cold Pack PT-OP-T Assessment and Plan Start: 03/09/24 17:24 Freq: Status: Active Protocol: Document 03/27/24 08:09 AB (Rec: 03/27/24 09:45 AB [id number]) Physical Therapy Assessment Goals Three Impairment left knee swelling and increased warmth Jail Goal (LTG) decrease left knee swelling and eliminate temperature variance as evidence of decreased swelling left knee for improved left knee function LTG Duration 05/13/24 Two Impairment weakness and decreased flexibility left LE Short Term Goal (STG) Patient will be instructed in HEP for purposes of flexibility and strengthening to address impairments and support therapy activities STG Duration 04/12/24 [facility] Goal (LTG) Patient will be independent and compliant with HEP and demonstrate improved strength to 5/5 and improvements in flexibility to WNL to allow for improved knee function LTG Duration 05/13/24 One Impairment Patient unable to go for walks or ascend/descend stairs alternating LE's Short Term Goal (STG) Patient will be able to walk for at least 15 minute without knee pain STG Duration 04/12/24 Jail Goal (LTG) Patient will be able to walk for at least 30 min and ascend and descend stairs with alternating pattern with minimal to no pain. LTG Duration 05/13/24 Assessment Summary Assessment BP right UE 118/66 HR 56 seated post reporting feeling a little light headed post sit to stand. Michele rates pain almost 0/10 end of session Physical Therapy Plan Frequency and Duration Frequency of Treatment 2x/Week Duration of treatment (weeks) 8 Plan of Care Start Date 03/13/24 Plan of Care End Date 05/13/24 Next Visit Focus/Plan Next Note Type Treatment Note Next Visit Plan Evaluate response to last session, continue ther ex for strengthening, flexibility, gait training. Revisit patellar mobility and treat as indicated. Assess cain KT tape.
--- NOTE | 2024-03-29 09:14 | PT.OTN ---
Current Diagnoses Unilateral primary osteoarthritis, right knee (03/29/24) Unspecified osteoarthritis, unspecified site (03/29/24) Pain in right knee (03/29/24) Pain in left knee (03/29/24) Difficulty in walking, not elsewhere classified (03/29/24) Weakness (03/29/24) Physical Therapy Treatment Note PT-OP-A Visit Information Start: 03/09/24 17:24 Freq: Status: Active Protocol: Document 03/29/24 08:12 SAK (Rec: 03/29/24 09:13 [facility] [id number]) Out-Patient Physical Therapy Visit Information Visit Information Visit Type Treatment Note Visit Start Time 08:15 Visit Stop Time 09:02 Visit Number 4 Evaluation Information Evaluation Date 03/13/24 Precautions Precautions cardiac; aortic valve replacement 1 year ago, on Cardiac Rehab maintenance program 2x/wk PT-OP-B Current Condition Start: 03/09/24 17:24 Freq: Status: Active Protocol: Document 03/29/24 08:12 SAK (Rec: 03/29/24 09:13 [facility] [id number]) Current Condition History of Current Condition Onset Date 2 months Current Complaints left knee pain, swelling, loss of function. History of Current Condition Unsure what happened, started hurting medial left knee about 2 months ago, started favoring left knee, saw orthopedic surgeon. Diagnosis arthritis per x-ray taken at [facility]. Reports knee gets warm and swells at times. Was taking Alleve, used ice. Better than it was. Prior history right knee pain. Was a dedicated walker until this happened. Only possible cause patient can recall was working on boat without knee pads, playing with his anchor, to get it to catch prior to onset of knee pain. Heart valve (aorta) replaced about a year ago. For exercise right now 2x/wk does maintenance cardiac rehab; some pain on treadmill so hasn 't been walking much. Better tolerance for rowing machine. Likes elliptical. Prior Treatments and Tests x-ray: no results available but patient reports arthritis. PT-OP-C Subjective Start: 03/09/24 17:24 Freq: Status: Active Protocol: Document 03/29/24 08:12 SAK (Rec: 03/29/24 09:13 SAK [id number]) OP-PT Subjective Patient Comments Patient Comments About the same. PT-OP-G Mobility & Gait Start: 03/09/24 17:24 Freq: Status: Active Protocol: Document 03/13/24 09:48 SAK (Rec: 03/13/24 13:52 [facility] [id number]) OP Gait Assessment Gait Gait Assistance Required: Independent Assistive Devices Assistive Device None Gait Deviations General Gait Pattern Antalgic Stair Climbing Evaluation Evaluation Level of Assist On Stairs Independent Devices Stair Climbing Assistive Devices Left Railing,Right Railing Technique/Endurance Stair Climbing Technique Step to Step PT-OP-H Neuro Start: 03/09/24 17:24 Freq: Status: Active Protocol: Document 03/13/24 09:48 SAK (Rec: 03/13/24 13:52 [facility] [id number]) Sensation Evaluation Gross Sensation Gross Sensation WNL PT-OP-J Posture/Palpation/Skin Start: 03/09/24 17:24 Freq: Status: Active Protocol: Document 03/13/24 09:48 [facility] (Rec: 03/13/24 13:52 [facility] [id number]) Posture Evaluation Position Standing Knee Posture (L) Genu Varus,(R) Genu Varus Foot Arch (L) Low Arch,(R) Low Arch Comments Posture Comments bunion right greater than left excess wear lateral soles of NB tennis shoes left greater than right PT-OP-K Range of Motion Start: 03/09/24 17:24 Freq: Status: Active Protocol: Document 03/13/24 09:48 [facility] (Rec: 03/13/24 13:56 [facility] [id number]) Hip Goniometric Range of Motion Hip Left Straight Leg Raise 55 Extension 0 Internal Rotation 20 External Rotation 45 right Straight Leg Raise 55 Extension 0 Internal Rotation 15 External Rotation 30 Knee Goniometric Range of Motion Knee Left Flexion Active (degrees) 131 Extension Active (degrees) 0 Right Knee ROM WFL Yes Ankle and Foot Goniometric Range of Motion Ankle and Foot adilene Dorsiflexion with Knee Flexed 5 Dorsiflexion with Knee Extended 0 PT-OP-M Strength Start: 03/09/24 17:24 Freq: Status: Active Protocol: Document 03/13/24 09:48 SAK (Rec: 03/13/24 13:56 [facility] [id number]) Hip Strength Hip Manual Muscle Testing adilene Flexion (L2) 4+ Good+ Extension (S1) 4- Good- Abduction 4 Good External Rotation 4 Good Internal Rotation 4 Good Knee Strength Knee Manual Muscle Testing Right Flexion (S2) 5 Normal Extension (L3) 5 Normal Left Flexion (S2) 4+ Good+ Extension (L3) 4+ Good+ Ankle/Foot Strength Ankle and Foot Manual Muscle Testing adilene Dorsiflexion (L4) 5 Normal Plantarflexion (S1) 5 Normal PT-OP-Q Treatments Start: 03/09/24 17:24 Freq: Status: Active Protocol: Document 03/29/24 08:12 [facility] (Rec: 03/29/24 09:13 [facility] [id number]) Cardio Equipment Recumbent Stepper (Sci-Fit) Duration (Minutes) 8 Resistance 4.2 Seat Position 11 Other cues for LE alignment Gym Equipment Cable Column (Body Solid) unil hamstring curl Resistance 20 Reps/Time 15x hamstring cur Details cuing to pull feet back as far as possible Resistance 40 Reps/Time 15x Shuttle Recovery Unilateral Squats Resistance 37 adilene Shuttle Recovery Platform Stable Reps/Time 10x Bilateral Squats Details ball between knees Resistance 75 Shuttle Recovery Platform Stable Reps/Time 10x Therapeutic Exercises Supine Exercises hamstring stretch Side bilateral Equipment Used strap Reps/Minutes 1 X60 Sitting Exercises seated hip abduction with band Side bilateral Resistance level 3 band Reps/Minutes one minute X 1 Comments Verbal cues Standing Exercises HS stretch Equipment Used stair Reps/Minutes 2x30 quad stretch Equipment Used chair Reps/Minutes 2x30 gastroc stretch Equipment Used CHANTELL Reps/Minutes 2x30 Comments cues for upright posture, straight foot Therapeutic Activity Therapeutic Activity Stairs Reps/Minutes 6 inch X 4 X 8 Comments Verbal cues for activating gluteals and for a less quad dominant pattern descending Pre and post tape Manual Therapy Treatment Consent Patient gave verbal consent for manual Yes treatment Soft Tissue Mobilization distal quad, IT band Mobilization Type Myofascial Release,Strumming Intensity/Depth Moderate Body Position Hooklying Comments Try sidelying with massage roller next session left knee Body Location for swelling Mobilization Type Strumming,Sustained Pressure, Other Intensity/Depth Superficial Body Position Hooklying Comments to moderate LE elevated Joint Mobilizations left patella Joint inf, sup, med, lat CW and CCW Grade III Body Position Supine Reps/Duration X5 each Taping left knee Treatment Focus 2 I strips peripat one med one lat stretched superiorly 50% +one med to lat Type of Tape Kinesiotape Skin Inspection WNL Comments Pt ed to remove tape in 3-5 days or immediately if skin irritation occurs PT-OP-R Modalities Start: 03/09/24 17:24 Freq: Status: Active Protocol: Document 03/15/24 09:47 [facility] (Rec: 03/15/24 10:38 [facility] [id number]) Electric Stimulation Electric Stimulation Interferential Current (IFC) Body Location L knee Intensity 26 Target/Sweep Sweep Patient Position Hooklying Combined With Heat/Cold Cold Pack PT-OP-T Assessment and Plan Start: 03/09/24 17:24 Freq: Status: Active Protocol: Document 03/29/24 08:12 [facility] (Rec: 03/29/24 09:13 [facility] [id number]) Physical Therapy Assessment Goals Three Impairment left knee swelling and increased warmth Correction Goal (LTG) decrease left knee swelling and eliminate temperature variance as evidence of decreased swelling left knee for improved left knee function LTG Duration 05/13/24 Two Impairment weakness and decreased flexibility left LE Short Term Goal (STG) Patient will be instructed in HEP for purposes of flexibility and strengthening to address impairments and support therapy activities STG Duration 04/12/24 Correction Goal (LTG) Patient will be independent and compliant with HEP and demonstrate improved strength to 5/5 and improvements in flexibility to WNL to allow for improved knee function LTG Duration 05/13/24 One Impairment Patient unable to go for walks or ascend/descend stairs alternating LE's Short Term Goal (STG) Patient will be able to walk for at least 15 minute without knee pain STG Duration 04/12/24 Correction Goal (LTG) Patient will be able to walk for at least 30 min and ascend and descend stairs with alternating pattern with minimal to no pain. LTG Duration 05/13/24 Assessment Summary Assessment Improved left knee strength noted with shuttle leg press able to do same weight as right today at 37#. Patient demonstrating improving awareness of LE alignment but occasional cues still needed. KT tape helpful. Physical Therapy Plan Frequency and Duration Frequency of Treatment 2x/Week Duration of treatment (weeks) 8 Plan of Care Start Date 03/13/24 Plan of Care End Date 05/13/24 Therapeutic Interventions Therapeutic Interventions Gait Training,Home Exercise Program,Manual Therapy, Neuromuscular Re-education, Patient/Caregiver Education, Self-Care/Home Management,Soft Tissue Mobilization,Taping, Therapeutic Activities, Therapeutic Exercises Modalities Cold Pack/Ice Massage,Electric Stimulation,Hot Packs, Infrared Therapy,Iontophoresis ,Ultrasound Next Visit Focus/Plan Next Note Type Treatment Note Next Visit Plan Continue PT for LE flexibility , gait training especially on stairs, strengthening. Patellar mobilizaion, soft tissue mobilization including trial use massage roller left ITband in sidelying.
--- NOTE | 2024-04-07 08:16 | PT.OTN ---
Current Diagnoses Unilateral primary osteoarthritis, right knee (04/07/24) Unspecified osteoarthritis, unspecified site (04/07/24) Pain in right knee (04/07/24) Pain in left knee (04/07/24) Difficulty in walking, not elsewhere classified (04/07/24) Weakness (04/07/24) Physical Therapy Treatment Note PT-OP-A Visit Information Start: 03/09/24 17:24 Freq: Status: Active Protocol: Document 04/07/24 07:31 SP (Rec: 04/07/24 08:19 SP [id number]) Out-Patient Physical Therapy Visit Information Visit Information Visit Type Treatment Note Visit Start Time 07:31 Visit Stop Time 08:16 Visit Number 6 Number of PREFINISH OPERATOR Visits 1 Evaluation Information Evaluation Date 03/13/24 Precautions Precautions cardiac; aortic valve replacement 1 year ago, on Cardiac Rehab maintenance program 2x/wk PT-OP-B Current Condition Start: 03/09/24 17:24 Freq: Status: Active Protocol: Document 04/05/24 09:47 SAK (Rec: 04/05/24 10:38 SAK [id number]) Current Condition History of Current Condition Onset Date 2 months Current Complaints left knee pain, swelling, loss of function. History of Current Condition Unsure what happened, started hurting medial left knee about 2 months ago, started favoring left knee, saw orthopedic surgeon. Diagnosis arthritis per x-ray taken at [facility]. Reports knee gets warm and swells at times. Was taking Alleve, used ice. Better than it was. Prior history right knee pain. Was a dedicated walker until this happened. Only possible cause patient can recall was working on boat without knee pads, playing with his anchor, to get it to catch prior to onset of knee pain. Heart valve (aorta) replaced about a year ago. For exercise right now 2x/wk does maintenance cardiac rehab; some pain on treadmill so hasn 't been walking much. Better tolerance for rowing machine. Likes elliptical. Prior Treatments and Tests x-ray: no results available but patient reports arthritis. PT-OP-C Subjective Start: 03/09/24 17:24 Freq: Status: Active Protocol: Document 04/07/24 07:31 SP (Rec: 04/07/24 08:19 SP [id number]) OP-PT Subjective Patient Comments Patient Comments Pt reports felt pretty good after last tx, still medial L knee pain. He reports is utilizing CardioPulmonary Rehab maintenance equipment, being he graduated from their program couple months ago. PT-OP-G Mobility & Gait Start: 03/09/24 17:24 Freq: Status: Active Protocol: Document 03/13/24 09:48 [facility] (Rec: 03/13/24 13:52 [facility] [id number]) OP Gait Assessment Gait Gait Assistance Required: Independent Assistive Devices Assistive Device None Gait Deviations General Gait Pattern Antalgic Stair Climbing Evaluation Evaluation Level of Assist On Stairs Independent Devices Stair Climbing Assistive Devices Left Railing,Right Railing Technique/Endurance Stair Climbing Technique Step to Step PT-OP-H Neuro Start: 03/09/24 17:24 Freq: Status: Active Protocol: Document 03/13/24 09:48 [facility] (Rec: 03/13/24 13:52 [facility] [id number]) Sensation Evaluation Gross Sensation Gross Sensation WNL PT-OP-J Posture/Palpation/Skin Start: 03/09/24 17:24 Freq: Status: Active Protocol: Document 03/13/24 09:48 [facility] (Rec: 03/13/24 13:52 [facility] [id number]) Posture Evaluation Position Standing Knee Posture (L) Genu Varus,(R) Genu Varus Foot Arch (L) Low Arch,(R) Low Arch Comments Posture Comments bunion right greater than left excess wear lateral soles of NB tennis shoes left greater than right PT-OP-K Range of Motion Start: 03/09/24 17:24 Freq: Status: Active Protocol: Document 03/13/24 09:48 [facility] (Rec: 03/13/24 13:56 [facility] [id number]) Hip Goniometric Range of Motion Hip Left Straight Leg Raise 55 Extension 0 Internal Rotation 20 External Rotation 45 right Straight Leg Raise 55 Extension 0 Internal Rotation 15 External Rotation 30 Knee Goniometric Range of Motion Knee Left Flexion Active (degrees) 131 Extension Active (degrees) 0 Right Knee ROM WFL Yes Ankle and Foot Goniometric Range of Motion Ankle and Foot matthieu Dorsiflexion with Knee Flexed 5 Dorsiflexion with Knee Extended 0 PT-OP-M Strength Start: 03/09/24 17:24 Freq: Status: Active Protocol: Document 03/13/24 09:48 [facility] (Rec: 03/13/24 13:56 SAK [id number]) Hip Strength Hip Manual Muscle Testing matthieu Flexion (L2) 4+ Good+ Extension (S1) 4- Good- Abduction 4 Good External Rotation 4 Good Internal Rotation 4 Good Knee Strength Knee Manual Muscle Testing Right Flexion (S2) 5 Normal Extension (L3) 5 Normal Left Flexion (S2) 4+ Good+ Extension (L3) 4+ Good+ Ankle/Foot Strength Ankle and Foot Manual Muscle Testing matthieu Dorsiflexion (L4) 5 Normal Plantarflexion (S1) 5 Normal PT-OP-Q Treatments Start: 03/09/24 17:24 Freq: Status: Active Protocol: Document 04/07/24 07:31 SP (Rec: 04/07/24 08:19 SP [id number]) Cardio Equipment Bicycle (Upright) Duration (Minutes) 8 Resistance 22 Seat Position 5 Other 46 RPMs Gym Equipment Cable Column (Body Solid) unil hamstring curl Details cued foot EV neutral Resistance 20 Reps/Time 12x2 hamstring cur Details cuing to pull feet back as far as possible Resistance 40 Reps/Time 10x2 Shuttle Recovery Unilateral Squats Resistance Matthieu 50# (2 navy) Shuttle Recovery Platform Stable Reps/Time 10x Bilateral Squats Details ball between knees Resistance 75 (3 navy bands) Shuttle Recovery Platform Stable Reps/Time 15x Therapeutic Exercises Supine Exercises BRIDGE Equipment Used ball between knees Reps/Minutes 10X5 SH Comments cues feet little closer to prevent HS cramping IT band stretch Side bilateral Equipment Used strap Reps/Minutes 60 Comments cued breath hamstring stretch Supine Exercise Name 1. sustained stretch 2. towel /c AP Side bilateral Equipment Used strap Reps/Minutes 1. 60SH 2. AP x20 Comments improved decreased tension, improved bridge holds post- breath Manual Therapy Treatment Consent Patient gave verbal consent for manual Yes treatment Soft Tissue Mobilization distal quad, IT band Body Location L Mobilization Type Myofascial Release,Strumming Intensity/Depth Moderate Body Position Hooklying Comments Try sidelying with massage roller next session Joint Mobilizations left patella Joint inf, sup, med, lat CW and CCW Grade III Body Position Supine Reps/Duration X5 each Taping left knee Treatment Focus 3 Y strips Type of Tape Kinesiotape Skin Inspection WNL Comments 1 to facil patellar glide 2 peripatellar; one starting superior, one starting inferior Self-Care/Home Management Treatment Education Patient Education Body Mechanics,Pain Management ,Posture Other Education Discussion use of SPC/trek pole end tx post manual, ed importance of good posture during gait to decrease over recruitment other areas of the body and supporting hip and knees alignment and back health with verbal understanding. PT-OP-R Modalities Start: 03/09/24 17:24 Freq: Status: Active Protocol: Document 03/15/24 09:47 SAK (Rec: 03/15/24 10:38 SAK [id number]) Electric Stimulation Electric Stimulation Interferential Current (IFC) Body Location L knee Intensity 26 Target/Sweep Sweep Patient Position Hooklying Combined With Heat/Cold Cold Pack PT-OP-T Assessment and Plan Start: 03/09/24 17:24 Freq: Status: Active Protocol: Document 04/07/24 07:31 SP (Rec: 04/07/24 08:19 SP [id number]) Physical Therapy Assessment Goals Three Impairment left knee swelling and increased warmth Staff Genetic Counselor Goal (LTG) decrease left knee swelling and eliminate temperature variance as evidence of decreased swelling left knee for improved left knee function LTG Duration 05/13/24 Two Impairment weakness and decreased flexibility left LE Short Term Goal (STG) Patient will be instructed in HEP for purposes of flexibility and strengthening to address impairments and support therapy activities STG Duration 04/12/24 Staff Genetic Counselor Goal (LTG) Patient will be independent and compliant with HEP and demonstrate improved strength to 5/5 and improvements in flexibility to WNL to allow for improved knee function LTG Duration 05/13/24 One Impairment Patient unable to go for walks or ascend/descend stairs alternating LE's Short Term Goal (STG) Patient will be able to walk for at least 15 minute without knee pain STG Duration 04/12/24 Staff Genetic Counselor Goal (LTG) Patient will be able to walk for at least 30 min and ascend and descend stairs with alternating pattern with minimal to no pain. LTG Duration 05/13/24 Assessment Summary Assessment Pt decreased tension in hips post manual and flexibility review HEP, improved demonstration more upright even gait beth leaving. Physical Therapy Plan Frequency and Duration Frequency of Treatment 2x/Week Duration of treatment (weeks) 8 Plan of Care Start Date 03/13/24 Plan of Care End Date 05/13/24 Therapeutic Interventions Therapeutic Interventions Gait Training,Home Exercise Program,Manual Therapy, Neuromuscular Re-education, Patient/Caregiver Education, Self-Care/Home Management,Soft Tissue Mobilization,Taping, Therapeutic Activities, Therapeutic Exercises Modalities Cold Pack/Ice Massage,Electric Stimulation,Hot Packs, Infrared Therapy,Iontophoresis ,Ultrasound Next Visit Focus/Plan Next Note Type Treatment Note Next Visit Plan Continue PT for LE flexibility , gait training especially on stairs, strengthening. Patellar mobilizaion, soft tissue mobilization including Next: trial use massage roller left ITband in sidelying.
--- NOTE | 2024-04-11 16:01 | PT.OTN ---
Current Diagnoses Unilateral primary osteoarthritis, right knee (04/11/24) Unspecified osteoarthritis, unspecified site (04/11/24) Pain in right knee (04/11/24) Pain in left knee (04/11/24) Difficulty in walking, not elsewhere classified (04/11/24) Weakness (04/11/24) Physical Therapy Treatment Note PT-OP-A Visit Information Start: 03/09/24 17:24 Freq: Status: Active Protocol: Document 04/11/24 11:34 [facility] (Rec: 04/11/24 12:20 [facility] [id number]) Out-Patient Physical Therapy Visit Information Visit Information Visit Type Treatment Note Visit Start Time :34 Visit Stop Time 08:16 Visit Number 7 Number of FORM LAYER Visits 0 Evaluation Information Evaluation Date 03/13/24 Precautions Precautions cardiac; aortic valve replacement 1 year ago, on Cardiac Rehab maintenance program 2x/wk PT-OP-B Current Condition Start: 03/09/24 17:24 Freq: Status: Active Protocol: Document 04/11/24 11:34 [facility] (Rec: 04/11/24 12:20 [facility] [id number]) Current Condition History of Current Condition Onset Date 2 months Current Complaints left knee pain, swelling, loss of function. History of Current Condition Unsure what happened, started hurting medial left knee about 2 months ago, started favoring left knee, saw orthopedic surgeon. Diagnosis arthritis per x-ray taken at [facility]. Reports knee gets warm and swells at times. Was taking Alleve, used ice. Better than it was. Prior history right knee pain. Was a dedicated walker until this happened. Only possible cause patient can recall was working on boat without knee pads, playing with his anchor, to get it to catch prior to onset of knee pain. Heart valve (aorta) replaced about a year ago. For exercise right now 2x/wk does maintenance cardiac rehab; some pain on treadmill so hasn 't been walking much. Better tolerance for rowing machine. Likes elliptical. Prior Treatments and Tests x-ray: no results available but patient reports arthritis. PT-OP-C Subjective Start: 03/09/24 17:24 Freq: Status: Active Protocol: Document 04/11/24 11:34 [facility] (Rec: 04/11/24 12:20 [facility] [id number]) OP-PT Subjective Patient Comments Patient Comments Medial left knee pain evident a little more today. Walked one mile on treadmill. Has been using a cane some. PT-OP-G Mobility & Gait Start: 03/09/24 17:24 Freq: Status: Active Protocol: Document 03/13/24 09:48 [facility] (Rec: 03/13/24 13:52 [facility] [id number]) OP Gait Assessment Gait Gait Assistance Required: Independent Assistive Devices Assistive Device None Gait Deviations General Gait Pattern Antalgic Stair Climbing Evaluation Evaluation Level of Assist On Stairs Independent Devices Stair Climbing Assistive Devices Left Railing,Right Railing Technique/Endurance Stair Climbing Technique Step to Step PT-OP-H Neuro Start: 03/09/24 17:24 Freq: Status: Active Protocol: Document 03/13/24 09:48 [facility] (Rec: 03/13/24 13:52 [facility] [id number]) Sensation Evaluation Gross Sensation Gross Sensation WNL PT-OP-J Posture/Palpation/Skin Start: 03/09/24 17:24 Freq: Status: Active Protocol: Document 03/13/24 09:48 [facility] (Rec: 03/13/24 13:52 [facility] [id number]) Posture Evaluation Position Standing Knee Posture (L) Genu Varus,(R) Genu Varus Foot Arch (L) Low Arch,(R) Low Arch Comments Posture Comments bunion right greater than left excess wear lateral soles of NB tennis shoes left greater than right PT-OP-K Range of Motion Start: 03/09/24 17:24 Freq: Status: Active Protocol: Document 03/13/24 09:48 [facility] (Rec: 03/13/24 13:56 [facility] [id number]) Hip Goniometric Range of Motion Hip Left Straight Leg Raise 55 Extension 0 Internal Rotation 20 External Rotation 45 right Straight Leg Raise 55 Extension 0 Internal Rotation 15 External Rotation 30 Knee Goniometric Range of Motion Knee Left Flexion Active (degrees) 131 Extension Active (degrees) 0 Right Knee ROM WFL Yes Ankle and Foot Goniometric Range of Motion Ankle and Foot adilene Dorsiflexion with Knee Flexed 5 Dorsiflexion with Knee Extended 0 PT-OP-M Strength Start: 03/09/24 17:24 Freq: Status: Active Protocol: Document 03/13/24 09:48 [facility] (Rec: 03/13/24 13:56 [facility] [id number]) Hip Strength Hip Manual Muscle Testing [place] Flexion (L2) 4+ Good+ Extension (S1) 4- Good- Abduction 4 Good External Rotation 4 Good Internal Rotation 4 Good Knee Strength Knee Manual Muscle Testing Right Flexion (S2) 5 Normal Extension (L3) 5 Normal Left Flexion (S2) 4+ Good+ Extension (L3) 4+ Good+ Ankle/Foot Strength Ankle and Foot Manual Muscle Testing [place] Dorsiflexion (L4) 5 Normal Plantarflexion (S1) 5 Normal PT-OP-Q Treatments Start: 03/09/24 17:24 Freq: Status: Active Protocol: Document 04/11/24 11:34 [facility] (Rec: 04/11/24 12:20 [facility] [id number]) Cardio Equipment Bicycle (Upright) Duration (Minutes) 8 Resistance 22 Seat Position 17 Other cues for hamstring engagement. Gym Equipment Cable Column (Body Solid) unil hamstring curl Details cued foot EV neutral Resistance 20 Reps/Time 12x2 hamstring cur Details cuing to pull feet back as far as possible Resistance 40 Reps/Time 10x2 Therapeutic Exercises Standing Exercises heel raise Equipment Used stair Reps/Minutes 10x gastroc stretch Equipment Used stair Reps/Minutes 2x30 Comments cues for upright posture, straight foot Gait Training Gait Activity stairs Surface 4 stairs Distance/Duration 2 flights 10 stairs Treatment Focus knees tracking middle of foot, gluteal activation, slow eccentric lower Manual Therapy Treatment Soft Tissue Mobilization distal quad, IT band Body Location L Mobilization Type Myofascial Release,Strumming Intensity/Depth Moderate Body Position Hooklying Joint Mobilizations left patella Joint inf, sup, med, lat CW and CCW Grade III Body Position Supine Reps/Duration X5 each Taping left knee Treatment Focus 3 Y strips Type of Tape Kinesiotape Skin Inspection WNL Comments 1 to facil patellar glide 2 peripatellar; one starting superior, one starting inferior Self-Care/Home Management Treatment Education Other Education review self massage using rolling pin, focus on tighter areas PT-OP-R Modalities Start: 03/09/24 17:24 Freq: Status: Active Protocol: Document 03/15/24 09:47 [facility] (Rec: 03/15/24 10:38 [facility] [id number]) Electric Stimulation Electric Stimulation Interferential Current (IFC) Body Location L knee Intensity 26 Target/Sweep Sweep Patient Position Hooklying Combined With Heat/Cold Cold Pack PT-OP-T Assessment and Plan Start: 03/09/24 17:24 Freq: Status: Active Protocol: Document 04/11/24 11:34 [facility] (Rec: 04/11/24 12:20 [facility] [id number]) Physical Therapy Assessment Goals Three Impairment left knee swelling and increased warmth Time Study Technologist Goal (LTG) decrease left knee swelling and eliminate temperature variance as evidence of decreased swelling left knee for improved left knee function LTG Duration 05/13/24 Two Impairment weakness and decreased flexibility left LE Short Term Goal (STG) Patient will be instructed in HEP for purposes of flexibility and strengthening to address impairments and support therapy activities STG Duration 04/12/24 Mcc Goal (LTG) Patient will be independent and compliant with HEP and demonstrate improved strength to 5/5 and improvements in flexibility to WNL to allow for improved knee function LTG Duration 05/13/24 One Impairment Patient unable to go for walks or ascend/descend stairs alternating LE's Short Term Goal (STG) Patient will be able to walk for at least 15 minute without knee pain STG Duration 04/12/24 Time Study Technologist Goal (LTG) Patient will be able to walk for at least 30 min and ascend and descend stairs with alternating pattern with minimal to no pain. LTG Duration 05/13/24 Progress Towards Goals Progress Towards Goals Progressing Toward Goals Assessment Summary Assessment Improving functional strength, some increased soreness after walking 1 mile on treadmill. Trial 4 stairs in hallway, cues for alignment, knee tracking toward middle of foot , gluteal activation. Physical Therapy Plan Frequency and Duration Frequency of Treatment 2x/Week Duration of treatment (weeks) 8 Plan of Care Start Date 03/13/24 Plan of Care End Date 05/13/24 Therapeutic Interventions Therapeutic Interventions Gait Training,Home Exercise Program,Manual Therapy, Neuromuscular Re-education, Patient/Caregiver Education, Self-Care/Home Management,Soft Tissue Mobilization,Taping, Therapeutic Activities, Therapeutic Exercises Modalities Cold Pack/Ice Massage,Electric Stimulation,Hot Packs, Infrared Therapy,Iontophoresis ,Ultrasound Next Visit Focus/Plan Next Note Type Treatment Note Next Visit Plan ASsess response use of massage roller IT band and distal quad. Emphasis LE neutral alignment, tracking of knee toward center of foot. Further stair training, shallow squats with visual feedback. Consider lunges.
--- NOTE | 2024-04-14 09:48 | PT.OTN ---
Current Diagnoses Unilateral primary osteoarthritis, right knee (04/14/24) Unspecified osteoarthritis, unspecified site (04/14/24) Pain in right knee (04/14/24) Pain in left knee (04/14/24) Difficulty in walking, not elsewhere classified (04/14/24) Weakness (04/14/24) Physical Therapy Treatment Note PT-OP-A Visit Information Start: 03/09/24 17:24 Freq: Status: Active Protocol: Document 04/14/24 09:08 [facility] (Rec: 04/14/24 09:51 [facility] [id number]) Out-Patient Physical Therapy Visit Information Visit Information Visit Type Treatment Note Visit Start Time 09:08 Visit Stop Time 09:48 Visit Number 8 Number of DRAWER FITTER Visits 1 Evaluation Information Evaluation Date 03/13/24 Precautions Precautions cardiac; aortic valve replacement 1 year ago, on Cardiac Rehab maintenance program 2x/wk PT-OP-B Current Condition Start: 03/09/24 17:24 Freq: Status: Active Protocol: Document 04/11/24 11:34 [facility] (Rec: 04/11/24 12:20 [facility] [id number]) Current Condition History of Current Condition Onset Date 2 months Current Complaints left knee pain, swelling, loss of function. History of Current Condition Unsure what happened, started hurting medial left knee about 2 months ago, started favoring left knee, saw orthopedic surgeon. Diagnosis arthritis per x-ray taken at [facility]. Reports knee gets warm and swells at times. Was taking Alleve, used ice. Better than it was. Prior history right knee pain. Was a dedicated walker until this happened. Only possible cause patient can recall was working on boat without knee pads, playing with his anchor, to get it to catch prior to onset of knee pain. Heart valve (aorta) replaced about a year ago. For exercise right now 2x/wk does maintenance cardiac rehab; some pain on treadmill so hasn 't been walking much. Better tolerance for rowing machine. Likes elliptical. Prior Treatments and Tests x-ray: no results available but patient reports arthritis. PT-OP-C Subjective Start: 03/09/24 17:24 Freq: Status: Active Protocol: Document 04/14/24 09:08 [facility] (Rec: 04/14/24 09:51 [facility] [id number]) OP-PT Subjective Patient Comments Patient Comments Pt reports already warmed up at the CardioRehab maintenance program this am on TM and rowing machine. He reports the Ktaping seems to help knee pain relief. He stated the rolling pin felt good, hasn't tried using at home yet. PT-OP-G Mobility & Gait Start: 03/09/24 17:24 Freq: Status: Active Protocol: Document 03/13/24 09:48 [facility] (Rec: 03/13/24 13:52 [facility] [id number]) OP Gait Assessment Gait Gait Assistance Required: Independent Assistive Devices Assistive Device None Gait Deviations General Gait Pattern Antalgic Stair Climbing Evaluation Evaluation Level of Assist On Stairs Independent Devices Stair Climbing Assistive Devices Left Railing,Right Railing Technique/Endurance Stair Climbing Technique Step to Step PT-OP-H Neuro Start: 03/09/24 17:24 Freq: Status: Active Protocol: Document 03/13/24 09:48 [facility] (Rec: 03/13/24 13:52 [facility] [id number]) Sensation Evaluation Gross Sensation Gross Sensation WNL PT-OP-J Posture/Palpation/Skin Start: 03/09/24 17:24 Freq: Status: Active Protocol: Document 03/13/24 09:48 [facility] (Rec: 03/13/24 13:52 [facility] [id number]) Posture Evaluation Position Standing Knee Posture (L) Genu Varus,(R) Genu Varus Foot Arch (L) Low Arch,(R) Low Arch Comments Posture Comments bunion right greater than left excess wear lateral soles of NB tennis shoes left greater than right PT-OP-K Range of Motion Start: 03/09/24 17:24 Freq: Status: Active Protocol: Document 03/13/24 09:48 [facility] (Rec: 03/13/24 13:56 [facility] [id number]) Hip Goniometric Range of Motion Hip Left Straight Leg Raise 55 Extension 0 Internal Rotation 20 External Rotation 45 right Straight Leg Raise 55 Extension 0 Internal Rotation 15 External Rotation 30 Knee Goniometric Range of Motion Knee Left Flexion Active (degrees) 131 Extension Active (degrees) 0 Right Knee ROM WFL Yes Ankle and Foot Goniometric Range of Motion Ankle and Foot ad[place] Dorsiflexion with Knee Flexed 5 Dorsiflexion with Knee Extended 0 PT-OP-M Strength Start: 03/09/24 17:24 Freq: Status: Active Protocol: Document 03/13/24 09:48 [facility] (Rec: 03/13/24 13:56 [facility] [id number]) Hip Strength Hip Manual Muscle Testing [place] Flexion (L2) 4+ Good+ Extension (S1) 4- Good- Abduction 4 Good External Rotation 4 Good Internal Rotation 4 Good Knee Strength Knee Manual Muscle Testing Right Flexion (S2) 5 Normal Extension (L3) 5 Normal Left Flexion (S2) 4+ Good+ Extension (L3) 4+ Good+ Ankle/Foot Strength Ankle and Foot Manual Muscle Testing [place] Dorsiflexion (L4) 5 Normal Plantarflexion (S1) 5 Normal PT-OP-Q Treatments Start: 03/09/24 17:24 Freq: Status: Active Protocol: Document 04/14/24 09:08 [facility] (Rec: 04/14/24 09:51 [facility] [id number]) Gym Equipment Cable Column (Body Solid) unil hamstring curl Details improved foot EV neutral Resistance 20>25 Reps/Time 15x3 hamstring cur Details cuing to pull feet back as far as possible Resistance 40 Reps/Time 15x2 Therapeutic Exercises Standing Exercises mini lunges Standing Exercise Name added to HEP Side bilateral Equipment Used rail > no rail (assimulation picking up after dog) Reps/Minutes 5 reps each side x2 sets Comments more range L ft fwd. shallow squat Standing Exercise Name squat- added to HEP Equipment Used chair behind for buttocks back target Reps/Minutes x10 Comments cued hip hinge, less tension on knees Other Exercises self STMs Other Exercise Name rolling: quad primarily, ITB, HS, calf Side bilateral Reps/Minutes 3 min end tx Comments good feedback lessened tightness L thigh Gait Training Gait Activity stairs Surface 4 stairs Distance/Duration 2 flights 10 stairs Treatment Focus knees tracking middle of foot, gluteal activation, slow eccentric lower Comments requires light contact rail descending, ed hip hinge into knee eccentric flexion less last 1/2 quick heel strike. Cued increased stride for heel clearance. PT-OP-R Modalities Start: 03/09/24 17:24 Freq: Status: Active Protocol: Document 03/15/24 09:47 [facility] (Rec: 03/15/24 10:38 [facility] [id number]) Electric Stimulation Electric Stimulation Interferential Current (IFC) Body Location L knee Intensity 26 Target/Sweep Sweep Patient Position Hooklying Combined With Heat/Cold Cold Pack PT-OP-T Assessment and Plan Start: 03/09/24 17:24 Freq: Status: Active Protocol: Document 04/14/24 09:08 [facility] (Rec: 04/14/24 09:51 [facility] [id number]) Physical Therapy Assessment Goals Three Impairment left knee swelling and increased warmth Channel Man Goal (LTG) decrease left knee swelling and eliminate temperature variance as evidence of decreased swelling left knee for improved left knee function LTG Duration 05/13/24 Two Impairment weakness and decreased flexibility left LE Short Term Goal (STG) Patient will be instructed in HEP for purposes of flexibility and strengthening to address impairments and support therapy activities STG Duration 04/12/24 Channel Man Goal (LTG) Patient will be independent and compliant with HEP and demonstrate improved strength to 5/5 and improvements in flexibility to WNL to allow for improved knee function LTG Duration 05/13/24 One Impairment Patient unable to go for walks or ascend/descend stairs alternating LE's Short Term Goal (STG) Patient will be able to walk for at least 15 minute without knee pain STG Duration 04/12/24 Long-Term Goal (LTG) Patient will be able to walk for at least 30 min and ascend and descend stairs with alternating pattern with minimal to no pain. LTG Duration 05/13/24 Assessment Summary Assessment Pt improved hip hinge front mirror with cuing for knees behind toes like sitting in chair and lunges hip hinge with good feedback carryover assimulation picking up after his dog. Able to touch the floor better with better stability and less to no back tension. Physical Therapy Plan Frequency and Duration Frequency of Treatment 2x/Week Duration of treatment (weeks) 8 Plan of Care Start Date 03/13/24 Plan of Care End Date 05/13/24 Therapeutic Interventions Therapeutic Interventions Gait Training,Home Exercise Program,Manual Therapy, Neuromuscular Re-education, Patient/Caregiver Education, Self-Care/Home Management,Soft Tissue Mobilization,Taping, Therapeutic Activities, Therapeutic Exercises Modalities Cold Pack/Ice Massage,Electric Stimulation,Hot Packs, Infrared Therapy,Iontophoresis ,Ultrasound Next Visit Focus/Plan Next Note Type Treatment Note Next Visit Plan ASsess response use of massage roller IT band and distal quad. Emphasis LE neutral alignment, tracking of knee toward center of foot. Further stair training, shallow squats with visual feedback. Consider lunges.
--- NOTE | 2024-04-18 09:02 | PT.OTN ---
Current Diagnoses Unilateral primary osteoarthritis, right knee (04/18/24) Unspecified osteoarthritis, unspecified site (04/18/24) Pain in right knee (04/18/24) Pain in left knee (04/18/24) Difficulty in walking, not elsewhere classified (04/18/24) Weakness (04/18/24) Physical Therapy Treatment Note PT-OP-A Visit Information Start: 03/09/24 17:24 Freq: Status: Active Protocol: Document 04/18/24 08:09 [facility] (Rec: 04/18/24 09:01 [facility] [id number]) Out-Patient Physical Therapy Visit Information Visit Information Visit Type Treatment Note Visit Start Time 08:15 Visit Stop Time 09:00 Visit Number 9 Number of MEDICAL PLANNER Visits 0 Evaluation Information Evaluation Date 03/13/24 Precautions Precautions cardiac; aortic valve replacement 1 year ago, on Cardiac Rehab maintenance program 2x/wk PT-OP-B Current Condition Start: 03/09/24 17:24 Freq: Status: Active Protocol: Document 04/18/24 08:09 [facility] (Rec: 04/18/24 09:01 [facility] [id number]) Current Condition History of Current Condition Onset Date 2 months Current Complaints left knee pain, swelling, loss of function. History of Current Condition Unsure what happened, started hurting medial left knee about 2 months ago, started favoring left knee, saw orthopedic surgeon. Diagnosis arthritis per [facility] at [facility]. Reports knee gets warm and swells at times. Was taking Alleve, used ice. Better than it was. Prior history right knee pain. Was a dedicated walker until this happened. Only possible cause patient can recall was working on boat without knee pads, playing with his anchor, to get it to catch prior to onset of knee pain. Heart valve (aorta) replaced about a year ago. For exercise right now 2x/wk does maintenance cardiac rehab; some pain on treadmill so hasn 't been walking much. Better tolerance for rowing machine. Likes elliptical. Prior Treatments and Tests x-ray: no results available but patient reports arthritis. PT-OP-C Subjective Start: 03/09/24 17:24 Freq: Status: Active Protocol: Document 04/18/24 08:09 [facility] (Rec: 04/18/24 09:01 [facility] [id number]) OP-PT Subjective Patient Comments Patient Comments Was at cardiac rehab today. Feels getting better, but it takes awhile. PT-OP-G Mobility & Gait Start: 03/09/24 17:24 Freq: Status: Active Protocol: Document 03/13/24 09:48 [facility] (Rec: 03/13/24 13:52 [facility] [id number]) OP Gait Assessment Gait Gait Assistance Required: Independent Assistive Devices Assistive Device None Gait Deviations General Gait Pattern Antalgic Stair Climbing Evaluation Evaluation Level of Assist On Stairs Independent Devices Stair Climbing Assistive Devices Left Railing,Right Railing Technique/Endurance Stair Climbing Technique Step to Step PT-OP-H Neuro Start: 03/09/24 17:24 Freq: Status: Active Protocol: Document 03/13/24 09:48 [facility] (Rec: 03/13/24 13:52 [facility] [id number]) Sensation Evaluation Gross Sensation Gross Sensation WNL PT-OP-J Posture/Palpation/Skin Start: 03/09/24 17:24 Freq: Status: Active Protocol: Document 03/13/24 09:48 [facility] (Rec: 03/13/24 13:52 [facility] [id number]) Posture Evaluation Position Standing Knee Posture (L) Genu Varus,(R) Genu Varus Foot Arch (L) Low Arch,(R) Low Arch Comments Posture Comments bunion right greater than left excess wear lateral soles of NB tennis shoes left greater than right PT-OP-K Range of Motion Start: 03/09/24 17:24 Freq: Status: Active Protocol: Document 03/13/24 09:48 [facility] (Rec: 03/13/24 13:56 [facility] [id number]) Hip Goniometric Range of Motion Hip Left Straight Leg Raise 55 Extension 0 Internal Rotation 20 External Rotation 45 right Straight Leg Raise 55 Extension 0 Internal Rotation 15 External Rotation 30 Knee Goniometric Range of Motion Knee Left Flexion Active (degrees) 131 Extension Active (degrees) 0 Right Knee ROM WFL Yes Ankle and Foot Goniometric Range of Motion Ankle and Foot adilene Dorsiflexion with Knee Flexed 5 Dorsiflexion with Knee Extended 0 PT-OP-M Strength Start: 03/09/24 17:24 Freq: Status: Active Protocol: Document 03/13/24 09:48 [facility] (Rec: 03/13/24 13:56 [facility] [id number]) Hip Strength Hip Manual Muscle Testing [place] Flexion (L2) 4+ Good+ Extension (S1) 4- Good- Abduction 4 Good External Rotation 4 Good Internal Rotation 4 Good Knee Strength Knee Manual Muscle Testing Right Flexion (S2) 5 Normal Extension (L3) 5 Normal Left Flexion (S2) 4+ Good+ Extension (L3) 4+ Good+ Ankle/Foot Strength Ankle and Foot Manual Muscle Testing [place] Dorsiflexion (L4) 5 Normal Plantarflexion (S1) 5 Normal PT-OP-Q Treatments Start: 03/09/24 17:24 Freq: Status: Active Protocol: Document 04/18/24 08:09 [facility] (Rec: 04/18/24 09:01 [facility] [id number]) Gym Equipment Cable Column (Body Solid) unil hamstring curl Details improved foot EV neutral Resistance 25 Reps/Time 10x2 hamstring cur Details cuing to pull feet back as far as possible Resistance 45 Reps/Time 10x2 Shuttle Recovery Unilateral Squats Resistance 37 Shuttle Recovery Platform Stable Reps/Time 10x Shuttle Balance chains red Details balance and weight shift AP, side, head turns Therapeutic Exercises Standing Exercises SLS Reps/Minutes 3x ea Hip ext Resistance L2 TB Reps/Minutes 10x resisted sidestepping Resistance L2 TB Reps/Minutes 10' adil[place] x 2 mini lunges Standing Exercise Name added to HEP Side bilateral Equipment Used rail > no rail (assimulation picking up after dog) Reps/Minutes 5 reps each side x2 sets Comments more range L ft fwd. shallow squat Standing Exercise Name squat- added to HEP Equipment Used chair behind for buttocks back target Reps/Minutes x10 Comments cued hip hinge, less tension on knees heel raise Equipment Used stair Reps/Minutes 10x gastroc stretch Equipment Used stair Reps/Minutes 2x30 Comments cues for upright posture, straight foot Other Exercises self STMs Other Exercise Name rolling: quad primarily, ITB, HS, calf Side bilateral Reps/Minutes 3 min end tx Comments good feedback lessened tightness L thigh Gait Training Gait Activity stairs Surface 4 stairs Distance/Duration 2 flights 10 stairs Treatment Focus knees tracking middle of foot, gluteal activation, slow eccentric lower Comments requires light contact rail descending, ed hip hinge into knee eccentric flexion less last 1/2 quick heel strike. Cued increased stride for heel clearance. Manual Therapy Treatment Soft Tissue Mobilization distal quad, IT band Body Location L Intensity/Depth Moderate Body Position Hooklying Comments self massage, rolling pin review Taping left knee Treatment Focus 3 Y strips Type of Tape Kinesiotape Skin Inspection WNL Comments 1 to facil patellar glide 2 peripatellar; one starting superior, one starting inferior PT-OP-R Modalities Start: 03/09/24 17:24 Freq: Status: Active Protocol: Document 03/15/24 09:47 [facility] (Rec: 03/15/24 10:38 [facility] [id number]) Electric Stimulation Electric Stimulation Interferential Current (IFC) Body Location L knee Intensity 26 Target/Sweep Sweep Patient Position Hooklying Combined With Heat/Cold Cold Pack PT-OP-T Assessment and Plan Start: 03/09/24 17:24 Freq: Status: Active Protocol: Document 04/18/24 08:09 [facility] (Rec: 04/18/24 09:01 [facility] [id number]) Physical Therapy Assessment Goals Three Impairment left knee swelling and increased warmth Social Worker Assistant Goal (LTG) decrease left knee swelling and eliminate temperature variance as evidence of decreased swelling left knee for improved left knee function LTG Duration 05/13/24 Two Impairment weakness and decreased flexibility left LE Short Term Goal (STG) Patient will be instructed in HEP for purposes of flexibility and strengthening to address impairments and support therapy activities STG Duration 04/12/24 Half-Way Goal (LTG) Patient will be independent and compliant with HEP and demonstrate improved strength to 5/5 and improvements in flexibility to WNL to allow for improved knee function LTG Duration 05/13/24 One Impairment Patient unable to go for walks or ascend/descend stairs alternating LE's Short Term Goal (STG) Patient will be able to walk for at least 15 minute without knee pain STG Duration 04/12/24 Half-Way Goal (LTG) Patient will be able to walk for at least 30 min and ascend and descend stairs with alternating pattern with minimal to no pain. LTG Duration 05/13/24 Progress Towards Goals Progress Towards Goals Progressing Toward Goals Assessment Summary Assessment LE alignment with chair squats , hip ext with use of mirror. Improved functional strength, increased resistance on hamstring curl. Physical Therapy Plan Frequency and Duration Frequency of Treatment 2x/Week Duration of treatment (weeks) 8 Plan of Care Start Date 03/13/24 Plan of Care End Date 05/13/24 Therapeutic Interventions Therapeutic Interventions Gait Training,Home Exercise Program,Manual Therapy, Neuromuscular Re-education, Patient/Caregiver Education, Self-Care/Home Management,Soft Tissue Mobilization,Taping, Therapeutic Activities, Therapeutic Exercises Modalities Cold Pack/Ice Massage,Electric Stimulation,Hot Packs, Infrared Therapy,Iontophoresis ,Ultrasound Next Visit Focus/Plan Next Note Type Progress Note Next Visit Plan Closed chain strengthening with visual feedback, emphasis neutral LE alignment and muscle activation sequencing.
--- NOTE | 2024-04-24 08:59 | PT.OTN ---
Current Diagnoses Unilateral primary osteoarthritis, right knee (04/24/24) Unspecified osteoarthritis, unspecified site (04/24/24) Pain in right knee (04/24/24) Pain in left knee (04/24/24) Difficulty in walking, not elsewhere classified (04/24/24) Weakness (04/24/24) Physical Therapy Treatment Note PT-OP-A Visit Information Start: 03/09/24 17:24 Freq: Status: Active Protocol: Document 04/24/24 08:05 [facility] (Rec: 04/24/24 08:59 [facility] [id number]) Out-Patient Physical Therapy Visit Information Visit Information Visit Type Treatment Note Visit Start Time 08:16 Visit Stop Time 08:43 Visit Number 10 Evaluation Information Evaluation Date 03/13/24 Precautions Precautions cardiac; aortic valve replacement 1 year ago, on Cardiac Rehab maintenance program 2x/wk PT-OP-B Current Condition Start: 03/09/24 17:24 Freq: Status: Active Protocol: Document 04/24/24 08:05 [facility] (Rec: 04/24/24 08:59 [facility] [id number]) Current Condition History of Current Condition Onset Date 2 months Current Complaints left knee pain, swelling, loss of function. History of Current Condition Unsure what happened, started hurting medial left knee about 2 months ago, started favoring left knee, saw orthopedic surgeon. Diagnosis arthritis per x-ray taken at [facility]. Reports knee gets warm and swells at times. Was taking Alleve, used ice. Better than it was. Prior history right knee pain. Was a dedicated walker until this happened. Only possible cause patient can recall was working on boat without knee pads, playing with his anchor, to get it to catch prior to onset of knee pain. Heart valve (aorta) replaced about a year ago. For exercise right now 2x/wk does maintenance cardiac rehab; some pain on treadmill so hasn 't been walking much. Better tolerance for rowing machine. Likes elliptical. Prior Treatments and Tests x-ray: no results available but patient reports arthritis. Prior Functional Status Baseline Function- ADL's Independent Baseline Function- Mobility Independent Baseline Function- Gait no limitations Baseline Function- Work/School retired [employer] Baseline Function- Recreation/Hobbies boating, walking PT-OP-C Subjective Start: 03/09/24 17:24 Freq: Status: Active Protocol: Document 04/18/24 08:09 [facility] (Rec: 04/18/24 09:01 [facility] [id number]) OP-PT Subjective Patient Comments Patient Comments Was at cardiac rehab today. Feels getting better, but it takes awhile. PT-OP-G Mobility & Gait Start: 03/09/24 17:24 Freq: Status: Active Protocol: Document 03/13/24 09:48 [facility] (Rec: 03/13/24 13:52 [facility] [id number]) OP Gait Assessment Gait Gait Assistance Required: Independent Assistive Devices Assistive Device None Gait Deviations General Gait Pattern Antalgic Stair Climbing Evaluation Evaluation Level of Assist On Stairs Independent Devices Stair Climbing Assistive Devices Left Railing,Right Railing Technique/Endurance Stair Climbing Technique Step to Step PT-OP-H Neuro Start: 03/09/24 17:24 Freq: Status: Active Protocol: Document 03/13/24 09:48 [facility] (Rec: 03/13/24 13:52 [facility] [id number]) Sensation Evaluation Gross Sensation Gross Sensation WNL PT-OP-J Posture/Palpation/Skin Start: 03/09/24 17:24 Freq: Status: Active Protocol: Document 03/13/24 09:48 [facility] (Rec: 03/13/24 13:52 [facility] [id number]) Posture Evaluation Position Standing Knee Posture (L) Genu Varus,(R) Genu Varus Foot Arch (L) Low Arch,(R) Low Arch Comments Posture Comments bunion right greater than left excess wear lateral soles of NB tennis shoes left greater than right PT-OP-K Range of Motion Start: 03/09/24 17:24 Freq: Status: Active Protocol: Document 03/13/24 09:48 [facility] (Rec: 03/13/24 13:56 [facility] [id number]) Hip Goniometric Range of Motion Hip Left Straight Leg Raise 55 Extension 0 Internal Rotation 20 External Rotation 45 right Straight Leg Raise 55 Extension 0 Internal Rotation 15 External Rotation 30 Knee Goniometric Range of Motion Knee Left Flexion Active (degrees) 131 Extension Active (degrees) 0 Right Knee ROM WFL Yes Ankle and Foot Goniometric Range of Motion Ankle and Foot [place] Dorsiflexion with Knee Flexed 5 Dorsiflexion with Knee Extended 0 PT-OP-M Strength Start: 03/09/24 17:24 Freq: Status: Active Protocol: Document 03/13/24 09:48 [facility] (Rec: 03/13/24 13:56 [facility] [id number]) Hip Strength Hip Manual Muscle Testing [place] Flexion (L2) 4+ Good+ Extension (S1) 4- Good- Abduction 4 Good External Rotation 4 Good Internal Rotation 4 Good Knee Strength Knee Manual Muscle Testing Right Flexion (S2) 5 Normal Extension (L3) 5 Normal Left Flexion (S2) 4+ Good+ Extension (L3) 4+ Good+ Ankle/Foot Strength Ankle and Foot Manual Muscle Testing [place] Dorsiflexion (L4) 5 Normal Plantarflexion (S1) 5 Normal PT-OP-Q Treatments Start: 03/09/24 17:24 Freq: Status: Active Protocol: Document 04/24/24 08:05 [facility] (Rec: 04/24/24 08:59 [facility] [id number]) Cardio Equipment Recumbent Stepper (Sci-Fit) Duration (Minutes) 8 Resistance 2.5 Seat Position 12 Gym Equipment Cable Column (Body Solid) unil hamstring curl Details improved foot EV neutral Resistance 25 Reps/Time 10x2 hamstring cur Details cuing to pull feet back as far as possible Resistance 45 Reps/Time 10x2 Therapeutic Exercises Sitting Exercises hamstring stretch Reps/Minutes 2x30 Comments cues for hip hinge. Standing Exercises resisted sidestepping Resistance L2 TB Reps/Minutes 10' [place] x 2 mini lunges Side bilateral Equipment Used rail > no rail Reps/Minutes 5 reps each side x2 sets Comments more range L ft fwd. shallow squat Standing Exercise Name chair squat with ball squeeze (green ball) Equipment Used chair behind for buttocks back target Reps/Minutes x10 Comments cued hip hinge, less tension on knees heel raise Equipment Used stair Reps/Minutes 10x quad stretch Equipment Used chair Reps/Minutes 2x30 Gait Training Gait Activity stairs Surface 4 stairs Distance/Duration 2 flights 10 stairs Treatment Focus knees tracking middle of foot, gluteal activation, slow eccentric lower Comments requires light contact rail descending, ed hip hinge into knee eccentric flexion less last 1/2 quick heel strike. Cued increased stride for heel clearance. Manual Therapy Treatment Soft Tissue Mobilization distal quad, IT band Body Location L Intensity/Depth Moderate Body Position Hooklying Taping left knee Treatment Focus 3 Y strips Type of Tape Kinesiotape Skin Inspection WNL Comments 1 to facil patellar glide 2 peripatellar; one starting superior, one starting inferior PT-OP-R Modalities Start: 03/09/24 17:24 Freq: Status: Active Protocol: Document 03/15/24 09:47 [facility] (Rec: 03/15/24 10:38 [facility] [id number]) Electric Stimulation Electric Stimulation Interferential Current (IFC) Body Location L knee Intensity 26 Target/Sweep Sweep Patient Position Hooklying Combined With Heat/Cold Cold Pack PT-OP-T Assessment and Plan Start: 03/09/24 17:24 Freq: Status: Active Protocol: Document 04/24/24 08:05 [facility] (Rec: 04/24/24 08:59 [facility] [id number]) Physical Therapy Assessment Goals Three Impairment left knee swelling and increased warmth Community Center Director Goal (LTG) decrease left knee swelling and eliminate temperature variance as evidence of decreased swelling left knee for improved left knee function 04/24/24: good goal progress LTG Duration 05/13/24 Two Impairment weakness and decreased flexibility left LE Short Term Goal (STG) Patient will be instructed in HEP for purposes of flexibility and strengthening to address impairments and support therapy activities 04/24/24: goal met STG Duration goal met Community Center Director Goal (LTG) Patient will be independent and compliant with HEP and demonstrate improved strength to 5/5 and improvements in flexibility to WNL to allow for improved knee function LTG Duration 05/13/24 One Impairment Patient unable to go for walks or ascend/descend stairs alternating LE's Short Term Goal (STG) Patient will be able to walk for at least 15 minute without knee pain 04/24/24: goal met STG Duration goal met Community Center Director Goal (LTG) Patient will be able to walk for at least 30 min and ascend and descend stairs with alternating pattern with minimal to no pain. LTG Duration 05/13/24 Progress Towards Goals Progress Towards Goals Progressing Toward Goals Assessment Summary Assessment LEFS score 83%. Pain dec to . Good goal progress. Has good potential to fully reach goal. Physical Therapy Plan Frequency and Duration Frequency of Treatment 2x/Week Duration of treatment (weeks) 8 Plan of Care Start Date 03/13/24 Plan of Care End Date 05/13/24 Therapeutic Interventions Therapeutic Interventions Gait Training,Home Exercise Program,Manual Therapy, Neuromuscular Re-education, Patient/Caregiver Education, Self-Care/Home Management,Soft Tissue Mobilization,Taping, Therapeutic Activities, Therapeutic Exercises Modalities Cold Pack/Ice Massage,Electric Stimulation,Hot Packs, Infrared Therapy,Iontophoresis ,Ultrasound Next Visit Focus/Plan Next Note Type Treatment Note Next Visit Plan Continue with closed chain strengthening with visual feedback, emphasis neutral LE alignment and muscle activation sequencing.
--- NOTE | 2024-04-28 08:21 | PT.OTN ---
Current Diagnoses Unilateral primary osteoarthritis, right knee (04/28/24) Unspecified osteoarthritis, unspecified site (04/28/24) Pain in right knee (04/28/24) Pain in left knee (04/28/24) Difficulty in walking, not elsewhere classified (04/28/24) Weakness (04/28/24) Physical Therapy Treatment Note PT-OP-A Visit Information Start: 03/09/24 17:24 Freq: Status: Active Protocol: Document 04/28/24 07:31 SP (Rec: 04/28/24 08:24 SP [id number]) Out-Patient Physical Therapy Visit Information Visit Information Visit Type Treatment Note Visit Start Time 07:31 Visit Stop Time 08:21 Visit Number 11 (06/12 PN) Number of EPOXY SPECIALIST Visits 1 Evaluation Information Evaluation Date 03/13/24 Precautions Precautions cardiac; aortic valve replacement 1 year ago, on Cardiac Rehab maintenance program 2x/wk PT-OP-B Current Condition Start: 03/09/24 17:24 Freq: Status: Active Protocol: Document 04/24/24 08:05 SAK (Rec: 04/24/24 08:59 SAK [id number]) Current Condition History of Current Condition Onset Date 2 months Current Complaints left knee pain, swelling, loss of function. History of Current Condition Unsure what happened, started hurting medial left knee about 2 months ago, started favoring left knee, saw orthopedic surgeon. Diagnosis arthritis per x-ray taken at [facility]. Reports knee gets warm and swells at times. Was taking Alleve, used ice. Better than it was. Prior history right knee pain. Was a dedicated walker until this happened. Only possible cause patient can recall was working on boat without knee pads, playing with his anchor, to get it to catch prior to onset of knee pain. Heart valve (aorta) replaced about a year ago. For exercise right now 2x/wk does maintenance cardiac rehab; some pain on treadmill so hasn 't been walking much. Better tolerance for rowing machine. Likes elliptical. Prior Treatments and Tests x-ray: no results available but patient reports arthritis. 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 States stiff when wakes up. He states goes to bed early and wakes up about 3 times per night (has enlarged prostate and followed by urologist), sleeps with him and wakes up early. States doesn't feel his balance is as good as would like. PT-OP-G Mobility & Gait Start: 03/09/24 17:24 Freq: Status: Active Protocol: Document 03/13/24 09:48 SAK (Rec: 03/13/24 13:52 [facility] [id number]) OP Gait Assessment Gait Gait Assistance Required: Independent Assistive Devices Assistive Device None Gait Deviations General Gait Pattern Antalgic Stair Climbing Evaluation Evaluation Level of Assist On Stairs Independent Devices Stair Climbing Assistive Devices Left Railing,Right Railing Technique/Endurance Stair Climbing Technique Step to Step PT-OP-H Neuro Start: 03/09/24 17:24 Freq: Status: Active Protocol: Document 03/13/24 09:48 SAK (Rec: 03/13/24 13:52 [facility] [id number]) Sensation Evaluation Gross Sensation Gross Sensation WNL PT-OP-J Posture/Palpation/Skin Start: 03/09/24 17:24 Freq: Status: Active Protocol: Document 03/13/24 09:48 SAK (Rec: 03/13/24 13:52 SAK [id number]) Posture Evaluation Position Standing Knee Posture (L) Genu Varus,(R) Genu Varus Foot Arch (L) Low Arch,(R) Low Arch Comments Posture Comments bunion right greater than left excess wear lateral soles of NB tennis shoes left greater than right PT-OP-K Range of Motion Start: 03/09/24 17:24 Freq: Status: Active Protocol: Document 03/13/24 09:48 SAK (Rec: 03/13/24 13:56 SAK [id number]) Hip Goniometric Range of Motion Hip Left Straight Leg Raise 55 Extension 0 Internal Rotation 20 External Rotation 45 right Straight Leg Raise 55 Extension 0 Internal Rotation 15 External Rotation 30 Knee Goniometric Range of Motion Knee Left Flexion Active (degrees) 131 Extension Active (degrees) 0 Right Knee ROM WFL Yes Ankle and Foot Goniometric Range of Motion Ankle and Foot ad[place] Dorsiflexion with Knee Flexed 5 Dorsiflexion with Knee Extended 0 PT-OP-M Strength Start: 03/09/24 17:24 Freq: Status: Active Protocol: Document 03/13/24 09:48 SAK (Rec: 03/13/24 13:56 SAK [id number]) Hip Strength Hip Manual Muscle Testing [place] Flexion (L2) 4+ Good+ Extension (S1) 4- Good- Abduction 4 Good External Rotation 4 Good Internal Rotation 4 Good Knee Strength Knee Manual Muscle Testing Right Flexion (S2) 5 Normal Extension (L3) 5 Normal Left Flexion (S2) 4+ Good+ Extension (L3) 4+ Good+ Ankle/Foot Strength Ankle and Foot Manual Muscle Testing [place] Dorsiflexion (L4) 5 Normal Plantarflexion (S1) 5 Normal PT-OP-Q Treatments Start: 03/09/24 17:24 Freq: Status: Active Protocol: Document 04/28/24 07:31 SP (Rec: 04/28/24 08:24 SP [id number]) Gym Equipment Cable Column (Body Solid) unil hamstring curl Details improved foot EV neutral Resistance 25 Reps/Time 15x2 hamstring cur Details cuing to pull feet back as far as possible Resistance 45>50 Reps/Time 10x2 Therapeutic Exercises Standing Exercises step ups Standing Exercise Name added to HEP: lateral Side bilateral Equipment Used 6 step, rail support Reps/Minutes 10 each LE Comments cued knee tracking mid foot and resisted sidestepping Standing Exercise Name added to HEP Side bilateral Resistance L2 TB at shins Reps/Minutes 10ft [place] x 2 Comments cued near rail not contact, impr ft clearance & bal HS stretch Side bilateral Equipment Used standing holding machine back rest, hip hinge /c & /s AP Reps/Minutes 30 each, AP x10 1 set each Comments between Single HS machine- recovery cramp quad stretch Equipment Used foot behind on chair, contact cable machine Reps/Minutes 2x30 Comments post cable HS curls gastroc stretch Equipment Used stair vs lunge stance (ed for when out for walk contact street sign/tree) Reps/Minutes 2x30 Comments cues for upright posture, straight foot Manual Therapy Treatment Consent Patient gave verbal consent for manual Yes treatment Taping left knee Treatment Focus 3 Y strips Type of Tape Kinesiotape Skin Inspection WNL Comments 1 to facil patellar glide 2 peripatellar; one starting superior, one starting inferior PT-OP-R Modalities Start: 03/09/24 17:24 Freq: Status: Active Protocol: Document 03/15/24 09:47 SAK (Rec: 03/15/24 10:38 SAK [id number]) Electric Stimulation Electric Stimulation Interferential Current (IFC) Body Location L knee Intensity 26 Target/Sweep Sweep Patient Position Hooklying Combined With Heat/Cold Cold Pack PT-OP-T Assessment and Plan Start: 03/09/24 17:24 Freq: Status: Active Protocol: Document 04/28/24 07:31 SP (Rec: 04/28/24 08:24 SP [id number]) Physical Therapy Assessment Goals Three Impairment left knee swelling and increased warmth Care Home Goal (LTG) decrease left knee swelling and eliminate temperature variance as evidence of decreased swelling left knee for improved left knee function 04/24/24: good goal progress LTG Duration 05/13/24 Two Impairment weakness and decreased flexibility left LE Short Term Goal (STG) Patient will be instructed in HEP for purposes of flexibility and strengthening to address impairments and support therapy activities 04/24/24: goal met STG Duration goal met [place] Goal (LTG) Patient will be independent and compliant with HEP and demonstrate improved strength to 5/5 and improvements in flexibility to WNL to allow for improved knee function LTG Duration 05/13/24 One Impairment Patient unable to go for walks or ascend/descend stairs alternating LE's Short Term Goal (STG) Patient will be able to walk for at least 15 minute without knee pain 04/24/24: goal met STG Duration goal met Care Home Goal (LTG) Patient will be able to walk for at least 30 min and ascend and descend stairs with alternating pattern with minimal to no pain. LTG Duration 05/13/24 Assessment Summary Assessment Pt tolerated progressed resistance during ther ex today on machines. Continued knee and hip hinge alignment cues improved corrections with demo provided, able to progress lateral step down for LE strengthening. Good understanding stretching for flexibility ROM to knee improve endurance gait compliment. Reapplied with pt understanding how to reapply end tx. Physical Therapy Plan Frequency and Duration Frequency of Treatment 2x/Week Duration of treatment (weeks) 8 Plan of Care Start Date 03/13/24 Plan of Care End Date 05/13/24 Therapeutic Interventions Therapeutic Interventions Gait Training,Home Exercise Program,Manual Therapy, Neuromuscular Re-education, Patient/Caregiver Education, Self-Care/Home Management,Soft Tissue Mobilization,Taping, Therapeutic Activities, Therapeutic Exercises Modalities Cold Pack/Ice Massage,Electric Stimulation,Hot Packs, Infrared Therapy,Iontophoresis ,Ultrasound Next Visit Focus/Plan Next Note Type Treatment Note Next Visit Plan Recheck lateral step down and how reapply Ktaping needed. POC: Continue with closed chain strengthening with visual feedback, emphasis neutral LE alignment and muscle activation sequencing.
--- NOTE | 2024-05-02 11:30 | PT.OTN ---
Current Diagnoses Unilateral primary osteoarthritis, right knee (05/02/24) Unspecified osteoarthritis, unspecified site (05/02/24) Pain in right knee (05/02/24) Pain in left knee (05/02/24) Difficulty in walking, not elsewhere classified (05/02/24) Weakness (05/02/24) Physical Therapy Treatment Note PT-OP-A Visit Information Start: 03/09/24 17:24 Freq: Status: Active Protocol: Document 05/02/24 10:46 SP (Rec: 05/02/24 11:33 SP [id number]) Out-Patient Physical Therapy Visit Information Visit Information Visit Type Treatment Note Visit Start Time 10:46 Visit Stop Time 11:30 Visit Number 12 (07/10 PN) Number of POWER PLANT OPERATIONS MANAGER Visits 2 Evaluation Information Evaluation Date 03/13/24 Precautions Precautions cardiac; aortic valve replacement 1 year ago, on Cardiac Rehab maintenance program 2x/wk PT-OP-B Current Condition Start: 03/09/24 17:24 Freq: Status: Active Protocol: Document 04/24/24 08:05 SAK (Rec: 04/24/24 08:59 SAK [id number]) Current Condition History of Current Condition Onset Date 2 months Current Complaints left knee pain, swelling, loss of function. History of Current Condition Unsure what happened, started hurting medial left knee about 2 months ago, started favoring left knee, saw orthopedic surgeon. Diagnosis arthritis per x-ray taken at [facility]. Reports knee gets warm and swells at times. Was taking Alleve, used ice. Better than it was. Prior history right knee pain. Was a dedicated walker until this happened. Only possible cause patient can recall was working on boat without knee pads, playing with his anchor, to get it to catch prior to onset of knee pain. Heart valve (aorta) replaced about a year ago. For exercise right now 2x/wk does maintenance cardiac rehab; some pain on treadmill so hasn 't been walking much. Better tolerance for rowing machine. Likes elliptical. Prior Treatments and Tests x-ray: no results available but patient reports arthritis. 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 Wants to keep off and see how doing now without it. Is walking up to 30min now without knee pain. PT-OP-G Mobility & Gait Start: 03/09/24 17:24 Freq: Status: Active Protocol: Document 03/13/24 09:48 SAK (Rec: 03/13/24 13:52 SAK [id number]) OP Gait Assessment Gait Gait Assistance Required: Independent Assistive Devices Assistive Device None Gait Deviations General Gait Pattern Antalgic Stair Climbing Evaluation Evaluation Level of Assist On Stairs Independent Devices Stair Climbing Assistive Devices Left Railing,Right Railing Technique/Endurance Stair Climbing Technique Step to Step PT-OP-H Neuro Start: 03/09/24 17:24 Freq: Status: Active Protocol: Document 03/13/24 09:48 SAK (Rec: 03/13/24 13:52 SAK [id number]) Sensation Evaluation Gross Sensation Gross Sensation WNL PT-OP-J Posture/Palpation/Skin Start: 03/09/24 17:24 Freq: Status: Active Protocol: Document 03/13/24 09:48 SAK (Rec: 03/13/24 13:52 SAK [id number]) Posture Evaluation Position Standing Knee Posture (L) Genu Varus,(R) Genu Varus Foot Arch (L) Low Arch,(R) Low Arch Comments Posture Comments bunion right greater than left excess wear lateral soles of NB tennis shoes left greater than right PT-OP-K Range of Motion Start: 03/09/24 17:24 Freq: Status: Active Protocol: Document 03/13/24 09:48 SAK (Rec: 03/13/24 13:56 SAK [id number]) Hip Goniometric Range of Motion Hip Left Straight Leg Raise 55 Extension 0 Internal Rotation 20 External Rotation 45 right Straight Leg Raise 55 Extension 0 Internal Rotation 15 External Rotation 30 Knee Goniometric Range of Motion Knee Left Flexion Active (degrees) 131 Extension Active (degrees) 0 Right Knee ROM WFL Yes Ankle and Foot Goniometric Range of Motion Ankle and Foot [place] Dorsiflexion with Knee Flexed 5 Dorsiflexion with Knee Extended 0 PT-OP-M Strength Start: 03/09/24 17:24 Freq: Status: Active Protocol: Document 03/13/24 09:48 SAK (Rec: 03/13/24 13:56 SAK [id number]) Hip Strength Hip Manual Muscle Testing [place] Flexion (L2) 4+ Good+ Extension (S1) 4- Good- Abduction 4 Good External Rotation 4 Good Internal Rotation 4 Good Knee Strength Knee Manual Muscle Testing Right Flexion (S2) 5 Normal Extension (L3) 5 Normal Left Flexion (S2) 4+ Good+ Extension (L3) 4+ Good+ Ankle/Foot Strength Ankle and Foot Manual Muscle Testing [place] Dorsiflexion (L4) 5 Normal Plantarflexion (S1) 5 Normal PT-OP-Q Treatments Start: 03/09/24 17:24 Freq: Status: Active Protocol: Document 05/02/24 10:46 SP (Rec: 05/02/24 11:33 SP [id number]) Gym Equipment Cable Column (Body Solid) unil hamstring curl Details improved foot EV neutral Resistance 25 Reps/Time 15x2 hamstring cur Details cuing to pull feet back as far as possible Resistance 50 Reps/Time 15x2 Shuttle Recovery Unilateral Squats Resistance 37 Shuttle Recovery Platform Stable Reps/Time 10x Therapeutic Exercises Standing Exercises step ups Standing Exercise Name reviewed lateral Side bilateral Equipment Used 6 step, rail support Reps/Minutes 10 each LE Comments cued knee tracking mid foot and resisted sidestepping Standing Exercise Name Lateral HEP, added fwd & bwd Side bilateral Resistance L2 TB at shins Reps/Minutes 10ft [place] x 2 eacgh Comments cued near rail not contact needed, cued increase VELIA fwd/ bwd and COG foreft mini lunges Standing Exercise Name reviewed Side bilateral Equipment Used rail > no rail Reps/Minutes 5 reps each side x1 set end tx Comments more range L ft fwd. HS stretch Side bilateral Equipment Used contact rail at stairs: hip hinge /c & /s AP Reps/Minutes 30 each, AP x10 1 set each Comments hip hinge quad stretch Equipment Used foot behind on chair, contact cable machine Reps/Minutes 2x30 Comments pre machine LE strengthening use gastroc stretch Equipment Used bottom stair, rail support Reps/Minutes 2x30 Comments cues for upright posture, straight foot Gait Training Gait Activity stairs Surface 6 stairs Distance/Duration MAP bldg 28 stairs then 2 set 1 flitght 14 stairs Treatment Focus knees tracking middle of foot, gluteal activation, slow eccentric lower Comments initially slight hand glide descend then less then no UE support last set stairs post education and cues for wt shift into forefoot/toes. Neuro Re-Education Treatment Balance Activities uneven surface Details wt shifts then balance balloon act Surface foam, tilt board then added balloon Reps/Duration fwd/bwd/lateral 5 min total Comments feedback for COG over VELIA after stairs for more fwd COG use toes, improve no retro wt shif descending stability. PT-OP-R Modalities Start: 03/09/24 17:24 Freq: Status: Active Protocol: Document 03/15/24 09:47 SAK (Rec: 03/15/24 10:38 SAK [id number]) Electric Stimulation Electric Stimulation Interferential Current (IFC) Body Location L knee Intensity 26 Target/Sweep Sweep Patient Position Hooklying Combined With Heat/Cold Cold Pack PT-OP-T Assessment and Plan Start: 03/09/24 17:24 Freq: Status: Active Protocol: Document 05/02/24 10:46 SP (Rec: 05/02/24 11:33 SP [id number]) Physical Therapy Assessment Goals Three Impairment left knee swelling and increased warmth Log Inspector Goal (LTG) decrease left knee swelling and eliminate temperature variance as evidence of decreased swelling left knee for improved left knee function 04/24/24: good goal progress 05/02/24: reports hasn't notice swelling jsut weakness now. LTG Duration 05/13/24 goal met 05/02/24 Two Impairment weakness and decreased flexibility left LE Short Term Goal (STG) Patient will be instructed in HEP for purposes of flexibility and strengthening to address impairments and support therapy activities 04/24/24: goal met STG Duration goal met [facility] Goal (LTG) Patient will be independent and compliant with HEP and demonstrate improved strength to 5/5 and improvements in flexibility to WNL to allow for improved knee function LTG Duration 05/13/24 One Impairment Patient unable to go for walks or ascend/descend stairs alternating LE's Short Term Goal (STG) Patient will be able to walk for at least 15 minute without knee pain 04/24/24: goal met STG Duration goal met [facility] Goal (LTG) Patient will be able to walk for at least 30 min and ascend and descend stairs with alternating pattern with minimal to no pain. 05/02/24: Progressing: walking up to 30 min now without knee pain. LTG Duration 05/13/24 progressing 05/02/24 Assessment Summary Assessment Pt good tolerance to ther ex, extra time spent with education emphasis on COG more fwd into forefoot during resisted stepping, balance activities midline recovery and carryover during stability descending stairs improved not need use rail for support. Physical Therapy Plan Frequency and Duration Frequency of Treatment 2x/Week Duration of treatment (weeks) 8 Plan of Care Start Date 03/13/24 Plan of Care End Date 05/13/24 Therapeutic Interventions Therapeutic Interventions Gait Training,Home Exercise Program,Manual Therapy, Neuromuscular Re-education, Patient/Caregiver Education, Self-Care/Home Management,Soft Tissue Mobilization,Taping, Therapeutic Activities, Therapeutic Exercises Modalities Cold Pack/Ice Massage,Electric Stimulation,Hot Packs, Infrared Therapy,Iontophoresis ,Ultrasound Next Visit Focus/Plan Next Note Type Treatment Note Next Visit Plan PN during 05/10/24 appt. Recheck lateral step down and how reapply Ktaping if needed. POC: Continue with closed chain strengthening with visual feedback, emphasis neutral LE alignment and muscle activation sequencing.
--- NOTE | 2024-05-08 09:09 | PT.OTN ---
Current Diagnoses Unilateral primary osteoarthritis, right knee (05/08/24) Unspecified osteoarthritis, unspecified site (05/08/24) Pain in right knee (05/08/24) Pain in left knee (05/08/24) Difficulty in walking, not elsewhere classified (05/08/24) Weakness (05/08/24) Physical Therapy Treatment Note PT-OP-A Visit Information Start: 03/09/24 17:24 Freq: Status: Active Protocol: Document 05/08/24 08:10 [facility] (Rec: 05/08/24 09:09 [facility] [id number]) Out-Patient Physical Therapy Visit Information Visit Information Visit Type Treatment Note Visit Start Time 08:15 Visit Number 13 (07/10 PN) Number of FISH AGENT Visits 0 Evaluation Information Evaluation Date 03/13/24 Precautions Precautions cardiac; aortic valve replacement 1 year ago, on Cardiac Rehab maintenance program 2x/wk PT-OP-B Current Condition Start: 03/09/24 17:24 Freq: Status: Active Protocol: Document 05/08/24 08:10 [facility] (Rec: 05/08/24 09:09 [facility] [id number]) Current Condition History of Current Condition Onset Date 2 months Current Complaints left knee pain, swelling, loss of function. History of Current Condition Unsure what happened, started hurting medial left knee about 2 months ago, started favoring left knee, saw orthopedic surgeon. Diagnosis [facility]. Reports knee gets warm and swells at times. Was taking Alleve, used ice. Better than it was. Prior history right knee pain. Was a dedicated walker until this happened. Only possible cause patient can recall was working on boat without knee pads, playing with his anchor, to get it to catch prior to onset of knee pain. Heart valve (aorta) replaced about a year ago. For exercise right now 2x/wk does maintenance cardiac rehab; some pain on treadmill so hasn 't been walking much. Better tolerance for rowing machine. Likes elliptical. Prior Treatments and Tests x-ray: no results available but patient reports arthritis. PT-OP-C Subjective Start: 03/09/24 17:24 Freq: Status: Active Protocol: Document 05/08/24 08:10 [facility] (Rec: 05/08/24 09:09 [facility] [id number]) OP-PT Subjective Patient Comments Patient Comments Reports knee 50% better than when started PT. Hasn't tried KT tape himself yet. PT-OP-G Mobility & Gait Start: 03/09/24 17:24 Freq: Status: Active Protocol: Document 03/13/24 09:48 [facility] (Rec: 03/13/24 13:52 [facility] [id number]) OP Gait Assessment Gait Gait Assistance Required: Independent Assistive Devices Assistive Device None Gait Deviations General Gait Pattern Antalgic Stair Climbing Evaluation Evaluation Level of Assist On Stairs Independent Devices Stair Climbing Assistive Devices Left Railing,Right Railing Technique/Endurance Stair Climbing Technique Step to Step PT-OP-H Neuro Start: 03/09/24 17:24 Freq: Status: Active Protocol: Document 03/13/24 09:48 [facility] (Rec: 03/13/24 13:52 [facility] [id number]) Sensation Evaluation Gross Sensation Gross Sensation WNL PT-OP-J Posture/Palpation/Skin Start: 03/09/24 17:24 Freq: Status: Active Protocol: Document 03/13/24 09:48 [facility] (Rec: 03/13/24 13:52 [facility] [id number]) Posture Evaluation Position Standing Knee Posture (L) Genu Varus,(R) Genu Varus Foot Arch (L) Low Arch,(R) Low Arch Comments Posture Comments bunion right greater than left excess wear lateral soles of NB tennis shoes left greater than right PT-OP-K Range of Motion Start: 03/09/24 17:24 Freq: Status: Active Protocol: Document 03/13/24 09:48 [facility] (Rec: 03/13/24 13:56 [facility] [id number]) Hip Goniometric Range of Motion Hip Left Straight Leg Raise 55 Extension 0 Internal Rotation 20 External Rotation 45 right Straight Leg Raise 55 Extension 0 Internal Rotation 15 External Rotation 30 Knee Goniometric Range of Motion Knee Left Flexion Active (degrees) 131 Extension Active (degrees) 0 Right Knee ROM WFL Yes Ankle and Foot Goniometric Range of Motion Ankle and Foot adilene Dorsiflexion with Knee Flexed 5 Dorsiflexion with Knee Extended 0 PT-OP-M Strength Start: 03/09/24 17:24 Freq: Status: Active Protocol: Document 03/13/24 09:48 [facility] (Rec: 03/13/24 13:56 [facility] [id number]) Hip Strength Hip Manual Muscle Testing adilene Flexion (L2) 4+ Good+ Extension (S1) 4- Good- Abduction 4 Good External Rotation 4 Good Internal Rotation 4 Good Knee Strength Knee Manual Muscle Testing Right Flexion (S2) 5 Normal Extension (L3) 5 Normal Left Flexion (S2) 4+ Good+ Extension (L3) 4+ Good+ Ankle/Foot Strength Ankle and Foot Manual Muscle Testing adilene Dorsiflexion (L4) 5 Normal Plantarflexion (S1) 5 Normal PT-OP-Q Treatments Start: 03/09/24 17:24 Freq: Status: Active Protocol: Document 05/08/24 08:10 [facility] (Rec: 05/08/24 09:09 [facility] [id number]) Cardio Equipment Recumbent Stepper (Sci-Fit) Duration (Minutes) 8 Resistance 3.9 Seat Position 12 Gym Equipment Cable Column (Body Solid) unil hamstring curl Details improved foot EV neutral Resistance 30 Reps/Time 10 hamstring cur Details cuing to pull feet back as far as possible Resistance 50 Reps/Time 15x2 Therapeutic Exercises Supine Exercises Cyril stretch Reps/Minutes 2x30 Comments side of table Standing Exercises mini lunges Standing Exercise Name reviewed Side bilateral Equipment Used no rail Reps/Minutes 5 reps each side HS stretch Side bilateral Equipment Used foot on chair Reps/Minutes 30 each, AP x10 1 set each Comments hip hinge quad stretch Equipment Used foot behind on chair Reps/Minutes 2x30 Comments pre machine LE strengthening use gastroc stretch Equipment Used CHANTELL Reps/Minutes 2x30 Comments cues for upright posture, straight foot Manual Therapy Treatment Soft Tissue Mobilization distal quad, IT band Body Location L Mobilization Type Instrument Assisted,Myofascial Release Intensity/Depth Moderate Body Position Hooklying PT-OP-R Modalities Start: 03/09/24 17:24 Freq: Status: Active Protocol: Document 03/15/24 09:47 [facility] (Rec: 03/15/24 10:38 [facility] [id number]) Electric Stimulation Electric Stimulation Interferential Current (IFC) Body Location L knee Intensity 26 Target/Sweep Sweep Patient Position Hooklying Combined With Heat/Cold Cold Pack PT-OP-T Assessment and Plan Start: 03/09/24 17:24 Freq: Status: Active Protocol: Document 05/08/24 08:10 [facility] (Rec: 05/08/24 09:09 [facility] [id number]) Physical Therapy Assessment Goals Two Impairment weakness and decreased flexibility left LE Short Term Goal (STG) Patient will be instructed in HEP for purposes of flexibility and strengthening to address impairments and support therapy activities 04/24/24: goal met STG Duration goal met Skilled Nursing Goal (LTG) Patient will be independent and compliant with HEP and demonstrate improved strength to 5/5 and improvements in flexibility to WNL to allow for improved knee function LTG Duration 05/13/24 One Impairment Patient unable to go for walks or ascend/descend stairs alternating LE's Short Term Goal (STG) Patient will be able to walk for at least 15 minute without knee pain 04/24/24: goal met STG Duration goal met Skilled Nursing Goal (LTG) Patient will be able to walk for at least 30 min and ascend and descend stairs with alternating pattern with minimal to no pain. 05/02/24: Progressing: walking up to 30 min now without knee pain. LTG Duration 05/13/24 progressing 05/02/24 Progress Towards Goals Progress Towards Goals Progressing Toward Goals Assessment Summary Assessment Continue progression of LE strengthening with emphasis on LE alignment, importance of regular stretching and self massage. given information reagarding obtaining own KT tape. Patient had hamstring cramp right LE today, patient reporting frequent cramps. Physical Therapy Plan Frequency and Duration Frequency of Treatment 2x/Week Duration of treatment (weeks) 8 Plan of Care Start Date 03/13/24 Plan of Care End Date 05/13/24 Therapeutic Interventions Therapeutic Interventions Gait Training,Home Exercise Program,Manual Therapy, Neuromuscular Re-education, Patient/Caregiver Education, Self-Care/Home Management,Soft Tissue Mobilization,Taping, Therapeutic Activities, Therapeutic Exercises Modalities Cold Pack/Ice Massage,Electric Stimulation,Hot Packs, Infrared Therapy,Iontophoresis ,Ultrasound Next Visit Focus/Plan Next Note Type Re-Evaluation Next Visit Plan Re-evaluation, progress closed chain functional exercises including lunges, squats, stairs as tolerated.
--- NOTE | 2024-05-10 09:02 | PT.OTRE ---
Current Diagnoses Unilateral primary osteoarthritis, right knee (05/10/24) Unspecified osteoarthritis, unspecified site (05/10/24) Pain in right knee (05/10/24) Pain in left knee (05/10/24) Difficulty in walking, not elsewhere classified (05/10/24) Weakness (05/10/24) Past Medical History (Last Updated 03/24/24 @ 11:23 by Rajan Cash MD) Aortic stenosis Arthritis BPH w urinary obs/LUTS CAD (coronary artery disease) (~2017) COVID-19 Degenerative joint disease of both hips Elevated PSA Enlarged prostate Erectile dysfunction Essential hypertension (03/29/15) Hematuria History of urinary retention Inguinal hernia of right side without obstruction or gangrene Mass (~10/2018) Mixed hyperlipidemia (03/29/15) Need for subacute bacterial endocarditis prophylaxis Right knee DJD Urinary frequency Surgical History (Last Updated 04/15/23 @ 06:53 by Rajan Cash MD) Hx of cardiac catheterization Hx of heart artery stent Hx of hernia repair (~05/2017) S/P right coronary artery (RCA) stent placement (~01/2018) S/P TAVR (transcatheter aortic valve replacement) (04/12/23) Visit Care Team Role Provider Type Rajan Cash MD Attending Provider Physician Family Provider Primary Care Provider Referring Provider Specialty: Internal Medicine Address: [address] [place] [address], [address], [facility] Email: [email or web address] Physical Therapy Re-Evaluation PT-OP-A Visit Information Start: 03/09/24 17:24 Freq: Status: Active Protocol: Document 05/10/24 08:10 [facility] (Rec: 05/10/24 09:01 [facility] [id number]) Out-Patient Physical Therapy Visit Information Visit Information Visit Type Treatment Note Visit Start Time 08:15 Visit Stop Time 09:00 Visit Number 14 (08/10 PN) Number of SENIOR CLINICAL RESEARCH ASSOCIATE Visits 0 Evaluation Information Evaluation Date 03/13/24 Precautions Precautions cardiac; aortic valve replacement 1 year ago, on Cardiac Rehab maintenance program 2x/wk PT-OP-B Current Condition Start: 03/09/24 17:24 Freq: Status: Active Protocol: Document 05/10/24 08:10 [facility] (Rec: 05/10/24 09:01 [facility] [id number]) Current Condition History of Current Condition Onset Date 2 months Current Complaints left knee pain, swelling, loss of function. History of Current Condition Unsure what happened, started hurting medial left knee about 2 months ago, started favoring left knee, saw orthopedic surgeon. Diagnosis arthritis per x-ray taken at [facility] surgeons. Reports knee gets warm and swells at times. Was taking Alleve, used ice. Better than it was. Prior history right knee pain. Was a dedicated walker until this happened. Only possible cause patient can recall was working on boat without knee pads, playing with his anchor, to get it to catch prior to onset of knee pain. Heart valve (aorta) replaced about a year ago. For exercise right now 2x/wk does maintenance cardiac rehab; some pain on treadmill so hasn 't been walking much. Better tolerance for rowing machine. Likes elliptical. Prior Treatments and Tests x-ray: no results available but patient reports arthritis. PT-OP-C Subjective Start: 03/09/24 17:24 Freq: Status: Active Protocol: Document 05/10/24 08:10 [facility] (Rec: 05/10/24 09:01 [facility] [id number]) OP-PT Subjective Patient Comments Patient Comments Thinking about joining a gym. PT-OP-G Mobility & Gait Start: 03/09/24 17:24 Freq: Status: Active Protocol: Document 03/13/24 09:48 [facility] (Rec: 03/13/24 13:52 [facility] [id number]) OP Gait Assessment Gait Gait Assistance Required: Independent Assistive Devices Assistive Device None Gait Deviations General Gait Pattern Antalgic Stair Climbing Evaluation Evaluation Level of Assist On Stairs Independent Devices Stair Climbing Assistive Devices Left Railing,Right Railing Technique/Endurance Stair Climbing Technique Step to Step PT-OP-H Neuro Start: 03/09/24 17:24 Freq: Status: Active Protocol: Document 03/13/24 09:48 [facility] (Rec: 03/13/24 13:52 [facility] [id number]) Sensation Evaluation Gross Sensation Gross Sensation WNL PT-OP-J Posture/Palpation/Skin Start: 03/09/24 17:24 Freq: Status: Active Protocol: Document 03/13/24 09:48 [facility] (Rec: 03/13/24 13:52 [facility] [id number]) Posture Evaluation Position Standing Knee Posture (L) Genu Varus,(R) Genu Varus Foot Arch (L) Low Arch,(R) Low Arch Comments Posture Comments bunion right greater than left excess wear lateral soles of NB tennis shoes left greater than right PT-OP-K Range of Motion Start: 03/09/24 17:24 Freq: Status: Active Protocol: Document 03/13/24 09:48 [facility] (Rec: 03/13/24 13:56 [facility] [id number]) Hip Goniometric Range of Motion Hip Measured in Degrees Left Straight Leg Raise 55 Extension 0 Internal Rotation 20 External Rotation 45 right Straight Leg Raise 55 Extension 0 Internal Rotation 15 External Rotation 30 Knee Goniometric Range of Motion Knee Measured in Degrees Left Flexion Active (degrees) 131 Extension Active (degrees) 0 Right Knee ROM WFL Yes Ankle and Foot Goniometric Range of Motion Ankle and Foot Measured in Degrees adilene Dorsiflexion with Knee Flexed 5 Dorsiflexion with Knee Extended 0 PT-OP-M Strength Start: 03/09/24 17:24 Freq: Status: Active Protocol: Document 03/13/24 09:48 [facility] (Rec: 03/13/24 13:56 [facility] [id number]) Hip Strength Hip Manual Muscle Testing adil[place] Flexion (L2) 4+ Good+ Extension (S1) 4- Good- Abduction 4 Good External Rotation 4 Good Internal Rotation 4 Good Knee Strength Knee Manual Muscle Testing Right Flexion (S2) 5 Normal Extension (L3) 5 Normal Left Flexion (S2) 4+ Good+ Extension (L3) 4+ Good+ Ankle/Foot Strength Ankle and Foot Manual Muscle Testing adilene Dorsiflexion (L4) 5 Normal Plantarflexion (S1) 5 Normal PT-OP-Q Treatments Start: 03/09/24 17:24 Freq: Status: Active Protocol: Document 05/10/24 08:10 [facility] (Rec: 05/10/24 09:01 [facility] [id number]) Cardio Equipment Recumbent Stepper (Sci-Fit) Duration (Minutes) 8 Resistance 3.9 Seat Position 12 Other first 4 min UE's and LE's, 2nd 4 min LE's only Gym Equipment Cable Column (Body Solid) unil hamstring curl Details improved foot EV neutral Resistance 30 Reps/Time 10 hamstring cur Details cuing to pull feet back as far as possible Resistance 50 Reps/Time 15x2 Therapeutic Exercises Supine Exercises Cyril stretch Reps/Minutes 2x30 Comments side of table IT band stretch Side bilateral Equipment Used strap Reps/Minutes 60 Comments cued breath hamstring stretch Supine Exercise Name 1. sustained stretch 2. towel /c AP Side bilateral Equipment Used strap Reps/Minutes 1. 60SH 2. AP x20 Comments improved decreased tension, improved bridge holds post- breath Standing Exercises resisted sidestepping Standing Exercise Name Lateral HEP, added fwd & bwd Side bilateral Resistance L2 TB at shins Reps/Minutes 10ft adilene x 2 eacgh Comments cued near rail not contact needed, cued increase VELIA fwd/ bwd and COG foreft mini lunges Standing Exercise Name reviewed Side bilateral Equipment Used no rail Reps/Minutes 5 reps each side sit to stand Equipment Used ball between knees, mirror Reps/Minutes 10x2 Comments cues for neutral alignment quad stretch Equipment Used foot behind on chair Reps/Minutes 2x30 Comments pre machine LE strengthening use gastroc stretch Standing Exercise Name and soleus Equipment Used CHANTELL Reps/Minutes 2x30 Comments cues for upright posture, straight foot Gait Training Gait Activity stairs Surface 6 stairs Distance/Duration MAP bldg 28 stairs then 2 set 1 flitght 14 stairs Treatment Focus knees tracking middle of foot, gluteal activation, slow eccentric lower Comments initially slight hand glide descend then less then no UE support last set stairs post education and cues for wt shift into forefoot/toes. Manual Therapy Treatment Soft Tissue Mobilization distal quad, IT band Body Location L Mobilization Type Instrument Assisted,Myofascial Release Intensity/Depth Moderate Body Position Hooklying PT-OP-R Modalities Start: 03/09/24 17:24 Freq: Status: Active Protocol: Document 03/15/24 09:47 [facility] (Rec: 03/15/24 10:38 [facility] [id number]) Electric Stimulation Electric Stimulation Interferential Current (IFC) Body Location L knee Intensity 26 Target/Sweep Sweep Patient Position Hooklying Combined With Heat/Cold Cold Pack PT-OP-T Assessment and Plan Start: 03/09/24 17:24 Freq: Status: Active Protocol: Document 05/10/24 08:10 [facility] (Rec: 05/10/24 09:01 [facility] [id number]) Physical Therapy Assessment Goals Two Impairment weakness and decreased flexibility left LE Short Term Goal (STG) Patient will be instructed in HEP for purposes of flexibility and strengthening to address impairments and support therapy activities 04/24/24: goal met STG Duration goal met [facility] Goal (LTG) Patient will be independent and compliant with HEP and demonstrate improved strength to 5/5 and improvements in flexibility to WNL to allow for improved knee function. 05/10/24: strength has improved to 4+/5 but min change in flexibility, patient not as compliant with flexibility exercises and tends to push too hard, needs continued work . LTG Duration 06/03/24 One Impairment Patient unable to go for walks or ascend/descend stairs alternating LE's Short Term Goal (STG) Patient will be able to walk for at least 15 minute without knee pain 04/24/24: goal met STG Duration goal met [employer] Goal (LTG) Patient will be able to walk for at least 30 min and ascend and descend stairs with alternating pattern with minimal to no pain. 05/02/24: Progressing: walking up to 30 min now without knee pain. Hasn't tried usual walk with elevation, has difficulty with eccentric control quads with descending stairs LTG Duration 06/03/24 Progress Towards Goals Progress Towards Goals Progressing Toward Goals Assessment Summary Assessment Good progress tsoward goals. Patient encouraged to try taking prior walk, improve compliance to HEP, pay attention to LE alignment with all functional activities due to significant genu varus. Physical Therapy Plan Frequency and Duration Frequency of Treatment 2x/Week Duration of treatment (weeks) 8 Plan of Care Start Date 03/13/24 Plan of Care End Date 05/13/24 Therapeutic Interventions Therapeutic Interventions Gait Training,Home Exercise Program,Manual Therapy, Neuromuscular Re-education, Patient/Caregiver Education, Self-Care/Home Management,Soft Tissue Mobilization,Taping, Therapeutic Activities, Therapeutic Exercises Modalities Cold Pack/Ice Massage,Electric Stimulation,Hot Packs, Infrared Therapy,Iontophoresis ,Ultrasound Next Visit Focus/Plan Next Note Type Treatment Note Next Visit Plan Continue ther ex for strengthening, flexibility, functional retraining to help patient return to prior level of function.
--- NOTE | 2024-05-10 09:03 | PT.OPPOC ---
Physical, Occupational & Speech Therapy At [facility] Current Diagnoses Unilateral primary osteoarthritis, right knee (05/10/24) Unspecified osteoarthritis, unspecified site (05/10/24) Pain in right knee (05/10/24) Pain in left knee (05/10/24) Difficulty in walking, not elsewhere classified (05/10/24) Weakness (05/10/24) Visit Care Team Role Provider Type Rajan Cash MD Attending Provider Physician Family Provider Primary Care Provider Referring Provider Specialty: Internal Medicine Address: [address] [place] [address], [address], [place], [facility] Email: [email or web address] Plan Of Care PT-OP-B Current Condition Start: 03/09/24 17:24 Freq: Status: Active Protocol: Document 05/10/24 08:10 [facility] (Rec: 05/10/24 09:01 [facility] [id number]) Current Condition History of Current Condition Onset Date 2 months Current Complaints left knee pain, swelling, loss of function. History of Current Condition Unsure what happened, started hurting medial left knee about 2 months ago, started favoring left knee, saw orthopedic surgeon. Diagnosis arthritis per x-ray taken at [facility]. Reports knee gets warm and swells at times. Was taking Alleve, used ice. Better than it was. Prior history right knee pain. Was a dedicated walker until this happened. Only possible cause patient can recall was working on boat without knee pads, playing with his anchor, to get it to catch prior to onset of knee pain. Heart valve (aorta) replaced about a year ago. For exercise right now 2x/wk does maintenance cardiac rehab; some pain on treadmill so hasn 't been walking much. Better tolerance for rowing machine. Likes elliptical. Prior Treatments and Tests x-ray: no results available but patient reports arthritis. PT-OP-T Assessment and Plan Start: 03/09/24 17:24 Freq: Status: Active Protocol: Document 05/10/24 08:10 [facility] (Rec: 05/10/24 09:01 [facility] [id number]) Physical Therapy Assessment Goals Two Impairment weakness and decreased flexibility left LE Short Term Goal (STG) Patient will be instructed in HEP for purposes of flexibility and strengthening to address impairments and support therapy activities 04/24/24: goal met STG Duration goal met Senior Application Security Consultant Goal (LTG) Patient will be independent and compliant with HEP and demonstrate improved strength to 5/5 and improvements in flexibility to WNL to allow for improved knee function. 05/10/24: strength has improved to 4+/5 but min change in flexibility, patient not as compliant with flexibility exercises and tends to push too hard, needs continued work . LTG Duration 06/03/24 One Impairment Patient unable to go for walks or ascend/descend stairs alternating LE's Short Term Goal (STG) Patient will be able to walk for at least 15 minute without knee pain 04/24/24: goal met STG Duration goal met Senior Application Security Consultant Goal (LTG) Patient will be able to walk for at least 30 min and ascend and descend stairs with alternating pattern with minimal to no pain. 05/02/24: Progressing: walking up to 30 min now without knee pain. Hasn't tried usual walk with elevation, has difficulty with eccentric control quads with descending stairs LTG Duration 06/03/24 Progress Towards Goals Progress Towards Goals Progressing Toward Goals Assessment Summary Assessment Good progress tsoward goals. Patient encouraged to try taking prior walk, improve compliance to HEP, pay attention to LE alignment with all functional activities due to significant genu varus. Physical Therapy Plan Frequency and Duration Frequency of Treatment 2x/Week Duration of treatment (weeks) 8 Plan of Care Start Date 03/13/24 Plan of Care End Date 05/13/24 Therapeutic Interventions Therapeutic Interventions Gait Training,Home Exercise Program,Manual Therapy, Neuromuscular Re-education, Patient/Caregiver Education, Self-Care/Home Management,Soft Tissue Mobilization,Taping, Therapeutic Activities, Therapeutic Exercises Modalities Cold Pack/Ice Massage,Electric Stimulation,Hot Packs, Infrared Therapy,Iontophoresis ,Ultrasound Next Visit Focus/Plan Next Note Type Treatment Note Next Visit Plan Continue ther ex for strengthening, flexibility, functional retraining to help patient return to prior level of function. Plan of Care Dates Plan of Care Start Date 03/13/24 Plan of Care End Date 05/13/24 Electronically Signed by: Vanessa Dove, PT 05/10/24 0903 If you are in agreement with this Plan of Care, please return a signed and dated copy. I have reviewed this Plan of Care and certify that the skilled therapy services above are required to meet the patient?s needs. Physician Signature Date Printed Name and Credentials Clinical Instructor Signature Printed Name and Credentials
--- NOTE | 2024-05-17 08:59 | PT.OTN ---
Current Diagnoses Unilateral primary osteoarthritis, right knee (05/17/24) Unspecified osteoarthritis, unspecified site (05/17/24) Pain in right knee (05/17/24) Pain in left knee (05/17/24) Difficulty in walking, not elsewhere classified (05/17/24) Weakness (05/17/24) Physical Therapy Treatment Note PT-OP-A Visit Information Start: 03/09/24 17:24 Freq: Status: Active Protocol: Document 05/17/24 08:11 [facility] (Rec: 05/17/24 08:59 [facility] [id number]) Out-Patient Physical Therapy Visit Information Visit Information Visit Type Treatment Note Visit Start Time 08:15 Visit Stop Time 09:00 Visit Number 15 (08/10 PN) 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 History of Current Condition Unsure what happened, started hurting medial left knee about 2 months ago, started favoring left knee, saw orthopedic surgeon. Diagnosis arthritis per x-ray taken at [facility]. Reports knee gets warm and swells at times. Was taking Alleve, used ice. Better than it was. Prior history right knee pain. Was a dedicated walker until this happened. Only possible cause patient can recall was working on boat without knee pads, playing with his anchor, to get it to catch prior to onset of knee pain. Heart valve (aorta) replaced about a year ago. For exercise right now 2x/wk does maintenance cardiac rehab; some pain on treadmill so hasn 't been walking much. Better tolerance for rowing machine. Likes elliptical. Prior Treatments and Tests x-ray: no results available but patient reports arthritis. PT-OP-C Subjective Start: 03/09/24 17:24 Freq: Status: Active Protocol: Document 05/17/24 08:11 [facility] (Rec: 05/17/24 08:59 [facility] [id number]) OP-PT Subjective Patient Comments Patient Comments Pain 2/10 over the past week. No pain if doesn't walk. Doesn't want to have surgery so committed to exercise, though still not doing stretching as much as I should. PT-OP-G Mobility & Gait Start: 03/09/24 17:24 Freq: Status: Active Protocol: Document 03/13/24 09:48 [facility] (Rec: 03/13/24 13:52 [facility] [id number]) OP Gait Assessment Gait Gait Assistance Required: Independent Assistive Devices Assistive Device None Gait Deviations General Gait Pattern Antalgic Stair Climbing Evaluation Evaluation Level of Assist On Stairs Independent Devices Stair Climbing Assistive Devices Left Railing,Right Railing Technique/Endurance Stair Climbing Technique Step to Step PT-OP-H Neuro Start: 03/09/24 17:24 Freq: Status: Active Protocol: Document 03/13/24 09:48 [facility] (Rec: 03/13/24 13:52 [facility] [id number]) Sensation Evaluation Gross Sensation Gross Sensation WNL PT-OP-J Posture/Palpation/Skin Start: 03/09/24 17:24 Freq: Status: Active Protocol: Document 03/13/24 09:48 [facility] (Rec: 03/13/24 13:52 [facility] [id number]) Posture Evaluation Position Standing Knee Posture (L) Genu Varus,(R) Genu Varus Foot Arch (L) Low Arch,(R) Low Arch Comments Posture Comments bunion right greater than left excess wear lateral soles of NB tennis shoes left greater than right PT-OP-K Range of Motion Start: 03/09/24 17:24 Freq: Status: Active Protocol: Document 03/13/24 09:48 [facility] (Rec: 03/13/24 13:56 [facility] [id number]) Hip Goniometric Range of Motion Hip Left Straight Leg Raise 55 Extension 0 Internal Rotation 20 External Rotation 45 right Straight Leg Raise 55 Extension 0 Internal Rotation 15 External Rotation 30 Knee Goniometric Range of Motion Knee Left Flexion Active (degrees) 131 Extension Active (degrees) 0 Right Knee ROM WFL Yes Ankle and Foot Goniometric Range of Motion Ankle and Foot adilene Dorsiflexion with Knee Flexed 5 Dorsiflexion with Knee Extended 0 PT-OP-M Strength Start: 03/09/24 17:24 Freq: Status: Active Protocol: Document 03/13/24 09:48 [facility] (Rec: 03/13/24 13:56 [facility] [id number]) Hip Strength Hip Manual Muscle Testing [place] Flexion (L2) 4+ Good+ Extension (S1) 4- Good- Abduction 4 Good External Rotation 4 Good Internal Rotation 4 Good Knee Strength Knee Manual Muscle Testing Right Flexion (S2) 5 Normal Extension (L3) 5 Normal Left Flexion (S2) 4+ Good+ Extension (L3) 4+ Good+ Ankle/Foot Strength Ankle and Foot Manual Muscle Testing adilene Dorsiflexion (L4) 5 Normal Plantarflexion (S1) 5 Normal PT-OP-Q Treatments Start: 03/09/24 17:24 Freq: Status: Active Protocol: Document 05/17/24 08:11 [facility] (Rec: 05/17/24 08:59 [facility] [id number]) Cardio Equipment Recumbent Stepper (Sci-Fit) Duration (Minutes) 10 Resistance 3.9-4.7 Seat Position 12 Other first 4 min UE's and LE's, 2nd 4 min LE's only Gym Equipment Cable Column (Body Solid) hip ab,ad Resistance 40, Reps/Time 10x2 unil hamstring curl Details improved foot EV neutral Resistance 30 Reps/Time 102 hamstring cur Details cuing to pull feet back as far as possible Resistance 50 Reps/Time 15x2 Shuttle Recovery Unilateral Squats Resistance 37 Shuttle Recovery Platform Stable Reps/Time 10x Bilateral Squats Details ball between knees Resistance 75 (3 navy bands) Shuttle Recovery Platform Stable Reps/Time 15x Therapeutic Exercises Supine Exercises IT band stretch Side bilateral Equipment Used strap Reps/Minutes 60 Comments cued breath hamstring stretch Supine Exercise Name 1. sustained stretch 2. towel /c AP Side bilateral Equipment Used strap Reps/Minutes 1. 60SH 2. AP x20 Comments improved decreased tension, improved bridge holds post- breath Standing Exercises mini lunges Standing Exercise Name reviewed Side bilateral Equipment Used no rail Reps/Minutes 5 reps each side Comments mirror for visual feedback HS stretch Side bilateral Equipment Used foot on chair Reps/Minutes 30 each, AP x10 1 set each Comments hip hinge sit to stand Equipment Used ball between knees, mirror Reps/Minutes 10x2 Comments cues for neutral alignment quad stretch Equipment Used foot behind on chair Reps/Minutes 2x30 Comments pre machine LE strengthening use gastroc stretch Standing Exercise Name and soleus Equipment Used CHANTELL Reps/Minutes 2x30 Comments cues for upright posture, straight foot Manual Therapy Treatment Soft Tissue Mobilization distal quad, IT band Body Location L Mobilization Type Instrument Assisted,Myofascial Release Intensity/Depth Moderate Body Position Hooklying PT-OP-R Modalities Start: 03/09/24 17:24 Freq: Status: Active Protocol: Document 03/15/24 09:47 [facility] (Rec: 03/15/24 10:38 [facility] [id number]) Electric Stimulation Electric Stimulation Interferential Current (IFC) Body Location L knee Intensity 26 Target/Sweep Sweep Patient Position Hooklying Combined With Heat/Cold Cold Pack PT-OP-T Assessment and Plan Start: 03/09/24 17:24 Freq: Status: Active Protocol: Document 05/17/24 08:11 [facility] (Rec: 05/17/24 08:59 [facility] [id number]) Physical Therapy Assessment Goals Two Impairment weakness and decreased flexibility left LE Short Term Goal (STG) Patient will be instructed in HEP for purposes of flexibility and strengthening to address impairments and support therapy activities 04/24/24: goal met STG Duration goal met Senior Living Goal (LTG) Patient will be independent and compliant with HEP and demonstrate improved strength to 5/5 and improvements in flexibility to WNL to allow for improved knee function. 05/10/24: strength has improved to 4+/5 but min change in flexibility, patient not as compliant with flexibility exercises and tends to push too hard, needs continued work . LTG Duration goal mostly met One Impairment Patient unable to go for walks or ascend/descend stairs alternating LE's Short Term Goal (STG) Patient will be able to walk for at least 15 minute without knee pain 04/24/24: goal met STG Duration goal met Senior Living Goal (LTG) Patient will be able to walk for at least 30 min and ascend and descend stairs with alternating pattern with minimal to no pain. 05/02/24: Progressing: walking up to 30 min now without knee pain. Hasn't tried usual walk with elevation, has difficulty with eccentric control quads with descending stairs 05/17/24: can now walk 1 mile, knee pain increases to 2/10 LTG Duration goal met Progress Towards Goals Progress Towards Goals Progressing Toward Goals Assessment Summary Assessment Patient has mostly met PT goals, independent with HEP, and planning to joint a gym. REviewed HEP and importance of neutral alignment, stretching when warm. Physical Therapy Plan Discharge Physical Therapy Discharge Reasons Goals Met
--- NOTE | 2024-05-17 08:59 | PT.OPDS ---
Current Diagnoses Unilateral primary osteoarthritis, right knee (05/17/24) Unspecified osteoarthritis, unspecified site (05/17/24) Pain in right knee (05/17/24) Pain in left knee (05/17/24) Difficulty in walking, not elsewhere classified (05/17/24) Weakness (05/17/24) Visit Care Team Role Provider Type Rajan Cash MD Attending Provider Physician Family Provider Primary Care Provider Referring Provider Specialty: Internal Medicine Address: [address] [place] [address], [address], [facility] Email: [email or web address] Visit Number Visit Number 15 (08/10 PN) Discharge Summary PT-OP-B Current Condition Start: 03/09/24 17:24 Freq: Status: Active Protocol: Document 05/17/24 08:11 [facility] (Rec: 05/17/24 08:59 [facility] [id number]) Current Condition History of Current Condition Onset Date 2 months Current Complaints left knee pain, swelling, loss of function. History of Current Condition Unsure what happened, started hurting medial left knee about 2 months ago, started favoring left knee, saw orthopedic surgeon. Diagnosis arthritis per x-ray taken at [facility]. Reports knee gets warm and swells at times. Was taking Alleve, used ice. Better than it was. Prior history right knee pain. Was a dedicated walker until this happened. Only possible cause patient can recall was working on boat without knee pads, playing with his anchor, to get it to catch prior to onset of knee pain. Heart valve (aorta) replaced about a year ago. For exercise right now 2x/wk does maintenance cardiac rehab; some pain on treadmill so hasn 't been walking much. Better tolerance for rowing machine. Likes elliptical. Prior Treatments and Tests x-ray: no results available but patient reports arthritis. PT-OP-C Subjective Start: 03/09/24 17:24 Freq: Status: Active Protocol: Document 05/17/24 08:11 [facility] (Rec: 05/17/24 08:59 [facility] [id number]) OP-PT Subjective Patient Comments Patient Comments Pain 2/10 over the past week. No pain if doesn't walk. Doesn't want to have surgery so committed to exercise, though still not doing stretching as much as I should. PT-OP-G Mobility & Gait Start: 03/09/24 17:24 Freq: Status: Active Protocol: Document 03/13/24 09:48 [facility] (Rec: 03/13/24 13:52 [facility] [id number]) OP Gait Assessment Gait Gait Assistance Required: Independent Assistive Devices Assistive Device None Gait Deviations General Gait Pattern Antalgic Stair Climbing Evaluation Evaluation Level of Assist On Stairs Independent Devices Stair Climbing Assistive Devices Left Railing,Right Railing Technique/Endurance Stair Climbing Technique Step to Step PT-OP-H Neuro Start: 03/09/24 17:24 Freq: Status: Active Protocol: Document 03/13/24 09:48 [facility] (Rec: 03/13/24 13:52 [facility] [id number]) Sensation Evaluation Gross Sensation Gross Sensation WNL PT-OP-J Posture/Palpation/Skin Start: 03/09/24 17:24 Freq: Status: Active Protocol: Document 03/13/24 09:48 [facility] (Rec: 03/13/24 13:52 [facility] [id number]) Posture Evaluation Position Standing Knee Posture (L) Genu Varus,(R) Genu Varus Foot Arch (L) Low Arch,(R) Low Arch Comments Posture Comments bunion right greater than left excess wear lateral soles of NB tennis shoes left greater than right PT-OP-K Range of Motion Start: 03/09/24 17:24 Freq: Status: Active Protocol: Document 03/13/24 09:48 [facility] (Rec: 03/13/24 13:56 [facility] [id number]) Hip Goniometric Range of Motion Hip Left Straight Leg Raise 55 Extension 0 Internal Rotation 20 External Rotation 45 right Straight Leg Raise 55 Extension 0 Internal Rotation 15 External Rotation 30 Knee Goniometric Range of Motion Knee Left Flexion Active (degrees) 131 Extension Active (degrees) 0 Right Knee ROM WFL Yes Ankle and Foot Goniometric Range of Motion Ankle and Foot adil[place] Dorsiflexion with Knee Flexed 5 Dorsiflexion with Knee Extended 0 PT-OP-M Strength Start: 03/09/24 17:24 Freq: Status: Active Protocol: Document 03/13/24 09:48 [facility] (Rec: 03/13/24 13:56 [facility] [id number]) Hip Strength Hip Manual Muscle Testing [place] Flexion (L2) 4+ Good+ Extension (S1) 4- Good- Abduction 4 Good External Rotation 4 Good Internal Rotation 4 Good Knee Strength Knee Manual Muscle Testing Right Flexion (S2) 5 Normal Extension (L3) 5 Normal Left Flexion (S2) 4+ Good+ Extension (L3) 4+ Good+ Ankle/Foot Strength Ankle and Foot Manual Muscle Testing ad[place] Dorsiflexion (L4) 5 Normal Plantarflexion (S1) 5 Normal PT-OP-T Assessment and Plan Start: 03/09/24 17:24 Freq: Status: Active Protocol: Document 05/17/24 08:11 [facility] (Rec: 05/17/24 08:59 [facility] [id number]) Physical Therapy Assessment Goals Two Impairment weakness and decreased flexibility left LE Short Term Goal (STG) Patient will be instructed in HEP for purposes of flexibility and strengthening to address impairments and support therapy activities 04/24/24: goal met STG Duration goal met Mine Utility Operator Goal (LTG) Patient will be independent and compliant with HEP and demonstrate improved strength to 5/5 and improvements in flexibility to WNL to allow for improved knee function. 05/10/24: strength has improved to 4+/5 but min change in flexibility, patient not as compliant with flexibility exercises and tends to push too hard, needs continued work . LTG Duration goal mostly met One Impairment Patient unable to go for walks or ascend/descend stairs alternating LE's Short Term Goal (STG) Patient will be able to walk for at least 15 minute without knee pain 04/24/24: goal met STG Duration goal met Jail Goal (LTG) Patient will be able to walk for at least 30 min and ascend and descend stairs with alternating pattern with minimal to no pain. 05/02/24: Progressing: walking up to 30 min now without knee pain. Hasn't tried usual walk with elevation, has difficulty with eccentric control quads with descending stairs 05/17/24: can now walk 1 mile, knee pain increases to 2/10 LTG Duration goal met Progress Towards Goals Progress Towards Goals Progressing Toward Goals Assessment Summary Assessment Patient has mostly met PT goals, independent with HEP, and planning to joint a gym. REviewed HEP and importance of neutral alignment, stretching when warm. Physical Therapy Plan Discharge Physical Therapy Discharge Reasons Goals Met
== END 2024-05-19 10:26 | disposition home or self-care (01) ==
LOC: PHYS 08:15
PROVIDERS: Family Provider Internal Medicine; PCP Internal Medicine; Referring Provider Internal Medicine; Visit Provider Internal Medicine
DX: M25.562 Pain in left knee (principal); M25.561 Pain in right knee; M17.11 Unilateral primary osteoarthritis, right knee; M19.90 Unspecified osteoarthritis, unspecified site; R26.2 Difficulty in walking, not elsewhere classified; R53.1 Weakness
CPT/HCPCS: 97014; 97110; 97116; 97140; 97161; 97530; 97535; G0283

== ENCOUNTER → 2024-07-19 06:33 | Outpatient (CLI) | payer MEDICARE, SELFPAY ==
[2024-07-19 08:13] LABS: Alanine Aminotransferase 26 IU/L (<50); Albumin 4.1 g/dL (3.5-5.0); Alkaline Phosphatase 61 U/L (38-126); Aspartate Aminotransferase 27 IU/L (17-59); BUN Creatinine Ratio 29.7 (6-22); Bilirubin Total 0.6 mg/dL (0.2-1.3); Blood Urea Nitrogen 41 mg/dL (9-20); Calcium 9.4 mg/dL (8.4-10.2); Carbon Dioxide 26 mmol/L (22-32); Chloride 102 mmol/L (98-107); Cholesterol 106 mg/dL (140-199); Estimated Glomerular Filt Rate 52 mL/min (>60); Globulin 2.1 g/dL (1.7-4.1); Glucose 104 mg/dL (80-110); HDL Cholesterol 49 mg/dL (40-60); HEMOLYSIS < 15 (0-50); LDL Cholesterol Calculated 46 mg/dL (<100); Potassium 4.3 mmol/L (3.4-5.1); Sodium 135 mmol/L (137-145); Total Protein 6.2 g/dL (6.3-8.2); Triglycerides 53 mg/dL (35-150)
== END ==
PROVIDERS: Family Provider Internal Medicine; PCP Internal Medicine; Referring Provider Internal Medicine; Visit Provider Internal Medicine
DX: I10 Essential (primary) hypertension (principal); E78.2 Mixed hyperlipidemia
CPT/HCPCS: 36415; 80053; 80061

== ENCOUNTER → 2025-01-17 06:41 | Outpatient (CLI) | payer MEDICARE, SELFPAY ==
--- NOTE | 2025-01-17 06:44 | DI.ECHO.S_ITS ---
[facility] +---------+ [facility] : : [id number] : [place] : : [id number] : : Phone: [phone] Echocardiogram Report + + :Name: MARLENE ARTHUR Study Date: 01/17/2025 Height: 66 in : :Hospital ReadingLocation: Weight: 203 lb : : Gender: Male BSA: 2.0 m2 : :: 1945 Age: 79 yrs BP: 144/81 mmHg: :Reason For Study: S/P TAVR : :Ordering Physician: PRANAV, : :DOUG Performed By: Garett Moses : :Referring: DOUG ROCK : + + Interpretation Summary The left ventricle is normal in size. Left ventricular ejection fraction is estimated to be 60 +/- 5%. There has been no significant change in LVEF since the previous exam. The right ventricle is mildly dilated. The right ventricular systolic function is normal. There is a bioprosthetic aortic valve. The peak aortic velocity is 1.98 m/sec. The aortic valve mean gradient is 8.7 mmHg. The peak aortic velocity on the previous exam was 2.3 m/sec. There is mild perivalvular regurgitation around the prosthetic aortic valve. No significant change in the aortic regurgitation. The ascending aorta is mild-moderately enlarged. 0.3 cm diameter. Previously 4.1 cm. Moderate atherosclerotic plaque(s) in the descending aorta. Procedure: A two-dimensional transthoracic echocardiogram with color flow and Doppler was performed. The study quality was technically adequate. Comparison is made with the echocardiogram of 01/26/2024. The patient was in sinus bradycardia with heart rates between 52-54 bpm during the exam. Left Ventricle: The left ventricle is normal in size. Left ventricular wall thickness is mildly increased. Proximal septal thickening is noted. There is no thrombus. Left ventricular ejection fraction is estimated to be 60 +/- 5%. There has been no significant change since the previous exam. There are no focal wall motion abnormalities. MV E/A: 1.0 Med Peak E' Shay: 4.7 cm/sec E/E' med: 13.7. Right Ventricle: The right ventricle is mildly dilated. There has been no significant change since the previous study. The right ventricular systolic function is normal. Atria: The left atrium is mildly dilated. There has been no significant change since the previous study. Right atrial size is normal. The interatrial septum is not well visualized. Mitral Valve: The mitral valve leaflets appear mildly thickened. There is mild mitral annular calcification. There is trace mitral regurgitation. Aortic Valve: There is a bioprosthetic aortic valve. The prosthetic aortic valve is well-seated. There is mild perivalvular regurgitation around the prosthetic aortic valve. The peak aortic velocity is 1.98 m/sec. The aortic valve mean gradient is 8.7 mmHg. The peak aortic velocity on the previous exam was 2.3 m/sec. Tricuspid Valve: There is tricuspid annular calcification. No tricuspid regurgitation. Pulmonic Valve: The pulmonic valve leaflets are thin and pliable; valve motion is normal. There is trace pulmonic regurgitation. Great Vessels: The aortic root is mildly dilated. The ascending aorta is mild-moderately enlarged. The aortic arch is mildly enlarged. Moderate atherosclerotic plaque(s) in the descending aorta. The pulmonary artery is normal size. The inferior vena cava was not visualized. Pericardium/ Pleura There is no pericardial effusion. MMode/2D Measurements & Calculations LVIDd: 5.0 cm LVOT diam: 1.9 cm LVIDs: 3.1 cm Ao root diam: 4.1 cm FS: 36.5 % asc Aorta Diam: 4.3 cm EPSS: 0.89 cm Ao Arch Diam (Prox Trans): 3.0 cm IVSd: 1.2 cm LVPWd: 1.1 cm LV anaya. diameter/BSA (cm/m^2): 2.5 LV sys. diameter/BSA (cm/m^2): 1.6 LA A2 area: 21.7 cm2 RA long axis: 4.1 cm LA A4 area: 25.0 cm2 RA area: 11.6 cm2 LA length (vol): 5.9 cm RA vol: 27.8 ml LA vol: 78.4 ml RA : 13.8 ml/m2 LA vol index: 39.0 ml/m2 TAPSE: 2.5 cm Doppler Measurements & Calculations Ao V2 max: 198.9 cm/sec LVOT Max Shay: 91.9 cm/sec Ao V2 mean: 139.8 cm/sec LV V1 max P.4 mmHg Ao max P.8 mmHg LV V1 VTI: 24.5 cm Ao mean P.7 mmHg SARA(I,D): 1.5 cm2 Ao V2 VTI: 47.3 cm SARA(V,D): 1.3 cm2 sev ratio: 0.52 SARA indexed to BSA (cm^2/m^2): 0.75 MV E max shay: 64.6 cm/sec PA V2 max: 92.4 cm/sec MV A max shay: 63.8 cm/sec PA V2 mean: 69.8 cm/sec MV E/A: 1.0 PA mean P.1 mmHg Med Peak E' Shay: 4.7 cm/sec PA pr(Accel): 65.3 mmHg E/E' med: 13.7 Lat Peak E' Shay: 5.9 cm/sec E/E' lat: 10.9 E/e' average: 12.3 MV dec time: 0.28 sec SV(LVOT): 71.3 ml Reading Physician:04:32 PM
== END ==
PROVIDERS: PCP Internal Medicine; Referring Provider Internal Medicine; Visit Provider Internal Medicine Cardiovascular Disease
DX: I34.81 Nonrheumatic mitral (valve) annulus calcification (principal); I35.1 Nonrheumatic aortic (valve) insufficiency; I77.810 Thoracic aortic ectasia; I77.89 Other specified disorders of arteries and arterioles; I70.0 Atherosclerosis of aorta; Z95.2 Presence of prosthetic heart valve
CPT/HCPCS: 93306

== ENCOUNTER → 2025-01-19 06:41 | Outpatient (CLI) | payer MEDICARE, SELFPAY ==
[2025-01-19 08:25] LABS: Alanine Aminotransferase 29 IU/L (<50); Albumin 4.0 g/dL (3.5-5.0); Albumin Globulin Ratio 1.7 (1.0-2.8); Alkaline Phosphatase 55 U/L (38-126); Blood Urea Nitrogen 27 mg/dL (9-20); Calcium 9.2 mg/dL (8.4-10.2); Carbon Dioxide 28 mmol/L (22-32); Chloride 98 mmol/L (98-107); Cholesterol 95 mg/dL (140-199); Estimated Glomerular Filt Rate > 60 mL/min (>60); Globulin 2.4 g/dL (1.7-4.1); Glucose 101 mg/dL (70-99); HDL Cholesterol 53 mg/dL (40-60); HEMOLYSIS < 15 (0-50); Potassium 4.3 mmol/L (3.4-5.1); Sodium 132 mmol/L (137-145); Total Protein 6.4 g/dL (6.3-8.2); Triglycerides 45 mg/dL (35-150)
== END ==
PROVIDERS: PCP Internal Medicine; Referring Provider Internal Medicine; Visit Provider Internal Medicine
DX: I10 Essential (primary) hypertension (principal); E78.2 Mixed hyperlipidemia
CPT/HCPCS: 36415; 80053; 80061